=== PATIENT | female | born 1950 | race Caucasian/White ===

== ENCOUNTER 2018-05-28 17:34 | Outpatient (REF) | payer MEDICARE, MEDICAID, SELFPAY ==
[2018-05-28 18:20] LABS: HCT 41.3 % (36.0-46.0); HGB 13.5 g/dL (12.0-15.5); Mean Corp. HGB Concentration 32.7 g/dL (32.0-36.0); Mean Corpuscular Hemoglobin 29.2 pg (27.0-33.0); Mean Corpuscular Volume 89.2 fL (80-95); Mean Platelet Volume 10.6 fL (8.0-11.0); Platelet Count 265 x1000/uL (130-400); RBC 4.63 m/cumm (4.00-5.20); White Blood Cell Count 7.55 k/cumm (4.4-10.8)
[2018-05-28 18:29] LABS: Anion Gap 7.5 mmol/L (3-11); BUN 13 mg/dL (7-18); CO2 27.5 mmol/L (21.0-32.0); CREATININE 0.58 mg/dL (0.55-1.02); Calcium 8.8 mg/dL (8.5-10.1); Chloride 103 mmol/L (98-107); Glucose 114 mg/dL (70-100); Potassium 4.3 mmol/L (3.5-5.1); Sodium 138 mmol/L (136-145)
[2018-05-28 21:04] LABS: Hemoglobin A1C 6.3 % (4.5-6.2)
== END 2018-05-28 17:54 ==
LOC: NCHCN 17:34
PROVIDERS: PCP Family Medicine; Visit Provider Family Medicine
DX: G80.9 Cerebral palsy, unspecified (principal); R73.01 Impaired fasting glucose
CPT/HCPCS: 80048; 85027; 83036

== ENCOUNTER 2019-11-22 07:20 | Emergency (ER) | payer MEDICARE, MEDICAID, SELFPAY ==
[2019-11-22] VITALS (13 sets, daily range): BP systolic 97–116; BP diastolic 55–84; PULSE 79–102; TEMP 36.3–36.4; O2SAT 92–97
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
--- NOTE | 2019-11-22 08:15 | DI.CT_ITS ---
EXAM: CT THORACIC LUMBAR SPINE REC CLINICAL HISTORY: s/p fall, r/o thoracic/lumbar fractures TECHNIQUE: Axial, coronal and sagittal images were reconstructed from the chest abdomen pelvic CT. COMPARISON: LUMBAR SPINE COMPLETE from 06/28/2010 FINDINGS: There is old an old mild compression of the superior endplate of T11 which is seen on the previous l umbar spine plain films. There is no evidence of an acute fracture. A bone island is seen in the T1 0 vertebral body. Old healed left lower rib fractures are seen. There are degenerative disc changes and facet degenerative changes greater in the lower lumbar spine. No spondylolysis or spondylolisth esis is seen. There is no paraspinal hematoma. SI joints appear intact. IMPRESSION: Old mild compression fracture of the superior endplate of T11. Degenerative changes greatest in the lower lumbar spine. No acute abnormality.
--- NOTE | 2019-11-22 08:15 | DI.CT_ITS ---
EXAM: CT CHEST/ABD/PEL W CLINICAL HISTORY: s/p fall, anterior chest pain. TECHNIQUE: Imaging Protocol: Axial computed tomography images with coronal and sagittal reformatted images were created and reviewed CONTRAST MATERIAL: Intravenous: Omnipaque 350 Contrast volume:100 ml Oral contrast: No COMPARISON: None FINDINGS: CHEST: Thyroid: Normal Tracheobronchial tree: Patent where visualized. Mediastinum and Melida: No dominant adenopathy or fluid collection. Pulmonary parenchyma: No consolidation or dominant measurable mass. No emphysematous or fibrotic praful nges Pleura: No effusion or pneumothorax. Lymph nodes: Within normal limits. Aorta: Thoracic portion non-dilated. Mild calcifications Heart: Normal in size Bones: Old left lower rib fractures. No evidence of an acute sternal or rib fracture. Degenerative changes are seen in the spine. A moderate size hiatal hernia is seen. ABDOMEN: Liver: Normal density. No measurable mass. Incidental small cysts. Gallbladder and biliary tract: No radiodense calculus or dilation. Pancreas: Normal density, no abnormal calcifications or inflammatory process. Spleen: Normal. Kidneys: Normal size, contour and axis. No radiodense stones or obstructive uropathy. No masses seen. Adrenal glands: No masses seen. Aorta: Abdominal portion non-dilated. Lymph nodes: Within normal limits. PELVIS: Bladder: Symmetric distention, no gross wall thickening. Bowel: No obstruction or bowel wall thickening. Increased quantity of stool. Diverticulosis without evidence of diverticulitis. The appendix appears normal. Peritoneal cavity: No ascites, collection or mesenteric inflammatory response. Bones: Within normal limits. Reproductive organs: Within normal limits. IMPRESSION: No acute abnormality is seen in the chest abdomen or pelvis.. DATA REPOSITORY: All CT scans at this facility are submitted to the National Radiology Data Registry (NRDR) Dose Index Registry (DIR) with the [employer] ([employer]). RADIATION OPTIMIZATION: All CT scans at this facility use at least one of these dose optimization te chniques: automated exposure control; mA and/or kV adjustment per patient size (includes targeted exa ms where dose is matched to clinical indication); or iterative reconstruction.
[2019-11-22] MEDS: Normal Saline 500 ML IV (08:30)
[2019-11-22 08:43] LABS: Abs Immature Grans 0.02 k/cumm (0.0-0.09); Absolute Basophil Count 0.01 k/cumm (0.0-0.2); Absolute Eosinophil Count 0.01 k/cumm (0.0-0.7); Absolute Lymphocyte Count 0.74 k/cumm (1.2-3.4); Absolute Monocyte Count 0.91 k/cumm (0.11-0.7); Basophils % 0.1; Eosinophils % 0.1; HCT 40.8 % (36.0-46.0); HGB 13.4 g/dL (12.0-15.5); Immature Grans % 0.2 %; Lymphocytes % 5.7; Mean Corp. HGB Concentration 32.8 g/dL (32.0-36.0); Mean Corpuscular Hemoglobin 28.6 pg (27.0-33.0); Neutrophils % 86.9; Platelet Count 277 x1000/uL (130-400); RBC 4.69 m/cumm (4.00-5.20); RBC Distribution Width 14.5 % (11.7-14.6); White Blood Cell Count 13.07 k/cumm (4.4-10.8)
[2019-11-22 08:45] LABS: Absolute Neutrophil Count 11.36 k/cumm (1.2-6.7)
[2019-11-22 08:48] LABS: ALT 20 U/L (14-59); AST 25 U/L (15-37); Albumin 3.5 g/dL (3.4-5.0); Alkaline Phosphatase 73 U/L (46-116); Anion Gap 8.6 mmol/L (3-11); BUN 11 mg/dL (7-18); Bilirubin, Total 0.8 mg/dL (0.2-1.0); CO2 25.4 mmol/L (21.0-32.0); CREATININE 0.54 mg/dL (0.55-1.02); Calcium 8.9 mg/dL (8.5-10.1); Chloride 105 mmol/L (98-107); Glucose 156 mg/dL (74-106); Potassium 3.3 mmol/L (3.5-5.1); Sodium 139 mmol/L (136-145); Total Protein 7.1 g/dL (6.4-8.2)
[2019-11-22 08:49] LABS: Creatine Kinase 247 U/L (26-192)
[2019-11-22 08:51] LABS: Bilirubin Negative (Negative); Blood Negative (Negative); Clarity Sl Cloudy (Clear); Glucose Negative (Negative); Ketones 15 mg/dL (Negative); Leukocyte Esterase Small (Negative); Nitrite Negative (Negative); Urobilinogen 0.2 EU/dL (Up TO 0.2); pH 5.5 (5-8)
[2019-11-22] MEDS: Omnipaque 350 MG/ML 100 ML BTL IJ (08:58)
[2019-11-22 09:03] LABS: Bacteria Many HPF (Negative); Epithelial Cells Moderate HPF (Negative); RBC 0-2 HPF (0-2)
[2019-11-22 09:04] LABS: C & S Indicated? No/Sq. Contamination; Crystals Moderate Amorphous HPF (Negative)
[2019-11-22] MEDS: Normal Saline - Diluent 50 ML VIAL IV (09:06)
--- NOTE | 2019-11-22 09:38 | DI.CT_ITS ---
EXAM: CT HEAD CERVICAL SPINE WO CLINICAL HISTORY: s/p fall, hit head on door, no loc. TECHNIQUE: Imaging Protocol: Axial computed tomography images with coronal and sagittal reformatted images were created and reviewed COMPARISON: No exams were available for comparison FINDINGS: Head CT No intracranial hemorrhage or skull fracture is seen. There is atrophy and compensatory ventricular enlargement. White matter changes of small vessel disease present. Calvarium: Normal. Visualized Paranasal sinuses/Mastoids: Clear. The orbits are unremarkable. IMPRESSION: Atrophy. No acute abnormality. FINDINGS: Cervical Spine CT BONES: Vertebral body heights are maintained. Alignment is normal. There is no evidence of acute frac ture. SOFT TISSUES: No paraspinal hematoma. The airway appears intact. Degenerative disc changes and facet degenerative changes are seen throughout . IMPRESSION: Degenerative changes, no acute abnormality. RADIATION DOSE DELIVERED: DATA REPOSITORY: All CT scans at this facility are submitted to the National Radiology Data Registry (NRDR) Dose Index Registry (DIR) with the [employer] ([employer]). RADIATION OPTIMIZATION: All CT scans at this facility use at least one of these dose optimization te chniques: automated exposure control; mA and/or kV adjustment per patient size (includes targeted exa ms where dose is matched to clinical indication); or iterative reconstruction.
[2019-11-22] MEDS: Ketorolac 30 MG/ML VIAL IVP (09:52)
[2019-11-22] MEDS: Acetaminophen 500 MG TAB 1000 MG PO (10:02)
== END 2019-11-22 11:43 | disposition home or self-care (01) ==
PROVIDERS: Emergency Provider Physician Assistant; PCP Family Medicine
DX: S20.222A Contusion of left back wall of thorax, initial encounter (principal); S30.0XXA Contusion of lower back and pelvis, initial encounter; S09.8XXA Other specified injuries of head, initial encounter; W06.XXXA Fall from bed, initial encounter; G80.9 Cerebral palsy, unspecified
CPT/HCPCS: 74177; 80053; 82550; 93005; 96361; 96374; 99285; 70450; 71260; 72125; 81003; 81015; 85025; 93010; 99284; J1885; J3490

== ENCOUNTER 2020-01-10 15:13 | Outpatient (REF) | payer MEDICARE, MEDICAID, SELFPAY ==
[2020-01-11 17:42] LABS: COVID-19 RT-PCR Result NEGATIVE (Negative)
== END 2020-01-10 15:33 ==
LOC: NCHCN 15:13
PROVIDERS: PCP Family Medicine; Visit Provider Family Medicine
DX: J02.9 Acute pharyngitis, unspecified (principal)
CPT/HCPCS: U0003

== ENCOUNTER 2020-10-02 08:17 | Outpatient (REF) | payer MEDICARE, MEDICAID, SELFPAY ==
[2020-10-02 09:01] LABS: HCT 44.2 % (36.0-46.0); HGB 14.1 g/dL (11.2-15.7); MCH 28.1 pg (27.0-33.0); MCHC 31.9 % (32.0-36.0); MPV 10.1 fL (8.0-11.0); Platelet Count 270 10^3/uL (130-400); RBC 5.02 10^6/uL (3.93-5.22); RDW 14.2 % (11.7-14.6); RDW-SD 45.9 fL; WBC 5.74 10^3/uL (4.4-10.8)
[2020-10-02 09:08] LABS: ALT 26 U/L (14-59); AST 17 U/L (15-37); Albumin 3.8 g/dL (3.4-5.0); Alkaline Phosphatase 91 U/L (46-116); BUN 13 mg/dL (7-18); Bilirubin, Total 1.1 mg/dL (0.2-1.0); CREATININE 0.5 mg/dL (0.55-1.02); Calcium 9.4 mg/dL (8.5-10.1); Calculated LDL 162 mg/dL (<100); Chloride 102 mmol/L (98-107); Cholesterol 249 mg/dL (<200); Glucose 92 mg/dL (74-106); HDL Cholesterol 68 mg/dL (40-60); Potassium 3.9 mmol/L (3.5-5.1); Sodium 140 mmol/L (136-145); Total Protein 7.3 g/dL (6.4-8.2); Triglyceride 98 mg/dL (<150)
== END 2020-10-02 08:18 | disposition home or self-care (01) ==
LOC: LBN 08:17
PROVIDERS: PCP Family Medicine; Visit Provider Family Medicine
DX: R73.01 Impaired fasting glucose (principal); E78.5 Hyperlipidemia, unspecified; G80.9 Cerebral palsy, unspecified; R68.89 Other general symptoms and signs
CPT/HCPCS: 80053; 80061; 85027; 83036

== ENCOUNTER 2022-05-23 14:09 | Outpatient (REF) | payer MEDICARE, MEDICAID, SELFPAY ==
[2022-05-23 16:47] LABS: Hemoglobin A1C 6.1 % (<5.7)
[2022-05-24 10:52] LABS: Hepatitis C Ab w Rflx HCV PCR Negative (Negative)
== END 2022-05-23 14:10 | disposition home or self-care (01) ==
LOC: NCHCN 14:09
PROVIDERS: PCP Family Medicine; Visit Provider Family Medicine
DX: R73.03 Prediabetes (principal); Z11.59 Encounter for screening for other viral diseases
CPT/HCPCS: 86803; 83036

== ENCOUNTER → 2023-01-19 13:07 | Outpatient (BNVA) | payer MEDICARE, MEDICAID, SELFPAY | PROVIDERS: PCP Family Medicine; Referring Provider Family Medicine; Visit Provider Physical Therapy Assistant | DX: Z12.11 Encounter for screening for malignant neoplasm of colon (principal); Z86.010 Personal history of colon polyps ==

== ENCOUNTER 2023-02-03 09:13 | Day surgery (SDC) | payer MEDICARE, MEDICAID, SELFPAY ==
--- NOTE | 2023-02-02 15:57 | W.COLOREPORT ---
Date of service: 02/04/23 Time of Service: 13:00 Colonoscopy Report Date of procedure: 02/03/23 Pre-op diagnosis general: sessile serrated adenoma Surgeon: Princess Nunes Anesthesia Type: General:No Airway Complications: None Disposition: no change Prep: Miralax/Dulcolax Procedure Description: After informed consent was obtained the patient was taken to the procedure room and placed in a left decubitous position. Monitors were applied and a time out was done. The patients name, date of , procedure, allergies to medications and metal in their body was reviewed. The patient was then sedated. Once sedated and comfortable a rectal exam was done. External exam was normal. Internal exam revealed a normal sphincter tone and no palpable masses. The scope was then introduced and retrofelexed. No internal hemorrhoids were identified. The scope was then advanced to the cecum w/out difficulty. The TI and appendiceal orifice were identified. The prep was BBPS 3 in all segments for total of 9. The scope was then slowly retracted over 11 minutes back into the rectum. She has severe diverticula that do carry all the way over to the transverse colon. They are numerous [place]. There is inspissated stool. There is no signs of active bleeding or infection. She has 3 polyps that are removed 1 at 80 cm, and 2 in the rectum. The one at 80 cm is a 1 cm flat polyp. This is removed with a cold snare. All specimen is retrieved and no bleeding is noted. The 2 polyps in the rectum are removed with cold biting forcep. The scope was removed and the patient was woken up and taken back to Same day surgery in stable condition. The patient tolerated the procedure well and there were no immediate complications. Follow up: The patient should follow up in 3-5 years, path pending, unless they develop changes in bowel habits or other new gastrointestinal complaints.
--- NOTE | 2023-02-02 15:58 | PDOC.DSDIS_ITS ---
Date of service: 02/03/23 Time of Service: 13:15 Discharge Plan Disposition Patient Disposition: Home Condition: Good Discharge Details Reason For Visit: colonscopy Attending Provider: Princess Nunes Primary Care Provider: Sarah Schwab Home Meds and New Rx's Prescriptions: New Metamucil 3.4 gram/5.4 gram powder 1 tbsp PO DAILY Qty: 660 12RF Rx Instructions: mix into at least 8 oz of water or juice before administering Continued oxybutynin chloride 5 mg tablet 5 mg PO BID nystatin 100,000 unit/gram powder 1 applic topical BID PRN metronidazole [Metrogel] 1 % gel 1 applic topical DAILY (DME) Breezers Adult Brief Misc See Rx Instructions .Route Rx Instructions: As directed ibuprofen 200 mg tablet 200 mg PO Q6H PRN cholecalciferol (vitamin D3) 50 mcg (2,000 unit) capsule 50 mcg PO DAILY Discontinued bisacodyl [Dulcolax (bisacodyl)] 5 mg tablet,delayed release (DR/EC) 5 mg PO ONCE Qty: 4 0RF Rx Instructions: Take per colonoscopy instructions provided by ordering providers office polyethylene glycol 3350 17 gram/dose powder 17 g PO ONCE Qty: 238 0RF Rx Instructions: Take per colonoscopy instructions provided by ordering providers office Discharge Instructions Additional Instructions: DSU Colonoscopy Post- Op Instructions Instructions for Everyone who is given Anesthesia: For your safety, please do the following for the next twenty-four (24) hours: *Do Not operate a motor vehicle (car, truck, motorcycle, etc.) *Do Not drink alcoholic beverages or use any recreational drugs for the first 24 hours or while taking pain medications. The medications in your body may have a reaction that can be dangerous. *Do Not make any important decisions or sign any important papers. Findings: POlyps Severe diverticula--Fiber/Metamucil daily to avoid constipation. Follow up: My office will send a letter in 2 to 3 weeks time with the results of the polyps and when we want you to repeat the colonoscopy. 1. No lifting over 20 pounds or strenuous activity for the first 24 hours after your procedure. After 24 hours there are no restrictions on your activity but you may feel fatigued for a few days. 2. After you arrive home you may have a light meal and return to your normal diet as you can tolerate it without feeling sick to your stomach. 3. You may have a bloated, gaseous feeling in your belly (abdomen) after a colonoscopy. Passing gas and belching will help. Walking or lying down on your left side with your knees flexed may relieve the discomfort. Call the office at [phone] (Office) or [phone] (Hospital) right away if you notice any of the following: a.Vomiting of blood or ?coffee ground stools?. b.Rectal bleeding 1Tbsp, blood clots or continuous bleeding. c.Severe belly (abdominal) pain. d.A hard distended belly (abdomen) and an inability to pass gas. 4. Please don?t expect to have a normal BM (bowel movement) for 2-3 days after your procedure. 5. If there are questions regarding the findings of your procedure, please contact your doctor 6. If you are unable to contact your doctor with a problem, contact the hospital at [phone]. 7. Continue all your regular medications unless directed otherwise. I understand the above instructions and have no questions. Signature of Patient or Adult Escort Name of Responsible Adult Escort Signature of Nurse Date/Time Stand Alone Forms: Anesthesia Discharge Inst., Press Ganey (DSU) Activity:: see above Diet:: see above Discharge Orders Discharge Orders: Discharge Order (Routine); Ordered 02/03/23 Ordered By: Princess Nunes DS: Diagnosis Discharge Diagnosis (1) GERD (gastroesophageal reflux disease): (2) History of adenomatous polyp of colon: Asessment and Plan: The patient is seen and examined after their colonoscopy.? The patient has been able to pass gas.? They are not having abdominal pain.? They have been able to tolerate liquids and a snack.? They do not have any nausea or vomiting.? They are not having any chest pain or shortness of breath.??? They are not having any rectal bleeding. Their vital signs have been stable-see nursing notes. We discussed findings during their colonoscopy, and any biopsies that were done/polyps that were removed. The patient will be sent a letter with any biopsy results, and when to repeat the colonoscopy.-see discharge instructions. Patient was given explicit instructions to follow-up regarding colonoscopy-refer to discharge instructions.? We reviewed resumption of medications. Patient verbalized understanding and discharged in stable and satisfactory condition- See nursing notes. (3) History of cerebral palsy: (4) History of head injury: (5) Hyperlipidemia: (6) Osteopenia: (7) Prediabetes:
[2023-02-03 09:20] VITALS: BP 131/75; PULSE 76; RESP 16; TEMP 36.2; O2SAT 98
--- NOTE | 2023-02-03 10:49 | W.ANESPRE ---
General Info Date of Service Date Performed: 02/03/23 Height: 4 ft 8 in Weight: 62.5 kg Body Mass Index (BMI): 30.9 Surgical Procedure: Operation Date: 02/03/23 10:20 Proposed Procedure Side Surgeon zeke Nunes, Meds Allergies and Home Medications Allergies Allergy/AdvReac Type Severity Reaction Status Date / Time fluoxetine AdvReac Nausea Unverified 02/03/23 09:32 Home Medication Medication Instructions Recorded cholecalciferol (vitamin D3) 50 50 mcg PO DAILY 12/16/22 mcg (2,000 unit) capsule diaper,brief,adult,disposable 12/16/22 (Breezers Adult Brief) ibuprofen 200 mg tablet 200 mg PO Q6H PRN 12/16/22 metronidazole 1 % topical gel 1 applic topical DAILY 12/16/22 (Metrogel) nystatin 100,000 unit/gram topical 1 applic topical BID PRN 12/16/22 powder oxybutynin chloride 5 mg tablet 5 mg PO BID 12/16/22 Current Visit Medications: Current Medications Generic Name Dose Route Start Last Admin Trade Name Freq PRN Reason Stop Dose Admin Hyoscyamine Sulfate 0.125 mg 02/03/23 03:55 Hyoscyamine 0.125 Mg Sl/Oral/Chew SL 03/05/23 03:54 DIRECTED PRN Ringer's Solution 1,000 mls @ 80 mls/hr 02/03/23 06:00 IV 03/04/23 23:59 INFUSION [facility] IV Miscellaneous Supplies 1 each 02/03/23 06:00 Iv Access IV 03/04/23 23:59 DIRECTED [facility] Ondansetron HCl 4 mg 02/03/23 03:55 Ondansetron 4 Mg/2 Ml Vial IVP 03/05/23 03:54 Q4H PRN PRN Nausea / Vomiting Sodium Chloride 0 ml 02/03/23 06:00 Normal Saline Flush 10 Ml Syr IV 03/04/23 23:59 PRN PRN Sodium Chloride 0 ml 02/03/23 06:00 Normal Saline 10 Ml Vial IJ 03/04/23 23:59 DIRECTED PRN Sterile Water 0 ml 02/03/23 06:00 Water,Injection,Sterile 10 Ml Vial IJ 03/04/23 23:59 DIRECTED PRN [facility] Medical History Medical History Arthritis of spine Club foot GERD (gastroesophageal reflux disease) History of adenomatous polyp of colon History of cerebral palsy History of head injury (~1988) Hyperlipidemia Obesity Osteopenia Prediabetes Strabismus Urinary incontinence Vitamin A deficiency Surgical History Surgical History History of colonoscopy with polypectomy 2011 2006 Leg - childhood Tobacco Smoking/Tobacco Use Status: Former Tobacco Use Alcohol Alcohol Intake: never Substance Use Substance use type: does not use Vital Signs and Lab Results Vital Signs Most Recent Vital Signs in EMR: Most Recent Vital Signs Temp Pulse Resp BP Pulse Ox 36.2 C L 76 16 131/75 98 02/03/23 09:20 02/03/23 09:20 02/03/23 09:20 02/03/23 09:20 02/03/23 09:20 Lab Results Blood Type / Crossmatch: No Data to Display Complete Blood Count: No Data to Display Complete Metabolic Panel: No Data to Display Liver Function Panel: No Data to Display Coagulation Panel: No Data to Display Cardiac Panel: No Data to Display Arterial Blood Gas: No Data to Display Venous Blood Gas: No Data to Display Pancreas Panel: No Data to Display Thyroid Panel: No Data to Display Infectious Disease: No Data to Display Blood Cultures: No Data to Display Toxicology Panel: No Data to Display Imaging and Studies Imaging and Studies Study information below may be from another EMR and interpreted by another provider. Please see original notes in EMR for more complete details. Echocardiogram Summary: ECHOCARDIOGRAM REPORT PATIENT NAME: BRANDI MCDOWELL #: [id number] ADMITTING PROVIDER: ARON LOZOYA MD #: [id number] PRIMARY CARE PROVIDER: SARAH MANN MDDATE OF SERVICE: 11/15/13 : 1950 DATE: November 15, 2013 ____ IN PATIENT ____ OUT-PATIENT ORDERING PHYSICIAN: Sarah Mann M.D. HEIGHT: 4 FT 8 IN WEIGHT: 165 LBS BSA: 1.6 m2 STUDY INDICATIONS: Heart murmur. FINDINGS: LEFT VENTRICLE/LVEF: The left ventricle is normal size and function. The ejection fraction is 65%. RIGHT VENTRICLE: Normal size and function. AORTIC VALVE: Trileaflet opens well. No . No AR. MITRAL VALVE: Trace regurgitation. No stenosis. TRICUSPID VALVE: Trace regurgitation. RSV/PA/RIGHT ATRIAL PRESSURE: PA pressure is normal at 28. PULMONIC VALVE: Normal. ATRIA: Normal. DIASTOLIC INDICES: Normal. GREAT VESSELS: Normal. PERICARDIUM: No effusion. SUMMARY: There is normal cardiac anatomy and function. There is no significant valvular disease, ASD or VSD. No pathological source of the murmur is identified. MEASUREMENTS: LVESD 25 mm LVEDD 38 mm IVS 9 mm PW 9 mm Ascending Aorta 31 mm AO. Root 32 mm AV mm AO Velocity m/sec LA 13 cm sq. RA 9 cm sq. Right atrial pressure 10 mmHg AV-PK/M mmHg LVOT size mm LVOT gradient mmHg Deceleration time 223 msec Isovolumic relaxation time 83 msec E/A ratio IVC collapses Uncertain. Yes No Dictated by: CHIO LOZOYA MD Dictated:: [id number]<Electronically signed by CHIO LOZOYA MD> Anesthesia Assessment and Plan Anesthesia History Personal History: No History of Anesthesia Complications Family History: Family History Unknown Exercise Tolerance Exercise Tolerance: Metabolic Equivalents>4 Pertinent Negatives Pertinent Negatives: No Symptoms of GERD, No Major Cardiovascular Symptoms or Complaints and No Major Pulmonary Symptoms or Complaints Cardiac & Pulmonary Exam Cardiac Exam: Normal S1/S2 Heart Sounds Pulmonary Exam: Clear Bilateral Breath Sounds Implantable Cardiac Device Does patient have a Pacemaker or an ICD?: No Airway Exam Known Difficult Airway: No Mallampati Class: 2 Mouth Opening: Normal (> 3cm) Thyromental Distance: Greater than 3 cm Neck Range of Motion: Full ROM Neck Circumference: Normal Teeth Condition: Normal Dentition and Generalized Poor Dentition ASA Classification ASA Score: ASA 3 Emergency Case?: No NPO Status NPO Status: NPO Clears >2 hours, Solids >8 hours Anesthesia Plan Resuscitation Status: Full Code Anesthesia Technique: General Anesthesia Airway Planned: Natural Airway Monitors Used: Standard Monitors Preoperative Comments:: Patient demonstrates understanding of plan and consents to proceed. Reports signs for self and has appropriately answered all questions.
[2023-02-03] MEDS: Lactated Ringers 1,000 ML 80 ML IV (10:58)
[2023-02-03 11:27] VITALS: BMI 30.9
--- NOTE | 2023-02-03 11:40 | BOWEL_PTH ---
PATIENT: Mellisa Mejia LOC: [facility] U#:[id number] AGE/SX: 72/F ROOM: RE02/03/[address]: Princess Nunes : 1950 BED: DIS: 02/03/2023 SPEC #: [id number] RECD: 02/03/23 12:55 STATUS: MISTI RE #: [id number] BJ: 02/03/23 11:[address]: Princess Nunes DEPT: Surgical Specimen RECD BY: Claudia Capps ENTERED: 02/03/23 12:55 SP TYPE: Bowel OTHR DR: Sarah Schwab Tissues: 1 - BIOPSY BOWEL 2 - BIOPSY BOWEL Procedures: GROSS AND MICRO LEVEL 4 Comments: [id number]
[2023-02-03 11:57] VITALS: BP 100/78; PULSE 82; RESP 18; TEMP 36.4; O2SAT 97
--- NOTE | 2023-02-03 12:11 | W.ANESPOSTOP ---
Postoperative Evaluation Date, Time and Location Date Performed: 02/03/23 Time Performed: 12:11 Patient Location: Day Surgery Unit Vital Signs Most Recent Imported Vital Signs: Most Recent Vital Signs Temp Pulse Resp BP Pulse Ox 36.4 C L 82 18 100/78 97 02/03/23 11:57 02/03/23 11:57 02/03/23 11:57 02/03/23 11:57 02/03/23 11:57 Pain Score Most Recent Pain Score: Most Recent Pain Score Pain Level 0 02/03/23 11:57 Assessment Mental Status: Awake (Alert & Oriented to Patient Baseline) Airway and Respiratory Function: Patent airway with normal (patient baseline) respiratory exam Cardiovascular Function: Hemodynamically Stable Hydration Status: Adequately Hydrated Nausea & Vomiting: No Nausea or Vomiting Pain: Pt. Denies Any Pain Peripheral Nerve Block: Patient did not receive a nerve block
[2023-02-03 12:23] VITALS: BP 117/79; PULSE 81; RESP 18; TEMP 36.4; O2SAT 100
== END 2023-02-03 13:36 | disposition home or self-care (01) ==
PROVIDERS: PCP Family Medicine; Visit Provider Surgery
PROC: 0DJD8ZZ Inspection of Lower Intestinal Tract, Via Natural or Artificial Opening Endoscopic (ICD-10-PCS; CPT 45378; principal; 2023-02-03 10:15)
DX: Z12.11 Encounter for screening for malignant neoplasm of colon (principal); K62.1 Rectal polyp; K57.30 Diverticulosis of large intestine without perforation or abscess without bleeding; D12.4 Benign neoplasm of descending colon
CPT/HCPCS: 45385; 45380; 88305

== ENCOUNTER 2023-07-04 15:31 | Outpatient (REF) | payer MEDICARE, MEDICAID, SELFPAY | END 2023-07-04 15:32 | disposition home or self-care (01) | LOC: NCHCN 15:31 | PROVIDERS: PCP Family Medicine; Visit Provider Physician Assistant | DX: N39.0 Urinary tract infection, site not specified (principal) | CPT/HCPCS: 87077; 87086; 87186 ==

== ENCOUNTER 2023-07-10 23:45 | Inpatient (IN) | payer MEDICARE, MEDICAID, SELFPAY ==
[2023-07-10 23:38] VITALS: BP 99/48; PULSE 98; RESP 18; TEMP 36.4; O2SAT 98
[2023-07-10 23:40] VITALS: RESP 21; O2SAT 98
[2023-07-10 23:41] VITALS: BP 99/48; PULSE 82; PULSE 89; RESP 15; O2SAT 99
--- NOTE | 2023-07-10 23:45 | DI.CT_ITS ---
Exam(s) CT BRAIN NECK CTA EXAM: CT BRAIN NECK CTA CLINICAL HISTORY: slurred speech and AMS >24 hours. TECHNIQUE: Imaging Protocol: Axial CT angiography was performed with multi-slice acquisition and mu lti-planar and/or 3D reconstructions. CONTRAST MATERIAL: Intravenous: Omnipaque 350 contrast volume:85 mL COMPARISON: CT CT HEAD CERVICAL SPINE WO from 11/22/[address] THORACIC LUMBAR SPINE REC from 11/22/2019 FINDINGS: CT Head W/O and W: Ventricles and Extra axial spaces: Normal in size and morphology for the patient's age. Hemorrhage: None. Cerebral parenchyma: There are areas of decreased attenuation in the white matter most consistent wit h chronic microvascular ischemic disease. No acute territorial infarct is seen. Midline shift: None. Brainstem/Cerebellum: Normal. Calvarium: Normal. Visualized Paranasal sinuses/Mastoids: Clear. Soft Tissues: Unremarkable. Enhancement: Unremarkable. CTA Neck W: Common Carotid: Medial deviation of both the right and left common carotid arteries. Right: No dissection, occlusion or significant stenosis. Left: No dissection, occlusion or significant stenosis. External Carotid: Right: No occlusion or significant stenosis. Left: No occlusion or significant stenosis. Internal Carotid: Right: No dissection, occlusion or significant stenosis. Left: No dissection, occlusion or significant stenosis. Vertebral Artery: Right: No dissection, occlusion or significant stenosis. Left: No dissection, occlusion or significant stenosis. Lung Apices: Normal. Bones: Within normal limits for the patient's age. Soft Tissues: Normal. Thyroid gland: There are few thyroid nodules. The largest measures 5 mm. No follow-up is recommende d. CTA Brain W: Internal Carotid Arteries: Mild atherosclerosis. No aneurysm, occlusion or significant stenosis. Anterior Cerebral Arteries: Right: No aneurysm, occlusion or significant stenosis. Left: No aneurysm, occlusion or significant stenosis. Middle Cerebral Arteries: Right: No aneurysm, occlusion or significant stenosis. Left: No aneurysm, occlusion or significant stenosis. Posterior Cerebral Arteries: Right: No aneurysm, occlusion or significant stenosis. Left: No aneurysm, occlusion or significant stenosis. Vertebral Arteries: Right: No aneurysm, occlusion or significant stenosis. Left: No aneurysm, occlusion or significant stenosis. Basilar Artery: No aneurysm, occlusion or significant stenosis. IMPRESSION: 1. No large vessel occlusion or significant stenosis on the CT angiography of the head. 2. No acute intracranial process. 3. No occlusion or significant stenosis on the CT angiography of the neck. RADIATION DOSE DELIVERED: Total DLP DATA REPOSITORY: All CT scans at this facility are submitted to the National Radiology Data Registry (NRDR) Dose Index Registry (DIR) with the [employer] (ACR). RADIATION OPTIMIZATION: All CT scans at this facility use at least one of these dose optimization te chniques: automated exposure control; mA and/or kV adjustment per patient size (includes targeted exa ms where dose is matched to clinical indication); or iterative reconstruction.
[2023-07-10 23:50] VITALS: PULSE 86; RESP 15; O2SAT 98
[2023-07-10 23:53] VITALS: RESP 16
--- NOTE | 2023-07-10 23:56 | ED.GENADUL_ITS ---
Discharge Plan Disposition Patient Disposition: Admit to [facility] Condition: Serious Discharge Details Chief Complaint: AMS/LOC Clinical Impression: Dysarthria, Gait instability, Cerebral palsy, Facial droop Primary Care Provider: Sarah Schwab ED Provider: Stormy Bunn Home Meds and New Rx's Prescriptions: No Action oxybutynin chloride 5 mg tablet 5 mg PO BID nystatin 100,000 unit/gram powder 1 applic topical BID PRN metronidazole [Metrogel] 1 % gel 1 applic topical DAILY (DME) Breezers Adult Brief Misc See Rx Instructions .Route Rx Instructions: As directed ibuprofen 200 mg tablet 200 mg PO Q6H PRN cholecalciferol (vitamin D3) 50 mcg (2,000 unit) capsule 50 mcg PO DAILY Metamucil 3.4 gram/5.4 gram powder 1 tbsp PO DAILY Qty: 660 12RF Rx Instructions: mix into at least 8 oz of water or juice before administering Medical Decision Making 72yo F with hx of GERD, HLD, urinary incontinence, presenting via EMS. History from patient and EMS, medical history from [facility] record review. Prior ED notes here show patient with hx of cerebral palsy and uses a walker at baseline. Per EMS, patient has had slurred speech and difficulty walking starting at 5pm on 07/09/23 (>24 hours ago), normal FS BG on their arrival. Lives at home with her . Vital signs reassuring, on exam she does have a left facial droop, mild dysarthria, and weakness (weakness of unclear chronicity). Broad differential; CVA, encephalopathy, NPH. Not concerning for sepsis, meningitis, etc. Labs reviewed as below, CBC & CMP with no significant abnormalities. TSH mildly elevated, normal T4. Normal ammonia. Serum ETOH negative, UDS negative. UTI suggestive of possible infection (vs chronic colonization); will treat with ceftriaxone. Likely not enough to explain patient's current presentation though difficult to determine chronicity of her current neurologic findings (particularly facial droop). Unclear if she is back to baseline. On reassessment she ambulated with difficulty, able to ambulate with walker but unsteadily. Discussed with hospitalist; will admit for strong workup. Given aspirin and plavix load. Boarding in the ED awaiting bed availability. Imaging Data Radiologic Study: Imaging: CT Scan Radiologist's impression: IMPRESSION: 1. No acute intracranial findings on initial unenhanced CT head images. 2. Diffuse cerebral atrophy. Age-related periventricular white matter changes. 3. CTA head within normal limits. No large vessel occlusion. No aneurysm. Radiologic Study #2: Imaging: CT Scan Radiologist's impression: IMPRESSION: CTA neck within normal limits. No arterial dissection, arterial occlusion, or arterial stenosis. Lab Data Lab results reviewed: Yes I reviewed the patient's lab results. Labs: Laboratory Tests Range/Units 07/11/23 00:05 WBC (4.4-10.8) 10^3/uL 9.15 RBC (3.93-5.22) 10^6/uL 4.85 Hgb (11.2-15.7) g/dL 14.3 Hct (36.0-46.0) % 43.8 MCV (80-95) fL 90 MCH (27.0-33.0) pg 29.5 MCHC (32.0-36.0) % 32.6 RDW (11.7-14.6) % 13.6 Plt Count (130-400) 10^3/uL 307 MPV (8.0-11.0) fL 9.8 Immature Gran % 0.3 Neutrophils % 71.0 Lymphocytes % 18.1 Monocytes % 9.5 Eosinophils % 0.8 Basophils % 0.3 Nucleated RBC % (0.0-0.3) % 0.0 Absolute Neutrophils (1.2-6.7) 10^3/uL 6.49 Absolute Lymphocytes (1.2-3.4) 10^3/uL 1.66 Absolute Monocytes (0.1-0.8) 10^3/uL 0.87 H Absolute Eosinophils (0.0-0.7) 10^3/uL 0.07 Absolute Basophils (0.0-0.2) 10^3/uL 0.03 PT (9.1-11.1) sec 11.0 INR (0.9-1.1) 1.1 Sodium (136-145) mmol/L 138 Potassium (3.5-5.1) mmol/L 3.7 Chloride (98-107) mmol/L 103 Carbon Dioxide (21.0-32.0) mmol/L 26.9 Anion Gap (3-11) mmol/L 8.1 BUN (7-18) mg/dL 14 Creatinine (0.55-1.02) mg/dL 0.6 Est GFR (CKD-EPI 2020) (mL/min/1.73m2) 94.72 Glucose (74-106) mg/dL 122 H Calcium (8.5-10.1) mg/dL 9.8 Magnesium (1.8-2.4) mg/dL 2.2 Total Bilirubin (0.2-1.0) mg/dL 1.3 H AST (15-37) U/L 21 ALT (14-59) U/L 23 Alkaline Phosphatase (46-116) U/L 75 Ammonia (11-32) umol/L < 10 L Total Protein (6.4-8.2) g/dL 7.9 Albumin (3.4-5.0) g/dL 3.9 TSH (0.36-3.74) uIU/mL 4.29 H Free T4 (0.76-1.46) ng/dL 1.27 Ethyl Alcohol (<10) mg/dL < 3.0 HPI General Mode of arrival: EMS . Date/Time Provider Initiated Documentation: 07/10/23 23:54 . Limitations to Documentation: altered mental status . Information obtained by: patient, EMS and old records reviewed . HPI Narrative: 72yo F with hx of GERD, HLD, urinary incontinence, presenting via EMS. History from patient and EMS, medical history from [facility] record review. Per EMS, patient has had slurred speech and difficulty walking starting at 5pm on 07/09/23 (>24 hours ago). Patient spoke with someone on the phone (unclear who) and they told her she should come in so she called EMS. Lives at home with her . No recent falls per patient. She denies any pain or injury. Confirms history provided by EMS but unable to expand on it. She is otherwise in her usual state of health; no fevers, chills, chest pain, shortness of breath, nausea, vomiting, abdominal pain, numbness, weakness, vertigo, or other concerns. Prior ED notes here show patient with hx of cerebral palsy and uses a walker at baseline. Related Data Home Medications Medication Instructions Recorded Confirmed cholecalciferol (vitamin D3) 50 50 mcg PO DAILY 12/16/22 07/11/23 mcg (2,000 unit) capsule diaper,brief,adult,disposable 12/16/22 02/02/23 (Breezdomingo Adult Brief) ibuprofen 200 mg tablet 200 mg PO Q6H PRN 12/16/22 07/11/23 metronidazole 1 % topical gel 1 applic topical DAILY 12/16/22 07/11/23 (Metrogel) nystatin 100,000 unit/gram topical 1 applic topical BID PRN 12/16/22 07/11/23 powder oxybutynin chloride 5 mg tablet 5 mg PO BID 12/16/22 07/11/23 psyllium husk 3.4 gram/5.4 gram 1 tbsp PO DAILY #660 grams 02/03/23 07/11/23 oral powder (Metamucil) Previous Rx's Medication Instructions Recorded psyllium husk 3.4 gram/5.4 gram 1 tbsp PO DAILY #660 grams 02/03/23 oral powder (Metamucil) Allergies Allergy/AdvReac Type Severity Reaction Status Date / Time fluoxetine AdvReac Nausea Unverified 07/11/23 00:03 General Stated Complaint: AMS/LOC AMADOR: 3 Review of Systems Narrative: see HPI PFSH All Active Problems (Updated 07/11/23 @ 06:18 by Stormy Bunn MD) Facial droop (Acute) Cerebral palsy (Acute) Gait instability (Acute) Dysarthria (Acute) Discharge planning issues (Acute) DVT prophylaxis (Acute) Pyuria (Acute) TIA (transient ischemic attack) (Acute) Tubular adenoma (Acute ~01/2023) Medical History History of head injury (~1988) Vitamin A deficiency Strabismus GERD (gastroesophageal reflux disease) Hyperlipidemia Arthritis of spine Osteopenia Obesity Urinary incontinence Prediabetes Club foot History of adenomatous polyp of colon History of cerebral palsy Surgical History History of colonoscopy with polypectomy (~01/2023) 2022 2011 2006 Leg - childhood Social History Smoking/Tobacco Use Status: Former Tobacco Use Quit Date: 08/21/02 Smoking risk assessment performed?: Yes Alcohol Intake: never Substance use type: does not use Do you feel safe at home: Yes Do you feel safe in your relationship?: Yes Additional Social history: Lives with Surya in apartment on [address] in [place] Exam Narrative Exam Narrative: General: Alert, in no acute distress. Head: Atraumatic Neck: Trachea midline, Neck supple. ENT: MMM. Cardiac: RRR, no murmurs appreciated Resp: No respiratory distress. CTAB. Abd: Soft, non-distended, nontender : No suprapubic tenderness. Extremities: BLE contracted. Neuro: GCS 15. PERRL. EOMI. Normal sensation in V1, V2, and V3 segments bilaterally. Mild dysarthria. Nasolabial fold flattening on left. Normal hearing to speech. No uvular deviation. Midline tongue protrusion. Motor- 4/5 strength symmetric bilateral upper extremities. 4/5 LLE, 3/5 RLE. Sensation- Intact to light touch and symmetric multiple dermatomes including upper and lower extremities Coordination- No dysmetria on finger to nose Gait: Ambulates unsteadily with walker Course Vital Signs Vital signs: Vital Signs Temperature 36.4 C L 07/10/23 23:38 Pulse 98 H 07/10/23 23:38 Respiratory Rate 18 07/10/23 23:38 Blood Pressure 99/48 L 07/10/23 23:38 Pulse Oximetry 98 07/10/23 23:38 Temperature 36.4 C L 07/10/23 23:38 Temperature Source Temporal Artery Scan 07/10/23 23:38 Pulse 98 H 07/10/23 23:38 Respiratory Rate 18 07/10/23 23:38 Respiratory Effort Normal, Non-Labored 07/10/23 23:50 Blood Pressure 99/48 L 07/10/23 23:38 Blood Pressure Position Supine 07/10/23 23:38 Pulse Oximetry 98 07/10/23 23:38 Oxygen Delivery Method Room Air 07/10/23 23:38 Oxygen Flow Rate 0 07/10/23 23:38
[2023-07-10 23:57] VITALS: BP 130/72; PULSE 82; RESP 14; TEMP 36.1; O2SAT 99
[2023-07-11] VITALS (130 sets, daily range): BP systolic 113–152; BP diastolic 54–96; PULSE 66–122; RESP 10–44; TEMP 36.6; O2SAT 94–100
--- NOTE | 2023-07-11 | DI.US_ITS ---
APPROVED REPORT EXAM: Comprehensive 2D, Doppler, and color-flow Echocardiogram Patient Location: ER Room/Bed: 3 Sourcer: Tashia Wadsworth RDCS (AE) Indications: TIA Other Information Study Quality: Fair. Technically limited study due to body habitus, inability to position patient exa m done supine bedside ER.. Conclusion Normal left ventricular wall thickness and chamber size. Ejection fraction is 55%. No segmental wal l motion abnormality maladies are seen. There is stage I diastolic dysfunction, normal for patient a ge Normal right ventricular size and systolic function Both atria are normal in size There is no structural or hemodynamically significant valvular disease identified Wall motion Left Ventricle Technically limited parasternal imaging. The overall left ventricular systolic function appears judi l. Regional wall motion is not well visualized but grossly normal. There is no ventricular septal def ect visualized. LVEF is 55%. Right Ventricle Right ventricle is not well visualized. Right ventricular systolic function could not be assessed. Atria The left atrium size is normal. The right atrium size is normal. The interatrial septum is intact wit h no evidence for an atrial septal defect. Aortic Valve The aortic valve is normal in structure. Aortic valve is probably trileaflet. There is no aortic valv ular stenosis. No aortic regurgitation is present. Mitral Valve The mitral valve is normal in structure. No evidence of mitral valve stenosis. Trace mitral regurgita tion. Tricuspid Valve The tricuspid valve is normal in structure. There is no tricuspid valve stenosis. Trace tricuspid reg urgitation. Unable to assess PA pressure. Pulmonic Valve Pulmonic valve is not well visualized. There is no pulmonic valvular stenosis. There is no pulmonic v alvular regurgitation. Great Vessels The aortic root is normal in size. Ascending aorta is not well visualized. Aortic arch is not well vi sualized. IVC is normal in size and collapses >50% with inspiration. Pericardium Limited subcostal imaging. 2D Dimensions Ao Root d 3.00 cm F: 2.7 - 3.3 M-Mode TAPSE 3.10 cm (M/F) >1.7 Auto EF LV EDV A4C 84.7 mL LV EDV A2C 73.4 mL LV EDV BP LV ESV A4C 38.1 mL LV ESV A2C 33.4 mL LV ESV BP LVEF(%) A4C 55.0 % LVEF(%) A2C 54.4 % LVEF(%) BP LV SV A4C 46.6 ml LV SV A2C 39.9 ml LV SV BP LV CO A4C 4.1 L/min LV CO A2C 3.6 L/min LV CO BP HR A4C 87.80 BPM HR A2C 89.96 BPM LV EDV Index (BP) LA Volume LA Length A4C 4.2 cm LA Length A2C 4.4 cm LA Area A4C s 13.77 cm2 LA Area A2C s 10.15 cm2 LA Vol A4C A-L 38.22 mL LA Vol A2C A-L 19.79 mL LA Vol Biplane A-L 28.2 mL LA Vol/BSA A4C A-L LA Vol/BSA A2C A-L LA Vol/BSA BP A-L 18.5 mL/m2 LA Vol A4C MOD 35.4 mL LA Vol A2C MOD 18.5 mL LA Vol BP MOD 26.1 mL LV Diastology MV E' medial 0.097 (>0.07 m/s) MV E Vmax 0.69 (0.4-1.3 m/s) MV E/E' MED 7.05 (<14) MV A Vmax 1.15 (0.4-1.3 m/s) MV E' lateral 0.082 (>0.1 m/s) E/A Ratio 0.6 MV E/E' LAT 8.38 (<14) MV E' Average 0.090 m/s MV E/E'(average) 7.66 Aortic Valve AoV Vmax 1.68 m/s LVOT Vmax 1.39 m/s AoV Peak Grad 11.3 mmHg LVOT Peak Grad 7.7 mmHg AoV Area (Vmax) 2.64 cm2 LVOT VTI 0.256 m AoV VTI 0.283 m LVOT Mean Grad 3.9 mmHg AoV Mean Jovany. 1.08 m/s LVOT SV 82.15 mL AoV Mean Grad 5.4 mmHg LVOT Diam s 2.00 cm AoV Area (VTI) 2.90 cm2 Velocity Ratio 0.83 Mitral Valve MV DT 273 (160-240 msec) MV Vmax TIPS 1.27 m/s MV Mean Grad 3.1 (<2mmHg) MV VTI 0.252 m Pulmonary Valve PV Vmax 1.09 (0.5-1.5 m/s) RVOT Vmax 0.94 m/s PV Peak Grad 4.7 mmHg RVOT Peak Gr. 3.5 mmHg PV Mean Jovany 0.72 m/s RVOT VTI 0.171 m PV Mean Grad 2.4 mmHg RVOT Mean Gr. 2.2 mmHg Tricuspid Valve TV S' 0.19 m/s
--- NOTE | 2023-07-11 | DI.MRI_ITS ---
Exam(s) MR BRAIN WO EXAM: MR BRAIN WO CLINICAL HISTORY: TIA with dysarthria, ataxia TECHNIQUE: Multiplanar multisequence MRI of the brain was performed. COMPARISON: CT CT BRAIN NECK CTA from 07/11/2023 FINDINGS: The examination is limited due to patient motion artifact. VENTRICLES AND EXTRA AXIAL SPACES: Normal in size and morphology for the patient's age. MIDLINE SHIFT: None. CEREBRAL PARENCHYMA: No focus of restricted diffusion to suggest acute infarct. No space-occupying le tyson identified. There are areas of hyperintense signal seen in the white matter on the FLAIR and T2 weighted images most consistent with small vessel ischemic disease. HEMORRHAGE: None. BRAINSTEM/CEREBELLUM: Normal. CALVARIUM: Normal. VISUALIZED PARANASAL SINUSES/MASTOIDS:Clear. GRAND TRAVERSE OF TURNER: Normal flow void. PITUITARY GLAND: Unremarkable. OTHER FINDINGS: None. IMPRESSION: 1. The examination is limited due to patient motion artifact. 2. No evidence of an acute infarct. 3. Cerebral atrophy and small vessel ischemic disease. 4. Findings were discussed with the emergency department at 8:17 a.m. on 07/11/2023. DATA REPOSITORY:
[2023-07-11 00:19] LABS: Abs Immature Grans 0.03 10^3/uL (0.0-0.06); Absolute Basophil Count 0.03 10^3/uL (0.0-0.2); Absolute Eosinophil Count 0.07 10^3/uL (0.0-0.7); Absolute Lymphocyte Count 1.66 10^3/uL (1.2-3.4); Absolute Monocyte Count 0.87 10^3/uL (0.1-0.8); Absolute Neutrophil Count 6.49 10^3/uL (1.2-6.7); Basophils % 0.3; Eosinophils % 0.8; HCT 43.8 % (36.0-46.0); HGB 14.3 g/dL (11.2-15.7); Immature Grans % 0.3; Lymphocytes % 18.1; MCH 29.5 pg (27.0-33.0); MCHC 32.6 % (32.0-36.0); MCV 90 fL (80-95); MPV 9.8 fL (8.0-11.0); Monocytes % 9.5; Platelet Count 307 10^3/uL (130-400); RBC 4.85 10^6/uL (3.93-5.22); RDW 13.6 % (11.7-14.6); RDW-SD 45.2 fL; WBC 9.15 10^3/uL (4.4-10.8)
[2023-07-11 00:30] LABS: INR 1.1 (0.9-1.1)
[2023-07-11 00:41] LABS: ALT 23 U/L (14-59); AST 21 U/L (15-37); Albumin 3.9 g/dL (3.4-5.0); Alkaline Phosphatase 75 U/L (46-116); Anion Gap 8.1 mmol/L (3-11); BUN 14 mg/dL (7-18); Bilirubin, Total 1.3 mg/dL (0.2-1.0); CO2 26.9 mmol/L (21.0-32.0); CREATININE 0.6 mg/dL (0.55-1.02); Calcium 9.8 mg/dL (8.5-10.1); Chloride 103 mmol/L (98-107); Estimated GFR 94.72 (mL/min/1.73m2); Glucose 122 mg/dL (74-106); Magnesium 2.2 mg/dL (1.8-2.4); Potassium 3.7 mmol/L (3.5-5.1); Sodium 138 mmol/L (136-145); TSH (W/Ref FT4) 4.29 uIU/mL (0.36-3.74); Total Protein 7.9 g/dL (6.4-8.2)
[2023-07-11 00:42] LABS: ETHANOL BLOOD < 3.0 mg/dL (<10)
[2023-07-11] MEDS: Omnipaque 350 MG/ML 100 ML BTL IJ (00:42)
[2023-07-11] MEDS: Normal Saline - Diluent 50 ML VIAL IJ (00:43)
[2023-07-11] MEDS: Normal Saline Flush 10 ML SYR IVP (00:43)
[2023-07-11 00:47] LABS: Ammonia < 10 umol/L (11-32)
[2023-07-11 00:59] LABS: FREE T4 1.27 ng/dL (0.76-1.46)
--- NOTE | 2023-07-11 01:01 | DI.VRAD_ITS ---
PROCEDURE INFORMATION: Exam: CTA Head With Contrast, Arteriography Exam date and time: 07/11/2023 12:21 AM Age: 72 years old Clinical indication: Stroke-like symptoms; AMS / memory loss; Speech disturbance; Slurred speech; AMS >24 hours TECHNIQUE: Imaging protocol: Computed tomographic angiography of the head with contrast. Exam focused on the arteries. 3D rendering (Not supervised by radiologist): MIP and/or 3D reconstructed images were created by the technologist. Radiation optimization: All CT scans at this facility use at least one of these dose optimization techniques: automated exposure control; mA and/or kV adjustment per patient size (includes targeted exams where dose is matched to clinical indication); or iterative reconstruction. Contrast material: OMNIPAQUE 350; Contrast volume: 85 ml; Contrast route: INTRAVENOUS (IV); COMPARISON: CT HEAD CERVICAL SPINE WO 11/22/2019 8:54 AM FINDINGS: ANTERIOR CIRCULATION: Right internal carotid artery: Intracranial segment is patent with no significant stenosis. No aneurysm. Right middle cerebral artery: No occlusion or significant stenosis. No aneurysm. Right anterior cerebral artery: No occlusion or significant stenosis. No aneurysm. Left internal carotid artery: Intracranial segment is patent with no significant stenosis. No aneurysm. Left middle cerebral artery: No occlusion or significant stenosis. No aneurysm. Left anterior cerebral artery: No occlusion or significant stenosis. No aneurysm. POSTERIOR CIRCULATION: Right vertebral artery: No occlusion or significant stenosis. No aneurysm. Left vertebral artery: No occlusion or significant stenosis. No aneurysm. Basilar artery: No occlusion or significant stenosis. No aneurysm. Right posterior cerebral artery: No occlusion or significant stenosis. No aneurysm. Left posterior cerebral artery: No occlusion or significant stenosis. No aneurysm. Brain: Periventricular white matter areas of decreased density which are likely secondary to chronic ischemia from microvascular change. No acute intracranial hemorrhage. Diffuse cerebral atrophy. Cerebral ventricles: Ventricular prominence in this patient with diffuse cerebral atrophy. Mastoid air cells: Normally aerated mastoid air cells. Paranasal sinuses: No significant disease of the paranasal sinuses. Bones/joints: Unremarkable for patient age. Soft tissues: Unremarkable. IMPRESSION: 1. No acute intracranial findings on initial unenhanced CT head images. 2. Diffuse cerebral atrophy. Age-related periventricular white matter changes. 3. CTA head within normal limits. No large vessel occlusion. No aneurysm. PROCEDURE INFORMATION: Exam: CTA Neck With Contrast Exam date and time: 07/11/2023 12:21 AM Age: 72 years old Clinical indication: Stroke-like symptoms; AMS / memory loss; Speech disturbance; Slurred speech; AMS >24 hours TECHNIQUE: Imaging protocol: Computed tomographic angiography of the neck with contrast. Exam focused on the cervical segments of the vasculature. 3D rendering (Not supervised by radiologist): MIP and/or 3D reconstructed images were created by the technologist. Radiation optimization: All CT scans at this facility use at least one of these dose optimization techniques: automated exposure control; mA and/or kV adjustment per patient size (includes targeted exams where dose is matched to clinical indication); or iterative reconstruction. Contrast material: OMNIPAQUE 350; Contrast volume: 85 ml; Contrast route: INTRAVENOUS (IV); COMPARISON: CT HEAD CERVICAL SPINE WO 11/22/2019 8:54 AM FINDINGS: Right common carotid artery: Medial deviation. No stenosis. No dissection or occlusion. Right internal carotid artery: No stenosis of the extracranial segment. No dissection or occlusion. Right external carotid artery: No occlusion or stenosis of the origin. Left common carotid artery: Medial deviation. No stenosis. No dissection or occlusion. Left internal carotid artery: No stenosis of the extracranial segment. No dissection or occlusion. Left external carotid artery: No occlusion or stenosis of the origin. Right vertebral artery: No stenosis. No dissection or occlusion. Left vertebral artery: No stenosis. No dissection or occlusion. Thyroid: 5-6 mm thyroid nodules. No follow-up imaging is recommended. Soft tissues: No significant soft tissue swelling. Bones/joints: No acute fracture. IMPRESSION: CTA neck within normal limits. No arterial dissection, arterial occlusion, or arterial stenosis. REFERENCES: NASCET CRITERIA. The degree of stenosis in the cervical segment of the internal carotid artery is based on NASCET criteria. Normal is no stenosis. Mild is less than 50% stenosis. Moderate is 50-69% stenosis. Severe is 70% to 99% stenosis. Total occlusion is no detectable patent lumen. Dictated and Authenticated by: Eben Estrella MD. Ordering:ELLA Burrows MD
[2023-07-11 01:04] LABS: Bilirubin Negative (Negative); Blood Trace-intact (Negative); Clarity Sl Cloudy (Clear); Glucose Negative (Negative); Ketones 40 mg/dL (Negative); Leukocyte Esterase Trace (Negative); Nitrite Positive (Negative); Specific Gravity >= 1.030 (1.005-1.025); Urobilinogen 0.2 mg/dL (Up to 0.2)
[2023-07-11 01:11] LABS: Bacteria Many HPF (Negative); C & S Indicated? Yes; Crystals Negative HPF (Negative); Epithelial Cells Few HPF (Negative); Mucus Negative (Negative)
[2023-07-11 01:12] LABS: *AMPHETAMINES SCREEN URINE Negative (Negative); *BARBITURATES SCREEN URINE Negative (Negative); *BENZODIAZEPINES SCREEN URINE Negative (Negative); Cannabinoids THC Negative (Negative); Cocaine Screen,Urine Negative (Negative); METHADONE URINE SCREEN Negative (Negative); OPIATES URINE SCREEN Negative (Negative)
[2023-07-11 01:18] LABS: Tricyclic Antidepressants Negative (Negative)
--- NOTE | 2023-07-11 01:40 | HPE_ITS ---
Date of service: 07/11/23 Time of Service: 01:40 Assessment and Plan Assessment and plan (1) TIA (transient ischemic attack): Status: Acute Assessment and plan: The report of acute onset dysarthria and acute increase in ataxia are concerning for a TIA. At this point just interviewing and examining her it is difficult to tease out what is truly new and what is related to her chornic CP. However we do have an unequivocal report from those who know her well that she had an acute change. I'm not sure if she is back to her baseline at this point or not. Given her age, dysarthria, and length of symptoms, her ABCD2 score is 4 and she qualifies as a high risk TIA. Will load with ASA and clopidogrel and start high intensity statin. no significant coratid stenosis on CTA. we still need EKG, ED called to order as she is boarding down there. Get echocardiogram, quality assurance monitor body, and MRI in AM. (2) Pyuria: Status: Acute Assessment and plan: It is not clear to me she has symptoms of a UTI. She was treated with ceftriaxone x 1. No further treatment. (3) DVT prophylaxis: Status: Acute Assessment and plan: LMWH (4) Discharge planning issues: Status: Acute Assessment and plan: PT oreded to prep her for discharge safelty once her studies are done. History of Present Illness Narrative: 72 yo F with history of cerebral palsy with chronic left sided spasticity and club foot, presented to the emergency room via EMS after an acute onset slurring of her speech that started the evening prior to her presentation and lasted all day the following day, at the end of which her called EMS. Both her and EMS confirmed to the ED team that her speech as well as her ability to walk were both not at her baseline cerebral palsey. They had never seen her present like this. I was not able to personally speak to either the or EMS, but per report the EMS team knows Mrs Mejia well and told her she needed to come in. Mrs. Mejia relates her concern she may have had a stroke, but is not able to give a clear narrative of the timing of what has happened. She states she had a headache earlier today, not now. Has some right sided neck discomfort. She did not have any seizures or similar abnormal movement. She denies chest pain or LOC. Review of Systems Constitutional Constitutional: Reports as per HPI, Denies anorexia, Denies chills, Denies fever(s) and Denies weakness Eyes Eyes: Denies change in vision, Denies diplopia, Denies irritation, Denies loss of vision and Denies photophobia ENT Ears, Nose, Mouth, and Throat: Denies dysphagia, Denies dizziness, Denies nasal congestion, Denies nasal discharge and Denies sore throat Cardiovascular Cardiovascular: Denies chest pain, Denies syncope, Denies palpitations, Denies dyspnea and Denies orthopnea Respiratory Respiratory: Denies cough, Denies excessive phlegm production, Denies dyspnea and Denies wheezing Gastrointestinal Gastrointestinal: Denies abdominal pain, Denies constipation, Denies dysphagia, Denies heartburn, Denies diarrhea, Denies nausea and Denies vomiting Genitourinary Genitourinary: Denies hematuria, Denies dysuria and Reports urinary incontinence (chronic) Musculoskeletal Musculoskeletal: Reports abnormal gait Comments: some low back pain on right Integumentary/Breasts Skin/Breast: Denies rash and Denies skin ulcer Neurologic Neurologic: Reports abnormal speech, Reports abnormal gait, Denies confusion, Denies dizziness, Denies syncope, Reports localized weakness (left side, chronic), Denies loss of vision, Denies convulsions, Denies sensory deficit and Denies weakness Psychiatric Psychiatric: Denies confusion and Denies mood swings Endocrine Endocrine: Denies palpitations Hematologic/Lymphatic Hematologic/Lymphatic: Denies easy bleeding Allergic/Immunologic Allergic/Immunologic: Denies wheezing PFSH All Active Problems Discharge planning issues (Acute) DVT prophylaxis (Acute) Pyuria (Acute) TIA (transient ischemic attack) (Acute) Tubular adenoma (Acute ~01/2023) Medical History History of head injury (~1988) Vitamin A deficiency Strabismus GERD (gastroesophageal reflux disease) Hyperlipidemia Arthritis of spine Osteopenia Obesity Urinary incontinence Prediabetes Club foot History of adenomatous polyp of colon History of cerebral palsy Surgical History History of colonoscopy with polypectomy (~01/2023) 2022 2011 2006 Leg - childhood Social History Smoking/Tobacco Use Status: Former Tobacco Use Quit Date: 08/21/02 Smoking risk assessment performed?: Yes Alcohol Intake: never Substance use type: does not use Do you feel safe at home: Yes Do you feel safe in your relationship?: Yes Additional Social history: Lives with Surya [facility] Allergies and Home Medications Allergies Allergy/AdvReac Type Severity Reaction Status Date / Time fluoxetine AdvReac Nausea Unverified 07/11/23 00:03 Home Medications Medication Instructions Recorded Confirmed Type cholecalciferol (vitamin D3) 50 50 mcg PO DAILY 12/16/22 07/11/23 History mcg (2,000 unit) capsule diaper,brief,adult,disposable 12/16/22 02/02/23 History (Breezers Adult Brief) ibuprofen 200 mg tablet 200 mg PO Q6H PRN 12/16/22 07/11/23 History metronidazole 1 % topical gel 1 applic topical DAILY 12/16/22 07/11/23 History (Metrogel) nystatin 100,000 unit/gram topical 1 applic topical BID PRN 12/16/22 07/11/23 History powder oxybutynin chloride 5 mg tablet 5 mg PO BID 12/16/22 07/11/23 History psyllium husk 3.4 gram/5.4 gram 1 tbsp PO DAILY #660 grams 02/03/23 07/11/23 Rx oral powder (Metamucil) Exam Narrative Exam Narrative: GEN: Alert and oriented x 3, pleasant and cooperative, gives tangential and vague history, needs frequent redirection. No acute distress at rest. HEENT: Head atraumatic. Conjunctiva clear, no icterus. PEERL, EOMI. no rhinorrhea. MM a bit dry, OP benign. Neck is supple with no masses or lymphadenopathy, trachea midline LUNGS: CTAB with normal effort CV: RRR with no murmurs, gallops, or rubs. ABD: +BS, soft, NT/ND EXT: no cyanosis, clubbing, or edema MSK: No joint redness or swelling. left leg shorter, clubbed foot. NEURO: CN 2-12 grossly intact x left facial droop at rest. Increased tone left side vs right, though she does have strength in 4 extremities. Speech is stilted and garbled. Normal coordination. No tremor SKIN: No rashes or open wounds. PSYCH: normal mood and affect Results Imaging Imaging Studies: CTA head/neck: 1. No acute intracranial findings on initial unenhanced CT head images. 2. Diffuse cerebral atrophy. Age-related periventricular white matter changes. 3. CTA head within normal limits. No large vessel occlusion. No aneurysm. Labs 07/11/23 00:05 07/11/23 00:05 Labs: Laboratory Results - last 24 hr 07/11/23 07/11/23 00:05 00:50 WBC 9.15 RBC 4.85 Hgb 14.3 Hct 43.8 MCV 90 MCH 29.5 MCHC 32.6 RDW 13.6 Plt Count 307 MPV 9.8 Immature Gran % 0.3 Neutrophils % 71.0 Lymphocytes % 18.1 Monocytes % 9.5 Eosinophils % 0.8 Basophils % 0.3 Nucleated RBC % 0.0 Absolute Neutrophils 6.49 Absolute Lymphocytes 1.66 Absolute Monocytes 0.87 H Absolute Eosinophils 0.07 Absolute Basophils 0.03 PT 11.0 INR 1.1 Sodium 138 Potassium 3.7 Chloride 103 Carbon Dioxide 26.9 Anion Gap 8.1 BUN 14 Creatinine 0.6 Est GFR (CKD-EPI 2020) 94.72 Glucose 122 H Calcium 9.8 Magnesium 2.2 Total Bilirubin 1.3 H AST 21 ALT 23 Alkaline Phosphatase 75 Ammonia < 10 L Total Protein 7.9 Albumin 3.9 TSH 4.29 H Free T4 1.27 Urine Color Yellow Urine Clarity Sl Cloudy Urine pH 5.0 Ur Specific Tucker >= 1.030 H Urine Protein Negative Urine Ketones 40 H Urine Blood Trace-intact H Urine Nitrite Positive H Urine Bilirubin Negative Urine Urobilinogen 0.2 Ur Leukocyte Esterase Trace H Urine RBC 3-5 H Urine WBC 10-20 H Ur Epithelial Cells Few Urine Crystals Negative Urine Bacteria Many Urine Mucus Negative Ur Culture Indicated? Yes Urine Glucose Negative Urine Opiates Screen Negative Urine Methadone Screen Negative Ur Barbiturates Screen Negative Ur Tricyclics Screen Negative Ur Amphetamines Screen Negative U Benzodiazepines Scrn Negative Urine Cocaine Screen Negative Ur THC Screen Negative Ethyl Alcohol < 3.0 Last Vital Signs Temp 36.1 C L 07/10/23 23:57 Pulse 86 07/11/23 00:41 Resp 16 07/11/23 00:50 BP 128/54 L 07/11/23 00:41 Pulse Ox 100 07/11/23 00:50 Time Spent Time spent with Patient: 55-74 minutes Time was spent: preparing to see the patient(eg.review tests), obtaining and/or reviewing separately otained hiistory, ordering medications,tests, procedures, referring, communicating with other health zoo caretaker, indepentently interpreting results and counseling the patient
[2023-07-11] MEDS: Aspirin 325 MG TAB PO (01:46)
[2023-07-11] MEDS: Clopidogrel 300 MG TAB 600 MG PO (01:49)
[2023-07-11] MEDS: cefTRIAXone 1 GM/50 ML BAG IVPB (01:50)
--- NOTE | 2023-07-11 02:45 | RT.EKG_ITS ---
APPROVED REPORT Exam: Resting ECG Reason for Exam: TIA protocol Patient Location: E HR:70 bpm ECG Measurements Heart Rate 70 AXIS CO 139 P 33 QRSd 94 QRS -56 QT 418 T 55 QTc 453 Conclusion Sinus rhythm... V-rate 60- [address] segment or T wave abnormalities to suggest occlusive [place]
[2023-07-11 03:17] LABS: Source Nasal/Nares
[2023-07-11 03:49] LABS: COVID-19 PCR Negative (Negative)
[2023-07-11 06:30] LABS: Calculated LDL 147 mg/dL (<100); Cholesterol 225 mg/dL (<200); HDL Cholesterol 69 mg/dL (40-60); Triglyceride 48 mg/dL (<150)
[2023-07-11 06:42] LABS: Hemoglobin A1C 5.6 % (<5.7)
[2023-07-11] MEDS: Aspirin E.C. 81 MG TABEC PO (08:29)
[2023-07-11] MEDS: Oxybutynin 5 MG TAB PO ×2 (08:29→19:51)
[2023-07-11] MEDS: Enoxaparin 40 MG/0.4 ML SYR SC (08:29)
[2023-07-11] MEDS: Psyllium PKT 1 EACH PO (08:29)
[2023-07-11] MEDS: Cholecalciferol (Vitamin D3) 1,000 UNIT TAB 2000 UNITS PO (08:29)
--- NOTE | 2023-07-11 09:59 | PT.INNT ---
PT Notes Visit Reasons: CALEX Patient on med surg status but still down at the ED boarding. Called the ED and asked if patient was available for PT eval. Shania states that patient is at echo and will be available in an hour or so. Will check in on patient for PT eval, as ordered, later this morning.
[2023-07-11] MEDS: Cefpodoxime 200 MG TAB PO ×2 (11:20→22:30)
--- NOTE | 2023-07-11 11:33 | INITIAL_ITS ---
Date of service: 07/11/23 Time of Service: 11:33 Care Management Initial Assmt Initial Assessment REASON FOR HOSPITALIZATION:: AMS/LOC, Cerebral Palsy PREVIOUS FUNCTIONAL STATUS/SOCIAL/FAMILY SUPPORTS:: Resides with , Surya in [facility]. Requires some community based support at baseline; is attached to [facility]. CURRENT FUNCTIONAL STATUS:: Boarding in ED; awaiting PT consult to inform discharge planning considerations. ADVANCE DIRECTIVES:: None on file. Has patient been provided with info about the portal/API?: No Did the patient sign up for the portal?: No CODE STATUS:: Full Code INSURANCE COVERAGE / FINANCIAL ISSUES:: Medicare, Medicaid CURRENT HOME/COMMUNITY SERVICES/EQUIPMENT:: [facility] PRIMARY CARE PHYSICIAN:: Sarah Schwab POTENTIAL DISCHARGE NEEDS:: Follow up appointments, echocardiogram, media monitor, and MRI PATIENT/FAMILY EDUCATION NEEDS:: Review discharge instructions, discuss Ask Me Three. ANTICIPATED BARRIERS TO DISCHARGE:: None identified. TRANSPORTATION:: TBD by disposition and mobility. PLAN:: Awaiting PT consult to inform needs. CM following. PT recommends short term rehab. Furniture Crater who knows patient at baseline notes decline. Anticipate possible direct to swing bed 1; awaiting medical determination of admission needs, treatment considerations. PFSH All Active Problems (Updated 07/11/23 @ 06:18 by Stormy Bunn MD) Facial droop (Acute) Cerebral palsy (Acute) Gait instability (Acute) Dysarthria (Acute) Discharge planning issues (Acute) DVT prophylaxis (Acute) Pyuria (Acute) TIA (transient ischemic attack) (Acute) Tubular adenoma (Acute ~01/2023) Medical History History of head injury (~1988) Vitamin A deficiency Strabismus GERD (gastroesophageal reflux disease) Hyperlipidemia Arthritis of spine Osteopenia Obesity Urinary incontinence Prediabetes Club foot History of adenomatous polyp of colon History of cerebral palsy Surgical History History of colonoscopy with polypectomy (~01/2023) 2022 2011 2006 Leg - childhood Social History Smoking/Tobacco Use Status: Former Tobacco Use Quit Date: 08/21/02 Smoking risk assessment performed?: Yes Alcohol Intake: never Substance use type: does not use Do you feel safe at home: Yes Do you feel safe in your relationship?: Yes Additional Social history: Lives with Surya in apartment on [facility] [address] [facility] in [facility] [facility]
--- NOTE | 2023-07-11 11:55 | PT.INIE ---
PT Notes Visit Reasons: [facility] Physical Therapy Inpatient Initial Evaluation Date: 07/11/2023 Referring Doctor: Nicola Diaz MD PT Orders: PT CONSULT: Safety consult for D/C Precautions: Fall. Standard. Activity as tolerated. Special orthopedic shoes on when OOB. Patient Profile/Admitting Diagnosis: Mellisa is a 72-year-old female who presented to the ED with left facial droop, slurring of speech, and generalized weakness. Patient is admitted for management of TIA and pyuria. Brain MRI did not show evidence of an acute infarct nor cerebral artery atrophy. CT scan showed negative acute intracranial abnormality. PMHX: All Active Problems Discharge planning issues (Acute) DVT prophylaxis (Acute) Pyuria (Acute) TIA (transient ischemic attack) (Acute) Tubular adenoma (Acute ~01/2023) Medical History History of head injury (~1988) Vitamin A deficiency Strabismus GERD (gastroesophageal reflux disease) Hyperlipidemia Arthritis of spine Osteopenia Obesity Urinary incontinence Prediabetes Club foot History of adenomatous polyp of colon History of cerebral palsy Surgical History History of colonoscopy with polypectomy (~01/2023) 2022 2011 2006 Leg - childhood Social History/Home Situation: Lives with in a private home and 4 steps to enter with rails on both sides. 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 Equipment Owned/DME: FWW Subjective: I wanna know, my . Is he home? Very worried if her made home. Anxiety subsided when PT offered to call using the ED room phone. Initially could not recall phone number but after a while was able to verbalize number. Calmed down considerably after talking with . Objective: General Observation: Chaplain Bone was with patient when PT came in. Patient appearing anxious initially. Club foot on the L, plantarflexion contracture on the R. Mental Status: Alert and oriented as to person and place. Focus impaired, requires frequent redirection to taks and to conversation topic. Word finding difficulty, mild expressive aphasia noted. Pain: Denies pain Vital Signs: Closely monitored via tele ROM: Right Upper Extremity: Shoulder Flexion lacks the last 25% of AROM. Shoulder abduction lacks the last 25% of AROM. Elbow flexion WFL. Wrist flexion WFL. Functional opening and closing of hand WFL. Left Upper Extremity: Shoulder Flexion lacks the last 25% of AROM. Shoulder abduction lacks the last 25% of AROM. Elbow flexion WFL. Wrist flexion WFL. Functional opening and closing of hand WFL. Right Lower Extremity: Hip flexion lacks the last 25% of AROM. Hip abduction lacks the last 25% of AROM. Knee flexion 30 degrees to 80 degrees. Knee extension -30. Ankle dorsiflexion -20 degrees to neutral only. Ankle plantarflexion -20 degrees to 40 degrees. Left Lower Extremity: Hip flexion lacks the last 25% of AROM. Hip abduction lacks the last 25% of AROM. Knee flexion 30 degrees to 80 degrees. Knee extension -30. Ankle dorsiflexion to neutral only. Ankle plantarflexion WFL. STRENGTH: Right Upper Extremity: Shoulder flexors 3-/5. Shoulder abductors 3-/5. Elbow flexors 4-/5. Elbow extensors 4-/5. Emergency Department Nurse strong. Left Upper Extremity: Shoulder flexors 3-/5. Shoulder abductors 3-/5. Elbow flexors 4-/5. Elbow extensors 4-/5. Emergency Department Nurse strong. Right Lower Extremity: Hip flexors 3-/5. Hip abductors 3-/5. Knee flexors 3-/5. Knee extensors 3-/5. Ankle dorsiflexors 3-/5. Ankle plantarflexors 3-/5. Left Lower Extremity: Hip flexors 3-/5. Hip abductors 3-/5. Knee flexors 3-/5. Knee extensors 3-/5. Ankle dorsiflexors 3-/5. Ankle plantarflexors 3-/5. Bed Mobility/Transfers: Moderate to maximal cues given for movement sequence, safety, and AD management Rolling minimal assist Supine to sit moderate assist Sit to supine moderate assist Sit to stand minimal assist Stand to sit minimal assist Bed to bedside moderate assist with heavy guidance needed to move walker during turning as patient is unable to safely manage AD Bedside commode to bed moderate assist with heavy guidance needed to move walker during turning as patient is unable to safely manage AD Gait: R LE scissoring over L LE. Base of support abnormally narrow. PT needed to move walker throughout the walk as patient turns to prevent a fall. Step-to gait pattern. Balance: Static Sitting: Good Dynamic Sitting: Fair Static Standing: Fair Dynamic Standing: Poor Special Tests: Mobility Limitations Standardized Measure [facility] AM-PAC 6 clicks Basic Mobility Inpatient Short Form: Raw Score: 13 CMS Score: 65% deficit Informed Consent/Education: Patient was instructed in purpose of PT consult and plan of care. Agreeable to proceed with established PT POC to achieve personal goals. ASSESSMENT: Patient demonstrates functional mobility and cognitive decline limiting her ability to safely perform transfers and ambulation without an assistance of 1 person. Patient presents with clinical signs and symptoms consistent with current/admitting diagnoses that have resulted to mobility limitations, gait instability, generalized weakness, and overall ADL decline as demonstrated by the following impairment level findings: 1. Decreased strength to B UE/LE major muscle groups with L weaker than R 2. Impaired sitting/standing balance 3. Impaired activity tolerance 4. Limitation of joint range of motion in B UE/LE as above 5. 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 Impaired safety awareness Impairments are contributing to the following functional limitations: 1. Decline in bed mobility skills 2. Decline in transfer skills 3. Difficulty with ambulation without assistive device and physical assistance 4. Increased completion time for mobility ADL performance 5. Increased risk for falls 6. Difficulty with managing steps alone safely Patient is assessed as a 89457 moderate complexity based on the following: History: 72-year-old female with past medical history as indicated above Examination: Demonstrable impairment in strength, balance, and mobility level with underlying impairments and functional limitations as exhibited above as well as deficit score of 65% utilizing the [facility] Mobility Inpatient Short Form Presentation: Evolving Decision Makin moderate complexity Goals: Goals X1 week 1. Supine-Sit independent 2. Sit-Supine independent 3. Sit-Stand independent 4. Stand-Sit independent with FWW 5. Bed-Chair independent with FWW 6. Chair-Bed independent with FWW 7. Independent gait on level surface with use of FWW for at least 150 feet without report of pain nor dyspnea 8. Independent stair negotiation while holding onto B rails for at least 4 steps without report of pain nor dyspnea 9. Independent with home exercise program 10. Good static and dynamic standing balance/tolerance Plan of Care/Treatment Plan: 1-2x/day, 7 days/week x 1 week. Plan of care has been reviewed with the UNEMPLOYMENT CLAIMS ADJUDICATOR providing the service under Physical Therapy direction. Initiate Physical Therapy intervention for pain management as needed, strengthening, bed mobility, transfers, gait, stairs, balance training, and use of assistive device. DISCHARGE RECOMMENDATIONS: [] Home with no services [] [] Home with services [specify] [] Home with outpatient PT [] [X] SNF for continued rehabilitation. Patient will benefit from [facility] for continued skilled physical therapy services in order to progress mobility level, strength, and balance in preparation for a safe discharge to home. [] Friction Welding Machine Operator Care [] [] SNF versus LTC based on ability to participate and progress [] TREATMENT CODE/TIME: 40944 x 28 minutes beginning at 9:40 AM. Thank you for the opportunity to participate in the care of this patient. Ramila Richardson PT, DPT, CLT [facility] [place], [place]
--- NOTE | 2023-07-11 14:55 | W.SPSTE ---
Date of service: 07/11/23 Time of Service: 13:00 Subjective Referring physician: Mirian Joshi MD Primary Dx & Reason for referral: episodic dysarthria HPI & SUMMARY: Patient is a 72 y/o F with cerebral palsy with reportedly baseline L>R weakness, who presented to ED with left facial droop, slurred speech and generalized increased L>R weakness. Admitted for management of differential CVA vs encepalophathy. CT and MRI did not reveal any acute infarct, patient admitted to hospitalist service for further workup. It is unknown to providers if her current dysarthria is back to baseline. PMHX: All Active Problems Discharge planning issues (Acute) DVT prophylaxis (Acute) Pyuria (Acute) TIA (transient ischemic attack) (Acute) Tubular adenoma (Acute ~01/2023) Medical History History of head injury (~1988) Vitamin A deficiency Strabismus GERD (gastroesophageal reflux disease) Hyperlipidemia Arthritis of spine Osteopenia Obesity Urinary incontinence Prediabetes Club foot History of adenomatous polyp of colon History of cerebral palsy Surgical History History of colonoscopy with polypectomy (~01/2023) 2022 2011 2006 Leg - childhood Subjective: Patient contacted in ED while awaiting availability of bed on med/surg unit. Very pleasant and agreeable throughout. She was finishing her lunch upon clinician arrival, which she appeared to tolerate well based on brief observation. Patient appears quite labile throughout visit, very quick to laugh at many routine questions and instructions, and resulting in incontinence during session. Regarding baseline LOF, she reports some slurred speech at baseline, as well as word-finding difficulty, both of which she feels were much worse than usual. Since initial presentation to ED, she feels these symptoms have improved some, but not fully back to normal. She seems more fixated on her difficulty with word-finding and putting sentences together than her dysarthric speech. Patient appears to be familiar with the role of PROFILE MILL OPERATOR TAPE CONTROL and believes she has seen PROFILE MILL OPERATOR TAPE CONTROL before but I am unable to confirm this via medical review in [facility] or [facility]. Objective Objective Oral motor/CN exam: Notable primarily for appearance of mild L facial droop and diffuse reduced facial tone. Complicated by L leaning posture which we were unable to fully correct when in stretcher with limited supports. Speech: Intelligibility estimate: 75-85% Lingual, labial, palatal speech AMR/SMR's: Productions are of variable but overall fast rate, with variably reduced precision. Volume and pitch variations within single string of syllables. No overt or clean phoneme transpositions or off-target responses. Primarily notable for prosodic features. Automatic speech: No overt phoneme transpositions. Overall fast rate, with variably reduced precision, and inconsistent fluctuations of pitch, speed, and loudness throughout utterances. Conversational speech: No overt phoneme transpositions. Overall fast rate, with variably reduced precision, and inconsistent fluctuations of pitch, speed, and loudness throughout utterances. Frequently trailing off into less intelligible speech, unclear if this is due to word-finding difficulty, poor awareness, or otherwise. Respiratory support for speech (Max Phonation Time) is WNL for age (15+seconds). Language: --Western Aphasia Battery - Revised -- --Bedside Record Form-- Spontaneous Speech Content: +8/10 Spontaneous Speech Fluency: +6/10 Overt word-finding errors. When full sentences are made they are grammatical but patient frequently trailing off into less intelligible speech or due to word-finding errors. Also noting this task based on visual perception of Cookie Theft picture, patient appears with poor vision and states her glasses left at home. Auditory Verbal Comprehension, Y/N questions: +10/10 Sequential Commands: +8/10 (Patient makes error with less contextual/more unexpected tasks). Repetition: +7/10 Unable to repeat full sentence due to poor immediate recall. Object Naming: +10/10 Bedside Aphasia Score: 82 Assessment Patient presents with likely [id number] dysarthria most consistent with ataxic or mixed profile. Benefits from cues to speak slowly and with clear enunciation, with requests for repetition as needed. She also presents with significant word-finding difficulties and comprehension errors in conversational tasks of increased complexity, whereas confrontation naming and simple comprehension questions are accurate. She also demonstrates decreased repetition skills with longer utterances. When asked to provide a description of a pictured scene, her verbal expression is somewhat scattered, non-specific, without any narrative throughline. Her profile is most consistent with language deficits secondary to poor working memory and immediate memory, though she does at times also demonstrate phonemic paraphasias (e.g., sepser for stepladder). Suspect anxiety and fatigue may also cause secondary exacerbation. Further PROFILE MILL OPERATOR TAPE CONTROL services: PROFILE MILL OPERATOR TAPE CONTROL to follow-up with patient 1-2x weekly while inpatient. Defer to PT/OT for discharge recommendations. She will benefit from PROFILE MILL OPERATOR TAPE CONTROL services at discharge location, either SNF, , or outpatient. Prognosis: Good/fair based on baseline communication deficits 2/2 CP, age, reported improvement since onset, severity. Recommendations: -Provide instructions or information 1 step/item at a time. -State the topic of conversation prior to launching into detail. -Reduce frequency of open-ended questions (e.g., use Y/N questions) in order to facilitate clear communication with the patient. -Request slow rate and clear enunciation from patient as needed. Plan Short Term Goals: Patient will participate in repeat cognitive-communication assessment in order to inform plan of care at discharge. Time spent: 45 minutes Coding CPT Codes SPEECH SOUND LANG COMPREHEN - 61813 ([id number]) Additional Codes Date of Service (37743) Date of service: 07/11/23
--- NOTE | 2023-07-11 17:01 | PTTR_ITS ---
Date of service: 07/11/23 Time of Service: 16:08 PT Notes Visit Reasons: [facility] Inpatient Physical Therapy Treatment Note [facility] Date: 07/11/23 PRECAUTIONS: Fall, standard, activity as tolerated. ORTHOPEDIC SHOES FOR ALL OOB ACTIVITY. SUBJECTIVE: Patient in semi nix's position in ED stretcher. Very talkative. Speech slurred and content extremely difficult to follow. OBJECTIVE: Patient reclined on stretcher in ED, boarding, awaiting a room on [facility] floor. Agreeable to therapy. ? PAIN: none reported VITALS: closely monitored by nursing staff via telemetry. ? Therapeutic Activities (85958y1): Direct one-on-one instruction in dynamic activities to improve functional performance. ? BED MOBILITY/TRANSFERS? Rolling L/R: min assist of 1 with max cueing, max redirection Supine-sit x2: Min assist of 1 to act as an anchor, giving patient something to pull herself up with. Max cueing, max redirection. Patient becomes repeatedly lost in the story she is telling, which is difficult to follow. ? Sit-supine x2: Mod assist of one to raise bilateral legs onto the stretcher ? Sit-stand x3: Min assist pulling up at gait belt. Tactile cue at axilla, frequent verbal cues and redirection.? Stand-sit x3: Min assist pulling back at gait belt, tactile cue at front of shoulder, frequent verbal cues and redirection.? Provided skilled cues and instruction on performance and technique throughout. ? Therapeutic Exercises (78084b3): Direct one-on-one instruction in therapeutic exercises to develop strength, endurance, range of motion and flexibility. Ambulation ? Assistive Device: FWW? Weight bearing: full Assist: mod assist at walker to lead patient around, steering for the patient. Continuous verbal cueing and redirection as patient becomes increasingly agitated about her story. ? Distance:? 10 feet ? Deviation: extreme short step length, scissor gait, patient unable to initiate forward movement without clinician pulling walker forward. Continuous verbal cues, continuous redirection. ? Provided skilled instruction in proper exercise performance Provided skilled manual cues to facilitate proper muscle recruitment and/or form. ASSESSMENT:? Patient tolerates therapy well, is resting comfortably on stretcher at end of therapy with call guillen in easy reach, bilateral guard rails replaced. PLAN: Continue global strengthening per plan of care until patient obtains a safe discharge plan. TREATMENT CODE/TIME: 29 minutes beginning at 16:08.
--- NOTE | 2023-07-11 18:14 | NUR.NOTE ---
brother Lamberto Gomez - [phone] Nursing Note:
[2023-07-11] MEDS: Atorvastatin 40 MG TAB 80 MG PO (19:53)
[2023-07-12] MEDS: Melatonin 3 MG TAB 9 MG PO (02:16)
[2023-07-12 03:10] VITALS: BP 116/75; PULSE 68; RESP 18; TEMP 37.1; O2SAT 99
[2023-07-12 06:06] LABS: Abs Immature Grans 0.04 10^3/uL (0.0-0.06); Absolute Basophil Count 0.03 10^3/uL (0.0-0.2); Absolute Eosinophil Count 0.03 10^3/uL (0.0-0.7); Absolute Lymphocyte Count 0.93 10^3/uL (1.2-3.4); Absolute Monocyte Count 0.78 10^3/uL (0.1-0.8); Basophils % 0.3; Eosinophils % 0.3; HCT 37.9 % (36.0-46.0); HGB 12.5 g/dL (11.2-15.7); Immature Grans % 0.4; Lymphocytes % 10.4; MCH 29.1 pg (27.0-33.0); MCV 88 fL (80-95); MPV 9.3 fL (8.0-11.0); Monocytes % 8.8; Neutrophils % 79.8; Platelet Count 271 10^3/uL (130-400); RDW 13.7 % (11.7-14.6); RDW-SD 44.5 fL; WBC 8.91 10^3/uL (4.4-10.8)
[2023-07-12 06:33] LABS: Anion Gap 10.1 mmol/L (3-11); BUN 12 mg/dL (7-18); CO2 23.9 mmol/L (21.0-32.0); CREATININE 0.5 mg/dL (0.55-1.02); Chloride 105 mmol/L (98-107); Estimated GFR 98.97 (mL/min/1.73m2); Glucose 135 mg/dL (74-106); Potassium 3.2 mmol/L (3.5-5.1); Sodium 139 mmol/L (136-145)
[2023-07-12] MEDS: Potassium Chloride 20 MEQ TABCR 40 MEQ PO (08:40)
[2023-07-12] MEDS: Enoxaparin 40 MG/0.4 ML SYR SC (08:40)
[2023-07-12] MEDS: Cholecalciferol (Vitamin D3) 1,000 UNIT TAB 2000 UNITS PO (08:40)
[2023-07-12] MEDS: Aspirin E.C. 81 MG TABEC PO (08:40)
[2023-07-12] MEDS: Psyllium PKT 1 EACH PO (08:40)
[2023-07-12] MEDS: Oxybutynin 5 MG TAB PO (08:41)
[2023-07-12] MEDS: Clopidogrel 75 MG TAB PO (08:41)
[2023-07-12 08:51] VITALS: BP 149/93; PULSE 98; RESP 18; TEMP 36.7; O2SAT 94
[2023-07-12] MEDS: Cefpodoxime 200 MG TAB PO (10:05)
--- NOTE | 2023-07-12 10:19 | CMPROGNOTE_ITS ---
Date of service: 07/12/23 Time of Service: 10:19 Care Management Progress Note Progress Note Text Progress Note Text: S/O: Mellisa was lying in bed when CM met with her. She screamed out someone is going to fall, and it isn't going to be me!. CM remained in the room, providing support and de escalation, until she was calm. She was not able to participate in meaningful conversation. CM called [facility] and spoke to her EXTENSION COURSE COUNSELOR case planner, Amaya, who stated that at baseline, Mellisa is very functional and stable. She stated that she has a very remote history of inpatient pscyhiatric care, but it was many years ago, and she has not presented with psychiatric symptoms for so long that she is being considered to be removed from EXTENSION COURSE COUNSELOR. Amaya stated that her , Curtis, is less stable than Mellisa at baseline, and also receives support from [facility] EXTENSION COURSE COUNSELOR. Amaya reported that Mellisa has a psychiatric diagnosis of PTSD. Per report, she is being treated for a UTI, and her encephalopathy is likely due to infection. CM will continue to follow. A: Mellisa is a 72 year old female admitted to [facility] on 07/11/23 for TIA. P: Discharge plan unclear at this time; she may benefit from short term rehab, per PT vs home with new services. She will likely transport via private ve hicle by her spouse. She will follow up with her PCP and discharge plan of care. CM will continue to follow.
[2023-07-12] MEDS: LORazepam 2 MG/ML VIAL 0.5 MG IVP (10:22)
--- NOTE | 2023-07-12 10:44 | NUR.NOTE ---
ICU nurse called this nurse to let me know of non-sustained HR >150 that occurred 15 min prior. This nurse went to check the patient and she was resting comfortably in bed, with NAD noted.
--- NOTE | 2023-07-12 10:57 | PTTR_ITS ---
Date of service: 07/12/23 Time of Service: 09:39 PT Notes Visit Reasons: TIA (cardiology) Inpatient Physical Therapy Treatment Note [facility] Date: 07/12/23 PRECAUTIONS: Fall, standard, activity as tolerated. SPECIAL ORTHOTIC SHOES FOR ALL OOB ACTIVITY. SUBJECTIVE: Patient is extremely agitated, appears to be hallucinating, talking to / yelling at someone who is not in the room. Repeatedly accuses that person, this clinician, and several other people of trying to kill her. Intermittently demands that this clinician provides her with a weapon, a gun or a dagger, so that she can act in self defense. CM notified, CM notifies Hospitalist. OBJECTIVE: Supine in bed. Agreeable to therapy. ? PAIN: none reported. VITALS: Closely monitored by nursing staff via telemetry. ? ? BED MOBILITY/TRANSFERS? Rolling L/R: independent with bilateral side rails. Supine-sit: min assist with maximally elevated HOB.? Sit-supine: mod assist to reposition shoulders, raise feet into bed. Max verbal and tactile cues and redirection to get patient into bed. ? Sit-stand: Patient maintains that she cannot stand. Tactile cue at axilla, patient stands CGA. ? Stand-sit: CGA, max verbal cues. ? Bed-Chair: mod assist to move walker, essentially leading patient by the carmela harrington. CGA at gait belt.? Chair-bed: mod assist to move walker, essentially leading patient by the walker. CGA at gait belt.? Gait Training (62874w3): Direct one-on-one instruction and skilled instruction in: [x] employing an assistive device [] modified weight-bearing status [x] movement sequencing [x] turning and movement with proper form [x] Provided verbal cues for equipment management and technique [x] Provided instruction in gait pattern [] Patient education regarding pacing and breathing techniques to maximize activity tolerance? GAIT? Assistive Device: FWW? Weight bearing: full Assist: mod assist to move walker, CGA at gait belt. ? Distance:? 12 feet ? Deviation: reduced step length, step to gait pattern with left leg leading, intermittent scissoring gait. Patient lets go of walker x2 to gesticulate. Balance appears steady when unsupported. Patient has difficulty initiating stepping pattern without tactile cue of the walker moving. ? ASSESSMENT:? Patient's cognition / mental state may be a barrier to safe discharge. Patient requires 1 person assist for all mobility. PLAN: Continue global strengthening per plan of care. Assist care team to determine safe discharge plan. TREATMENT CODE/TIME: 22 minutes beginning at 9:39
[2023-07-12] MEDS: Potassium Chloride 20 MEQ TABCR PO (11:33)
[2023-07-12 11:53] VITALS: BP 137/79; PULSE 90; RESP 18; TEMP 36.6; O2SAT 97
[2023-07-12] MEDS: QUEtiapine 25 MG TAB PO (13:35)
--- NOTE | 2023-07-12 14:04 | W.PM.PROGNOT ---
Date of Service Date of service: 07/12/23 Time of Service: 14:04 Assessment and Plan Assessment and plan (1) Urinary tract infection: Status: Acute Assessment and plan: growing e coli, sensitivities pending and by past ua should respond to cephalosporins. received ceftriaxone and downstepped to vantin while cultures pending. Day 2/ (2) Encephalopathy due to infection: Status: Acute Assessment and plan: paranoia and confusion suspected d/t acute UTI (3) Hypokalemia: Status: Acute Assessment and plan: replete and follow. (4) TIA (transient ischemic attack): Status: Acute Assessment and plan: CVA ruled out, patient at baseline other than some paranoia and behavioral disturbances. echocardiogram Conclusion Normal left ventricular wall thickness and chamber size. Ejection fraction is 55%. No segmental wall motion abnormality maladies are seen. There is stage I diastolic dysfunction, normal for patient age Normal right ventricular size and systolic function Both atria are normal in size There is no structural or hemodynamically significant valvular disease identified MRI: IMPRESSION: 1. The examination is limited due to patient motion artifact. 2. No evidence of an acute infarct. 3. Cerebral atrophy and small vessel ischemic disease. 4. Findings were discussed with the emergency department at 8:17 a.m. on 07/11/2023. CTA head and neck: IMPRESSION: 1. No large vessel occlusion or significant stenosis on the CT angiography of the head. 2. No acute intracranial process. 3. No occlusion or significant stenosis on the CT angiography of the neck. (5) DVT prophylaxis: Status: Acute Assessment and plan: LMWH (6) Discharge planning issues: Status: Acute Assessment and plan: PT following for discharge recommendations case management following for discharge planning. is updated by phone on plan of care and patient confusion/condition. discussed seroquel and possible ray of hope referral and is agreement, discussed with DR Joshi Subjective Subjective Patient reports: tolerating liquids well, tolerating a regular diet and afebrile; denies shortness of breath Interval history since last seen: patient with increased paranoia and hallucinations. no fever, hemodynamically stable. Exam Const General: no acute distress, anxious and ill appearing chronically HENMT Head: normal to inspection Face and sinus: normal facial exam Eyes General: appearance normal, both eyes and all related structures Pupils: PERRL EOM: EOM intact bilaterally Neck Neck: normal visual inspection and No submandibular swelling Lymphatic: no lymphadenopathy noted Chest Chest: normal inspection of the chest Resp Effort & Inspection: normal respiratory effort and able to speak in complete sentences Auscultation: clear to auscultation bilaterally Cardio Rhythm: regular rhythm GI Inspection: normal to inspection Palpation: soft and nontender Auscultation: normal bowel sounds Back/Spine/Pelvis Thoracic/Lumbar Spine: thoracic and lumbar spine normal to inspection and No lumbar spinal tenderness Sacrum: no ecchymosis Skin General skin exam: no rashes or lesions noted Neuro General: patient alert and patient awake Speech: speech normal Extrem General: capillary refill normal, no calf tenderness bilaterally and no edema Psych Speech and Movement: agitated Mood: paranoid Affect: anxious affect Attitude: guarded Thought Content: delusions and hallucinations Insight: poor Judgment: poor Objective Last Vital Signs Temp 36.6 C 07/12/23 11:53 Pulse 90 07/12/23 11:53 Resp 18 07/12/23 11:53 BP 137/79 07/12/23 11:53 Pulse Ox 97 07/12/23 11:53 Laboratory Results - last 24 hr 07/12/23 05:48 WBC 8.91 RBC 4.30 Hgb 12.5 Hct 37.9 MCV 88 MCH 29.1 MCHC 33.0 RDW 13.7 Plt Count 271 MPV 9.3 Immature Gran % 0.4 Neutrophils % 79.8 Lymphocytes % 10.4 Monocytes % 8.8 Eosinophils % 0.3 Basophils % 0.3 Nucleated RBC % 0.0 Absolute Neutrophils 7.10 H Absolute Lymphocytes 0.93 L Absolute Monocytes 0.78 Absolute Eosinophils 0.03 Absolute Basophils 0.03 Sodium 139 Potassium 3.2 L Chloride 105 Carbon Dioxide 23.9 Anion Gap 10.1 BUN 12 Creatinine 0.5 L Est GFR (CKD-EPI 2020) 98.97 Glucose 135 H Calcium 9.0 Magnesium 2.0 Time Spent with Patient Time Spent with Patient: 35-49 minutes Time was spent: preparing to see the patient(eg.review tests), obtaining and/or reviewing separately otained hiistory, ordering medications,tests, procedures, indepentently interpreting results, counseling the patient and care coordination
[2023-07-12 15:48] VITALS: BP 104/70; PULSE 74; RESP 17; TEMP 35.6; O2SAT 97
--- NOTE | 2023-07-12 17:02 | CHAPLAIN ---
I visited with Mellisa three times today. By the afternoon she was more calm, but still was confused, pointing to things in the air, talking about seeing people in the room who weren't there and brining up topics like [place], and a trial that involved a shooting. Usually Mellisa speaks very slowly, but in complete and understandable sentences. She hasn't been like that at all today. Yesterday she was boarding in the ED, but she knew her phone number and wanted to make sure that her , Surya was called. Today she wasn't able to respond to basic questions about herself and was distracted by these other topics that she brought up. I will continue to visit. I know Mellisa from the community. 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
[2023-07-12] MEDS: Lactated Ringers 1,000 ML 100 ML IV (18:32)
[2023-07-12 20:12] VITALS: BP 85/51; PULSE 63; RESP 18; TEMP 35.9; O2SAT 97
[2023-07-12 23:31] VITALS: BP 104/67; PULSE 62; RESP 18; TEMP 36; O2SAT 97
[2023-07-13 03:36] VITALS: BP 104/67; PULSE 92; RESP 18; TEMP 35.5; O2SAT 98
[2023-07-13 06:58] LABS: Abs Immature Grans 0.02 10^3/uL (0.0-0.06); Absolute Basophil Count 0.03 10^3/uL (0.0-0.2); Absolute Eosinophil Count 0.15 10^3/uL (0.0-0.7); Absolute Monocyte Count 0.72 10^3/uL (0.1-0.8); Absolute Neutrophil Count 4.61 10^3/uL (1.2-6.7); Basophils % 0.4; Eosinophils % 2.1; HCT 38.7 % (36.0-46.0); HGB 12.6 g/dL (11.2-15.7); Immature Grans % 0.3; Lymphocytes % 22.4; MCH 29.2 pg (27.0-33.0); MCHC 32.6 % (32.0-36.0); MCV 90 fL (80-95); MPV 9.6 fL (8.0-11.0); Monocytes % 10.1; Neutrophils % 64.7; Platelet Count 257 10^3/uL (130-400); RBC 4.31 10^6/uL (3.93-5.22); RDW 13.7 % (11.7-14.6); RDW-SD 45.9 fL; WBC 7.13 10^3/uL (4.4-10.8)
[2023-07-13 07:14] LABS: Anion Gap 8.5 mmol/L (3-11); BUN 11 mg/dL (7-18); CO2 24.5 mmol/L (21.0-32.0); CREATININE 0.5 mg/dL (0.55-1.02); Calcium 9.2 mg/dL (8.5-10.1); Chloride 105 mmol/L (98-107); Estimated GFR 98.97 (mL/min/1.73m2); Glucose 92 mg/dL (74-106); Magnesium 2.1 mg/dL (1.8-2.4); Potassium 3.7 mmol/L (3.5-5.1); Sodium 138 mmol/L (136-145)
[2023-07-13 07:32] VITALS: BP 127/83; PULSE 59; RESP 24; TEMP 35.7; O2SAT 99
[2023-07-13] MEDS: Potassium Chloride 20 MEQ TABCR PO (09:01)
[2023-07-13] MEDS: Aspirin E.C. 81 MG TABEC PO (09:01)
[2023-07-13] MEDS: Cholecalciferol (Vitamin D3) 1,000 UNIT TAB 2000 UNITS PO (09:01)
[2023-07-13] MEDS: Clopidogrel 75 MG TAB PO (09:02)
[2023-07-13] MEDS: Oxybutynin 5 MG TAB PO ×2 (09:02→21:54)
[2023-07-13] MEDS: Enoxaparin 40 MG/0.4 ML SYR SC (09:02)
[2023-07-13] MEDS: Psyllium PKT 1 EACH PO (09:03)
--- NOTE | 2023-07-13 09:42 | W.PM.PROGNOT ---
Date of Service Date of service: 07/13/23 Time of Service: 09:43 Assessment and Plan Assessment and plan (1) Urinary tract infection: Status: Acute Assessment and plan: growing e coli, sensitivities pending and by past ua should respond to cephalosporins. Received ceftriaxone and downstepped to vantin while cultures pending. Day 3/5 Growing E coli, considering Fosfomycin if applicable (2) Encephalopathy due to infection: Status: Acute Assessment and plan: Initially paranoia and confusion suspected d/t acute UTI. No acute symptoms (3) Hypokalemia: Status: Acute Assessment and plan: replete and follow. BMP in AM (4) TIA (transient ischemic attack): Status: Acute Assessment and plan: CVA ruled out, patient at baseline other than some paranoia and behavioral disturbances. echocardiogram Conclusion Normal left ventricular wall thickness and chamber size. Ejection fraction is 55%. No segmental wall motion abnormality maladies are seen. There is stage I diastolic dysfunction, normal for patient age Normal right ventricular size and systolic function Both atria are normal in size There is no structural or hemodynamically significant valvular disease identified MRI: IMPRESSION: 1. The examination is limited due to patient motion artifact. 2. No evidence of an acute infarct. 3. Cerebral atrophy and small vessel ischemic disease. 4. Findings were discussed with the emergency department at 8:17 a.m. on 07/11/2023. CTA head and neck: IMPRESSION: 1. No large vessel occlusion or significant stenosis on the CT angiography of the head. 2. No acute intracranial process. 3. No occlusion or significant stenosis on the CT angiography of the neck. Will continue to monitor (5) DVT prophylaxis: Status: Acute Assessment and plan: Continue LMWH (6) Discharge planning issues: Status: Acute Assessment and plan: PT following for discharge recommendations case management following for discharge planning. is updated by phone on plan of care and patient confusion/condition. discussed seroquel and possible ray of hope referral and is agreement. discussed with Dr. Uribe Subjective Subjective Patient reports: no new complaints, feels better, tolerating liquids well, tolerating a regular diet, voiding w/o difficulty, flatus, bowel movement, shortness of breath and afebrile; denies still having pain, diarrhea, nausea, vomiting or fever Exam Const General: cooperative, no acute distress, not in acute distress, anxious, disheveled and frail appearing Nutritional Appearance: average body habitus Orientation: alert and awake [facility] Head: normal to inspection Face and sinus: normal facial exam Eyes General: appearance normal, both eyes and all related structures Pupils: PERRL EOM: EOM intact bilaterally Neck Neck: normal visual inspection, full ROM, no lymphadenopathy and No submandibular swelling Lymphatic: no lymphadenopathy noted Chest Chest: normal inspection of the chest Resp Effort & Inspection: normal respiratory effort and able to speak in complete sentences Auscultation: clear to auscultation bilaterally Cardio Rhythm: regular rhythm GI Inspection: normal to inspection Palpation: soft and nontender Auscultation: normal bowel sounds Back/Spine/Pelvis Back: CVA tenderness (reported previous back pain but unable to state yes or no at this time) Thoracic/Lumbar Spine: thoracic and lumbar spine normal to inspection and No lumbar spinal tenderness Sacrum: no ecchymosis Skin General skin exam: no rashes or lesions noted and other (sallow) Lesions: no lesions Neuro General: patient alert and patient awake Speech: speech normal and other (Hesitate then rumbles) Extrem General: capillary refill normal, no calf tenderness bilaterally and no edema Psych Speech and Movement: agitated Mood: paranoid Affect: anxious affect Attitude: guarded Thought Content: delusions and hallucinations Insight: poor Judgment: poor Objective Last Vital Signs Temp 35.7 C L 07/13/23 07:32 Pulse 59 L 07/13/23 07:32 Resp 24 07/13/23 07:32 BP 127/83 07/13/23 07:32 Pulse Ox 99 07/13/23 07:32 Laboratory Results - last 24 hr 07/13/23 06:05 WBC 7.13 RBC 4.31 Hgb 12.6 Hct 38.7 MCV 90 MCH 29.2 MCHC 32.6 RDW 13.7 Plt Count 257 MPV 9.6 Immature Gran % 0.3 Neutrophils % 64.7 Lymphocytes % 22.4 Monocytes % 10.1 Eosinophils % 2.1 Basophils % 0.4 Nucleated RBC % 0.0 Absolute Neutrophils 4.61 Absolute Lymphocytes 1.60 Absolute Monocytes 0.72 Absolute Eosinophils 0.15 Absolute Basophils 0.03 Sodium 138 Potassium 3.7 Chloride 105 Carbon Dioxide 24.5 Anion Gap 8.5 BUN 11 Creatinine 0.5 L Est GFR (CKD-EPI 2020) 98.97 Glucose 92 Calcium 9.2 Magnesium 2.1 Time Spent with Patient Time Spent with Patient: >50 minutes Time was spent: preparing to see the patient(eg.review tests), ordering medications,tests, procedures, referring, communicating with other health in home caregiver, indepentently interpreting results, counseling the patient and care coordination
[2023-07-13] MEDS: Cefpodoxime 200 MG TAB PO ×2 (11:17→21:54)
[2023-07-13 11:19] VITALS: BP 122/81; PULSE 104; RESP 16; TEMP 36.9; O2SAT 97
[2023-07-13 15:07] VITALS: BP 110/74; PULSE 99; RESP 18; TEMP 37.1; O2SAT 95
[2023-07-13] MEDS: QUEtiapine 25 MG TAB PO (18:44)
[2023-07-13 19:31] VITALS: BP 103/67; PULSE 105; RESP 18; TEMP 36.9; O2SAT 93
[2023-07-13] MEDS: Atorvastatin 40 MG TAB 80 MG PO (21:54)
[2023-07-13] MEDS: Melatonin 3 MG TAB 9 MG PO (21:54)
[2023-07-13 23:03] VITALS: BP 106/70; PULSE 95; RESP 16; TEMP 35.8; O2SAT 93
[2023-07-14 07:03] LABS: Abs Immature Grans 0.03 10^3/uL (0.0-0.06); Absolute Basophil Count 0.04 10^3/uL (0.0-0.2); Absolute Eosinophil Count 0.19 10^3/uL (0.0-0.7); Absolute Lymphocyte Count 1.54 10^3/uL (1.2-3.4); Absolute Monocyte Count 0.73 10^3/uL (0.1-0.8); Absolute Neutrophil Count 5.06 10^3/uL (1.2-6.7); Basophils % 0.5; Eosinophils % 2.5; HCT 39.7 % (36.0-46.0); HGB 13.3 g/dL (11.2-15.7); Immature Grans % 0.4; Lymphocytes % 20.3; MCH 29.7 pg (27.0-33.0); MCHC 33.5 % (32.0-36.0); MCV 89 fL (80-95); MPV 9.8 fL (8.0-11.0); Monocytes % 9.6; Neutrophils % 66.7; Platelet Count 272 10^3/uL (130-400); RBC 4.48 10^6/uL (3.93-5.22); RDW 13.6 % (11.7-14.6); RDW-SD 44.4 fL; WBC 7.59 10^3/uL (4.4-10.8)
[2023-07-14 07:30] LABS: Anion Gap 7.5 mmol/L (3-11); BUN 15 mg/dL (7-18); CO2 26.5 mmol/L (21.0-32.0); CREATININE 0.6 mg/dL (0.55-1.02); Calcium 9.2 mg/dL (8.5-10.1); Chloride 104 mmol/L (98-107); Estimated GFR 94.72 (mL/min/1.73m2); Glucose 103 mg/dL (74-106); Magnesium 2.1 mg/dL (1.8-2.4); Potassium 3.5 mmol/L (3.5-5.1); Sodium 138 mmol/L (136-145)
[2023-07-14 07:49] VITALS: BP 132/83; PULSE 82; RESP 18; TEMP 36.8; O2SAT 93
[2023-07-14] MEDS: Psyllium PKT 1 EACH PO (09:20)
[2023-07-14] MEDS: Cefpodoxime 200 MG TAB PO (09:20)
[2023-07-14] MEDS: Enoxaparin 40 MG/0.4 ML SYR SC (09:20)
[2023-07-14] MEDS: Cholecalciferol (Vitamin D3) 1,000 UNIT TAB 2000 UNITS PO (09:20)
[2023-07-14] MEDS: Aspirin E.C. 81 MG TABEC PO (09:20)
[2023-07-14] MEDS: Normal Saline Flush 10 ML SYR IVP (09:20)
[2023-07-14] MEDS: Clopidogrel 75 MG TAB PO (09:20)
[2023-07-14] MEDS: Oxybutynin 5 MG TAB PO ×2 (09:20→20:21)
[2023-07-14 11:58] VITALS: BP 117/77; PULSE 96; RESP 18; TEMP 36.3; O2SAT 96
--- NOTE | 2023-07-14 12:05 | PGE_ITS ---
Date of Service Date of service: 07/14/23 Time of Service: 12:05 Assessment and Plan Assessment and plan (1) Urinary tract infection: Status: Acute Assessment and plan: Growing E-coli, sensitivities pending and by past UA should respond to cephalosporins. Received ceftriaxone and downstepped to vantin while cultures pending. Day 4/5 No CVA tenderness, CT w/o renal involvement, afebrile; Fosfomycin 3 gm orall X1 today. Stopped cefpodoxime Discontinue buckner Urine culture positive for E. coli pansensitive (2) Encephalopathy due to infection: Status: Acute Assessment and plan: Initially paranoia and confusion suspected d/t acute UTI. No acute symptoms (3) Hypokalemia: Status: Acute Assessment and plan: replete and follow. potassium is normal today BMP on 07/16 (4) TIA (transient ischemic attack): Status: Acute Assessment and plan: CVA ruled out, patient at baseline other than some paranoia and behavioral disturbances. echocardiogram Conclusion Normal left ventricular wall thickness and chamber size. Ejection fraction is 55%. No segmental wall motion abnormality maladies are seen. There is stage I diastolic dysfunction, normal for patient age Normal right ventricular size and systolic function Both atria are normal in size There is no structural or hemodynamically significant valvular disease identified MRI: IMPRESSION: 1. The examination is limited due to patient motion artifact. 2. No evidence of an acute infarct. 3. Cerebral atrophy and small vessel ischemic disease. 4. Findings were discussed with the emergency department at 8:17 a.m. on 07/11/2023. CTA head and neck: IMPRESSION: 1. No large vessel occlusion or significant stenosis on the CT angiography of the head. 2. No acute intracranial process. 3. No occlusion or significant stenosis on the CT angiography of the neck. Will continue to monitor (5) DVT prophylaxis: Status: Acute Assessment and plan: Continue LMWH (6) Nausea: Status: Acute Assessment and plan: Compazine PRN, no other abdominal discomfort, no diarrhea (7) Discharge planning issues: Status: Acute Assessment and plan: PT following for discharge recommendations case management following for discharge planning. is updated by phone on plan of care and patient confusion/condition. discussed seroquel and possible ray of hope referral and is agreement. discussed with Dr. Uribe Subjective Subjective Patient reports: no new complaints, feels better, tolerating liquids well, tolerating a regular diet, voiding w/o difficulty, flatus, bowel movement, nausea, shortness of breath, afebrile and other (Patient reporting having a blood clot and this was clarified for patient as a ruled out TIA, no clots seen on testing ); denies still having pain, diarrhea, vomiting or fever Exam Const General: cooperative, no acute distress, not in acute distress, anxious, disheveled and frail appearing Nutritional Appearance: average body habitus Orientation: alert, awake, oriented to place (place for sick people), not oriented to time (off by 3 days) and other (delayed in answering ) [facility] Head: normal to inspection Face and sinus: normal facial exam Eyes General: appearance normal, both eyes and all related structures Pupils: PERRL EOM: EOM intact bilaterally Neck Neck: normal visual inspection, full ROM, no lymphadenopathy and No submandibular swelling Lymphatic: no lymphadenopathy noted Chest Chest: normal inspection of the chest Resp Effort & Inspection: normal respiratory effort and able to speak in complete sentences Auscultation: clear to auscultation bilaterally Cardio Rhythm: regular rhythm GI Inspection: normal to inspection Palpation: soft and nontender Auscultation: normal bowel sounds Back/Spine/Pelvis Back: CVA tenderness (reported previous back pain but unable to state yes or no at this time) Thoracic/Lumbar Spine: thoracic and lumbar spine normal to inspection and No lumbar spinal tenderness Sacrum: no ecchymosis Skin General skin exam: no rashes or lesions noted and other (sallow) Lesions: no lesions Neuro General: patient alert and patient awake Speech: speech normal and other (Hesitate then rumbles) Extrem General: capillary refill normal, no calf tenderness bilaterally and no edema Psych Speech and Movement: agitated Mood: paranoid Affect: anxious affect Attitude: guarded Thought Content: delusions and hallucinations Insight: poor Judgment: poor Objective Last Vital Signs Temp 36.3 C L 07/14/23 11:58 Pulse 96 H 07/14/23 11:58 Resp 18 07/14/23 11:58 BP 117/77 07/14/23 11:58 Pulse Ox 96 07/14/23 11:58 Laboratory Results - last 24 hr 07/14/23 06:00 WBC 7.59 RBC 4.48 Hgb 13.3 Hct 39.7 MCV 89 MCH 29.7 MCHC 33.5 RDW 13.6 Plt Count 272 MPV 9.8 Immature Gran % 0.4 Neutrophils % 66.7 Lymphocytes % 20.3 Monocytes % 9.6 Eosinophils % 2.5 Basophils % 0.5 Nucleated RBC % 0.0 Absolute Neutrophils 5.06 Absolute Lymphocytes 1.54 Absolute Monocytes 0.73 Absolute Eosinophils 0.19 Absolute Basophils 0.04 Sodium 138 Potassium 3.5 Chloride 104 Carbon Dioxide 26.5 Anion Gap 7.5 BUN 15 Creatinine 0.6 Est GFR (CKD-EPI 2020) 94.72 Glucose 103 Calcium 9.2 Magnesium 2.1 Time Spent with Patient Time Spent with Patient: >50 minutes Time was spent: preparing to see the patient(eg.review tests), ordering medications,tests, procedures, referring, communicating with other health complex care nurse practitioner, indepentently interpreting results, counseling the patient and care coordination
--- NOTE | 2023-07-14 12:18 | PT.INTREAT ---
Date of service: 07/14/23 Time of Service: 11:01 PT Notes Visit Reasons: TIA (cardiology) Inpatient Physical Therapy Treatment Note [facility] Date: 07/14/23 PRECAUTIONS: Fall, standard, activity as tolerated. SPECIAL ORTHOPEDIC SHOES FOR ALL STANDING. SUBJECTIVE: Patient appears much more clear, cognitively. Responds appropriately >50% of the time. No yelling. Reports that she remembers this clinician. OBJECTIVE: patient supine in bed, Hanna in place, agreeable to therapy. ? AFTERNOON: discontinued Hanna? PAIN: none reported VITALS: monitored by nursing staff. Therapeutic Activities (38367d1): Direct one-on-one instruction in dynamic activities to improve functional performance. ? BED MOBILITY/TRANSFERS? Rolling L/R: independent Supine-sit: mod assist of one to move legs over EOB, one handhold assist, one hand behind shoulders to give support and assistance.? Sit-supine: mod assist of one to swing legs up into bed, assist patient to scoot towards middle of bed. Scooting up: mod assist of one at draw sheet, patient pushes with both legs.? Sit-stand: tactile cue? Stand-sit: continuous verbal cues for safety, CGA ? Bed-Chair: min assist ? Chair-bed: min assist Provided skilled cues and instruction on performance and technique throughout. Gait Training (39061z6): Direct one-on-one instruction and skilled instruction in: [x] employing an assistive device [] modified weight-bearing status [x] movement sequencing [x] turning and movement with proper form [x] Provided verbal cues for equipment management and technique [x] Provided instruction in gait pattern [] Patient education regarding pacing and breathing techniques to maximize activity tolerance? GAIT? Assistive Device: FWW ? Weight bearing: full Assist: CGA to min assist of one to steer walker, moderate verbal cueing? Distance:? 40 feet ? Deviation: reduced jama, step to gait pattern with left leg leading, tendency to drift to the right of the walker rather than staying in the center of it, appears to lose track of her destination. ? ASSESSMENT:? Patient becomes dizzy, nauseous, anxious with ambulation. Alerted RN Bhavna who brought rey spears and said that she would notify patient's nurse Dalia. AFTERNOON: Patient tolerates therapy well, no report of nausea, no report of dizziness, no report of anxiety. Speech is noticeably less clear than it was in the morning session. PLAN: Continue global strengthening per plan of care until patient is cleared for discharge. TREATMENT CODE/TIME: 27 minutes beginning at 11:01 and 25 minutes beginning at 16:30 for a total of 52 minutes today.
[2023-07-14] MEDS: Prochlorperazine 10 MG/2 ML VIAL 5 MG IVP (12:50)
[2023-07-14] MEDS: Fosfomycin Tromethamine 3 GM PACKET PO (12:50)
--- NOTE | 2023-07-14 14:13 | CHAPLAIN ---
Mellisa appears to be more like her usual, calm self today, although she didn't recognize me at first. She is not yelling and talking about people and events out of place, as she was on 07/12. She asked about calling her , Surya, and we tried but he didn't answer the phone. The recording says that an answering system has not be put in place. Mellisa said she thinks she has gangrene. I told here I hadn't heard that, but that she might have a UTI. She said she knew that. She seemed sleepy and nodded off while we were talking. I will continue to visit.
[2023-07-14 15:28] VITALS: BP 122/78; PULSE 72; RESP 17; TEMP 36.6; O2SAT 96
[2023-07-14 19:30] VITALS: BP 119/81; PULSE 78; RESP 17; TEMP 36.1; O2SAT 95
[2023-07-14] MEDS: Atorvastatin 40 MG TAB 80 MG PO (20:20)
[2023-07-14] MEDS: QUEtiapine 25 MG TAB PO (21:23)
[2023-07-14] MEDS: Melatonin 3 MG TAB 9 MG PO (21:23)
[2023-07-15 03:27] VITALS: BP 126/82; PULSE 96; RESP 17; TEMP 36.2; O2SAT 96
[2023-07-15 08:00] VITALS: BP 122/86; PULSE 94; RESP 18; TEMP 36.7; O2SAT 93
--- NOTE | 2023-07-15 10:29 | PT.INTREAT ---
PT Notes Visit Reasons: TIA (cardiology) Inpatient Physical Therapy Treatment Note [facility] Date: 07/15/23 PRECAUTIONS:Special shoes for OOB OBJECTIVE: ? Therapeutic Activities (22759k[2]): Direct one-on-one instruction in dynamic activities to improve functional performance. ? BED MOBILITY/TRANSFERS? Sit-stand: CGAx2? Stand-sit: CGAx2 ? Provided skilled cues and instruction on performance and technique throughout. Gait Training ([id number][1]): Direct one-on-one instruction and skilled instruction in: [X] employing an assistive device [] modified weight-bearing status [X] movement sequencing [X] turning and movement with proper form [X] Provided verbal cues for equipment management and technique [X] Provided instruction in gait pattern [] Patient education regarding pacing and breathing techniques to maximize activity tolerance? GAIT? Assistive Device: FWW? Weight bearing: Full Assist: FWW ? Distance:? Approx 12ft to the door and back to the chair stopping at the commode first.? ASSESSMENT:? Pt was very confused and did require max cueing for ambulation and tasks. Pt was emotional along with the confusion. PLAN: Cont as per PT POC. TREATMENT CODE/TIME: 10-10:30 (30) TAx2
[2023-07-15] MEDS: Psyllium PKT 1 EACH PO (10:34)
[2023-07-15] MEDS: Oxybutynin 5 MG TAB PO ×2 (10:34→20:51)
[2023-07-15] MEDS: Cholecalciferol (Vitamin D3) 1,000 UNIT TAB 2000 UNITS PO (10:34)
--- NOTE | 2023-07-15 10:35 | PGE_ITS ---
Date of Service Date of service: 07/15/23 Time of Service: 10:35 Assessment and Plan Assessment and plan (1) Urinary tract infection: Status: Acute Assessment and plan: Initially treated with Ceftriaxone, then Vantin, then one 3gm dose of Fosfomycin on 07/14 as she had not sign of complicated cystitis UA ordered and pending buckner removed on 07/14 Bladder scan if unable to void with straight cath parameters (2) Encephalopathy due to infection: Status: Acute Assessment and plan: patient initially presenting with paranoia and confusion. This was associated with acute UTI findings. UTI was treated and patient remains confused at times without marked agitation today as noticed intermittently during her stay. No acute focal neuro deficits, most likely no need to repeat head CT. Not at her baseline as per verbal reports of community resources staff as per discussion with CM As discussed with spouse by prior provider:Only 2 doses of seroquel given as of 07/15 for increased agitation. Minimal dose 25 mg orally ordered HS PRN Will continue to monitor (3) Hypokalemia: Status: Acute Assessment and plan: replete and follow. potassium is normal today BMP on 07/16 (4) TIA (transient ischemic attack): Status: Acute Assessment and plan: CVA ruled out: No further focal neurological deficits. 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 Remains forgetful and searching for words intermittently but also has past TBI, and encephalopathy in her current admitting diagnosis. Will continue to minitor for focal neurological deficits; displaying some paranoia and behavioral disturbances. Echocardiogram showed an EF 55% Stage I diastolic dysfunction, normal for patient age Normal right ventricular size and systolic function No structural or hemodynamically significant valvular disease identified MRI showed: no evidence of an acute infarct. cerebral atrophy and small vessel ischemic disease. CTA head and neck showed No large vessel occlusion or significant stenosis on the CT angiography of the head. No acute intracranial process. No occlusion or significant stenosis on the CT angiography of the neck. Will continue to monitor (5) DVT prophylaxis: Status: Acute Assessment and plan: No signs of acute bleeding, no thrombocytopenia The patient will remain on lovenox Sc (6) Nausea: Status: Acute Assessment and plan: Will continue oral compazine PRN,as IV access was intentionally pulled, no other abdominal discomfort, no diarrhea (7) Discharge planning issues: Status: Acute Assessment and plan: PT following for discharge recommendations case management following for discharge planning; [facility] referral is an option. The patient was unable to answer when approached regarding disposition during her meeting with CM. Once CM left, she stated Scared w/o being able to be more descriptive. patient remains confused. is updated by phone on plan of care and patient confusion/condition. As per previous discusssion between prior provider during this stay and the patient's ; seroquel and possible [facility] referral were discussed and agreed upon discussed with Dr. Uribe Subjective Subjective Patient reports: no new complaints (evasive gaze, focussing on other points in room, reoriented multiple times during interview), feels better, tolerating liquids well, tolerating a regular diet, voiding w/o difficulty, flatus, bowel movement, shortness of breath, afebrile and other (Patient reporting feeling scared but unable to verbalized the cause); denies still having pain, diarrhea, nausea, vomiting or fever Exam Narrative Exam Narrative: Constitutional The patient is sitting in chair comfortable and cooperative during the inter view, but less able to interract, confused in time and recalls [facility] after thinking a few minutes and only november The patient is without acute distress and has average body habitus HENMT: Head is atraumatic, no lymphadenopathy. Facial structures with normal appearance Eyes: Well aligned, intact ROM Neck: Normal ROM, no meningeal signs Neuro:alert and oriented to self. No neurological focal deficit, PERRLA 3 Chest:Chest is symmetrical and normal appearance Resp: Normal respiratory pattern, speaks in full sentences, unlabored breathing, clear lung bilaterally Cardio: regular rhythm, S1, S2,capillary refill<3 sec. GI: Abdomen is not distended, soft and non tender, bowel sounds are present : Negative Costovertebral angle tenderness Back/spine/Pelvis: No back tenderness Integumentary: slight rash/flush on cheeks w/o pruritus Extremities: strength 5/5 to bilateral extremities, 3-4/5 lower ext. Psych: RASS 0, distracted, delayed in answering questions as she does not maintain eye contact, anxious affect. Objective Last Vital Signs Temp 36.7 C 07/15/23 08:00 Pulse 94 H 07/15/23 08:00 Resp 18 07/15/23 08:00 BP 122/86 07/15/23 08:00 Pulse Ox 93 07/15/23 08:00 Time Spent with Patient Time Spent with Patient: >50 minutes Time was spent: preparing to see the patient(eg.review tests), ordering medications,tests, procedures, referring, communicating with other health progressive care unit registered nurse, indepentently interpreting results, counseling the patient and care coordination
[2023-07-15 11:14] VITALS: BP 131/82; PULSE 91; RESP 17; TEMP 36.3; O2SAT 94
[2023-07-15] MEDS: Enoxaparin 40 MG/0.4 ML SYR SC (14:24)
[2023-07-15 15:38] VITALS: BP 129/85; PULSE 89; RESP 18; TEMP 36.2; O2SAT 95
[2023-07-15 19:35] VITALS: BP 126/84; PULSE 89; RESP 18; TEMP 36; O2SAT 93
[2023-07-15] MEDS: Atorvastatin 40 MG TAB 80 MG PO (20:51)
[2023-07-15] MEDS: Melatonin 3 MG TAB 9 MG PO (21:46)
[2023-07-15] MEDS: QUEtiapine 25 MG TAB PO (21:47)
[2023-07-15] MEDS: Lidocaine 2% Jelly 11 ML SYR (22:31)
[2023-07-16] MEDS: QUEtiapine 25 MG TAB PO ×2 (00:14→21:27)
[2023-07-16 03:45] VITALS: BP 110/79; PULSE 98; RESP 18; TEMP 36.4; O2SAT 94
[2023-07-16 05:31] LABS: Bilirubin Negative (Negative); Blood Negative (Negative); Clarity Clear (Clear); Glucose Negative (Negative); Ketones Negative (Negative); Leukocyte Esterase Negative (Negative); Nitrite Negative (Negative); Urobilinogen 0.2 mg/dL (Up to 0.2); pH 5.5 (5-8)
[2023-07-16 06:54] LABS: Abs Immature Grans 0.02 10^3/uL (0.0-0.06); Absolute Basophil Count 0.03 10^3/uL (0.0-0.2); Absolute Eosinophil Count 0.17 10^3/uL (0.0-0.7); Absolute Lymphocyte Count 1.38 10^3/uL (1.2-3.4); Absolute Monocyte Count 0.85 10^3/uL (0.1-0.8); Absolute Neutrophil Count 7.13 10^3/uL (1.2-6.7); Basophils % 0.3; Eosinophils % 1.8; HCT 41.7 % (36.0-46.0); HGB 14.2 g/dL (11.2-15.7); Immature Grans % 0.2; Lymphocytes % 14.4; MCH 29.8 pg (27.0-33.0); MCHC 34.1 % (32.0-36.0); MCV 88 fL (80-95); Monocytes % 8.9; Neutrophils % 74.4; Platelet Count 298 10^3/uL (130-400); RBC 4.76 10^6/uL (3.93-5.22); RDW 13.5 % (11.7-14.6); RDW-SD 43.6 fL; WBC 9.58 10^3/uL (4.4-10.8)
[2023-07-16 07:09] LABS: BUN 13 mg/dL (7-18); CREATININE 0.6 mg/dL (0.55-1.02); Calcium 9.3 mg/dL (8.5-10.1); Chloride 99 mmol/L (98-107); Estimated GFR 94.72 (mL/min/1.73m2); Glucose 114 mg/dL (74-106); Potassium 3.3 mmol/L (3.5-5.1); Sodium 130 mmol/L (136-145)
[2023-07-16 07:44] VITALS: BP 129/77; PULSE 112; RESP 18; TEMP 36.5; O2SAT 94
[2023-07-16] MEDS: Oxybutynin 5 MG TAB PO ×2 (10:06→21:27)
[2023-07-16] MEDS: QUEtiapine 25 MG TAB 12.5 MG PO ×2 (10:06→10:48)
[2023-07-16] MEDS: Psyllium PKT 1 EACH PO (10:06)
--- NOTE | 2023-07-16 11:02 | W.PM.PROGNOT ---
Date of Service Date of service: 07/16/23 Time of Service: 11:02 Assessment and Plan Assessment and plan (1) Urinary retention: Status: Acute Assessment and plan: urine negative today for UTI. no bm recorded this hospitalization, ? contributing. will initiate bowel management buckner will need to be replaced as she has been straight cath'd multiple times and is uncomfortable. (2) Constipation: Status: Acute Assessment and plan: bowel management (3) Nausea: Status: Acute Assessment and plan: Will continue oral compazine PRN,as IV access was intentionally pulled, no other abdominal discomfort, no diarrhea. bowel management (4) Encephalopathy due to infection: Status: Acute Assessment and plan: patient initially presenting with paranoia and confusion, which is now ongoing despite treating UTI. No acute focal neuro deficits, most likely no need to repeat head CT. Not at her baseline as per verbal reports of community resources staff as per discussion with CM seroquel will be scheduled bid Will continue to monitor (5) Urinary tract infection: Status: Resolved Assessment and plan: treated and repeat urine negative this am buckner removed on 07/14 but now having urinary retention so needs to be replaced. (6) Hypokalemia: Status: Acute Assessment and plan: replete and follow. potassium 3.3 today repeat BMP tomorrow mag was 2.1 will likely need daily potassium as this is recurrent (7) TIA (transient ischemic attack): Status: Acute Assessment and plan: CVA ruled out: No further focal neurological deficits. 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 Remains forgetful and searching for words intermittently but also has past TBI, and encephalopathy in her current admitting diagnosis. Will continue to minitor for focal neurological deficits; displaying some paranoia and behavioral disturbances. Echocardiogram showed an EF 55% Stage I diastolic dysfunction, normal for patient age Normal right ventricular size and systolic function No structural or hemodynamically significant valvular disease identified MRI showed: no evidence of an acute infarct. cerebral atrophy and small vessel ischemic disease. CTA head and neck showed No large vessel occlusion or significant stenosis on the CT angiography of the head. No acute intracranial process. No occlusion or significant stenosis on the CT angiography of the neck. Will continue to monitor (8) DVT prophylaxis: Status: Acute Assessment and plan: No signs of acute bleeding, no thrombocytopenia The patient will remain on lovenox Sc (9) Discharge planning issues: Status: Acute Assessment and plan: PT following for discharge recommendations case management following for discharge planning; [facility] referral is an option. The patient was unable to answer when approached regarding disposition during her meeting with CM. Once CM left, she stated Scared w/o being able to be more descriptive. patient remains confused. is updated by phone on plan of care and patient confusion/condition. As per previous discusssion between prior provider during this stay and the patient's ; seroquel and possible [facility] were discussed and agreed upon discussed with Dr. Uribe Subjective Subjective Interval history since last seen: Patient remains confused having hallucinations grabbing at things in the air continues to be paranoid. Exam Const General: no acute distress, anxious and ill appearing chronically HENMT Head: normal to inspection Face and sinus: normal facial exam Eyes General: appearance normal, both eyes and all related structures Pupils: PERRL EOM: EOM intact bilaterally Neck Neck: normal visual inspection and No submandibular swelling Lymphatic: no lymphadenopathy noted Chest Chest: normal inspection of the chest Resp Effort & Inspection: normal respiratory effort and able to speak in complete sentences Auscultation: clear to auscultation bilaterally Cardio Rhythm: regular rhythm GI Inspection: normal to inspection Palpation: soft and nontender Auscultation: normal bowel sounds Back/Spine/Pelvis Thoracic/Lumbar Spine: thoracic and lumbar spine normal to inspection and No lumbar spinal tenderness Sacrum: no ecchymosis Skin General skin exam: no rashes or lesions noted Neuro General: patient alert and patient awake Speech: speech normal Extrem General: capillary refill normal, no calf tenderness bilaterally and no edema Psych Speech and Movement: agitated Mood: paranoid Affect: anxious affect Attitude: guarded Thought Content: delusions and hallucinations Insight: poor Judgment: poor Objective Last Vital Signs Temp 36.5 C 07/16/23 07:44 Pulse 112 H 07/16/23 07:44 Resp 18 07/16/23 07:44 BP 129/77 07/16/23 07:44 Pulse Ox 94 07/16/23 07:44 Laboratory Results - last 24 hr 07/15/23 07/16/23 21:15 05:30 WBC 9.58 RBC 4.76 Hgb 14.2 Hct 41.7 MCV 88 MCH 29.8 MCHC 34.1 RDW 13.5 Plt Count 298 MPV 10.0 Immature Gran % 0.2 Neutrophils % 74.4 Lymphocytes % 14.4 Monocytes % 8.9 Eosinophils % 1.8 Basophils % 0.3 Nucleated RBC % 0.0 Absolute Neutrophils 7.13 H Absolute Lymphocytes 1.38 Absolute Monocytes 0.85 H Absolute Eosinophils 0.17 Absolute Basophils 0.03 Sodium 130 L Potassium 3.3 L Chloride 99 Carbon Dioxide 26.0 Anion Gap 5.0 BUN 13 Creatinine 0.6 Est GFR (CKD-EPI 2020) 94.72 Glucose 114 H Calcium 9.3 Urine Color Yellow Urine Clarity Clear Urine pH 5.5 Ur Specific [place] 1.020 Urine Protein Negative Urine Ketones Negative Urine Blood Negative Urine Nitrite Negative Urine Bilirubin Negative Urine Urobilinogen 0.2 Ur Leukocyte Esterase Negative Urine Glucose Negative Time Spent with Patient Time Spent with Patient: 35-49 minutes Time was spent: preparing to see the patient(eg.review tests), obtaining and/or reviewing separately otained hiistory, ordering medications,tests, procedures and indepentently interpreting results
[2023-07-16 11:10] VITALS: BP 129/82; PULSE 115; RESP 18; TEMP 36.6; O2SAT 93
--- NOTE | 2023-07-16 11:16 | PT.INTREAT ---
PT Notes Visit Reasons: TIA (cardiology) Inpatient Physical Therapy Treatment Note [facility] Date: 07/16/23 PRECAUTIONS:Special shoes to stand and walk in OBJECTIVE: ? Therapeutic Exercises (77721f[1]): Direct one-on-one instruction in therapeutic exercises to develop strength, endurance, range of motion and flexibility. ? Exercises ? Ambulation ? Assistive Device: FWW ? Weight bearing: Full Assist: CGA/Min x2 ? Stand until tired. ? Supine to sit Mod/maxx1 STS Modx2 Stand to sit CGAx2 Sit to supine Max x2 ? ASSESSMENT:? Pt's mental status was not clear today and because of that we did not attempt walking today. PLAN: Cont as per PT POC. TREATMENT CODE/TIME: TA x 2 10:15-10:38 (23)
[2023-07-16] MEDS: LORazepam 1 MG TAB PO (13:42)
[2023-07-16] MEDS: Atorvastatin 40 MG TAB 80 MG PO (21:26)
[2023-07-16] MEDS: Melatonin 3 MG TAB 9 MG PO (21:27)
[2023-07-16] MEDS: Docusate Sodium 100 MG CAP PO (21:27)
[2023-07-16 23:05] VITALS: BP 112/79; PULSE 102; RESP 18; TEMP 36; O2SAT 95
[2023-07-17 07:05] LABS: Abs Immature Grans 0.05 10^3/uL (0.0-0.06); Absolute Basophil Count 0.03 10^3/uL (0.0-0.2); Absolute Lymphocyte Count 1.65 10^3/uL (1.2-3.4); Absolute Monocyte Count 1.05 10^3/uL (0.1-0.8); Basophils % 0.3; Eosinophils % 2.8; HCT 41.5 % (36.0-46.0); HGB 13.9 g/dL (11.2-15.7); Immature Grans % 0.5; Lymphocytes % 15.2; MCH 29.4 pg (27.0-33.0); MCHC 33.5 % (32.0-36.0); MCV 88 fL (80-95); MPV 10.1 fL (8.0-11.0); Monocytes % 9.7; Neutrophils % 71.5; Platelet Count 302 10^3/uL (130-400); RBC 4.72 10^6/uL (3.93-5.22); RDW 13.4 % (11.7-14.6); RDW-SD 43.5 fL; WBC 10.83 10^3/uL (4.4-10.8)
[2023-07-17 07:10] LABS: Absolute Neutrophil Count 7.74 10^3/uL (1.2-6.7)
[2023-07-17 07:25] LABS: Anion Gap 12.8 mmol/L (3-11); BUN 15 mg/dL (7-18); CO2 25.2 mmol/L (21.0-32.0); CREATININE 0.6 mg/dL (0.55-1.02); Calcium 9.4 mg/dL (8.5-10.1); Chloride 100 mmol/L (98-107); Estimated GFR 94.72 (mL/min/1.73m2); Glucose 104 mg/dL (74-106); Potassium 3.3 mmol/L (3.5-5.1); Sodium 138 mmol/L (136-145)
[2023-07-17 07:45] VITALS: BP 106/71; PULSE 95; RESP 18; TEMP 37; O2SAT 92
[2023-07-17] MEDS: Cholecalciferol (Vitamin D3) 1,000 UNIT TAB 2000 UNITS PO (09:07)
[2023-07-17] MEDS: Docusate Sodium 100 MG CAP PO ×2 (09:07→20:19)
[2023-07-17] MEDS: Potassium Chloride 20 MEQ TABCR PO (09:07)
[2023-07-17] MEDS: Psyllium PKT 1 EACH PO (09:07)
[2023-07-17] MEDS: Oxybutynin 5 MG TAB PO ×2 (09:08→20:19)
[2023-07-17] MEDS: QUEtiapine 25 MG TAB PO ×2 (09:09→20:19)
[2023-07-17] MEDS: Potassium Chloride Liquid 20 MEQ PKT PO ×2 (11:12→17:36)
--- NOTE | 2023-07-17 12:57 | PT.INTREAT ---
Date of service: 07/17/23 Time of Service: 12:30 PT Notes Visit Reasons: TIA (cardiology) ? PT Notes Visit Reasons: TIA (cardiology) Inpatient Physical Therapy Treatment Note [facility] Date: 07/17/23 PRECAUTIONS: Fall, standard, activity as tolerated, communication barrier. SPECIAL ORTHOPEDIC SHOES FOR ALL STANDING. SUBJECTIVE: Singing Happy Birthday, appropriate responses 25% of the time. Talks about her brother Lamberto a lot, which perks her up. OBJECTIVE: Patient supine in bed, Hanna in place, agreeable to go for a walk. ? PAIN: none reported VITALS: monitored by nursing staff. Therapeutic Activities (68741k8): Direct one-on-one instruction in dynamic activities to improve functional performance. ? BED MOBILITY/TRANSFERS? Rolling L/R: independent Supine-sit: mod assist of one to move legs over EOB, one handhold assist, one hand behind shoulders to give support and assistance.? Sit at EOB unsteady, requires Mod A x 1 to maintain sitting balance, intermittently maintains own balance Sit to stand at RW Min A x 1, requires steady of RW and block at feet to avoid them sliding forward? Scooting up in chair: max assist x 2 with mia pad ? Stand-sit: continuous verbal cues for safety, CGA ? Bed-Chair: min assist x 1 for advancement of R LE and verbal cues to encourage focus of tasks?, ~ 15 ft to chair. Requires cues for proper change of direction and sitting technique? GAIT? Assistive Device: FWW ? Weight bearing: full Assist: CGA to min assist of FW walker, moderate verbal cueing, assist of R leg advancement ? Distance:? 15 feet ? Deviation: reduced jama, less independent advancement of R LE, scissoring style gait, intermittent assist for RW advancement, constant encouragement and cues ? ASSESSMENT: Mental disability limits consistency with treatment. She has in and out moments of stability and unsteadiness. She was unfamiliar to me which was likely a confusing factor for her, as she seems to be more responsive with CLINICAL APPLICATIONS MANAGER in and out she did know. PLAN: Continue with functional mobility transfers and encouragement of ambulation as tolerated. TREATMENT CODE/TIME: Beginning at 12:30 Direct treatment time 30min Total treatment time 30min Units Time 9716 Manual therapy (62646) min Therapeutic Procedures (15420) min Neurological Reeducation (04864) min Therapeutic Activity (66603) 2 30min [] [] []min [] [] []min
--- NOTE | 2023-07-17 14:07 | PDOC.CMPRO ---
Date of service: 07/17/23 Time of Service: 14:07 Care Management Progress Note Progress Note Text Progress Note Text: S/O: Mellisa continues to yell out and is not at her baseline mentation. CM spoke to her case therapist, Tamiko today, who will look for documentation regarding previous hospitalizations. CM sent a referral to [facility] today; they are considering her for admission for tomorrow, pending clinical review. CM signed an agreement for Mellisa to return to [facility] if she is not able to return home once she is stabilized. Mellisa had a visit from Tamiko, her case therapist, and Curtis, her . She recognized them, but continued to have confusion. They stated that she is not at her baseline. Curtis reported that Mellisa has an AD completed at home, and will look for it to bring in to [facility]; [facility] has requested a copy. Mellisa met with Palliative care today, who will continue to follow and support her. CM will continue to follow. A: Mellisa is a 72 year old female admitted to [facility] on 07/11/23 for TIA. P: Referral was sent to [facility] for psychiatric stabilization. If accepted, she will transport via EMS due to her acute confusion. She will follow up with her PCP and discharge plan of care. CM will continue to follow.
[2023-07-17] MEDS: Enoxaparin 40 MG/0.4 ML SYR SC (14:20)
--- NOTE | 2023-07-17 14:56 | PT.INNT ---
Date of service: 07/17/23 Time of Service: 14:57 PT Notes Visit Reasons: TIA (cardiology) Hold per PT due to behavioral change and altered mental status.
[2023-07-17 15:38] VITALS: BP 115/75; PULSE 106; RESP 17; TEMP 36.9; O2SAT 94
--- NOTE | 2023-07-17 15:39 | W.PM.PROGNOT ---
Date of Service Date of service: 07/17/23 Time of Service: 15:39 Assessment and Plan Assessment and plan (1) Urinary retention: Status: Acute Assessment and plan: urine negative today for UTI. no bm recorded this hospitalization, ? contributing. will initiate bowel management buckner will need to be replaced as she has been straight cath'd multiple times and is uncomfortable. (2) Constipation: Status: Acute Assessment and plan: bowel management (3) Nausea: Status: Acute Assessment and plan: Will continue oral compazine PRN,as IV access was intentionally pulled, no other abdominal discomfort, no diarrhea. bowel management (4) Encephalopathy due to infection: Status: Acute Assessment and plan: patient initially presenting with paranoia and confusion, which is now ongoing despite treating UTI. No acute focal neuro deficits, most likely no need to repeat head CT. Not at her baseline as per verbal reports of community resources staff as per discussion with CM seroquel will be scheduled bid Will continue to monitor (5) Urinary tract infection: Status: Resolved Assessment and plan: treated and repeat urine negative this am buckner removed on 07/14 but now having urinary retention so needs to be replaced. (6) Hypokalemia: Status: Acute Assessment and plan: replete and follow. potassium 3.3 today repeat BMP tomorrow mag was 2.1 will likely need daily potassium as this is recurrent (7) TIA (transient ischemic attack): Status: Acute Assessment and plan: CVA ruled out: No further focal neurological deficits. 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 Remains forgetful and searching for words intermittently but also has past TBI, and encephalopathy in her current admitting diagnosis. Will continue to minitor for focal neurological deficits; displaying some paranoia and behavioral disturbances. Echocardiogram showed an EF 55% Stage I diastolic dysfunction, normal for patient age Normal right ventricular size and systolic function No structural or hemodynamically significant valvular disease identified MRI showed: no evidence of an acute infarct. cerebral atrophy and small vessel ischemic disease. CTA head and neck showed No large vessel occlusion or significant stenosis on the CT angiography of the head. No acute intracranial process. No occlusion or significant stenosis on the CT angiography of the neck. Will continue to monitor (8) DVT prophylaxis: Status: Acute Assessment and plan: No signs of acute bleeding, no thrombocytopenia The patient will remain on lovenox Sc (9) Discharge planning issues: Status: Acute Assessment and plan: PT following for discharge recommendations case management following for discharge planning; [facility] referral is an option. discussed with Dr. Uribe Subjective Subjective Interval history since last seen: patient remains confused. calling out, hallucinating, paranoid Exam Const General: no acute distress, anxious and ill appearing chronically [facility] Head: normal to inspection Face and sinus: normal facial exam Eyes General: appearance normal, both eyes and all related structures Pupils: PERRL EOM: EOM intact bilaterally Neck Neck: normal visual inspection and No submandibular swelling Lymphatic: no lymphadenopathy noted Chest Chest: normal inspection of the chest Resp Effort & Inspection: normal respiratory effort and able to speak in complete sentences Auscultation: clear to auscultation bilaterally Cardio Rhythm: regular rhythm GI Inspection: normal to inspection Palpation: soft and nontender Auscultation: normal bowel sounds Back/Spine/Pelvis Thoracic/Lumbar Spine: thoracic and lumbar spine normal to inspection and No lumbar spinal tenderness Sacrum: no ecchymosis Skin General skin exam: no rashes or lesions noted Neuro General: patient alert and patient awake Speech: speech normal Extrem General: capillary refill normal, no calf tenderness bilaterally and no edema Psych Speech and Movement: agitated Mood: paranoid Affect: anxious affect Attitude: guarded Thought Content: delusions and hallucinations Insight: poor Judgment: poor Objective Last Vital Signs Temp 36.9 C 07/17/23 15:38 Pulse 106 H 07/17/23 15:38 Resp 17 07/17/23 15:38 BP 115/75 07/17/23 15:38 Pulse Ox 94 07/17/23 15:38 Laboratory Results - last 24 hr 07/17/23 06:00 WBC 10.83 H RBC 4.72 Hgb 13.9 Hct 41.5 MCV 88 MCH 29.4 MCHC 33.5 RDW 13.4 Plt Count 302 MPV 10.1 Immature Gran % 0.5 Neutrophils % 71.5 Lymphocytes % 15.2 Monocytes % 9.7 Eosinophils % 2.8 Basophils % 0.3 Nucleated RBC % 0.0 Absolute Neutrophils 7.74 H Absolute Lymphocytes 1.65 Absolute Monocytes 1.05 H Absolute Eosinophils 0.30 Absolute Basophils 0.03 Sodium 138 Potassium 3.3 L Chloride 100 Carbon Dioxide 25.2 Anion Gap 12.8 H BUN 15 Creatinine 0.6 Est GFR (CKD-EPI 2020) 94.72 Glucose 104 Calcium 9.4 Time Spent with Patient Time Spent with Patient: 25-34 minutes Time was spent: preparing to see the patient(eg.review tests), ordering medications,tests, procedures and indepentently interpreting results
--- NOTE | 2023-07-17 17:04 | PCNE_ITS ---
Date of service: 07/17/23 Time of Service: 12:30 History of Present Illness Narrative: Ms. 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 Hospital course: presented to [facility] ED on 07/11 w/acute AMS, suspected TIA (CVA r/o'd), potential UTI tx w/ceftriaxone; over the first 24hs she has increased paranoia/hallucinations; this is persisted throughout her hospitalizations w/increased yelling out, confusion, hallucinating; no BM since admitted, BM regimen started today; her urinary retention is being managed via buckner; Nausea sxs difficult to control d/t losing IV access and reporting per staff: she has been up walking daily, w/cueing on direction; not consistently engaging, yelling a lot; she thinks today is her birthday; tolerating PO meds, eating some; increased coughing per report today w/c/o nausea. per GAMEPLAY PROGRAMMER: she is not at her baseline; 2 days before her admission her niece , which they feel could be triggering to current AMS; 3 wks ago she was at her normal. Curtis visits today w/GAMEPLAY PROGRAMMER worker; they report they think Mellisa has completed a living will at home, they do not know if it is in their chart or where it is at home; they will look Mellisa denies pain, nausea or difficulty breathing; she states she is in [facility], it is almost winter, her birthday is [birth year] She tells Curtis I love you referral to [facility] placed Assessment and Plan Assessment and plan (1) Delirium: Status: Acute Assessment and plan: [facility] referral placed today ongoing infective source r/o (2) Constipation: Status: Acute Assessment and plan: bowel regimen started today (3) Urinary retention: Status: Acute Assessment and plan: buckner in place (4) Nausea: Status: Acute Assessment and plan: continue PRN meds - oral compazine at this time d/t no IV access (5) Encephalopathy due to infection: Status: Acute Assessment and plan: patient initially presenting with paranoia and confusion, which is now ongoing despite treating UTI. No acute focal neuro deficits, most likely no need to repeat head CT. Not at her baseline as per verbal reports of community resources staff as per discussion with DANTE wolf will be scheduled bid [facility] referral placed (6) Cerebral palsy: Status: Acute (7) Gait instability: Status: Acute Assessment and plan: continue PT (8) TIA (transient ischemic attack): Status: Acute Assessment and plan: not at baseline CVA ruled out (9) ACP (advance care planning): Status: Acute Assessment and plan: per Curtis/GAMEPLAY PROGRAMMER living will previously completed, unsure of [facility] Curtis/GAMEPLAY PROGRAMMER will look at home and call CM LLUVIA if find paperwork Mellisa lacks capacity to engage in ACP today (10) Palliative care encounter: Status: Acute Assessment and plan: Agree to transfer to [facility] to continue to follow at [facility] pending transfer and outpatient PRN Review of Systems Narrative: as per HPI PFSH All Active Problems (Updated 07/17/23 @ 17:32 by Mayelin Ordoñez NP) Palliative care encounter (Acute) ACP (advance care planning) (Acute) Constipation (Acute) Urinary retention (Acute) Nausea (Acute) Hypokalemia (Acute) Encephalopathy due to infection (Acute) Delirium (Acute) Facial droop (Acute) Cerebral palsy (Acute) Gait instability (Acute) Dysarthria (Acute) Discharge planning issues (Acute) DVT prophylaxis (Acute) Pyuria (Acute) TIA (transient ischemic attack) (Acute) Tubular adenoma (Acute ~01/2023) Medical History History of head injury (~1988) Vitamin A deficiency Strabismus GERD (gastroesophageal reflux disease) Hyperlipidemia Arthritis of spine Osteopenia Obesity Urinary incontinence Prediabetes Club foot History of adenomatous polyp of colon History of cerebral palsy Surgical History History of colonoscopy with polypectomy (~01/2023) 2022 2011 2006 Leg - childhood Social History Smoking/Tobacco Use Status: Former Tobacco Use Quit Date: 08/21/02 Smoking risk assessment performed?: Yes Alcohol Intake: never Substance use type: does not use Do you feel safe at home: Yes Do you feel safe in your relationship?: Yes Additional Social history: Lives with Surya in apartment on [address] in [facility] Exam Narrative Exam Narrative: General: siting slouched down in recliner, ill appearing; yelling out when alone in visit, resolved w/visit; calm during visit HEENT: hearing WNL; atraumatic/normocephalic, MMM Neck: supple, no JVD, no visible masses Resp: even and unlabored; speaks full sentences w/no SOB; dry intermittent cough Skin: no rashes or lesions noted, did not conduct full skin exam Psych: agitated, confused, comforted w/physical touch, states its my birthday x3, and states birthday [birth year]; thought process illogical, speech delayed; insight/judgment poor Results Last Vital Signs Temp 98.4 F 07/17/23 15:38 Pulse 106 H 07/17/23 15:38 Resp 17 07/17/23 15:38 BP 115/75 07/17/23 15:38 Pulse Ox 94 07/17/23 15:38 Labs 07/17/23 06:00 07/17/23 06:00 Labs: Laboratory Results - last 24 hr 07/17/23 06:00 WBC 10.83 H RBC 4.72 Hgb 13.9 Hct 41.5 MCV 88 MCH 29.4 MCHC 33.5 RDW 13.4 Plt Count 302 MPV 10.1 Immature Gran % 0.5 Neutrophils % 71.5 Lymphocytes % 15.2 Monocytes % 9.7 Eosinophils % 2.8 Basophils % 0.3 Nucleated RBC % 0.0 Absolute Neutrophils 7.74 H Absolute Lymphocytes 1.65 Absolute Monocytes 1.05 H Absolute Eosinophils 0.30 Absolute Basophils 0.03 Sodium 138 Potassium 3.3 L Chloride 100 Carbon Dioxide 25.2 Anion Gap 12.8 H BUN 15 Creatinine 0.6 Est GFR (CKD-EPI 2020) 94.72 Glucose 104 Calcium 9.4
[2023-07-17] MEDS: Melatonin 3 MG TAB 9 MG PO (20:19)
[2023-07-17] MEDS: Atorvastatin 40 MG TAB 80 MG PO (20:19)
[2023-07-17] MEDS: LORazepam 1 MG TAB PO (20:19)
[2023-07-18 00:59] VITALS: BP 120/86; PULSE 91; RESP 18; TEMP 35.6; O2SAT 93
[2023-07-18 08:14] VITALS: BP 104/63; PULSE 90; RESP 19; TEMP 35.9; O2SAT 100
[2023-07-18] MEDS: Psyllium PKT 1 EACH PO (09:12)
[2023-07-18] MEDS: Cholecalciferol (Vitamin D3) 1,000 UNIT TAB 2000 UNITS PO (09:12)
[2023-07-18] MEDS: Potassium Chloride Liquid 20 MEQ PKT PO ×3 (09:13→17:36)
[2023-07-18] MEDS: Oxybutynin 5 MG TAB PO ×2 (09:25→21:24)
[2023-07-18] MEDS: Docusate Sodium 100 MG CAP PO ×2 (09:25→21:24)
[2023-07-18] MEDS: QUEtiapine 25 MG TAB PO ×3 (09:26→21:24)
[2023-07-18 10:13] LABS: Source Nasopharynx
--- NOTE | 2023-07-18 10:30 | INPN_ITS ---
PT Notes Visit Reasons: TIA (cardiology) Physical Therapy Inpatient Progress Note Date: 07/18/2023 Dates of Service: 07/11/2023 through 07/18/2023 Referring Doctor: Nicola Diaz MD PT Orders: PT CONSULT: Safety consult for D/C Precautions: Fall. Standard. Activity as tolerated. Special orthopedic shoes on when OOB. Patient Profile/Admitting Diagnosis: Mellisa is a 72-year-old female who presented to the ED with left facial droop, slurring of speech, and generalized weakness. Patient is admitted for management of TIA and pyuria. Brain MRI did not show evidence of an acute infarct nor cerebral artery atrophy. CT scan showed negative acute intracranial abnormality. PMHX: All Active Problems Discharge planning issues (Acute) DVT prophylaxis (Acute) Pyuria (Acute) TIA (transient ischemic attack) (Acute) Tubular adenoma (Acute ~01/2023) Medical History History of head injury (~1988) Vitamin A deficiency Strabismus GERD (gastroesophageal reflux disease) Hyperlipidemia Arthritis of spine Osteopenia Obesity Urinary incontinence Prediabetes Club foot History of adenomatous polyp of colon History of cerebral palsy Surgical History History of colonoscopy with polypectomy (~01/2023) 2022 2011 2006 Leg - childhood Social History/Home Situation: Lives with in a private home and 4 steps to enter with rails on both sides. 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 Equipment Owned/DME: [employer] Subjective: Patient seen at edge of bed and mumbling something to herself, did not want to look at PT initially but responded better when PT took both of patient's hands. Was too fatigued after walking to the elevator. Objective: General Observation: Club foot on the L, plantarflexion contracture on the R. Nurse Irina gave patient Ativan before start of walk. Mental Status: Alert and oriented as to person and place. Focus impaired, requires frequent redirection to taks and to conversation topic. Word finding difficulty, mild expressive aphasia noted. Pain: Denies pain Vital Signs: BP 104/63 mmHg, HR 92 bpm, Oz sat 100% ROM: Right Upper Extremity: Shoulder Flexion lacks the last 25% of AROM. Shoulder abduction lacks the last 25% of AROM. Elbow flexion WFL. Wrist flexion WFL. Functional opening and closing of hand WFL. Left Upper Extremity: Shoulder Flexion lacks the last 25% of AROM. Shoulder abduction lacks the last 25% of AROM. Elbow flexion WFL. Wrist flexion WFL. Functional opening and closing of hand WFL. Right Lower Extremity: Hip flexion lacks the last 25% of AROM. Hip abduction lacks the last 25% of AROM. Knee flexion 30 degrees to 80 degrees. Knee extension -30. Ankle dorsiflexion -20 degrees to neutral only. Ankle plantarflexion -20 degrees to 40 degrees. Left Lower Extremity: Hip flexion lacks the last 25% of AROM. Hip abduction lacks the last 25% of AROM. Knee flexion 30 degrees to 80 degrees. Knee exte nsion -30. Ankle dorsiflexion to neutral only. Ankle plantarflexion WFL. STRENGTH: Right Upper Extremity: Shoulder flexors 3-/5. Shoulder abductors 3-/5. Elbow flexors 4-/5. Elbow extensors 4-/5. Set Up Operator strong. Left Upper Extremity: Shoulder flexors 3-/5. Shoulder abductors 3-/5. Elbow flexors 4-/5. Elbow extensors 4-/5. Set Up Operator strong. Right Lower Extremity: Hip flexors 3-/5. Hip abductors 3-/5. Knee flexors 3-/5. Knee extensors 3-/5. Ankle dorsiflexors 3-/5. Ankle plantarflexors 3-/5. Left Lower Extremity: Hip flexors 3-/5. Hip abductors 3-/5. Knee flexors 3-/5. Knee extensors 3-/5. Ankle dorsiflexors 3-/5. Ankle plantarflexors 3-/5. Bed Mobility/Transfers: Moderate to maximal cues given for movement sequence, safety, and AD management Rolling minimal assist Supine to sit moderate assist Sit to supine moderate assist of 2 Sit to stand minimal assist Stand to sit minimal assist Bed to bedside moderate assist with heavy guidance needed to move walker during turning as patient is unable to safely manage AD Bedside commode to bed moderate assist with heavy guidance needed to move walker during turning as patient is unable to safely manage AD Gait: Scissoring in B LE increased. Base of support abnormally narrow. PT needed to move walker throughout the walk as patient turns to prevent a fall. Step-to gait pattern. Patient lags behind walker. Maximal cueing to improve posture, increase CATY, and AD management provided to reduce fall risk. LNAs Dinora and assisting for safety. Balance: Static Sitting: Good Dynamic Sitting: Fair Static Standing: Fair Dynamic Standing: Poor Special Tests: Mobility Limitations Standardized Measure [facility] AM-PAC 6 clicks Basic Mobility Inpatient Short Form: Raw Score: 13 CMS Score: 65% deficit Informed Consent/Education: Patient was instructed in purpose of PT consult and plan of care. Agreeable to proceed with established PT POC to achieve personal goals. ASSESSMENT: After the walk, patient was positioned back in bed and appeared like seeing things as she was waving her hand up in the air and talking non-sensical things while and friend Kavitha watch her. Patient appeared to have recognized her but could not say his name. Walking pattern has become more risky, distarctability and focus has decreased compared to day of evaluation. Patient will need SNF placement for continued rehab as will not be able to manage alone at home. Patient presents with clinical signs and symptoms consistent with current/admitting diagnoses that have resulted to mobility limitations, gait instability, generalized weakness, and overall ADL decline as demonstrated by the following impairment level findings: 1. Decreased strength to B UE/LE major muscle groups with L weaker than R 2. Impaired sitting/standing balance 3. Impaired activity tolerance 4. Limitation of joint range of motion in B UE/LE as above 5. 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 Impaired safety awareness Impairments are contributing to the following functional limitations: 1. Decline in bed mobility skills 2. Decline in transfer skills 3. Difficulty with ambulation without assistive device and physical assistance 4. Increased completion time for mobility ADL performance 5. Increased risk for falls 6. Difficulty with managing steps alone safely Patient is assessed as a 65212 moderate complexity based on the following: History: 72-year-old female with past medical history as indicated above Examination: Demonstrable impairment in strength, balance, and mobility level with underlying impairments and functional limitations as exhibited above as well as deficit score of 65% utilizing the [facility] Mobility Inpatient Short Form Presentation: Evolving Decision Makin moderate complexity Goals: Goals X1 week 1. Supine-Sit independent NOT MET, CONTINUE 2. Sit-Supine independent NOT MET, CONTINUE 3. Sit-Stand independent NOT MET, CONTINUE 4. Stand-Sit independent with FWW NOT MET, CONTINUE 5. Bed-Chair independent with FWW NOT MET, CONTINUE 6. Chair-Bed independent with FWW NOT MET, CONTINUE 7. Independent gait on level surface with use of FWW for at least 150 feet without report of pain nor dyspnea NOT MET, CONTINUE 8. Independent stair negotiation while holding onto B rails for at least 4 steps without report of pain nor dyspnea NOT MET, CONTINUE 9. Independent with home exercise program NOT MET, CONTINUE 10. Good static and dynamic standing balance/tolerance NOT MET, CONTINUE Plan of Care/Treatment Plan: 1-2x/day, 7 days/week x 1 week. Plan of care has been reviewed with the FINANCIAL REPORTING SPECIALIST providing the service under Physical Therapy direction. Initiate Physical Therapy intervention for pain management as needed, strengthening, bed mobility, transfers, gait, stairs, balance training, and use of assistive device. DISCHARGE RECOMMENDATIONS: [] Home with no services [] [] Home with services [specify] [] Home with outpatient PT [] [X] SNF for continued rehabilitation. Patient will benefit from longterm facility placement for continued skilled physical therapy services in order to progress mobility level, strength, and balance in preparation for a safe discharge to home. [] Name Plate Stamping Machine Operator Care [] [] SNF versus LTC based on ability to participate and progress [] TREATMENT CODE/TIME: 45556 x 30 minutes beginning at 10:30 AM. Thank you for the opportunity to participate in the care of this patient. Ramila Richardson PT, DPT, CLT [facility] [place], [place]
[2023-07-18] MEDS: LORazepam 1 MG TAB PO (10:35)
[2023-07-18 10:47] LABS: COVID-19 PCR Negative (Negative)
--- NOTE | 2023-07-18 12:41 | CMPROGNOTE_ITS ---
Date of service: 07/18/23 Time of Service: 12:41 Care Management Progress Note Progress Note Text Progress Note Text: S/O: CM reviewed discharge plan with Mellisa's brother, Lamberto who shared gratitude for Mellisa's care and planning. [facility] have accepted Mellisa for tomorrow. They require PCR Covid test, COLST form, and asked for Mellisa to arrive by 1000, 07/19/23. Discharge summary to be faxed when ready. CM continues to follow. A: Mellisa is a 72 year old female admitted to [facility] on 07/11/23 for TIA. P: Mellisa will discharge to [facility] for psychiatric stabilization. She will transport via [facility] due to her acute confusion.
[2023-07-18] MEDS: Enoxaparin 40 MG/0.4 ML SYR SC (14:16)
--- NOTE | 2023-07-18 15:05 | W.PM.PROGNOT ---
Date of Service Date of service: 07/18/23 Time of Service: 15:06 Assessment and Plan Assessment and plan (1) Urinary retention: Status: Acute Assessment and plan: urine negative for UTI. no bm recorded this hospitalization, ? contributing. will initiate bowel management buckner will need to be replaced as she has been straight cath'd multiple times and is uncomfortable. (2) Constipation: Status: Acute Assessment and plan: bowel management (3) Nausea: Status: Resolved Assessment and plan: Will continue oral compazine PRN,as IV access was intentionally pulled, no other abdominal discomfort, no diarrhea. bowel management (4) Encephalopathy due to infection: Status: Ruled-out Assessment and plan: patient initially presenting with paranoia and confusion, which is now ongoing despite treating UTI. No acute focal neuro deficits, most likely no need to repeat head CT. Not at her baseline as per verbal reports of community resources staff as per discussion with CM seroquel will be scheduled bid Will continue to monitor (5) Urinary tract infection: Status: Resolved Assessment and plan: treated and repeat urine negative this am buckner removed on 07/14 but now having urinary retention so needs to be replaced. (6) Hypokalemia: Status: Acute Assessment and plan: replete and follow. potassium 3.3 today repeat BMP tomorrow mag was 2.1 will likely need daily potassium as this is recurrent (7) TIA (transient ischemic attack): Status: Ruled-out Assessment and plan: CVA ruled out: No further focal neurological deficits. 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 Remains forgetful and searching for words intermittently but also has past TBI, and encephalopathy in her current admitting diagnosis. Will continue to minitor for focal neurological deficits; displaying some paranoia and behavioral disturbances. Echocardiogram showed an EF 55% Stage I diastolic dysfunction, normal for patient age Normal right ventricular size and systolic function No structural or hemodynamically significant valvular disease identified MRI showed: no evidence of an acute infarct. cerebral atrophy and small vessel ischemic disease. CTA head and neck showed No large vessel occlusion or significant stenosis on the CT angiography of the head. No acute intracranial process. No occlusion or significant stenosis on the CT angiography of the neck. Will continue to monitor (8) DVT prophylaxis: Status: Acute Assessment and plan: No signs of acute bleeding, no thrombocytopenia The patient will remain on lovenox Sc (9) Discharge planning issues: Status: Acute Assessment and plan: PT following for discharge recommendations case management following for discharge planning; [facility] [place] admission tomorrow morning. discussed with Dr. Luis Subjective Subjective Patient reports: no new complaints Exam Const General: no acute distress, anxious and ill appearing chronically HENMT Head: normal to inspection Face and sinus: normal facial exam Eyes General: appearance normal, both eyes and all related structures Pupils: PERRL EOM: EOM intact bilaterally Neck Neck: normal visual inspection and No submandibular swelling Lymphatic: no lymphadenopathy noted Chest Chest: normal inspection of the chest Resp Effort & Inspection: normal respiratory effort and able to speak in complete sentences Auscultation: clear to auscultation bilaterally Cardio Rhythm: regular rhythm GI Inspection: normal to inspection Palpation: soft and nontender Auscultation: normal bowel sounds Back/Spine/Pelvis Thoracic/Lumbar Spine: thoracic and lumbar spine normal to inspection and No lumbar spinal tenderness Sacrum: no ecchymosis Skin General skin exam: no rashes or lesions noted Neuro General: patient alert and patient awake Speech: speech normal Extrem General: capillary refill normal, no calf tenderness bilaterally and no edema Psych Speech and Movement: agitated Mood: paranoid Affect: anxious affect Attitude: guarded Thought Content: delusions and hallucinations Insight: poor Judgment: poor Objective Last Vital Signs Temp 35.9 C L 07/18/23 08:14 Pulse 90 07/18/23 08:14 Resp 19 07/18/23 08:14 BP 104/63 07/18/23 08:14 Pulse Ox 100 07/18/23 08:14 Laboratory Results - last 24 hr 07/18/23 10:10 COVID-19 Source Nasopharynx SARS-CoV-2 (PCR) Negative Time Spent with Patient Time Spent with Patient: 35-49 minutes Time was spent: preparing to see the patient(eg.review tests), obtaining and/or reviewing separately otained hiistory, ordering medications,tests, procedures, indepentently interpreting results and counseling the patient
[2023-07-18 15:37] VITALS: BP 100/62; PULSE 93; RESP 18; TEMP 35.2; O2SAT 94
--- NOTE | 2023-07-18 16:19 | PT.INNT ---
Date of service: 07/18/23 Time of Service: 16:10 PT Notes Visit Reasons: TIA (cardiology) patient unable to follow commands, speech is unintelligible with the exception of one name, Wiliam. She appears to be talking to someone who is not in the room. Unable to participate in therapy at this time.
--- NOTE | 2023-07-18 16:32 | CHAPLAIN ---
Mellisa was singing [employer] song loudly today when I visited, and seeming to see people and talk to people who weren't in the room and random topics, some and some calling out names of people. 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 Her , Surya, and his manager case from [facility] visit yesterday and she had a palliative care consult. Surya believes Mellisa has a AD at home and he said he would look for it. Mellisa may be transferred to [facility] tomorrow. I will continue to visit.
--- NOTE | 2023-07-18 16:55 | W.PM.DS.N ---
Date of service: 07/18/23 Time of Service: 16:55 DS: Diagnosis Discharge Diagnosis (1) Urinary retention: Status: Acute (2) Constipation: Status: Acute (3) Nausea: Status: Acute (4) Encephalopathy due to infection: Status: Acute (5) Urinary tract infection: Status: Resolved (6) Hypokalemia: Status: Acute (7) TIA (transient ischemic attack): Status: Acute Discharge Plan Disposition Patient Disposition: Senior Living Facility(SNF) Condition: Stable Discharge Details Reason For Visit: TIA Admit Date/Time: 07/13/23 01:25 Admit Provider: Nicola Diaz Attending Provider: Nicola Diaz Primary Care Provider: Sarah Schwab [place] [facility] Course Hospital Course: The 72 year old female with history of cerebral palsy with chronic left sided spasticity and club foot, presented to the emergency room via EMS after an acute onset slurring of her speech that started the evening prior to her presentation and lasted all day the following day, at the end of which her called EMS. Both her and EMS confirmed to the ED team that her speech as well as her ability to walk were both not at her baseline cerebral palsy. They had never seen her present like this. Her workup in the emergency department was concerning for a possible CVA so she was given aspirin clopidogrel and high-dose statin. She was admitted to the hospitalist services for further stroke workup. MRI the next day showed no acute CVA. Echocardiogram completed, please see report. Initially urine suspicious for UTI and she was started on ceftriaxone. Her urine did grow pansensitive E. coli she was treated and repeat urine was negative. Despite her completion of antibiotics and treatment for urinary tract infection she continued to experience hallucinations paranoia and ongoing psychiatric illness not baseline. She was started on Seroquel which was increased to 25 mg twice daily with no significant effect. She also received lorazepam for increased anxiety from her paranoia this also to with little effect. She was intermittently refusing to work with physical therapy but she was reambulated in her room and up to the chair also refused medications at times and food. Case management was placing referrals and referral placed at [facility] where she was accepted. COVID PCR obtained per their admission protocol which was negative. She is being transported to [facility] for inpatient psychiatric management by ground EMS. Medically she has remained stable. discharge discussed with DR Luis Home Meds and New Rx's Prescriptions: New quetiapine 25 mg Tablet 25 mg PO BID Qty: 0 0RF potassium chloride 20 mEq Packet 20 meq PO QMEALS Qty: 0 0RF lorazepam 1 mg Tablet 1 mg PO QID PRN PRNQty: 0 0RF Continued oxybutynin chloride 5 mg tablet 5 mg PO BID nystatin 100,000 unit/gram powder 1 applic topical BID PRN metronidazole [Metrogel] 1 % gel 1 applic topical DAILY (DME) Breezers Adult Brief Misc See Rx Instructions .Route Rx Instructions: As directed ibuprofen 200 mg tablet 200 mg PO Q6H PRN cholecalciferol (vitamin D3) 50 mcg (2,000 unit) capsule 50 mcg PO DAILY Metamucil 3.4 gram/5.4 gram powder 1 tbsp PO DAILY Qty: 660 12RF Rx Instructions: mix into at least 8 oz of water or juice before administering Discharge Instructions Instructions: Psychotic Disorder (DC) Referrals: Sarah Schwab MD [Primary Care Provider] - Activity:: Activity as Tolerated Equipment/Supplies:: No Equipment Needed Diet:: As Tolerated DS: Summary Time Spent with Patient providing and/or coordinating discharge services: Greater than 30 minutes Status at Discharge Functional status at discharge: independent ambulation Overall status at discharge: patient is not back to baseline Mental Status: other Speech and Movement: agitated Mood: paranoid and other Affect: anxious affect Exam Const General: no acute distress, anxious and ill appearing chronically HENMT Head: normal to inspection Face and sinus: normal facial exam Eyes General: appearance normal, both eyes and all related structures Pupils: PERRL EOM: EOM intact bilaterally Neck Neck: normal visual inspection and No submandibular swelling Lymphatic: no lymphadenopathy noted Chest Chest: normal inspection of the chest Resp Effort & Inspection: normal respiratory effort and able to speak in complete sentences Auscultation: clear to auscultation bilaterally Cardio Rhythm: regular rhythm GI Inspection: normal to inspection Palpation: soft and nontender Auscultation: normal bowel sounds Back/Spine/Pelvis Thoracic/Lumbar Spine: thoracic and lumbar spine normal to inspection and No lumbar spinal tenderness Sacrum: no ecchymosis Skin General skin exam: no rashes or lesions noted Neuro General: patient alert and patient awake Speech: speech normal Extrem General: capillary refill normal, no calf tenderness bilaterally and no edema Psych Mental Status: other Speech and Movement: agitated Mood: paranoid and other Affect: anxious affect Attitude: guarded Thought Content: delusions and hallucinations Insight: poor Judgment: poor DS: Data Vitals/I&O Vitals and I&O: Vital Signs Temperature 35.2 C L 07/18/23 15:37 Temperature Source Tympanic 07/18/23 15:37 Pulse 93 H 07/18/23 15:37 Pulse Rhythm Regular 07/18/23 09:15 Pulse 105 H 07/11/23 18:10 Respiratory Rate 18 07/18/23 15:37 Respiratory Effort Normal 07/18/23 09:15 Respiratory Depth Normal 07/18/23 09:15 Respiratory Pattern Normal 07/18/23 09:15 Blood Pressure 100/62 07/18/23 15:37 Blood Pressure Mean 78 07/11/23 07:01 Blood Pressure Position Supine 07/10/23 23:57 Pulse Oximetry 94 07/18/23 15:37 Oxygen Delivery Method Room Air 07/18/23 15:37 Oxygen Flow Rate 0 07/18/23 15:37 Pain Level 0 07/18/23 11:16 Comment pT refused vs at this time 07/16/23 15:00 Intake & Output 07/17/23 07/18/23 07/18/23 23:59 11:59 23:59 Intake Total 200 / 200 Output Total 550 / 850 150 / 300 150 / 300 Balance -550 / -850 -150 / -100 50 / -100 Intake: Oral 200 / 200 Output: Urine 550 / 850 150 / 300 150 / 300 Other: Urine Color Dark Sofi Yellow Yellow Urine Appearance Clear Clear Clear Stool Size Moderate Small Stool Characteristics Formed Liquid Brown Brown Data Completed and Pending Labs on day of discharge: Labs from last 24 hours 07/18/23 10:10 COVID-19 Source Nasopharynx SARS-CoV-2 (PCR) Negative PFSH All Active Problems (Updated 07/17/23 @ 17:32 by Mayelin Ordoñez NP) Palliative care encounter (Acute) ACP (advance care planning) (Acute) Constipation (Acute) Urinary retention (Acute) Nausea (Acute) Hypokalemia (Acute) Encephalopathy due to infection (Acute) Delirium (Acute) Facial droop (Acute) Cerebral palsy (Acute) Gait instability (Acute) Dysarthria (Acute) Discharge planning issues (Acute) DVT prophylaxis (Acute) Pyuria (Acute) TIA (transient ischemic attack) (Acute) Tubular adenoma (Acute ~01/2023) Medical History History of head injury (~1988) Vitamin A deficiency Strabismus GERD (gastroesophageal reflux disease) Hyperlipidemia Arthritis of spine Osteopenia Obesity Urinary incontinence Prediabetes Club foot History of adenomatous polyp of colon History of cerebral palsy Surgical History History of colonoscopy with polypectomy (~01/2023) 2022 2011 2006 Leg - childhood Social History Smoking/Tobacco Use Status: Former Tobacco Use Quit Date: 08/21/02 Smoking risk assessment performed?: Yes Alcohol Intake: never Substance use type: does not use Do you feel safe at home: Yes Do you feel safe in your relationship?: Yes Additional Social history: Lives with Surya in apartment on [address] [place] Time Spent with Patient Time Spent with Patient: 45-69 minutes Time was spent: preparing to see the patient(eg.review tests), obtaining and/or reviewing separately otained hiistory, ordering medications,tests, procedures, referring, communicating with other health home health caregiver, indepentently interpreting results and care coordination
[2023-07-18] MEDS: Melatonin 3 MG TAB 9 MG PO (21:24)
[2023-07-18] MEDS: Atorvastatin 40 MG TAB 80 MG PO (21:26)
[2023-07-19 00:10] VITALS: BP 95/60; PULSE 102; RESP 18; TEMP 35.7; O2SAT 96
[2023-07-19] MEDS: LORazepam 1 MG TAB PO (04:42)
[2023-07-19 07:06] VITALS: BP 122/85; PULSE 100; RESP 18; TEMP 37.1; O2SAT 98
[2023-07-19] MEDS: Oxybutynin 5 MG TAB PO (08:29)
[2023-07-19] MEDS: Psyllium PKT 1 EACH PO (08:29)
[2023-07-19] MEDS: Potassium Chloride Liquid 20 MEQ PKT PO (08:29)
[2023-07-19] MEDS: Docusate Sodium 100 MG CAP PO (08:29)
[2023-07-19] MEDS: Cholecalciferol (Vitamin D3) 1,000 UNIT TAB 2000 UNITS PO (08:29)
[2023-07-19] MEDS: QUEtiapine 25 MG TAB PO (08:29)
--- NOTE | 2023-07-19 10:05 | CMDISCH_ITS ---
Date of service: 07/19/23 Time of Service: 10:05 LACE Index Scoring Tool Questions: Length of Stay (in days): 4 - 6 Was the patient admitted via the E.D.?: Yes Comorbidities: Cerebrovascular Disease E.D. Visits: 6 Answers: Total Score: 12 Risk of Readmission: High Risk Care Management Discharge Plan Reason for Hospitalization: AMS/LOC, Cerebral Palsy Discharge Plan: Mellisa was transferred to [facility] in [place] today for inpatient geriatric psychiatric stabilization. CM attempted to call her , with no answer. CM called and left a message with her [employer] piano case maker, Tamiko, to inform her of Mellisa's discharge plan. Mellisa was transported via EMS, coordinated by CM. She will follow up with her community supports, her PCP and her discharge plan of care. Patient/Family Education Needs: Review discharge instructions and limitations, discussion of self care needs including ask me three. Services Needed at Discharge: Psychiatric Facility ([facility]) and Transportation (EMS) MH Services (Omit if N/A) Current MH Services: [employer] Disposition Disposition: Other ([facility]) Transport via of: EMS
== END 2023-07-19 10:59 | disposition skilled nursing facility (03) | DRG 690 ==
LOC: ER 07-11 09:13 → MS 07-12 07:28
PROVIDERS: Internal Medicine; Nurse Practitioner Acute Care; Admitting Provider Family Medicine; Emergency Provider Student in an Organized Health Care Education/Training Program; PCP Family Medicine; Visit Provider Family Medicine
DX: N39.0 Urinary tract infection, site not specified (principal); G93.49 Other encephalopathy; G45.9 Transient cerebral ischemic attack, unspecified; R27.0 Ataxia, unspecified; E86.0 Dehydration; F22 Delusional disorders; R11.0 Nausea; R33.9 Retention of urine, unspecified; K59.00 Constipation, unspecified; G80.9 Cerebral palsy, unspecified; Z51.5 Encounter for palliative care; R47.1 Dysarthria and anarthria; Q66.89 Other specified congenital deformities of feet; R25.2 Cramp and spasm; E50.9 Vitamin A deficiency, unspecified; H50.9 Unspecified strabismus; K21.9 Gastro-esophageal reflux disease without esophagitis; E78.5 Hyperlipidemia, unspecified; M85.80 Other specified disorders of bone density and structure, unspecified site; M47.9 Spondylosis, unspecified; E66.9 Obesity, unspecified; R32 Unspecified urinary incontinence; R73.03 Prediabetes; Z87.891 Personal history of nicotine dependence; B96.20 Unspecified Escherichia coli [E. coli] as the cause of diseases classified elsewhere; Z87.820 Personal history of traumatic brain injury; Z86.010 Personal history of colon polyps
CPT/HCPCS: 00123; 36415; 51701; 70496; 70498; 80048; 80053; 80061; 80307; 87077; 87635; 93005; 93306; 96365; 96372; 97110; 97116; 97162; 97530; 99285; J1650; 70551; 80320; 81003; 81015; 82140; 83036; 83735; 84439; 84443; 85025; 85610; 87086; 87186; 92523; 93010; 99233; 99239; G0378; J0696; J0780; J2060; J3490

== ENCOUNTER 2023-08-02 12:15 | Inpatient (IN) | payer MEDICARE, MEDICAID, SELFPAY ==
[2023-08-02 11:05] VITALS: BP 91/61; PULSE 97; RESP 16; TEMP 36.4; O2SAT 96
[2023-08-02 12:51] VITALS: BP 91/61; PULSE 97; RESP 16; TEMP 36.4; O2SAT 96
--- NOTE | 2023-08-02 13:05 | HPE_ITS ---
Date of service: 08/02/23 Time of Service: 13:05 Assessment and Plan Assessment and plan (1) Urinary retention: Status: Acute Assessment and plan: Patient has a buckner, will plan to discontinue and start vesicare if needed /urology consult if needed (2) Failure to thrive in adult: Status: Acute Assessment and plan: Patient is not able to drink from straw when examined. As per report she is a total care and feed. Will order occupational consult for further determination (3) On deep vein thrombosis (DVT) prophylaxis: Status: Acute Assessment and plan: Initiating LMWH SC (4) Risk for falls: Status: Acute Assessment and plan: Will initiate PT (5) Discharge planning issues: Status: Resolved Assessment and plan: CM to f/u as patient will need at least the services she had when she was initially admitted Discussed with Dr. Uribe History of Present Illness History of Present Illness Chief Complaint: Failure to thrive, inability to ambulate Narrative: This 72 year old female with history of cerebral palsy with chronic left sided spasticity and club foot, was returned from [facility] today after a short stay for adjustment of her psychiatric medication. The patient initially presented to the emergency room at [facility] on 07/11/2023 via EMS after an acute onset slurring of her speech that started the evening prior to her presentation and lasted all day the following day, at the end of which her called EMS. Both her and EMS confirmed to the ED team that her speech as well as her ability to walk were both not at her baseline cerebral palsy. The patient was treated aspirin clopidogrel and high-dose statin due to concerns for a possible CVA. During her stay, MRI showed no acute CVA. Echocardiogram completed and showed EF of 55% and no structural or hemodynamically significant valvular disease. Initially urine suspicious for UTI and she was started on ceftriaxone. Her urine did grow ashley-sensitive E. coli, and she was treated and repeat urine was negative. Despite her completion of antibiotics and treatment for urinary tract infection she continued to experience hallucinations paranoia and ongoing psychiatric illness not baseline. She was started on Seroquel which was increased to 25 mg twice daily with no significant effect. She also received lorazepam for increased anxiety from her paranoia this also to with little effect. She was intermittently refusing to work with physical therapy but she was ambulated in her room and up to the chair also refused medications at times and food. Case management placed a referral at [facility] where she was accepted. She was transported to [facility] for inpatient psychiatric management to adjust her medicine and returned today as an observation patient on medical surgical unit. Review of Systems Constitutional Constitutional: Reports as per HPI, Denies body ache(s), Denies chills, Denies headache(s) and Denies malaise Eyes Eyes: Denies change in vision, Denies loss of vision and Denies eye pain ENT Ears, Nose, Mouth, and Throat: Denies headache(s) and Denies hearing loss Cardiovascular Cardiovascular: Denies chest pain, Denies chest pain at rest and Denies dyspnea Respiratory Respiratory: Denies cough, Denies pain on inspiration, Denies pain with cough and Denies dyspnea Gastrointestinal Gastrointestinal: Denies abdominal pain Genitourinary Genitourinary: Denies difficulty voiding (buckner in place) Musculoskeletal Musculoskeletal: Denies back pain and Denies myalgias Neurologic Neurologic: Denies headache(s) and Denies loss of vision Hematologic/Lymphatic Hematologic/Lymphatic: Reports system reviewed and no additional complaints, except as documented PFSH All Active Problems (Updated 08/02/23 @ 13:17 by Kae Rosales APRN) Risk for falls (Acute) On deep vein thrombosis (DVT) prophylaxis (Acute) Failure to thrive in adult (Acute) Palliative care encounter (Acute) ACP (advance care planning) (Acute) Constipation (Acute) Urinary retention (Acute) Hypokalemia (Acute) Delirium (Acute) Facial droop (Acute) Cerebral palsy (Acute) Gait instability (Acute) Dysarthria (Acute) Pyuria (Acute) Tubular adenoma (Acute ~01/2023) Medical History History of head injury (~1988) Vitamin A deficiency Strabismus GERD (gastroesophageal reflux disease) Hyperlipidemia Arthritis of spine Osteopenia Obesity Urinary incontinence Prediabetes Club foot History of adenomatous polyp of colon History of cerebral palsy Surgical History History of colonoscopy with polypectomy (~01/2023) 2022 2011 2006 Leg - childhood Social History Smoking/Tobacco Use Status: Former Tobacco Use Quit Date: 08/21/02 Smoking risk assessment performed?: Yes Alcohol Intake: never Substance use type: does not use Housing: other Do you feel safe at home: Yes Do you feel safe in your relationship?: Yes Additional Social history: Lives with Surya [address] [place] Allergies and Home Medications Allergies Allergy/AdvReac Type Severity Reaction Status Date / Time fluoxetine AdvReac Nausea Unverified 07/11/23 00:03 Home Medications Medication Instructions Recorded Confirmed Type cholecalciferol (vitamin D3) 50 50 mcg PO DAILY 12/16/22 07/11/23 History mcg (2,000 unit) capsule diaper,brief,adult,disposable 12/16/22 07/11/23 History (Breezers Adult Brief) ibuprofen 200 mg tablet 200 mg PO Q6H PRN 12/16/22 07/11/23 History metronidazole 1 % topical gel 1 applic topical DAILY 12/16/22 07/11/23 History (Metrogel) nystatin 100,000 unit/gram topical 1 applic topical BID PRN 12/16/22 07/11/23 History powder oxybutynin chloride 5 mg tablet 5 mg PO BID 12/16/22 07/11/23 History psyllium husk 3.4 gram/5.4 gram 1 tbsp PO DAILY #660 grams 02/03/23 07/11/23 Rx oral powder (Metamucil) lorazepam 1 mg tablet 1 mg PO QID PRN PRN #0 tabs 07/18/23 Rx potassium chloride 20 mEq oral 20 meq PO QMEALS #0 ea 07/18/23 Rx packet olanzapine 5 mg disintegrating 7.5 mg PO BID PRN 08/02/23 08/02/23 History tablet risperidone 0.25 mg tablet 0.25 mg PO BID 08/02/23 08/02/23 History Exam Narrative Exam Narrative: Constitutional The patient is sitting in bed comfortable and cooperative, distracted during the interview but easily reoriented The patient is well groomed without acute distress and has obese body habitus HENMT: Head is atraumatic, normocephalic, no lymphadenopathy. Facial structures with normal appearance Eyes: Well aligned, eye movements seem intact but patient moves her head as she is testing Neck: Normal ROM, no meningeal signs Neuro:alert and oriented to self and place, she knows she has a at home. No neurological focal deficit, follows directions Chest:Chest is symmetrical and normal appearance Resp: Normal respiratory pattern, unlabored breathing, clear lung bilaterally Cardio: regular rhythm, S1, S2, no murmur, capillary refill<3 sec., bilateral radial and dorsalis pedis pulses are positive, palpable GI: Abdomen is not distended, soft and non tender, bowel sounds are present : Negative Costovertebral angle tenderness, no bladder distension Back/spine/Pelvis: No back tenderness, normal alignment Integumentary: No skin lesions or rash, except for bruise to left lower abdomen Extremities: strength 5/5 to bilateral lower and upper extremities Psych: RASS 0, elated affect. Results Labs 08/02/23 13:03 08/02/23 18:45 Last Vital Signs Temp 36.4 C L 08/02/23 12:51 Pulse 97 H 08/02/23 12:51 Resp 16 08/02/23 12:51 BP 91/61 L 08/02/23 12:51 Pulse Ox 96 08/02/23 12:51 Time Spent Time spent with Patient: >75 minutes Time was spent: preparing to see the patient(eg.review tests), obtaining and/or reviewing separately otained hiistory, ordering medications,tests, procedures, referring, communicating with other health child care giver, indepentently interpreting results, counseling the patient and care coordination
[2023-08-02 13:16] LABS: Abs Immature Grans 0.04 10^3/uL (0.0-0.06); Absolute Basophil Count 0.04 10^3/uL (0.0-0.2); Absolute Eosinophil Count 0.18 10^3/uL (0.0-0.7); Absolute Monocyte Count 0.77 10^3/uL (0.1-0.8); Basophils % 0.4; Eosinophils % 1.8; HCT 35.4 % (36.0-46.0); HGB 11.8 g/dL (11.2-15.7); Immature Grans % 0.4; MCH 30.1 pg (27.0-33.0); MCHC 33.3 % (32.0-36.0); MCV 90 fL (80-95); MPV 8.9 fL (8.0-11.0); Monocytes % 7.7; Neutrophils % 79.7; Platelet Count 302 10^3/uL (130-400); RBC 3.92 10^6/uL (3.93-5.22); RDW 13.9 % (11.7-14.6); RDW-SD 46.4 fL; WBC 10.03 10^3/uL (4.4-10.8)
--- NOTE | 2023-08-02 13:28 | PT.INIE ---
PT Notes Visit Reasons: Failure to Thrive Physical Therapy Inpatient Initial Evaluation Date: 08/02/2023 Referring Doctor: Kae Rosales APRN PT Orders: PT CONSULT: Eval/Treat Precautions: Fall. Standard. Activity as tolerated. Orthopedic shoes on when OOB. Patient Profile/Admitting Diagnosis: Mellisa is a 72-year-old female returning to [facility] from [facility] for continued rehabilitation. She presented to the ED on 07/10/2023 with left facial droop, slurring of speech, and generalized weakness and admitted for management of TIA and pyuria. Brain MRI did not show evidence of an acute infarct nor cerebral artery atrophy. CT scan showed negative acute intracranial abnormality. She was sent to [facility] on 07/19/2023 for inpatient geriatric psychiatric stabilization and is readmitted to mitigate mobility impairments in anticipation of return to home when safe. PMHX: All Active Problems (Updated 08/02/23 @ 13:17 by Kae Rosales APRN) Risk for falls (Acute) On deep vein thrombosis (DVT) prophylaxis (Acute) Failure to thrive in adult (Acute) Palliative care encounter (Acute) ACP (advance care planning) (Acute) Constipation (Acute) Urinary retention (Acute) Hypokalemia (Acute) Delirium (Acute) Facial droop (Acute) Cerebral palsy (Acute) Gait instability (Acute) Dysarthria (Acute) Pyuria (Acute) Tubular adenoma (Acute ~01/2023) Medical History History of head injury (~1988) Vitamin A deficiency Strabismus GERD (gastroesophageal reflux disease) Hyperlipidemia Arthritis of spine Osteopenia Obesity Urinary incontinence Prediabetes Club foot History of adenomatous polyp of colon History of cerebral palsy Surgical History History of colonoscopy with polypectomy (~01/2023) 2022 2011 2006 Leg - childhood Social History/Home Situation: Lives with in a private home and 4 steps to enter with rails on both sides. Has community supports in place. Equipment Owned/DME: FWW Subjective: Singing [employer] when PT arrived. Objective: General Observation: Resting in bed. Drooling. Mental Status: Alert and oriented as to person and place. Focus impaired, requires frequent redirection to tasks and to conversation topic. Word finding difficulty, mild expressive aphasia noted. Pain: Denies pain Vital Signs: Closely monitored via tele ROM: Right Upper Extremity: Shoulder Flexion lacks the last 25% of AROM. Shoulder abduction lacks the last 25% of AROM. Elbow flexion WFL. Wrist flexion WFL. Functional opening and closing of hand WFL. Left Upper Extremity: Shoulder Flexion lacks the last 25% of AROM. Shoulder abduction lacks the last 25% of AROM. Elbow flexion WFL. Wrist flexion WFL. Functional opening and closing of hand WFL. Right Lower Extremity: Hip flexion lacks the last 25% of AROM. Hip abduction lacks the last 25% of AROM. Knee flexion 30 degrees to 80 degrees. Knee extension -30. Ankle dorsiflexion -20 degrees to neutral only. Ankle plantarflexion -20 degrees to 40 degrees. Left Lower Extremity: Hip flexion lacks the last 25% of AROM. Hip abduction lacks the last 25% of AROM. Knee flexion 30 degrees to 80 degrees. Knee extension -30. Ankle dorsiflexion to neutral only. Ankle plantarflexion WFL. STRENGTH: Right Upper Extremity: Shoulder flexors 3-/5. Shoulder abductors 3-/5. Elbow flexors 4-/5. Elbow extensors 4-/5. Drafter Castings strong. Left Upper Extremity: Shoulder flexors 3-/5. Shoulder abductors 3-/5. Elbow flexors 4-/5. Elbow extensors 4-/5. Drafter Castings strong. Right Lower Extremity: Hip flexors 3-/5. Hip abductors 3-/5. Knee flexors 3-/5. Knee extensors 3-/5. Ankle dorsiflexors 3-/5. Ankle plantarflexors 3-/5. Left Lower Extremity: Hip flexors 3-/5. Hip abductors 3-/5. Knee flexors 3-/5. Knee extensors 3-/5. Ankle dorsiflexors 3-/5. Ankle plantarflexors 3-/5. Bed Mobility/Transfers: Moderate to maximal cues given for movement sequence, safety, and AD management Rolling minimal assist Supine to sit moderate assist Sit to supine moderate assist Sit to stand moderate assist Stand to sit maximal assist, needed DEPUTY OF COUNTER INTELLIGENCE Jayne's help to prevent patient from sliding off edge of bed Bed to bedside deferred Bedside commode to bed deferred Gait: Deferred, unsafe at this time Balance: Static Sitting: Good Dynamic Sitting: Fair Static Standing: Fair Dynamic Standing: Poor Special Tests: Mobility Limitations Standardized Measure [facility] AM-PAC 6 clicks Basic Mobility Inpatient Short Form: Raw Score: 9 CMS Score: 81% deficit Informed Consent/Education: Patient was instructed in purpose of PT consult and plan of care. Agreeable to proceed with established PT POC to achieve personal goals. ASSESSMENT: Patient demonstrates functional mobility and cognitive decline requiring assistance of 2 for all transfers. Ambulation training with therapy only. Noticeably calmer this time but comparatively weaker compared to hospital days preceding transfer to [facility]. Could not maintain static standing safely, flopped onto bed with PT and ndearly slid off edge during attempt at initiating mobility assessment. Needed moderate to maximal assistance sitting up in bed. New onset drooling noted. Patient presents with clinical signs and symptoms consistent with current/admitting diagnoses that have resulted to mobility limitations, gait instability, generalized weakness, and overall ADL decline as demonstrated by the following impairment level findings: 1. Decreased strength to B UE/LE major muscle groups with L weaker than R 2. Impaired sitting/standing balance 3. Impaired activity tolerance 4. Limitation of joint range of motion in B UE/LE as above 5. 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 Impaired safety awareness Impairments are contributing to the following functional limitations: 1. Decline in bed mobility skills 2. Decline in transfer skills 3. Difficulty with ambulation without assistive device and physical assistance 4. Increased completion time for mobility ADL performance 5. Increased risk for falls 6. Difficulty with managing steps alone safely Patient is assessed as a 44604 moderate complexity based on the following: History: 72-year-old female with past medical history as indicated above Examination: Demonstrable impairment in strength, balance, and mobility level with underlying impairments and functional limitations as exhibited above as well as deficit score of 65% utilizing the [facility] Mobility Inpatient Short Form Presentation: Evolving Decision Makin moderate complexity Goals: Goals X1 week 1. Supine-Sit independent 2. Sit-Supine independent 3. Sit-Stand independent 4. Stand-Sit independent with FWW 5. Bed-Chair independent with FWW 6. Chair-Bed independent with FWW 7. Independent gait on level surface with use of FWW for at least 150 feet without report of pain nor dyspnea 8. Independent stair negotiation while holding onto B rails for at least 4 steps without report of pain nor dyspnea 9. Independent with home exercise program 10. Good static and dynamic standing balance/tolerance Plan of Care/Treatment Plan: 1-2x/day, 7 days/week x 1 week. Plan of care has been reviewed with the SWITCH INSPECTOR providing the service under Physical Therapy direction. Initiate Physical Therapy intervention for pain management as needed, strengthening, bed mobility, transfers, gait, stairs, balance training, and use of assistive device. DISCHARGE RECOMMENDATIONS: [] Home with no services [] [] Home with services [specify] [] Home with outpatient PT [] [X] SNF for continued rehabilitation. Patient will benefit from care home facility placement for continued skilled physical therapy services in order to progress mobility level, strength, and balance in preparation for a safe discharge to home. [] Construction Safety Manager Care [] [] SNF versus LTC based on ability to participate and progress [] TREATMENT CODE/TIME: 66302 x 20 minutes for 1 unit, 76641 x 12 minutes beginning at 13:28 PM. Thank you for the opportunity to participate in the care of this patient. Ramila Richardson PT, DPT, CLT [facility] [place], [place]
[2023-08-02] MEDS: Enoxaparin 40 MG/0.4 ML SYR SC (13:58)
[2023-08-02 15:13] VITALS: BP 128/86; PULSE 98; RESP 17; TEMP 36.9; O2SAT 94
[2023-08-02 17:30] LABS: Source Nasal/Nares
[2023-08-02 18:09] LABS: COVID-19 PCR Negative (Negative)
[2023-08-02 19:10] LABS: ALT 27 U/L (14-59); AST 15 U/L (15-37); Albumin 2.6 g/dL (3.4-5.0); Alkaline Phosphatase 68 U/L (46-116); Anion Gap 8.2 mmol/L (3-11); BUN 16 mg/dL (7-18); Bilirubin, Total 0.5 mg/dL (0.2-1.0); CO2 26.8 mmol/L (21.0-32.0); CREATININE 0.8 mg/dL (0.55-1.02); Calcium 8.6 mg/dL (8.5-10.1); Chloride 102 mmol/L (98-107); Estimated GFR 77.75 (mL/min/1.73m2); Glucose 192 mg/dL (74-106); Magnesium 2.1 mg/dL (1.8-2.4); Sodium 137 mmol/L (136-145); Total Protein 5.9 g/dL (6.4-8.2)
[2023-08-02 19:29] VITALS: BP 105/67; PULSE 99; RESP 18; TEMP 36.9; O2SAT 94
[2023-08-02] MEDS: risperiDONE 0.25 MG TAB PO (20:15)
[2023-08-02] MEDS: Gabapentin 100 MG CAP PO (20:15)
[2023-08-02] MEDS: Ondansetron O.D.T. 4 MG TABEF PO (20:15)
[2023-08-02] MEDS: Melatonin 3 MG TAB PO (21:24)
[2023-08-02 23:52] VITALS: BP 109/65; PULSE 90; RESP 16; TEMP 36.9; O2SAT 94
[2023-08-03 01:41] LABS: Bilirubin Negative (Negative); Blood Small (Negative); Clarity Cloudy (Clear); Glucose Negative (Negative); Ketones Negative (Negative); Leukocyte Esterase Small (Negative); Nitrite Positive (Negative); Specific Gravity >= 1.030 (1.005-1.025); Urobilinogen 0.2 mg/dL (Up to 0.2); pH 5.5 (5-8)
[2023-08-03 01:48] LABS: C & S Indicated? Yes; WBC >50 HPF (0-5)
[2023-08-03 03:30] VITALS: BP 111/69; PULSE 96; RESP 18; TEMP 37.1; O2SAT 91
[2023-08-03] MEDS: Acetaminophen 325 MG TAB 650 MG PO (04:37)
[2023-08-03 07:40] VITALS: BP 118/58; PULSE 88; RESP 18; TEMP 36.5; O2SAT 92
[2023-08-03] MEDS: Polyethylene Glycol 3350 17 GM PACKET PO (08:18)
[2023-08-03] MEDS: Gabapentin 100 MG CAP PO ×2 (08:18→21:27)
[2023-08-03] MEDS: risperiDONE 0.25 MG TAB PO ×2 (08:18→21:28)
--- NOTE | 2023-08-03 09:30 | OT.INIE ---
Occupational Therapy Notes Inpatient Occupational Therapy Evaluation Date: 08/03/23 Referring Doctor: Ashley Rosales OT Orders: Urgent Precautions: Fall, Standard, Full PATIENT PROFILE/ADMITTING DIAGNOSIS: Pt is a 72 year old female who was admitted to [facility] with a dx of risk for falls, failure to thrive for adults, constipation, urinary retention, nausea, hypokalemia, encephalopathy due to infection, delirium, UTI, cerebral palsy, facial droop, pyuria, TIA. Past Medical History: All Active Problems (Updated 08/02/23 @ 13:17 by Ashley Rosales, TRACK LAYING EQUIPMENT OPERATOR) Risk for falls (Acute) On deep vein thrombosis (DVT) prophylaxis (Acute) Failure to thrive in adult (Acute) Palliative care encounter (Acute) ACP (advance care planning) (Acute) Constipation (Acute) Urinary retention (Acute) Hypokalemia (Acute) Delirium (Acute) Facial droop (Acute) Cerebral palsy (Acute) Gait instability (Acute) Dysarthria (Acute) Pyuria (Acute) Tubular adenoma (Acute ~01/2023) Medical History History of head injury (~1988) Vitamin A deficiency Strabismus GERD (gastroesophageal reflux disease) Hyperlipidemia Arthritis of spine Osteopenia Obesity Urinary incontinence Prediabetes Club foot History of adenomatous polyp of colon History of cerebral palsy Surgical History History of colonoscopy with polypectomy (~01/2023) 2022 2011 2006 Leg - childhood Social History/Home Situation: Pt states that she lives with her mom and dad in [facility]. She states that she is (I) with her ADLs. Per pts EMR, Resides with , Surya in [facility]. Requires some community based support at baseline; is attached to [facility] Equipment owned/DME: Unable to assess SUBJECTIVE: Pt was sitting in bed when OT arrived. She is cognitively confused and notes that she lives with her parents. She does state that she has five children. OBJECTIVE: General Observation: Pleasant, confused cognitively but able to communicate verbally Mental Status: Alert to name and place Pain: No c/o pain ROM: RUE WFL L UE WFL STRENGTH: RUE weak with minimal vp site strength LUE weak with minimal vp site strength FUNCTIONAL MOBILITY/ADLS: BATHING max (A) Set up and mod vc Bathing UE Able to wash face Bathing LE Max (A) DRESSING Unable to perform, required max (A) GROOMING Able to brush her hair (I) with mod vc and visual cues TOILETING NT EATING sitting in bed, OT asked pt if she would like a drink. She was able to grasp handled cup and bring to her mouth with appropriate use of straw. BALANCE: Static sitting Good Dynamic Sitting Good INFORMED CONSENT/EDUCATION: Pt instructed in purpose of OT Consult and plan of care. ASSESSMENT: Patient is a 72-year-old female referred to occupational therapy services with diagnosis of risk for falls, failure to thrive for adults, constipation, urinary retention, nausea, hypokalemia, encephalopathy due to infection, delirium, UTI, cerebral palsy, facial droop, pyuria, TIA. Patient presents with clinical signs and symptoms consistent with dx, as demonstrated by the following impairment level findings/functional limitations: Impairments in ADL/IADL and leisure activities, decresed functional activity tolerance, decreased gross and fine motor control, impairments in (B) hand use, requires mod vc and visual cues for task initiation and executive planning. Patient is assessed as a Moderate 19948 complexity based on the following: History: see above Examination: see functional limitations as noted above Presentation: evolving Decision Making: Moderate complexity GOALS Goals x1 week 1. Oral Hygiene Min (A) 2. Dressing min (A) [facility] gown 3. Bathing (I) face, mod (A) UE 4. Toileting mod (A) 5. Eating with vc (I) with fluids with handled cup and straw PLAN OF CARE/TREATMENT PLAN: 1x/day, 5 days/ week x 1week Initiate Occupational Therapy Services for bathing, dressing, grooming, toileting, eating, transfer training. DISCHARGE RECOMMENDATIONS OT recommends that pt go to SNF when medically cleared per MD. TREATMENT TIME/MINUTES/CODES 72892, 53893, 32 minutes [facility] [place], [place]
--- NOTE | 2023-08-03 09:53 | PDOC.CMIN ---
Date of service: 08/03/23 Time of Service: 09:53 Care Management Initial Assmt Initial Assessment REASON FOR HOSPITALIZATION:: Failure to Thrive PREVIOUS FUNCTIONAL STATUS/SOCIAL/FAMILY SUPPORTS:: Mellisa lives in [facility] with her , Curtis. Both Mellisa and Curtis has support from [facility], as they are both part of the [employer] program. Per Amaya, her [employer] case making machine operator, Mellisa is independent with ADL's at baseline. CURRENT FUNCTIONAL STATUS:: Mellisa was lying in bed when CM met with her. She was singing [place]ar[employer] gutierrez with staff; one staff member was feeding her and one was preparing to start an IV on her. CM held her hand and sang with her until the IV was placed, which went well. Mellisa was able to identify Curtis as her , and her brother (Lamberto), as both being supportive, although much of the conversation was non-sensical. CM attempted to call Curtis with no answer. She was seen by Palliative care today, who will continue to follow. PT continues to work with her for strengthening. There is a neurology consult placed. CM will continue to follow. ADVANCE DIRECTIVES:: Not on file; CM requested Palliative care to discuss goals of care. Has patient been provided with info about the portal/API?: Yes Did the patient sign up for the portal?: No CODE STATUS:: Full Code INSURANCE COVERAGE / FINANCIAL ISSUES:: [facility]. NIRAJ. CURRENT HOME/COMMUNITY SERVICES/EQUIPMENT:: [facility] STEE[employer] PRIMARY CARE PHYSICIAN:: Sarah Schwab POTENTIAL DISCHARGE NEEDS:: Evaluations for further needs, follow up appointments. PATIENT/FAMILY EDUCATION NEEDS:: Review discharge instructions and limitations, discussion of self care needs including ask me three. ANTICIPATED BARRIERS TO DISCHARGE:: Mellisa has displayed a functional decline; unclear if she will be safe at home. TRANSPORTATION:: Transport dependent on disposition. PLAN:: Anticipate Mellisa will return home with HH services vs SNF for continued rehab. PT is recommending SNF at this time. Her transport will likely be [facility] w/c van. She will follow up with her PCP and discharge plan of care. CM will continue to follow. PFSH All Active Problems (Updated 08/03/23 @ 16:43 by Senait Gonzalez MD) Altered mental status (Acute) Ataxia (Acute) UTI (urinary tract infection) (Acute) Risk for falls (Acute) On deep vein thrombosis (DVT) prophylaxis (Acute) Failure to thrive in adult (Acute) Palliative care encounter (Acute) ACP (advance care planning) (Acute) Constipation (Acute) Urinary retention (Acute) Hypokalemia (Acute) Delirium (Acute) Facial droop (Acute) Cerebral palsy (Acute) Gait instability (Acute) Dysarthria (Acute) Pyuria (Acute) Tubular adenoma (Acute ~01/2023) Medical History History of head injury (~1988) Vitamin A deficiency Strabismus GERD (gastroesophageal reflux disease) Hyperlipidemia Arthritis of spine Osteopenia Obesity Urinary incontinence Prediabetes Club foot History of adenomatous polyp of colon History of cerebral palsy Surgical History History of colonoscopy with polypectomy (~01/2023) 2022 2011 2006 Leg - childhood Social History Smoking/Tobacco Use Status: Former Tobacco Use Quit Date: 08/21/02 Smoking risk assessment performed?: Yes Alcohol Intake: never Substance use type: does not use Housing: other Do you feel safe at home: Yes Do you feel safe in your relationship?: Yes Additional Social history: Lives with Surya in apartment on [facility] in [facility]
--- NOTE | 2023-08-03 09:57 | PTTR_ITS ---
Date of service: 08/03/23 Time of Service: 09:39 PT Notes Visit Reasons: Failure to Thrive Inpatient Physical Therapy Treatment Note [facility] Date: 08/03/23 PRECAUTIONS: Fall, standard, activity as tolerated. ORTHOPEDIC SHOES FOR ALL OOB ACTIVITIES. SUBJECTIVE: Patient appears awake, eyes are open but unfocused, she appears to be talking to someone standing on the window side of the bed but patient and this clinician are the only people in the room. Occasionally gestures vaguely with left hand. Occasionally focuses on this clinician, but quickly loses focus again. OBJECTIVE: Supine in bed. Agreeable to therapy, although having great difficulty maintaining focus. ? PAIN: none reported, no signs of pain. VITALS: monitored by nursing staff Therapeutic Activities ([id number]): Direct one-on-one instruction in dynamic activities to improve functional performance. ? BED MOBILITY/TRANSFERS? Rolling L/R: min to mod assist depending on patient's intrinsic motivation Supine-sit: max assist with max cueing and max redirection. Patient verbalizes consent and acknowledges this therapist, however the moves she makes independently are minimal and even with significant assistance and cueing she is minimally engaged.? Sit-supine: min assist. Patient is motivated to return to supine from sitting. ? Sit-stand: deferred ? Stand-sit: deferred ? Bed-Chair: deferred ? Chair-bed: deferred Provided skilled cues and instruction on performance and technique juana barriga. ASSESSMENT:? Patient will benefit from being more alert for therapy. Would have physically been able to do more if she could maintain cognitive engagement. PLAN: Continue global stregnthening per plan of care until patient is medically cleared for discharge. TREATMENT CODE/TIME: 15 minutes beginning at 9:39
--- NOTE | 2023-08-03 10:45 | W.PM.PROGNOT ---
Date of Service Date of service: 08/03/23 Time of Service: 10:45 Assessment and Plan Assessment and plan (1) UTI (urinary tract infection): Status: Acute Assessment and plan: UA positive from buckner collection, no dysuria, no increase in WBC, afebrile starting ceftriaxone Will do a new urine culture (2) Urinary retention: Status: Acute Assessment and plan: Buckner was ongoing from 07/11/23 admission, went to [facility] and came back with the buckner Planning for voiding trial today: Discontinue buckner Bladder scan post-void and PRN If unsuccessful, will reinsert Buckner and start Vesicare if needed /urology consult if needed; was on Oxybutin but discontinued. (3) Altered mental status: Status: Acute Assessment and plan: Neurology consult: AMS, delirium from unknowns etiology mentioned Recommendations to complete an MRI w/wo, Vitamin B1-B12 levels, syphilis serologic testing, EEG. If test result are negative consider LP as per Dr. Mathew's notes. (4) Ataxia: Status: Acute Assessment and plan: Present on initial admission on 07/11, MRI and CT negative for CVA then, the patient has with history of cerebral palsy and past TBI and during her 2 weeks stay at [facility], dementia was added to her Dxs Hesitant with movements when garbbing hands Neuro consult initiated (5) Failure to thrive in adult: Status: Acute Assessment and plan: Patient remains unable to feed herself, total or partial dependency in the completion of multiple ADL's Occupational consultation recommendation: SNF when medically cleared (6) On deep vein thrombosis (DVT) prophylaxis: Status: Acute Assessment and plan: Continue LMWH SC monitor platelets and Hgb (7) Risk for falls: Status: Acute Assessment and plan: Continue PT; placement to SNF recommended when medically cleared (8) Discharge planning issues: Status: Resolved Assessment and plan: CM to f/u as patient will need at least the services she had when she was initially admitted PT and OT recommendation for SNF, discussion with patient and POA ; referrals to be sent Palliative care consult initiated. Discussed with Dr. Uribe Subjective Subjective Patient reports: no new complaints, tolerating liquids well, tolerating a regular diet, voiding w/o difficulty, flatus and bowel movement; denies still having pain, diarrhea, blood in stool, vomiting, shortness of breath or fever Exam Narrative Exam Narrative: Constitutional The patient is sitting in chair and cooperative but needs reorientation The patient is without acute distress HENMT: Head is atraumatic, and facial structures with normal appearance, but new drooling today. Eyes: Well aligned Neck: Normal ROM Neuro:alert but unable to state place and name today, but could read her name. No focal neuro deficit,less able to follows directions today Chest:Chest is symmetrical and normal appearance Resp: Normal respiratory pattern, unlabored breathing, clear lung bilaterally Cardio:, S1, S2, regular , no murmur, bilateral radial and dorsalis pedis pulses are positive, palpable GI: Abdomen is not distended, soft and non tender, bowel sounds are present : Negative Costovertebral angle tenderness Back/spine/Pelvis: No back tenderness, normal alignment Integumentary: No skin lesions or rash, except for bruise to left lower abdomen Psych: RASS 0, elated affect, increased agitation, singing [place] songs during exam. Objective Last Vital Signs Temp 36.5 C 08/03/23 07:40 Pulse 88 08/03/23 07:40 Resp 18 08/03/23 07:40 BP 118/58 L 08/03/23 07:40 Pulse Ox 92 08/03/23 07:40 Laboratory Results - last 24 hr 08/02/23 08/02/23 08/02/23 13:03 17:25 18:45 WBC 10.03 RBC 3.92 L Hgb 11.8 Hct 35.4 L MCV 90 MCH 30.1 MCHC 33.3 RDW 13.9 Plt Count 302 MPV 8.9 Immature Gran % 0.4 Neutrophils % 79.7 Lymphocytes % 10.0 Monocytes % 7.7 Eosinophils % 1.8 Basophils % 0.4 Nucleated RBC % 0.0 Absolute Neutrophils 8.00 H Absolute Lymphocytes 1.00 L Absolute Monocytes 0.77 Absolute Eosinophils 0.18 Absolute Basophils 0.04 Sodium 137 Potassium 4.0 Chloride 102 Carbon Dioxide 26.8 Anion Gap 8.2 BUN 16 Creatinine 0.8 Est GFR (CKD-EPI 2020) 77.75 Glucose 192 H Calcium 8.6 Magnesium 2.1 Total Bilirubin 0.5 AST 15 ALT 27 Alkaline Phosphatase 68 Total Protein 5.9 L Albumin 2.6 L Urine Color Urine Clarity Urine pH Ur Specific Jefferson Urine Protein Urine Ketones Urine Blood Urine Nitrite Urine Bilirubin Urine Urobilinogen Ur Leukocyte Esterase Urine RBC Urine WBC Ur Epithelial Cells Urine Crystals Urine Bacteria Urine Mucus Ur Culture Indicated? Urine Glucose COVID-19 Source Nasal/Nares SARS-CoV-2 (PCR) Negative 08/03/23 01:15 WBC RBC Hgb Hct MCV MCH MCHC RDW Plt Count MPV Immature Gran % Neutrophils % Lymphocytes % Monocytes % Eosinophils % Basophils % Nucleated RBC % Absolute Neutrophils Absolute Lymphocytes Absolute Monocytes Absolute Eosinophils Absolute Basophils Sodium Potassium Chloride Carbon Dioxide Anion Gap BUN Creatinine Est GFR (CKD-EPI 2020) Glucose Calcium Magnesium Total Bilirubin AST ALT Alkaline Phosphatase Total Protein Albumin Urine Color Yellow Urine Clarity Cloudy Urine pH 5.5 Ur Specific Jefferson >= 1.030 H Urine Protein 100 H Urine Ketones Negative Urine Blood Small H Urine Nitrite Positive H Urine Bilirubin Negative Urine Urobilinogen 0.2 Ur Leukocyte Esterase Small H Urine RBC Not Applicable Urine WBC >50 H Ur Epithelial Cells Not Applicable Urine Crystals Not Applicable Urine Bacteria Not Applicable Urine Mucus Not Applicable Ur Culture Indicated? Yes Urine Glucose Negative COVID-19 Source SARS-CoV-2 (PCR) Time Spent with Patient Time Spent with Patient: >50 minutes Time was spent: preparing to see the patient(eg.review tests), ordering medications,tests, procedures, referring, communicating with other health care professional, indepentently interpreting results, counseling the patient and care coordination
[2023-08-03 11:37] VITALS: BP 107/49; PULSE 109; RESP 18; TEMP 36.6; O2SAT 95
[2023-08-03] MEDS: cefTRIAXone 1 GM/50 ML BAG IVPB (12:45)
[2023-08-03 13:00] LABS: Abs Immature Grans 0.02 10^3/uL (0.0-0.06); Absolute Basophil Count 0.02 10^3/uL (0.0-0.2); Absolute Eosinophil Count 0.25 10^3/uL (0.0-0.7); Absolute Lymphocyte Count 1.33 10^3/uL (1.2-3.4); Absolute Monocyte Count 0.46 10^3/uL (0.1-0.8); Absolute Neutrophil Count 5.01 10^3/uL (1.2-6.7); Basophils % 0.3; Eosinophils % 3.5; HCT 34.6 % (36.0-46.0); HGB 11.4 g/dL (11.2-15.7); Immature Grans % 0.3; Lymphocytes % 18.8; MCH 29.5 pg (27.0-33.0); MCHC 32.9 % (32.0-36.0); MCV 90 fL (80-95); MPV 8.7 fL (8.0-11.0); Monocytes % 6.5; Neutrophils % 70.6; Platelet Count 301 10^3/uL (130-400); RBC 3.86 10^6/uL (3.93-5.22); RDW-SD 45.6 fL; WBC 7.09 10^3/uL (4.4-10.8)
[2023-08-03 13:13] LABS: Anion Gap 4.6 mmol/L (3-11); BUN 12 mg/dL (7-18); CO2 28.4 mmol/L (21.0-32.0); CREATININE 0.8 mg/dL (0.55-1.02); Calcium 8.5 mg/dL (8.5-10.1); Chloride 105 mmol/L (98-107); Estimated GFR 77.75 (mL/min/1.73m2); Glucose 139 mg/dL (74-106); Potassium 3.8 mmol/L (3.5-5.1); Sodium 138 mmol/L (136-145)
--- NOTE | 2023-08-03 13:27 | PHACLINREV_ITS ---
Pharmacy Admission Review Admission Clinical Review Admission Pharmacy Review: (Updated 08/03/23 @ 11:55 by Kae Rosales APRN) UTI (urinary tract infection) (Acute) Risk for falls (Acute) On deep vein thrombosis (DVT) prophylaxis (Acute) Failure to thrive in adult (Acute) Urinary retention (Acute) fluoxetine Adverse Reaction (Unverified 07/11/23 00:03) Nausea Resuscitation Status Full Code Height 4 ft 8 in Weight 54.4 kg Pharmacy Admission Review Renal Dosing Renal Dosing: BUN 12 mg/dL (7-18) 08/03/23 12:50 Creatinine 0.8 mg/dL (0.55-1.02) 08/03/23 12:50 Medications needing adjustments: Reviewed (CrCl 43.01 mL/min) Anticoagulation Anticoagulation: Hgb 11.4 g/dL (11.2-15.7) 08/03/23 12:50 Hct 34.6 % (36.0-46.0) L 08/03/23 12:50 Plt Count 301 10^3/uL (130-400) 08/03/23 12:50 Creatinine 0.8 mg/dL (0.55-1.02) 08/03/23 12:50 DVT Prophylaxis: Reviewed Medications: Enoxaparin (40mg q24h) Relevant Labs Relevant Labs: Sodium 138 mmol/L (136-145) 08/03/23 12:50 Potassium 3.8 mmol/L (3.5-5.1) 08/03/23 12:50 Chloride 105 mmol/L (98-107) 08/03/23 12:50 Magnesium 2.1 mg/dL (1.8-2.4) 08/02/23 18:45 Electrolytes, C-Reactive P, ESR: Reviewed Cardiac Review BP, HR, EF%: Reviewed (BP 107/49, HR 109) QTc Review QTc: Reviewed (453 07/11/23, most recent EKG) IV to PO Switch IV Medications: Reviewed Home Meds Home Med List reviewed: Reviewed Relevent Home Meds Not ordered & why?: Reviewed discharge paperwork from [facility] and confirmed that they initiated patient on risperidone 0.25mg BID and olanzapine 7.5mg BID PRN. Fixed orders to match this and updated patients home med list. Current Meds Current Medication Order Review: Reviewed Pharmacy Antibiotic Review Pharmacy Antibiotic Activity: Reviewed, no change Comments: Ceftriaxone initiated today after UA came back positive. Urine culture pending.
--- NOTE | 2023-08-03 13:30 | PT.INTREAT ---
PT Notes Visit Reasons: Failure to Thrive Physical Therapy Treatment Note Date: 08/03/2023 Precautions: Fall. Standard. Activity as tolerated. Orthopedic shoes on when OOB. Subjective: Singing and conducting [employer] and [facility] [place] interchangeably throughout session. Attempted pulling IV site once during session. DAWIT Rogers aware. Objective: General Observation: Resting in bed. Drooling. Mental Status: Alert and oriented as to person and place. Focus impaired, requires frequent redirection to tasks and to conversation topic. Word finding difficulty, mild to moderate expressive aphasia noted. Pain: Denies pain Vital Signs: Closely monitored via tele BED MOBILITY/TRANSFERS: Moderate verbal, visual, and tactile cueing provided for use of B hands as needed for support, movement sequence, AD management, and and posture to reduce fall risk and minimize pain report. DAWIT rogers provided asssitance for safety. Rolling minimal assist Supine to sit moderate assist Sit to supine moderate assist Sit to stand moderate assist Stand to sit maximal assist Bed to bedside recliner minimal assist of 2 with manual assistnce provided to move FWW Bedside commode to bed minimal assist of 2 with manual assistnce provided to move FWW GAIT: Facilitated safe and correct performance of level surface ambulation covering a distance of 40-45 feet using FWW with moderate assist of PT and stand by assist of DAWIT Rogers for wheelchair follow and IV pole management. PT needed to maneuver walker for patient more than 75% of the time to ensure safety as patient tend to lag too far behind from device. Balance: Static Sitting: Good Dynamic Sitting: Fair Static Standing: Fair Dynamic Standing: Poor ASSESSMENT: Provided a lower and narrower chair for patient, set up the chair and put chair alarm on for safety. Also assisted with perineal care after a small bowel movement with help of DAWIT Rogers. Much more alert and cooperative today. Able to tolerate standing and walking significantly better compared to yesterday. Unable to mange and propel FWW at this time. Patient continues to demonstrate functional mobility and cognitive decline requiring assistance of 2 for all transfers. Ambulation training with therapy only. Noticeably calmer this time but comparatively weaker compared to hospital days preceding transfer to [facility]. Could not maintain static standing safely, flopped onto bed with PT and ndearly slid off edge during attempt at initiating mobility assessment. Needed moderate to maximal assistance sitting up in bed. New onset drooling noted. DISCHARGE RECOMMENDATIONS: [] Home with no services [] [] Home with services [specify] [] Home with outpatient PT [] [X] SNF for continued rehabilitation. Patient will benefit from detention facility placement for continued skilled physical therapy services in order to progress mobility level, strength, and balance in preparation for a safe discharge to home. [] Audio Visual Production Specialist Care [] [] SNF versus LTC based on ability to participate and progress [] TREATMENT CODE/TIME: 23198 x 46 minutes for 3 units beginning at 13:30 PM.
[2023-08-03] MEDS: Enoxaparin 40 MG/0.4 ML SYR SC (14:51)
[2023-08-03 15:32] VITALS: BP 108/63; PULSE 66; RESP 18; TEMP 36.9; O2SAT 93
--- NOTE | 2023-08-03 15:33 | W.PALLCONSUL ---
Date of service: 08/03/23 Time of Service: 14:35 History of Present Illness Narrative: Mellisa Mejia is a 72-year-old woman who lives in [facility] who was transferred back from [facility] yesterday. 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 She was initially admitted to [facility] from July 13 through with what was initially felt to be a TIA (symptoms were acute worsening of ataxia and development of dysarthria). After admission, She rapidly developed symptoms of acute encephalopathy with delirium like symptoms, her mental status Deviating from her previously reported baseline (as per VI manager of case). She also developed urinary retention and Hanna was placed (still in place). Workup including metabolic workup and MRI without contrast was only revealing for UTI, for which she was treated. However she continued to exhibit yelling out, paranoia and hallucinations. On July 18 she was transferred to [facility] facility. She was transferred back today with only minor adjustments to her medications (quetiapine was stopped). [facility] staff report to me today that actually her function has decreased since she was discharged to [facility]: They report today that she is unable to feed herself or even drink reliably from a cup, she is unable to stand up and ambulate, she is unable to attend to conversations, and unable to follow directions. Initial evaluation by hospitalist today reveals significant pyuria and patient has been started on treatment for presumed UTI with IV antibiotics. Palliative care team previously consulted prior to transfer to [facility]. We are asked to consult today regarding help with discharge planning, particularly goals of care as well as advance care planning. Patient was unable to give me any history today. Notes from [facility] were reviewed. Curtis unavailable and not responding to phone calls today and unable to schedule family meeting. Nursing staff reports that patient seems comfortable but quite confused, unable to feed herself or drink out of a cup. Dr. Schwab and VI manager of case Amaya Jenkins unavailable today to offer addl history or context. Care Team: Primary Care physician:Dr. Zaheer LEBRON Agricultural Equipment Sales Manager Amaya Jenkins Social HX: Lives in [facility] apartment with Curtis. As per , has hx of disabling mental illness, and in the past she had been the one to care for him. Neither one of them drive. Additional Supports: Case management from [facility] [employer] Team RCT for transportation. Some sort of Home health services from [facility] as per [facility] Cher Newell (she has not addl info): may get Impression of currents health status:Unable to answer What bothers you the most:Unable to answer What worries you the most:Unable to answer Goals:Unable to answer Current information preferences:Unable to answer Function:See today's PT note: needs help with rolling over in bed, no attempt made to transfer and stand patient. Additional hx to be obtained. Ambulation: ADLs: iADLs: Hearing: Vision: Palliative Performance Scale % Ambulation Activity and Evidence of Disease Self Care Intake Level of Consciousness 100 Full Normal activity, no evidence of disease Full Normal Full 90 Full Normal activity, some evidence of disease Full Normal Full 80 Full Normal activity with effort, some evidence of disease Full Normal or reduced Full 70 Reduced Unable to do normal work, some evidence of disease Full Normal or reduced Full 60 Reduced Unable to do hobby or some housework, significant disease Occasional assist necessary Normal or reduced Full or confusion 50 Mainly sit/lie Unable to do any work, extensive disease Considerable assistance required Normal or reduced Full or confusion 40 Mainly in bed Unable to do any work, extensive disease Mainly assistance Normal or reduced Full, drowsy, or confusion 30 Totally bed bound Unable to do any work, extensive disease Total care Reduced Full, drowsy, or confusion 20 Totally bed bound Unable to do any work, extensive disease Total care Minimal sips Full, drowsy, or confusion 10 Totally bed bound Unable to do any work, extensive disease Total care Mouth care only Drowsy or coma 0 - - - - Patient Score: 40 Spiritual history:Unable to answer Palliative review of systems: Unable to answer. Pain: Dyspnea: GI symptoms: Appetite: Depression: Anxiety: None Emotional Distress: Spiritual/Existential Distress: Labs: Cr: Liver panel: Albumin: CBC: Advanced Care Planning: Advanced Directive:Previous Palliative Note says that she has an advanced directive, [facility] reports they have no Advanced care documents on file. Health Care Agent: Curtis is reportedly surrogate COLST: Pt is full code. Limitations: Assessment and Plan Assessment and plan (1) ACP (advance care planning): Status: Acute Assessment and plan: Advance care planning/goals of care/discharge planning: Challenging situation with Patient who is unable to participate indecision making and /designated surrogate with questionable capacity himself. has informed case management that he is planning to take patient home (versus transfer to [facility] ). However patient cannoteven feed herself, transfer or toilet. Member of Palliative Care Team will try to be present at family meeting once set up with . Recommend having brother attend via phone and encouraging patient's RCT manager of case to show Gregory to attend in person or by phone. Please call palliative care office to advise of time and place of meeting. Persistent change in mental status: Seems most consistent with an encephalopathy. By history patient had acute change and cause has not been identified. (NPH? Inectious? Post-infectious? Autoimmune?). -Hospitalist is consulting neurology for evaluation. -Consider completing dementia type workup with B12, folate, syphilis testing. (2) Palliative care encounter: Status: Acute (3) Urinary tract infection: Status: Resolved PFSH All Active Problems (Updated 08/03/23 @ 14:10 by Kae Rosales APRN) Ataxia (Acute) UTI (urinary tract infection) (Acute) Risk for falls (Acute) On deep vein thrombosis (DVT) prophylaxis (Acute) Failure to thrive in adult (Acute) Palliative care encounter (Acute) ACP (advance care planning) (Acute) Constipation (Acute) Urinary retention (Acute) Hypokalemia (Acute) Delirium (Acute) Facial droop (Acute) Cerebral palsy (Acute) Gait instability (Acute) Dysarthria (Acute) Pyuria (Acute) Tubular adenoma (Acute ~01/2023) Medical History History of head injury (~1988) Vitamin A deficiency Strabismus GERD (gastroesophageal reflux disease) Hyperlipidemia Arthritis of spine Osteopenia Obesity Urinary incontinence Prediabetes Club foot History of adenomatous polyp of colon History of cerebral palsy Surgical History History of colonoscopy with polypectomy (~01/2023) 2022 2011 2006 Leg - childhood Social History Smoking/Tobacco Use Status: Former Tobacco Use Quit Date: 08/21/02 Smoking risk assessment performed?: Yes Alcohol Intake: never Substance use type: does not use Housing: other Do you feel safe at home: Yes Do you feel safe in your relationship?: Yes Additional Social history: Lives with Surya in apartment [facility] in [facility] Exam Narrative Exam Narrative: Small elderly woman sitting in recliner chair, playing with activity blanket. Echolalic type speech; repetitive, repeats single word or 3 word phrase that questioner says without answering question. Twirling her hands in the air. Difficulty controlling her hands, has some spasm to her fingers, somewhat which may be baseline from her CP. Cannot tell me her name, cannot tell me where she is. Cannot tell me her 's name or who she lives with. No respiratory distress. Results Last Vital Signs Temp 36.9 C 08/03/23 15:32 Pulse 66 08/03/23 15:32 Resp 18 08/03/23 15:32 BP 108/63 08/03/23 15:32 Pulse Ox 93 08/03/23 15:32 Labs 08/03/23 12:50 08/03/23 12:50 Labs: Laboratory Results - last 24 hr 08/02/23 08/02/23 08/03/23 17:25 18:45 01:15 WBC RBC Hgb Hct MCV MCH MCHC RDW Plt Count MPV Immature Gran % Neutrophils % Lymphocytes % Monocytes % Eosinophils % Basophils % Nucleated RBC % Absolute Neutrophils Absolute Lymphocytes Absolute Monocytes Absolute Eosinophils Absolute Basophils Sodium 137 Potassium 4.0 Chloride 102 Carbon Dioxide 26.8 Anion Gap 8.2 BUN 16 Creatinine 0.8 Est GFR (CKD-EPI 2020) 77.75 Glucose 192 H Calcium 8.6 Magnesium 2.1 Total Bilirubin 0.5 AST 15 ALT 27 Alkaline Phosphatase 68 Total Protein 5.9 L Albumin 2.6 L Urine Color Yellow Urine Clarity Cloudy Urine pH 5.5 Ur Specific [place] >= 1.030 H Urine Protein 100 H Urine Ketones Negative Urine Blood Small H Urine Nitrite Positive H Urine Bilirubin Negative Urine Urobilinogen 0.2 Ur Leukocyte Esterase Small H Urine RBC Not Applicable Urine WBC >50 H Ur Epithelial Cells Not Applicable Urine Crystals Not Applicable Urine Bacteria Not Applicable Urine Mucus Not Applicable Ur Culture Indicated? Yes Urine Glucose Negative COVID-19 Source Nasal/Nares SARS-CoV-2 (PCR) Negative 08/03/23 12:50 WBC 7.09 RBC 3.86 L Hgb 11.4 Hct 34.6 L MCV 90 MCH 29.5 MCHC 32.9 RDW 14.0 Plt Count 301 MPV 8.7 Immature Gran % 0.3 Neutrophils % 70.6 Lymphocytes % 18.8 Monocytes % 6.5 Eosinophils % 3.5 Basophils % 0.3 Nucleated RBC % 0.0 Absolute Neutrophils 5.01 Absolute Lymphocytes 1.33 Absolute Monocytes 0.46 Absolute Eosinophils 0.25 Absolute Basophils 0.02 Sodium 138 Potassium 3.8 Chloride 105 Carbon Dioxide 28.4 Anion Gap 4.6 BUN 12 Creatinine 0.8 Est GFR (CKD-EPI 2020) 77.75 Glucose 139 H Calcium 8.5 Magnesium Total Bilirubin AST ALT Alkaline Phosphatase Total Protein Albumin Urine Color Urine Clarity Urine pH Ur Specific [place] Urine Protein Urine Ketones Urine Blood Urine Nitrite Urine Bilirubin Urine Urobilinogen Ur Leukocyte Esterase Urine RBC Urine WBC Ur Epithelial Cells Urine Crystals Urine Bacteria Urine Mucus Ur Culture Indicated? Urine Glucose COVID-19 Source SARS-CoV-2 (PCR)
--- NOTE | 2023-08-03 16:21 | W.NEUROCONSU ---
Date of service: 08/03/23 Time of Service: 16:21 Assessment and Plan Assessment and plan (1) UTI (urinary tract infection): Status: Acute (2) Delirium: Status: Acute (3) Altered mental status: Status: Acute Assessment and plan: Ms. Mejia appears to have a delirium. But etiology is unclear. She may have recurrent UTI and has been started on antibiotics along with Buckner cessation and voiding trial. Would consider stopping oxybuytnin in case it is contributing to AMS/delirium as well as urinary retention if that was why the buckner was placed in the first place. Unclear why she is getting gabapentin, but please address the need for this as it too can contribute to AMS/delirium even at low dose. As further work-up, I recommend: -MRI brain w/wo -EEG -Labs: B1, B12, RPR -If above are unrevealing, would consider LP with cell count, glucose, protein, gram stain/cx, OCBs, IGG index/synthesis, VDRL, encephalitis panel, HSV 1/2 I will not be available until 08/07/23 and will return at that time if Ms. Mejia is still inpatient. History of Present Illness History of Present Illness Chief Complaint: AMS Narrative: Handedness: unknown. Ms. Mejia is a 72 year-old with cerebral palsy and baseline mild developmental delay and L hemispasticity per notes along with L club foot. She has hyperlipidemia and GERD. There is report of history of TBI but I do not have details on that. I was not able to speak with her today, but was able to speak with her PCP. PCP sees her every 2-3 years and last about 6months ago at which time she was at baseline. No history of psychiatric disorder but is embedded with [facility]. Does not like seeing doctors or taking medications. She presented to the [facility] ER on 07/10/23 for 24+hours of slurred speech and gait imbalance. She was diagnosed with a UTI (E.coli) and admitted for stroke work-up/started on DAPT. Work-up as below was negative for stroke. The next day she was noted to have some paranoia and confusion. It seems during her stay she had a buckner catheter placed, unclear why; and was also noted to have significant constipation. For her paranoia she was started on seroquel 25mg BID with no improvement. She was transferred to [facility] on 07/18/23 and returned here on 08/02/23 with buckner catheter still in place. It appears the only medication change was cessation of seroquel and in it's place risperidone 0.25mg BID (note I could not find the medical records from her stay at [facility]). Ms. Mejia upon returning is apparently worse functionally per nursing than she was prior to going to [facility]. She needs assistance for eating and I was told this am she was non-ambulatory, though it appears she was able to walk with PT this afternoon. UA performed this am and awaiting culture. She is on antibiotics for suspected recurrent. Buckner removed today for voiding trial. Primary team notes that she is no longer on oxybutynin, but she appears to still be getting it - and has been on this chronically??? She also is getting gabapentin 100mg BID, but I don't know when or why this was started. Work-up: -MRI brain w/o (07/11/23): No acute findings. Atrophy and white matter changes. I reviewed these images personally and this is my personal interpretation. -CTA head/neck (07/10/23): unremarkable. I reviewed these images personally and this is my personal interpretation. -Labs (06/2023): W 9.15, Hgb 14.3, Na 138, K 3.7, Cl 103, Cr 0.6, glucose 122, Ca 9.8, Mag 2.2, Tbili 1.3, ammonia <10, TSH 4.29, FT4 1.27, UDS neg, ETOH neg -Labs (08/02/23): W 10.03, Hgb 11.8, Na 137, K 4.0, Cl 102, BUN 16, Cr 0.8, glucose 192, Ca 8.6, Mag 2.1, Tbili 0.5 -UA (08/03/23): >50 WBCs with trace lk esterase with culture pending. Review of Systems All systems reviewed & are unremarkable except as noted in HPI and below PFSH All Active Problems (Updated 08/03/23 @ 16:43 by Senait Gonzalez MD) Altered mental status (Acute) Ataxia (Acute) UTI (urinary tract infection) (Acute) Risk for falls (Acute) On deep vein thrombosis (DVT) prophylaxis (Acute) Failure to thrive in adult (Acute) Palliative care encounter (Acute) ACP (advance care planning) (Acute) Constipation (Acute) Urinary retention (Acute) Hypokalemia (Acute) Delirium (Acute) Facial droop (Acute) Cerebral palsy (Acute) Gait instability (Acute) Dysarthria (Acute) Pyuria (Acute) Tubular adenoma (Acute ~01/2023) Medical History History of head injury (~1988) Vitamin A deficiency Strabismus GERD (gastroesophageal reflux disease) Hyperlipidemia Arthritis of spine Osteopenia Obesity Urinary incontinence Prediabetes Club foot History of adenomatous polyp of colon History of cerebral palsy Surgical History History of colonoscopy with polypectomy (~01/2023) 2022 2011 2006 Leg - childhood Social History Smoking/Tobacco Use Status: Former Tobacco Use Quit Date: 08/21/02 Smoking risk assessment performed?: Yes Alcohol Intake: never Substance use type: does not use Housing: other Do you feel safe at home: Yes Do you feel safe in your relationship?: Yes Additional Social history: Lives with Surya in apartment on [address] in [place] [facility] Visit Medication and Allergies Active Medications Generic Name Dose Route Start Last Admin Trade Name Freq PRN Reason Stop Dose Admin Acetaminophen 650 mg 08/02/23 12:50 08/03/23 04:37 Acetaminophen 325 Mg Tab PO 650 mg Q6H PRN PRN Administration Al Hydrox/Mg Hydrox/Simethicone 30 ml 08/02/23 12:40 Mylanta Suspension 30 Ml Cup PO Q2H PRN PRN Albuterol Sulfate 2.5 mg 08/02/23 12:40 Albuterol 2.5 Mg/3 Ml Inh Soln Vial UPD Q2H PRN PRN Docusate Sodium 100 mg 08/02/23 12:40 Docusate Sodium 100 Mg Cap PO TID PRN PRN Enoxaparin Sodium 40 mg 08/02/23 14:00 08/03/23 14:51 Enoxaparin 40 Mg/0.4 Ml Syr SC 40 mg Q24H BARRY Administration Gabapentin 100 mg 08/02/23 20:00 08/03/23 08:18 Gabapentin 100 Mg Cap PO 100 mg BID BARRY Administration Ceftriaxone Sodium/Dextrose 1 gm in 50 mls @ 100 mls/hr 08/04/23 10:00 Rocephin IVPB Q24H BARRY IV Miscellaneous Supplies 1 each 08/03/23 12:00 Iv Access IV DIRECTED BARRY Melatonin 3 mg 08/02/23 22:00 08/02/23 21:24 Melatonin 3 Mg Tab PO 3 mg HS BARRY Administration Olanzapine 7.5 mg 08/02/23 17:24 Olanzapine 5 Mg Tab PO BID PRN PRN Ondansetron HCl 4 mg 08/02/23 12:50 08/02/23 20:15 Ondansetron O.D.T. 4 Mg Tabef PO 4 mg Q6H PRN PRN Administration Polyethylene Glycol 17 gm 08/03/23 08:30 08/03/23 08:18 Polyethylene Glycol 3350 17 Gm Packet PO 17 gm DAILY BARRY Administration Risperidone 0.25 mg 08/02/23 20:00 08/03/23 08:18 Risperidone 0.25 Mg Tab PO 0.25 mg BID BARRY Administration Sodium Chloride 0 ml 08/03/23 11:48 Normal Saline Flush 10 Ml Syr IVP PRN PRN Sodium Chloride 0 ml 08/03/23 20:00 Normal Saline Flush 10 Ml Syr IVP BID BARRY Sodium Chloride 0 ml 08/03/23 11:48 Normal Saline 10 Ml Vial IJ DIRECTED PRN Allergies fluoxetine Adverse Reaction (Unverified 07/11/23 00:03) Nausea Exam Narrative Exam Narrative: Physical Exam: Constitutional: Patient of apparent stated age, well nourished, well developed, no acute distress Neck: Supple, no meningismus CV: RRR, S1, S2 Resp: CTAB Abd: Soft, nontender, nondistended Extrem: no edema Neuro: MS/Language/Speech: mild dysarthria, unfocused, not able to follow commands consistently; actively hallucinating??? couldn't tell me her name (Jacinto Coronado and then when I said her name was Mellisa and asked what her last name was = Purell I asked her her husbands name and she said Purell as well so there is some perseveration CN: PERRL, EOM appear intact by observation, visual salvador appear full by threat, trigeminal sensation intact, ?L nasolabial fold flattening, hearing intact, would not comply with further testing Motor: Normal bulk and tone. Moves her left leg less than other extremities- it appears a little more hypotonic as well. Could not participate in formal strength testing. Sensation: Intact to PP throughout Reflexes: 2+ DTRs, downgoing toes Coordination: no ataxia Gait: not performed Results Last Vital Signs Temp 98.4 F 08/03/23 15:32 Pulse 66 08/03/23 15:32 Resp 18 08/03/23 15:32 BP 108/63 08/03/23 15:32 Pulse Ox 93 08/03/23 15:32 Labs 08/03/23 12:50 08/03/23 12:50 Labs: Laboratory Results - last 24 hr 08/02/23 08/02/23 08/03/23 17:25 18:45 01:15 WBC RBC Hgb Hct MCV MCH MCHC RDW Plt Count MPV Immature Gran % Neutrophils % Lymphocytes % Monocytes % Eosinophils % Basophils % Nucleated RBC % Absolute Neutrophils Absolute Lymphocytes Absolute Monocytes Absolute Eosinophils Absolute Basophils Sodium 137 Potassium 4.0 Chloride 102 Carbon Dioxide 26.8 Anion Gap 8.2 BUN 16 Creatinine 0.8 Est GFR (CKD-EPI 2020) 77.75 Glucose 192 H Calcium 8.6 Magnesium 2.1 Total Bilirubin 0.5 AST 15 ALT 27 Alkaline Phosphatase 68 Total Protein 5.9 L Albumin 2.6 L Urine Color Yellow Urine Clarity Cloudy Urine pH 5.5 Ur Specific [place] >= 1.030 H Urine Protein 100 H Urine Ketones Negative Urine Blood Small H Urine Nitrite Positive H Urine Bilirubin Negative Urine Urobilinogen 0.2 Ur Leukocyte Esterase Small H Urine RBC Not Applicable Urine WBC >50 H Ur Epithelial Cells Not Applicable Urine Crystals Not Applicable Urine Bacteria Not Applicable Urine Mucus Not Applicable Ur Culture Indicated? Yes Urine Glucose Negative COVID-19 Source Nasal/Nares SARS-CoV-2 (PCR) Negative 08/03/23 12:50 WBC 7.09 RBC 3.86 L Hgb 11.4 Hct 34.6 L MCV 90 MCH 29.5 MCHC 32.9 RDW 14.0 Plt Count 301 MPV 8.7 Immature Gran % 0.3 Neutrophils % 70.6 Lymphocytes % 18.8 Monocytes % 6.5 Eosinophils % 3.5 Basophils % 0.3 Nucleated RBC % 0.0 Absolute Neutrophils 5.01 Absolute Lymphocytes 1.33 Absolute Monocytes 0.46 Absolute Eosinophils 0.25 Absolute Basophils 0.02 Sodium 138 Potassium 3.8 Chloride 105 Carbon Dioxide 28.4 Anion Gap 4.6 BUN 12 Creatinine 0.8 Est GFR (CKD-EPI 2020) 77.75 Glucose 139 H Calcium 8.5 Magnesium Total Bilirubin AST ALT Alkaline Phosphatase Total Protein Albumin Urine Color Urine Clarity Urine pH Ur Specific [place] Urine Protein Urine Ketones Urine Blood Urine Nitrite Urine Bilirubin Urine Urobilinogen Ur Leukocyte Esterase Urine RBC Urine WBC Ur Epithelial Cells Urine Crystals Urine Bacteria Urine Mucus Ur Culture Indicated? Urine Glucose COVID-19 Source SARS-CoV-2 (PCR)
--- NOTE | 2023-08-03 17:09 | CHAPLAIN ---
I visited with Mellisa twice today. She was pleasant, often singing or repeating words. This morning, Mellisa was in bed and had spilled applesauce into blanket and sheet I called for an CONSUMER LOAN MANAGER who helped Mellisa get cleaned up. Mellisa appeared to know, at least she repeated by name. She also repeated her own. She seems to recognize Curtis's (her ) name, but wasn't able to answer if she talked to him today. Mellisa is very different from how I know her to be in the community where she carries on a conversation in detail and helps take care of Curtis. I will continue to visit.
[2023-08-03 19:55] VITALS: BP 95/60; PULSE 83; RESP 19; TEMP 37; O2SAT 95
[2023-08-03] MEDS: Melatonin 3 MG TAB PO (21:27)
[2023-08-03] MEDS: Normal Saline Flush 10 ML SYR IVP (21:29)
[2023-08-03 23:29] VITALS: BP 100/70; PULSE 72; RESP 18; TEMP 36.6; O2SAT 90
--- NOTE | 2023-08-04 | DI.MRI_ITS ---
Exam(s) MR BRAIN WO/W EXAM: MR BRAIN WO/W CLINICAL HISTORY: AMS, delirium. TECHNIQUE: Multiplanar multisequence MRI of the brain was performed. CONTRAST MATERIAL: IV Contrast: 11 ML of Dotarem contrast administered. COMPARISON: MR MR BRAIN WO from 07/11/[address] BRAIN NECK CTA from 07/11/2023 FINDINGS: Exam limited due to patient motion. VENTRICLES AND EXTRA AXIAL SPACES: Dilated, particularly frontal horns, unchanged. HEMORRHAGE: None. CEREBRAL PARENCHYMA: No focus of restricted diffusion to suggest acute infarct. No space-occupying le tyson identified. Severe atrophy. White matter high signal consistent with microvascular disease. MIDLINE SHIFT: None. BRAINSTEM/CEREBELLUM: Normal. CALVARIUM: Normal. ENHANCEMENT: No suspicious enhancement identified. VISUALIZED PARANASAL SINUSES/MASTOIDS: Clear. Orbits: Unremarkable. Pituitary: Normal. Vasculature: Normal flow voids. IMPRESSION: Limited exam due to motion. No acute findings. DATA REPOSITORY:
[2023-08-04 03:37] VITALS: BP 103/66; PULSE 87; RESP 18; TEMP 36.6; O2SAT 93
[2023-08-04 07:13] LABS: Abs Immature Grans 0.05 10^3/uL (0.0-0.06); Absolute Basophil Count 0.03 10^3/uL (0.0-0.2); Absolute Eosinophil Count 0.27 10^3/uL (0.0-0.7); Absolute Monocyte Count 0.75 10^3/uL (0.1-0.8); Absolute Neutrophil Count 7.21 10^3/uL (1.2-6.7); Basophils % 0.3; Eosinophils % 2.8; HCT 35.4 % (36.0-46.0); HGB 11.7 g/dL (11.2-15.7); Immature Grans % 0.5; Lymphocytes % 15.3; MCH 29.7 pg (27.0-33.0); MCHC 33.1 % (32.0-36.0); MCV 90 fL (80-95); MPV 8.9 fL (8.0-11.0); Monocytes % 7.6; Neutrophils % 73.5; Platelet Count 327 10^3/uL (130-400); RBC 3.94 10^6/uL (3.93-5.22); RDW 13.9 % (11.7-14.6); RDW-SD 45.4 fL; WBC 9.81 10^3/uL (4.4-10.8)
[2023-08-04 07:24] LABS: Anion Gap 7.3 mmol/L (3-11); BUN 12 mg/dL (7-18); CO2 29.7 mmol/L (21.0-32.0); CREATININE 0.6 mg/dL (0.55-1.02); Calcium 9.2 mg/dL (8.5-10.1); Chloride 102 mmol/L (98-107); Estimated GFR 94.72 (mL/min/1.73m2); Glucose 96 mg/dL (74-106); Potassium 3.6 mmol/L (3.5-5.1); Sodium 139 mmol/L (136-145)
[2023-08-04 07:52] LABS: Vitamin B12 268 pg/mL (193-986)
[2023-08-04 07:59] VITALS: BP 104/64; PULSE 92; RESP 16; TEMP 36.9; O2SAT 95
[2023-08-04] MEDS: Polyethylene Glycol 3350 17 GM PACKET PO (09:21)
[2023-08-04] MEDS: Gabapentin 100 MG CAP PO ×2 (09:21→19:46)
[2023-08-04] MEDS: risperiDONE 0.25 MG TAB PO ×2 (09:21→19:46)
[2023-08-04] MEDS: cefTRIAXone 1 GM/50 ML BAG IVPB (10:34)
--- NOTE | 2023-08-04 10:50 | PGE_ITS ---
Date of Service Date of service: 08/04/23 Time of Service: 10:50 Assessment and Plan Assessment and plan (1) UTI (urinary tract infection): Status: Acute Assessment and plan: UA positive from buckner collection, no dysuria, no increase in WBC, afebrile Repeated urine culture after change Will do a new urine culture, growing GNR, will continue ceftriaxone until further results (2) Delirium: Status: Acute Assessment and plan: Treating UTI MRI completed, sedation with 1mg of lorazepam was necessary: negative for acute process EEG completed, reading pending Awaiting lab results for syphilis serology, and thiamin level Vitamin B12 oral supplementation initiated as it is low normal and patient could benefit of higher level of this acute phase reactant Will proceed with LP as per neurology recommendations if test results are negative BID PRN olanzapine might need to be given more often, only received a few doses (3) Altered mental status: Status: Acute Assessment and plan: As above Neurology consultation completed:See recommendations as per notes Possible inpatient f/u on the 08/07, if still admitted (4) Urinary retention: Status: Acute Assessment and plan: Buckner was ongoing from 07/11/23 admission, went to [facility] and came back with the buckner Voiding trial : PVR 192 ml which correlates with uncompleted bladder emptying today, will consult urology and straight cath every 8 hours Continue bladder scan post-void and PRN Consideration given to anticholinergics but patient is confused and has an AMS, and history of constipation (5) Ataxia: Status: Acute Assessment and plan: Present on initial admission on 07/11, MRI and CT negative for CVA then, the patient has with history of cerebral palsy and past TBI and during her 2 weeks stay at [facility], dementia was added to her Dxs. Not observed today as patient was to somnolent complete active part of physical exam. As per neuro consult exam; no ataxia (6) Failure to thrive in adult: Status: Acute Assessment and plan: Patient remains unable to feed herself, total or partial dependency in the completion of multiple ADL's Occupational consultation recommendation: SNF when medically cleared (7) On deep vein thrombosis (DVT) prophylaxis: Status: Acute Assessment and plan: Continue LMWH SC monitor platelets and Hgb (8) Risk for falls: Status: Acute Assessment and plan: Continue PT; placement to SNF recommended when medically cleared (9) Discharge planning issues: Status: Resolved Assessment and plan: CM to f/u as patient will need at least the services she had when she was initially admitted PT and OT recommendation for SNF, discussion with patient and POA ; referrals to be sent Palliative care consult initiated. Discussed with Dr. Uribe Subjective Subjective Interval history since last seen: Patient seen after MRI and was still sedated but arousable to deep tactile stimuli. As per nursing report she was a total feed this morning, had voided with postvoid residual less than 200 mL. There was no complaint of pain, shortness of breath, nausea, vomiting or diarrhea; also reported that the patient had a bowel movement. No reports of fever, chills, diaphoresis. Exam Narrative Exam Narrative: Patient is in bed after MRI, arousable to deep tactile stimuli, PERRLA on ambient light No focal deficit noticed, no spasticity Head is atraumatic Lungs are clear, shallow regular breathing, bilateral chest expansion S1-S2 heard, no cardiac murmur, cap refill less than 3 seconds, pulses positive to all 4 extremities. Abdomen is soft, nontender, nondistended bowel sounds are present. No bladder distention, no pelvic discomfort on palpation. Patient is able to move all 4 extremities but remains weak Objective Last Vital Signs Temp 36.9 C 08/04/23 07:59 Pulse 92 H 08/04/23 07:59 Resp 16 08/04/23 07:59 BP 104/64 08/04/23 07:59 Pulse Ox 95 08/04/23 07:59 Laboratory Results - last 24 hr 08/03/23 08/04/23 12:50 06:40 WBC 7.09 9.81 RBC 3.86 L 3.94 Hgb 11.4 11.7 Hct 34.6 L 35.4 L MCV 90 90 MCH 29.5 29.7 MCHC 32.9 33.1 RDW 14.0 13.9 Plt Count 301 327 MPV 8.7 8.9 Immature Gran % 0.3 0.5 Neutrophils % 70.6 73.5 Lymphocytes % 18.8 15.3 Monocytes % 6.5 7.6 Eosinophils % 3.5 2.8 Basophils % 0.3 0.3 Nucleated RBC % 0.0 0.0 Absolute Neutrophils 5.01 7.21 H Absolute Lymphocytes 1.33 1.50 Absolute Monocytes 0.46 0.75 Absolute Eosinophils 0.25 0.27 Absolute Basophils 0.02 0.03 Sodium 138 139 Potassium 3.8 3.6 Chloride 105 102 Carbon Dioxide 28.4 29.7 Anion Gap 4.6 7.3 BUN 12 12 Creatinine 0.8 0.6 Est GFR (CKD-EPI 2020) 77.75 94.72 Glucose 139 H 96 Calcium 8.5 9.2 Vitamin B12 268 Time Spent with Patient Time Spent with Patient: >50 minutes Time was spent: preparing to see the patient(eg.review tests), ordering medications,tests, procedures, referring, communicating with other health resident care manager rn, indepentently interpreting results, counseling the patient and care coordination
--- NOTE | 2023-08-04 11:03 | PDOC.CMPRO ---
Date of service: 08/04/23 Time of Service: 11:03 Care Management Progress Note Progress Note Text Progress Note Text: S/O: Mellisa was having testing done when CM attempted to visit her today. Per report, she continues to require 2 person assistance for transfers, and is a total feed. CM called Amaya, her case repairer, and discussed having a family meeting early next week to discuss discharge planning considerations. Mellisa is not able to consent to admission to a SNF, which is recommended by PT. 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 CM cannot reach Curtis on the phone, there have been multiple attempts. Palliative also plans to meet with Mellisa, but may wait until Curtis is present- in person or over the phone. She is having an MRI, EEG, and a Neuro consult today; HYDROLOGIC MODELER is considering an LP as well. CM will continue to follow. A: Mellisa is a 72 year old female admitted to [facility] on 08/02/23 for failure to thrive. P: Anticipate Mellisa will return home with services vs SNF for continued rehab. PT is recommending SNF at this time. Her transport will likely be RCT w/c van. She will follow up with her PCP and discharge plan of care. CM will continue to follow.
[2023-08-04] MEDS: OLANZapine 5 MG TAB 7.5 MG PO (11:11)
[2023-08-04] MEDS: LORazepam 2 MG/ML VIAL 1 MG IVP (12:09)
[2023-08-04] MEDS: Gadoterate meglumine 20 ML VIAL 11 ML IVP (12:11)
[2023-08-04 12:35] VITALS: BP 91/59; PULSE 77; RESP 18; TEMP 37.2; O2SAT 94
[2023-08-04] MEDS: Lactated Ringers 1,000 ML 80 ML IV (12:35)
[2023-08-04 12:40] VITALS: O2SAT 87
[2023-08-04] MEDS: Enoxaparin 40 MG/0.4 ML SYR SC (14:53)
--- NOTE | 2023-08-04 16:24 | PT.INNT ---
PT Notes Visit Reasons: Failure to Thrive Came back from MRI testing sedated. Hold off on PT as of today. Resume PT services tomorrow.
[2023-08-04 17:49] VITALS: O2SAT 92
[2023-08-04] MEDS: Cyanocobalamin 100 MCG TABLET PO (18:40)
--- NOTE | 2023-08-04 18:44 | NUR.NOTE ---
Nursing Note: Pt got back from MRI with a BP of 91/52, AGILE SCRUM COACH wanted fluids, she asked for 80mL/hr of LR for 1000mL. They were hung at 1235. There is still no order in the mar to document the fluids. AGILE SCRUM COACH is aware but there is still no order in place that is able to be documented on.
[2023-08-04] MEDS: Docusate Sodium 100 MG CAP PO (19:46)
[2023-08-04] MEDS: Normal Saline Flush 10 ML SYR IVP (19:47)
--- NOTE | 2023-08-04 20:35 | PDOC.EEG ---
Neurology EEG EEG: Department of Neurology INPATIENT EEG REPORT Date of Recordin08/04/23 Interpreting Physician: Dr. Senait Gonzalez Reason for study: Mellisa is a 72 year-old with altered mental status. Current Medications: Current Medications Acetaminophen (Acetaminophen 325 Mg Tab) 650 mg PO Q6H PRN PRN Last Admin: 08/03/23 04:37 Dose: 650 mg Al Hydrox/Mg Hydrox/Simethicone (Mylanta Suspension 30 Ml Cup) 30 ml PO Q2H PRN PRN Albuterol Sulfate (Albuterol 2.5 Mg/3 Ml Inh Soln Vial) 2.5 mg UPD Q2H PRN PRN Cyanocobalamin (Cyanocobalamin 100 Mcg Tablet) 100 mcg PO DAILY [facility] Last Admin: 08/04/23 18:40 Dose: 100 mcg Docusate Sodium (Docusate Sodium 100 Mg Cap) 100 mg PO BID [facility] Last Admin: 08/04/23 19:46 Dose: 100 mg Enoxaparin Sodium (Enoxaparin 40 Mg/0.4 Ml Syr) 40 mg SC Q24H [facility] Last Admin: 08/04/23 14:53 Dose: 40 mg Gabapentin (Gabapentin 100 Mg Cap) 100 mg PO BID [facility] Last Admin: 08/04/23 19:46 Dose: 100 mg Ceftriaxone Sodium/Dextrose (Rocephin) 1 gm in 50 mls @ 100 mls/hr IVPB Q24H [facility] Last Infusion: 08/04/23 11:36 Dose: Infused Ringer's Solution () 1,000 mls @ 80 mls/hr IV INFUSION [facility] IV Miscellaneous Supplies (Iv Access) 1 each IV DIRECTED [facility] Melatonin (Melatonin 3 Mg Tab) 3 mg PO HS [facility] Last Admin: 08/03/23 21:27 Dose: 3 mg Olanzapine (Olanzapine 5 Mg Tab) 7.5 mg PO BID PRN PRN Last Admin: 08/04/23 11:11 Dose: 7.5 mg Ondansetron HCl (Ondansetron O.D.T. 4 Mg Tabef) 4 mg PO Q6H PRN PRN Last Admin: 08/02/23 20:15 Dose: 4 mg Polyethylene Glycol (Polyethylene Glycol 3350 17 Gm Packet) 17 gm PO DAILY [facility] Last Admin: 08/04/23 09:21 Dose: 17 gm Risperidone (Risperidone 0.25 Mg Tab) 0.25 mg PO BID [facility] Last Admin: 08/04/23 19:46 Dose: 0.25 mg Sodium Chloride (Normal Saline Flush 10 Ml Syr) 0 ml IVP PRN PRN Sodium Chloride (Normal Saline Flush 10 Ml Syr) 0 ml IVP BID [facility] Last Admin: 08/04/23 19:47 Dose: 10 ml Sodium Chloride (Normal Saline 10 Ml Vial) 0 ml IJ DIRECTED PRN METHODS: A 21 channel digitized electroencephalogram was performed in the Med/Surg Floor or ICU. The 10/20 international system of electrode placement was used and bipolar and referential electrode montages were recorded. In addition to EEG the patient was monitored for EKG and lateral/vertical eye movements. Activation procedures of photic stimulation and hyperventilation were performed if applicable. Video was used during activation procedures and during events where applicable. The duration of the recording was 30 minutes. DESCRIPTION OF EEG: The patient was noted to be awake, drowsy, and asleep during the recording. During maximal wakefulness a 10-Hz posterior background rhythm was present which was poorly-modulated, symmetrical, reactive to eye opening, and of moderate voltage. With eye opening the background activity changed to a low voltage mixture of alpha, beta, and occasional theta range frequencies. Faster frequencies were present in the bilateral anterior head regions. There was a normal anterior-posterior voltage gradient. During drowsiness, there was attenuation of the posterior dominant background rhythm and vertex waves. Stage II sleep was present with symmetrical sleep spindles, K-complexes, and vertex waves. During wakefulness, there was moderate-amplitude, generalized, polymorphic delta and theta slowing. Activating Procedures: Photic stimulation was performed which produced a symmetrical posterior driving response at various flash frequencies. Hyperventilation was not performed. EKG: EKG revealed normal sinus rhythm. INTERPRETATION: This EEG is abnormal due to generalized non-rhythmic delta and theta slowing. PRIOR EEG: none CLINICAL CORRELATION: The background slowing is suggestive of a mild-moderate diffuse cerebral encephalopathy of broad differential including toxic-metabolic etiology. No focal regions of cerebral dysfunction or epileptiform activity was present. Clinical correlation is advised. Senait Gonzalez MD Date of service: 08/04/23 Coding CPT Codes EEG AWAKE AND ASLEEP - [id number])
[2023-08-04 21:06] VITALS: BP 93/57; PULSE 70; RESP 17; TEMP 37; O2SAT 94
[2023-08-05] MEDS: Lactated Ringers 1,000 ML 80 ML IV ×2 (01:06→15:54)
[2023-08-05 04:34] VITALS: BP 101/60; PULSE 89; RESP 17; TEMP 37.1; O2SAT 94
[2023-08-05 07:23] VITALS: BP 95/59; PULSE 71; RESP 17; TEMP 36; O2SAT 96
[2023-08-05 08:15] LABS: Abs Immature Grans 0.03 10^3/uL (0.0-0.06); Absolute Basophil Count 0.02 10^3/uL (0.0-0.2); Absolute Eosinophil Count 0.28 10^3/uL (0.0-0.7); Absolute Lymphocyte Count 1.13 10^3/uL (1.2-3.4); Absolute Monocyte Count 0.59 10^3/uL (0.1-0.8); Absolute Neutrophil Count 5.14 10^3/uL (1.2-6.7); Basophils % 0.3; Eosinophils % 3.9; HCT 35.5 % (36.0-46.0); HGB 11.6 g/dL (11.2-15.7); Immature Grans % 0.4; Lymphocytes % 15.7; MCH 29.9 pg (27.0-33.0); MCHC 32.7 % (32.0-36.0); MCV 92 fL (80-95); MPV 8.6 fL (8.0-11.0); Monocytes % 8.2; Neutrophils % 71.5; Platelet Count 289 10^3/uL (130-400); RBC 3.88 10^6/uL (3.93-5.22); RDW 13.7 % (11.7-14.6); RDW-SD 46.5 fL; WBC 7.19 10^3/uL (4.4-10.8)
[2023-08-05 08:30] LABS: Anion Gap 5.6 mmol/L (3-11); BUN 8 mg/dL (7-18); CO2 29.4 mmol/L (21.0-32.0); CREATININE 0.6 mg/dL (0.55-1.02); Calcium 9.1 mg/dL (8.5-10.1); Chloride 104 mmol/L (98-107); Estimated GFR 94.72 (mL/min/1.73m2); Glucose 91 mg/dL (74-106); Sodium 139 mmol/L (136-145)
[2023-08-05] MEDS: Polyethylene Glycol 3350 17 GM PACKET PO (08:48)
[2023-08-05] MEDS: Cyanocobalamin 100 MCG TABLET PO (08:49)
[2023-08-05] MEDS: risperiDONE 0.25 MG TAB PO ×2 (08:49→19:42)
[2023-08-05] MEDS: Gabapentin 100 MG CAP PO ×2 (08:50→19:42)
[2023-08-05] MEDS: Docusate Sodium 100 MG CAP PO ×2 (08:53→19:42)
[2023-08-05] MEDS: Normal Saline Flush 10 ML SYR IVP (08:55)
[2023-08-05] MEDS: cefTRIAXone 1 GM/50 ML BAG IVPB (11:28)
--- NOTE | 2023-08-05 12:15 | PGE_ITS ---
Date of Service Date of service: 08/05/23 Time of Service: 12:15 Assessment and Plan Assessment and plan (1) Complicated UTI (urinary tract infection): Status: Acute Assessment and plan: present on admission, in setting of prolonged hospitalization with ongoing altered mental status and hypotension. appropriate for acute hospitalization will need to broaden antibiotic coverage while awaiting sensitivities. urine growing pseudomonas and proteus. zosyn day 1/ and fluid bolus and close hemodynamic monitoring. 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 for inpatient psychiatric management and medication adjustment. She was started on Zyprexa her mirtazapine and trazodone were discontinued and risperidone continued. Additionally it appears she was started on gabapentin. A neurology consult was obtained on this admission with the following recommendations: consider stopping oxybuytnin in case it is contributing to AMS/delirium (discontinued now) Unclear why she is getting gabapentin, but please address the need for this as it too can contribute to AMS/delirium even at low dose. As further work-up, I recommend: -MRI brain (Limited exam due to motion. No acute findings.) -EEG (This EEG is abnormal due to generalized non-rhythmic delta and theta slowing. The background slowing is suggestive of a mild-moderate diffuse cerebral encephalopathy of broad differential including toxic-metabolic etiology. No focal regions of cerebral dysfunction or epileptiform activity was present.) -Labs: B1 (pending), B12 (268), RPR (pending) -If above are unrevealing, would consider LP with cell count, glucose, protein, gram stain/cx, OCBs, IGG index/synthesis, VDRL, encephalitis panel, HSV 1/2 -- will consult anesthesia for LP when labs reported. (4) On deep vein thrombosis (DVT) prophylaxis: Status: Acute Assessment and plan: enoxaparin daily Subjective Subjective Interval history since last seen: unable to obtain d/t mental status/confusion. no reports of vomiting, respiratory distress or behavioral disturbances by nursing Exam Narrative Exam Narrative: Older appearing than stated age chronically ill-appearing in no acute distress on the bed. Head is atraumatic oral mucosa slightly dry Neck is supple with no JVD full range of motion noted Respirations are even and unlabored Cardiovascular regular rate and rhythm pink warm dry well-perfused no peripheral edema Abdomen is soft no guarding nontender Moves all her extremities Neurologic she is awake alert confused no behavioral disturbances Objective Last Vital Signs Temp 36.0 C L 08/05/23 07:23 Pulse 71 08/05/23 07:23 Resp 17 08/05/23 07:23 BP 95/59 L 08/05/23 07:23 Pulse Ox 96 08/05/23 07:23 Laboratory Results - last 24 hr 08/05/23 08:06 WBC 7.19 RBC 3.88 L Hgb 11.6 Hct 35.5 L MCV 92 MCH 29.9 MCHC 32.7 RDW 13.7 Plt Count 289 MPV 8.6 Immature Gran % 0.4 Neutrophils % 71.5 Lymphocytes % 15.7 Monocytes % 8.2 Eosinophils % 3.9 Basophils % 0.3 Nucleated RBC % 0.0 Absolute Neutrophils 5.14 Absolute Lymphocytes 1.13 L Absolute Monocytes 0.59 Absolute Eosinophils 0.28 Absolute Basophils 0.02 Sodium 139 Potassium 4.0 Chloride 104 Carbon Dioxide 29.4 Anion Gap 5.6 BUN 8 Creatinine 0.6 Est GFR (CKD-EPI 2020) 94.72 Glucose 91 Calcium 9.1 Time Spent with Patient Time Spent with Patient: 35-49 minutes Time was spent: preparing to see the patient(eg.review tests), obtaining and/or reviewing separately otained hiistory, ordering medications,tests, procedures and indepentently interpreting results
--- NOTE | 2023-08-05 13:02 | PT.INTREAT ---
Date of service: 08/05/23 Time of Service: 10:50 PT Notes Visit Reasons: Failure to Thrive Inpatient Physical Therapy Treatment Note [facility] Date: 08/05/2023 PRECAUTIONS: Fall. Standard. Activity as tolerated. Orthopedic shoes on when OOB. SUBJECTIVE: When asked if she likes to sing she indicated she does. Stated her favorite [place] song was Gerardo Berrios. Indicated she is a big [employer] fan. When I asked her to sing me Gerardo Berrios she did not sing, but moved her arms. Attempted pulling IV site occasionally. OBJECTIVE: ? PAIN: No reports of pain offered. Therapeutic Activities (81607k1): ?Direct one on one instruction in bed mobility and ambulation. BED MOBILITY/TRANSFERS? Rolling L/R: Mod assist of 2 Supine-sit: Mod assist of 2? Sit-stand: Mod assist of 2? Stand-sit: Mod assist of 2? Provided skilled cues and instruction on performance and technique throughout. GAIT? Assistive Device: FWW? Weight bearing: Full with Orthopedic shoes on Assist: CGA of 2 and mod assist with controlling walker direction, also had nurse Karen pushing w/c behind us. ? Distance:? 15ft to door and 5ft w/c to recliner? Deviation: Forward flexed at hips, tends to push walker way out in front of her not staying within walker?making ambulation unsafe. ? ASSESSMENT:? Difficulty with ambulation due to patient not able to control walker direction or staying within walker frame. PLAN: Continue to work on improved bed mobility and ambulation control. TREATMENT CODE/TIME: [id number], 10:50 to 11:15 (25')
[2023-08-05] MEDS: PIPERACILLIN/TAZO 3.375 GM in Normal Saline 50 ML IVPB ×3 (13:20→23:59)
[2023-08-05] MEDS: Enoxaparin 40 MG/0.4 ML SYR SC (14:50)
[2023-08-05 15:12] VITALS: BP 107/72; PULSE 81; RESP 17; TEMP 36.7; O2SAT 98
[2023-08-05 19:40] VITALS: BP 107/66; PULSE 83; RESP 18; TEMP 37.2; O2SAT 96
[2023-08-05] MEDS: Melatonin 3 MG TAB PO (22:09)
[2023-08-05 23:47] VITALS: BP 110/69; PULSE 89; RESP 18; TEMP 36.9; O2SAT 96
[2023-08-06 03:23] VITALS: BP 110/61; PULSE 76; RESP 18; TEMP 36.7; O2SAT 98
[2023-08-06] MEDS: PIPERACILLIN/TAZO 3.375 GM in Normal Saline 50 ML IVPB ×3 (05:56→17:50)
[2023-08-06] MEDS: Lactated Ringers 1,000 ML 80 ML IV (07:45)
[2023-08-06 08:17] VITALS: BP 143/70; PULSE 77; RESP 18; TEMP 36.1; O2SAT 96
--- NOTE | 2023-08-06 10:06 | PGE_ITS ---
Date of Service Date of service: 08/06/23 Time of Service: 10:06 Assessment and Plan Assessment and plan (1) Complicated UTI (urinary tract infection): Status: Acute Assessment and plan: present on admission, i urine growing pseudomonas and proteus. zosyn day 2/ blood pressure normalized after IV fluid bolus yesterday. 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 She was started on Zyprexa her mirtazapine and trazodone were discontinued and risperidone continued. Additionally it appears she was started on gabapentin. A neurology consult was obtained on this admission with the following recommendations: consider stopping oxybuytnin in case it is contributing to AMS/delirium (discontinued now) Unclear why she is getting gabapentin, but please address the need for this as it too can contribute to AMS/delirium even at low dose. As further work-up, I recommend: -MRI brain (Limited exam due to motion. No acute findings.) -EEG (This EEG is abnormal due to generalized non-rhythmic delta and theta slowing. The background slowing is suggestive of a mild-moderate diffuse cerebral encephalopathy of broad differential including toxic-metabolic etiology. No focal regions of cerebral dysfunction or epileptiform activity was present.) -Labs: B1 (pending), B12 (268), RPR (pending) -If above are unrevealing, would consider LP with cell count, glucose, protein, gram stain/cx, OCBs, IGG index/synthesis, VDRL, encephalitis panel, HSV 1/2 -- will consult anesthesia for LP when labs reported if appropriate. (5) On deep vein thrombosis (DVT) prophylaxis: Status: Acute Assessment and plan: enoxaparin daily (6) Discharge planning issues: Status: Acute Assessment and plan: case management following for discharge planning palliative care consult placed. discussed with Dr Luis. Objective Last Vital Signs Temp 36.1 C L 08/06/23 08:17 Pulse 77 08/06/23 08:17 Resp 18 08/06/23 08:17 BP 143/70 H 08/06/23 08:17 Pulse Ox 96 08/06/23 08:17 Time Spent with Patient Time Spent with Patient: 25-34 minutes Time was spent: preparing to see the patient(eg.review tests), ordering medications,tests, procedures and indepentently interpreting results
[2023-08-06] MEDS: Cyanocobalamin 100 MCG TABLET PO (10:16)
[2023-08-06] MEDS: risperiDONE 0.25 MG TAB PO ×2 (10:16→21:55)
[2023-08-06] MEDS: Gabapentin 100 MG CAP PO ×2 (10:17→21:55)
[2023-08-06] MEDS: Normal Saline Flush 10 ML SYR IVP ×2 (10:18→20:45)
[2023-08-06 11:29] VITALS: BP 132/82; PULSE 78; RESP 18; TEMP 36.3; O2SAT 95
--- NOTE | 2023-08-06 13:26 | PT.INTREAT ---
Date of service: 08/06/23 Time of Service: 01:13 PT Notes Visit Reasons: Failure to Thrive Inpatient Physical Therapy Treatment [facility] Date: 08/06/2023 PRECAUTIONS: Fall. Standard. Activity as tolerated. Orthopedic shoes on when OOB. SUBJECTIVE: Agreeable to sitting up for lunch. OBJECTIVE: ? PAIN: No reports of pain offered. Therapeutic Activities ([id number]): ?Direct one on one instruction in bed mobility and ambulation. BED MOBILITY/TRANSFERS? Rolling L/R: Mod assist of 2 Supine-sit: Mod assist of 2? Sit to supine: Max assist of 2 ? Sit-stand: Mod assist of 2? Stand-sit: Mod assist of 2? Did require max assist of 2 with being pulled up in bed once completing sit to supine. ? Provided skilled cues and instruction on performance and technique throughout. GAIT? Assistive Device: FWW? Weight bearing: Full, with Orthopedic shoes on Assist: CGA of 2 and mod verbal and tactile assist with controlling walker direction ? Distance:? 8ft bed to chair before lunch and 8ft ?chair to bed after lunch ? Deviation: Forward flexed at hips, tends to push walker way out in front of her not staying within walker?making ambulation unsafe. ? ASSESSMENT:? Did a little better with staying within walker today, but still requiring mod assist with transfers due to unpredictability. PLAN: Continue to work on improved bed mobility and ambulation control. TREATMENT CODE/TIME: [id number] in pm and [id number] in pm, 11:30 to 11:45 (15') and 1:15 to 1:30 (15') ? ASSESSMENT:? [] PLAN: [] TREATMENT CODE/TIME: []
[2023-08-06] MEDS: Enoxaparin 40 MG/0.4 ML SYR SC (14:20)
[2023-08-06 14:56] VITALS: BP 111/73; PULSE 93; RESP 18; TEMP 37; O2SAT 94
[2023-08-06 19:15] VITALS: BP 105/70; PULSE 81; RESP 18; TEMP 36.4; O2SAT 94
[2023-08-06] MEDS: Melatonin 3 MG TAB PO (21:55)
[2023-08-06] MEDS: Docusate Sodium 100 MG CAP PO (21:55)
[2023-08-06 23:20] VITALS: BP 110/75; PULSE 83; RESP 18; TEMP 36.9; O2SAT 97
[2023-08-07] MEDS: PIPERACILLIN/TAZO 3.375 GM in Normal Saline 50 ML IVPB ×4 (00:14→18:00)
[2023-08-07] MEDS: Lactated Ringers 1,000 ML 80 ML IV (02:13)
[2023-08-07 03:20] VITALS: BP 107/71; PULSE 77; RESP 18; TEMP 36.6; O2SAT 96
[2023-08-07 07:08] LABS: HCT 35.9 % (36.0-46.0); HGB 11.7 g/dL (11.2-15.7); MCH 30.2 pg (27.0-33.0); MCHC 32.6 % (32.0-36.0); MCV 93 fL (80-95); Platelet Count 280 10^3/uL (130-400); RBC 3.88 10^6/uL (3.93-5.22); RDW 13.7 % (11.7-14.6); RDW-SD 46.9 fL; WBC 6.84 10^3/uL (4.4-10.8)
[2023-08-07 07:25] VITALS: BP 112/66; PULSE 69; RESP 18; TEMP 36.3; O2SAT 96
[2023-08-07 07:26] LABS: ALT 26 U/L (14-59); AST 23 U/L (15-37); Albumin 2.7 g/dL (3.4-5.0); Alkaline Phosphatase 59 U/L (46-116); Anion Gap 10.3 mmol/L (3-11); BUN 6 mg/dL (7-18); Bilirubin, Total 0.8 mg/dL (0.2-1.0); CO2 27.7 mmol/L (21.0-32.0); CREATININE 0.7 mg/dL (0.55-1.02); Calcium 8.9 mg/dL (8.5-10.1); Chloride 107 mmol/L (98-107); Estimated GFR 91.26 (mL/min/1.73m2); Glucose 96 mg/dL (74-106); Potassium 3.3 mmol/L (3.5-5.1); Sodium 145 mmol/L (136-145); Total Protein 6.1 g/dL (6.4-8.2)
--- NOTE | 2023-08-07 09:52 | PDOC.CMPRO ---
Date of service: 08/07/23 Time of Service: 09:52 Care Management Progress Note Progress Note Text Progress Note Text: S/O: Mellisa was lying in bed when CM met with he; she was about to work with PT. CM asked her if she was going to walk and she stated yes. She was able to walk this morning but has been requiring the assist of 2 people, sometimes moderate assist, sometimes maximum. Mellisa remains confused and has difficulty articulating and communicating her needs. Mellisa's discharge plan is still unclear. It is hoped that a family meeting can be scheduled early this week with CM, her and director community center to further explore options. A: Mellisa is a 72 year old female admitted to [facility] on 08/02/23 for failure to thrive. P: Anticipate Mellisa will return home with services vs SNF for continued rehab. PT is recommending SNF at this time. Her transport will likely be [facility] w/c van. She will follow up with her PCP and discharge plan of care. CM will continue to follow.
[2023-08-07] MEDS: Gabapentin 100 MG CAP PO ×2 (10:14→19:31)
[2023-08-07] MEDS: risperiDONE 0.25 MG TAB PO (10:14)
[2023-08-07] MEDS: Polyethylene Glycol 3350 17 GM PACKET PO (10:14)
[2023-08-07] MEDS: Cyanocobalamin 100 MCG TABLET PO (10:14)
[2023-08-07] MEDS: Docusate Sodium 100 MG CAP PO ×2 (10:14→19:32)
[2023-08-07] MEDS: Normal Saline Flush 10 ML SYR IVP ×2 (10:15→20:02)
--- NOTE | 2023-08-07 10:48 | W.PM.PROGNOT ---
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 She was started on Zyprexa her mirtazapine and trazodone were discontinued and risperidone continued. Additionally it appears she was started on gabapentin. A neurology consult was obtained on this admission with the following recommendations: consider stopping oxybuytnin in case it is contributing to AMS/delirium (discontinued now) Unclear why she is getting gabapentin, but please address the need for this as it too can contribute to AMS/delirium even at low dose. As further work-up, I recommend: -MRI brain (Limited exam due to motion. No acute findings.) -EEG (This EEG is abnormal due to generalized non-rhythmic delta and theta slowing. The background slowing is suggestive of a mild-moderate diffuse cerebral encephalopathy of broad differential including toxic-metabolic etiology. No focal regions of cerebral dysfunction or epileptiform activity was present.) -Labs: B1 (pending), B12 (268), RPR (pending) -If above are unrevealing, would consider LP with cell count, glucose, protein, gram stain/cx, OCBs, IGG index/synthesis, VDRL, encephalitis panel, HSV 1/2 -- will consult anesthesia for LP when labs reported if appropriate. (5) On deep vein thrombosis (DVT) prophylaxis: Status: Acute Assessment and plan: enoxaparin daily (6) Discharge planning issues: Status: Acute Assessment and plan: case management following for discharge planning palliative care consult placed. discussed with Dr Luis. Subjective Subjective Interval history since last seen: Unable to provide review of systems due to mental status. Staff report no active issues. Requires feeding. No vomiting fever rashes or lesions noted. No signs of respiratory distress Exam Narrative Exam Narrative: Older appearing than stated age chronically ill-appearing in no acute distress on the bed. Head is atraumatic oral mucosa slightly dry Neck with no JVD full range of motion noted, no meningeal signs Respirations are even and unlabored Cardiovascular regular rate and rhythm pink warm dry well-perfused no peripheral edema Abdomen is soft Moves all her extremities Neurologic she is awake alert confused, does not follow commands Objective Last Vital Signs Temp 36.3 C L 08/07/23 07:25 Pulse 69 08/07/23 07:25 Resp 18 08/07/23 07:25 BP 112/66 08/07/23 07:25 Pulse Ox 96 08/07/23 07:25 Laboratory Results - last 24 hr 08/07/23 06:20 WBC 6.84 RBC 3.88 L Hgb 11.7 Hct 35.9 L MCV 93 MCH 30.2 MCHC 32.6 RDW 13.7 Plt Count 280 MPV 9.0 Sodium 145 Potassium 3.3 L Chloride 107 Carbon Dioxide 27.7 Anion Gap 10.3 BUN 6 L Creatinine 0.7 Est GFR (CKD-EPI 2020) 91.26 Glucose 96 Calcium 8.9 Total Bilirubin 0.8 AST 23 ALT 26 Alkaline Phosphatase 59 Total Protein 6.1 L Albumin 2.7 L Time Spent with Patient Time Spent with Patient: 25-34 minutes Time was spent: preparing to see the patient(eg.review tests), ordering medications,tests, procedures, referring, communicating with other health day care home provider, indepentently interpreting results and care coordination
--- NOTE | 2023-08-07 10:49 | UCONE_ITS ---
Date of service: 08/07/23 Time of Service: 11:19 Assessment and Plan Assessment and plan (1) Urinary retention: Status: Acute Assessment and plan: Unfortunately, we have no medical or surgical treatment for urinary retention in women. We generally recommend minimizing medications that can cause urinary retention. These medications include several of the psychiatric medications that the patient is on. I will leave it to her other providers to make adjustments if necessary. When she was admitted, she was on anticholinergics so I suspect she has had urinary incontinence. I am not sure if she may have had overflow incontinence all along.. I would not suggest restarting the anticholinergics given her mental status issues, her urinary issues and her constipation. We generally do not recommend a chronic indwelling catheter in patients with retention/incomplete bladder emptying. An indwelling catheter has a much higher risk of UTI and urosepsis compared to intermittent catheterization. In fact, I would not be surprised if her current positive urine culture is related to her recent indwelling catheters. The recommended management is clean intermittent catheterization. Usually recommend starting with a regimen of catheterizing 3 or 4 times a day. We can then adjust the frequency of catheterizations in order to keep the catheterized volumes less than 500 cc. If a female patient does require a long-term catheter, we recommend a suprapubic tube. An SP tube does not have a lower risk of urosepsis or UTI compared to a urethral catheter, but does have a lower risk of urethral erosion. Other measures that may help the patient empty her bladder more efficiently would include optimizing her mobility and optimizing her bowel function-both of which are already being dealt with. If her situation changes and she is able to begin emptying her bladder more efficiently but has persistent incontinence, we could always try a beta 3 agonist for any residual incontinence. The beta 3 agonist is much less likely to cause mental status changes or bowel dysfunction compared to anticholinergics. Just like the anticholinergics, beta 3 agonist can lead to worsening urinary retention Finally, it is not recommended to treat asymptomatic bacteriuria in postmenopausal women. Overtreatment leads to the development of antibiotic resistance. With the patient's mental status changes however, it is often difficult to determine whether patient is truly symptomatic or not. History of Present Illness History of Present Illness Chief Complaint: Urinary retention Narrative: This is a 72-year-old woman who has a history of cerebral palsy. She has mental status changes and is not able to provide a significant medical history for me. I do not find any old urologic records, so my history is mainly obtained from her 2 most recent hospitalizations at [facility]. She was admitted to the hospital last month with ataxia and mental status changes. She was evaluated for a possible stroke. She did have a positive urine culture on admission and she received antibiotics, but her mental status did not improve. During that hospitalization, clean intermittent catheterization was performed. The patient had episodes of incontinence between [facility]. Ultimately a catheter was placed. The patient was transferred for adjustment of her psychiatric medications. Since coming back to our facility, she has still required intermittent catheterization and currently has an indwelling catheter. With the most recent catheter insertion, she had a positive urine culture with multiple organisms. In reviewing her admitting records, she was on oxybutynin and had protective undergarments on her medicine list. I assume that she had urinary incontinence, but I am not sure if the the type of incontinence was ever described. Review of Systems Unobtainable due to mental status [facility] All Active Problems (Updated 08/06/23 @ 12:50 by Ludy Rodgers NP) Discharge planning issues (Acute) Complicated UTI (urinary tract infection) (Acute) Altered mental status (Acute) Ataxia (Acute) UTI (urinary tract infection) (Acute) Risk for falls (Acute) On deep vein thrombosis (DVT) prophylaxis (Acute) Failure to thrive in adult (Acute) Palliative care encounter (Acute) ACP (advance care planning) (Acute) Constipation (Acute) Urinary retention (Acute) Hypokalemia (Acute) Delirium (Acute) Facial droop (Acute) Cerebral palsy (Acute) Gait instability (Acute) Dysarthria (Acute) Pyuria (Acute) Tubular adenoma (Acute ~01/2023) Medical History History of head injury (~1988) Vitamin A deficiency Strabismus GERD (gastroesophageal reflux disease) Hyperlipidemia Arthritis of spine Osteopenia Obesity Urinary incontinence Prediabetes Club foot History of adenomatous polyp of colon History of cerebral palsy Surgical History History of colonoscopy with polypectomy (~01/2023) 2022 2011 2006 Leg - childhood Social History Smoking/Tobacco Use Status: Former Tobacco Use Quit Date: 08/21/02 Smoking risk assessment performed?: Yes Alcohol Intake: never Substance use type: does not use Housing: other Do you feel safe at home: Yes Do you feel safe in your relationship?: Yes Additional Social history: Lives with Surya in apartment [address] in [place] Exam Narrative Exam Narrative: She is sitting up in a recliner. She appears chronically ill but not acutely ill Vital signs are documented elsewhere Her abdomen is soft with no peritoneal signs There is a Hanna catheter in place draining clear urine She is awake and alert but certainly not oriented. Results Last Vital Signs Temp 36.3 C L 08/07/23 07:25 Pulse 69 08/07/23 07:25 Resp 18 08/07/23 07:25 BP 112/66 08/07/23 07:25 Pulse Ox 96 08/07/23 07:25 Labs 08/07/23 06:20 08/07/23 06:20 Labs: Laboratory Results - last 24 hr 08/07/23 06:20 WBC 6.84 RBC 3.88 L Hgb 11.7 Hct 35.9 L MCV 93 MCH 30.2 MCHC 32.6 RDW 13.7 Plt Count 280 MPV 9.0 Sodium 145 Potassium 3.3 L Chloride 107 Carbon Dioxide 27.7 Anion Gap 10.3 BUN 6 L Creatinine 0.7 Est GFR (CKD-EPI 2020) 91.26 Glucose 96 Calcium 8.9 Total Bilirubin 0.8 AST 23 ALT 26 Alkaline Phosphatase 59 Total Protein 6.1 L Albumin 2.7 L
--- NOTE | 2023-08-07 11:57 | PT.INTREAT ---
Date of service: 08/07/23 Time of Service: 11:16 PT Notes Visit Reasons: Failure to Thrive Inpatient Physical Therapy Treatment Note [facility] Date: 08/07/23 PRECAUTIONS: Fall, standard, activity as tolerated. ORTHOPEDIC SHOES FOR ALL OOB MOBILITY. SUBJECTIVE: Patient presents with expressive aphagia, but is pleasant in demeanor today when this clinician arrives. AFTERNOON: speech even more incoherent, patient more distractable, however patient is easily redirected with tactile > verbal cueing. OBJECTIVE: Patient sitting up in recliner, agreeable to therapy. AFTERNOON: Patient supine in bed, more confused than this am, still agreeable to therapy. ? PAIN: none reported VITALS: monitored by nursing staff Therapeutic Activities (13130y2): Direct one-on-one instruction in dynamic activities to improve functional performance. ? BED MOBILITY/TRANSFERS? Rolling L/R (afternoon): setup and max verbal / tactile cues Supine-sit (afternoon): mod assist and max verbal / tactile cues? Sit-supine (morning): min assist and min verbal / tactile cues to square hips & shoulders in bed, dependent to boost up toward head of bed. ?Sit-stand: min assist of 1 with gait belt AFTERNOON: mod assist?of 1 with gait belt ? Stand-sit: mod verbal and tactile cues, min assist of 2 to ensure safe positioning AFTERNOON: max verbal and tactile cues, mod assist x2 to ensure safe positioning ?Bed-Chair (afternoon): mod assist of two to steer walker, ensure safe and correct limb placement ? Chair-bed (morning): min assist of 1 at gait belt, mod assist of 1 to steer walker. Provided skilled cues and instruction on performance and technique throughout. Gait Training (10153c2): Direct one-on-one instruction and skilled instruction in: [x] employing an assistive device [] modified weight-bearing status [x] movement sequencing [x] turning and movement with proper form [x] Provided verbal cues for equipment management and technique [x] Provided instruction in gait pattern [] Patient education regarding pacing and breathing techniques to maximize activity tolerance? GAIT? Assistive Device: FWW? Weight bearing: full Assist: min to mod assist of 2 ? Distance:? 18 feet AFTERNOON: 6 feet ? Deviation: slow jama, reduced step length, reduced step height, scissoring pattern, unable to advance right foot due to crowding by left foot combined with shaped of left foot / shoe. ? ASSESSMENT:? Patient continues to be more confused than her baseline is reported to be, has difficulty managing her assistive device. PLAN: Continue global strengthening, gait training, activity tolerance training per plan of care until patient is medically cleared for discharge and obtains safe discharge plan. TREATMENT CODE/TIME: 32 minutes beginning at 11:16 and 27 minutes beginning at 15:45 for a total of 59 minutes today.
[2023-08-07 12:01] VITALS: BP 100/70; PULSE 98; RESP 18; TEMP 36.9; O2SAT 98
[2023-08-07 12:16] LABS: Syphilis Serology (RPR) Negative (Negative)
[2023-08-07] MEDS: Normal Saline 10 ML VIAL IJ (14:02)
[2023-08-07] MEDS: Enoxaparin 40 MG/0.4 ML SYR SC (14:02)
[2023-08-07] MEDS: Haloperidol 5 MG/ML VIAL 4 MG IM/IV (14:02)
[2023-08-07 16:11] VITALS: BP 110/73; PULSE 99; RESP 18; TEMP 36.2; O2SAT 96
--- NOTE | 2023-08-07 16:33 | W.PM.PROGNOT ---
Date of Service Date of service: 08/07/23 Time of Service: 16:33 Assessment and Plan Assessment and plan (1) UTI (urinary tract infection): Status: Acute (2) Delirium: Status: Acute (3) Altered mental status: Status: Acute Assessment and plan: Ms. Mejia continues to have a delirium, complicated by recurrent UTI, baseline cognitive impairment, low vitamin B12 level. She was particularly agitated this afternoon, receiving 4mg IM Haldol. She seems to be better now. -consider increasing risperidone given breakthrough psychosis today -increase B12 supplement to 1000mcg daily -continue to explore more history from of prior psychosis or history of cognitive decline in months preceding hospitalization -continue to avoid anticholinergics -continue to give her time to recover -continue supportive environment - curtains open in day, lights on in day, etc. -LP seems less helpful at this time given ongoing UTI and no si/sx of meningitis/encephalitis Subjective Subjective Interval history since last seen: Clarification from initial [facility] admission is that she was in fact with psychosis, agitation that was not well controlled. So in that aspect she was improved upon returning back to [facility] from [facility]. Last weeks urine sample was Positive for UTI. Hanna was removed but back in place due to ongoing urinary retention. Urology consulted today. Behavior had been fairly stable until this afternoon in which she was given 4mg IM Haldol. She remains non-oriented however this afternoon she was able to tell me her name (could not the first time I met her). She said she was 40 and her birthday was [birth year]. She couldn't tell me her 's name and began perseverating at that point. Work-up: -MRI brain w/wo (08/04/23): Limited by motion artifact. No acute findings. I reviewed these images personally and this is my personal interpretation. -EEG (08/04/23): consistent with a toxic-metabolic encephalopathy. -B12 (08/04/23): 268 -RPR (08/04/23): neg -B1 (08/04/23): pending Exam Narrative Exam Narrative: Physical Exam: Constitutional: Patient of apparent stated age, well nourished, well developed, no acute distress Neuro: MS/Language/Speech: Alert, oriented to self only, mild dysarthria; able to follow simple commands only Motor: Normal bulk and tone. FMM reduced bilaterally. Difficult to do formal strength testing. Left leg shorter with club foot. Objective Last Vital Signs Temp 97.2 F L 08/07/23 16:11 Pulse 99 H 08/07/23 16:11 Resp 18 08/07/23 16:11 BP 110/73 08/07/23 16:11 Pulse Ox 96 08/07/23 16:11 Laboratory Results - last 24 hr 08/04/23 08/07/23 06:40 06:20 WBC 6.84 RBC 3.88 L Hgb 11.7 Hct 35.9 L MCV 93 MCH 30.2 MCHC 32.6 RDW 13.7 Plt Count 280 MPV 9.0 Sodium 145 Potassium 3.3 L Chloride 107 Carbon Dioxide 27.7 Anion Gap 10.3 BUN 6 L Creatinine 0.7 Est GFR (CKD-EPI 2020) 91.26 Glucose 96 Calcium 8.9 Total Bilirubin 0.8 AST 23 ALT 26 Alkaline Phosphatase 59 Total Protein 6.1 L Albumin 2.7 L Syphilis Serology Negative Time Spent with Patient Time Spent with Patient: 35-49 minutes Time was spent: preparing to see the patient(eg.review tests), referring, communicating with other health care aid, indepentently interpreting results, counseling the patient and care coordination
[2023-08-07] MEDS: risperiDONE 0.5 MG TAB PO (19:33)
[2023-08-07 19:49] VITALS: BP 111/76; PULSE 89; RESP 19; TEMP 37.3; O2SAT 95
[2023-08-07] MEDS: Melatonin 3 MG TAB PO (21:41)
[2023-08-07 23:31] VITALS: BP 124/73; PULSE 94; RESP 19; TEMP 36.8; O2SAT 99
[2023-08-08] MEDS: PIPERACILLIN/TAZO 3.375 GM in Normal Saline 50 ML IVPB ×3 (00:13→12:07)
[2023-08-08 03:12] VITALS: BP 105/60; PULSE 94; RESP 20; TEMP 36.9; O2SAT 97
[2023-08-08 07:35] VITALS: BP 108/64; PULSE 67; RESP 20; TEMP 37; O2SAT 96
[2023-08-08] MEDS: risperiDONE 0.5 MG TAB PO ×2 (07:48→20:03)
[2023-08-08] MEDS: Polyethylene Glycol 3350 17 GM PACKET PO (07:48)
[2023-08-08] MEDS: Cyanocobalamin 500 MCG TAB 1000 MCG PO (07:49)
[2023-08-08] MEDS: Gabapentin 100 MG CAP PO ×2 (07:49→20:03)
[2023-08-08] MEDS: Docusate Sodium 100 MG CAP PO ×2 (07:50→20:04)
[2023-08-08] MEDS: Lactated Ringers 1,000 ML 80 ML IV ×2 (10:05→23:16)
--- NOTE | 2023-08-08 10:09 | CMPROGNOTE_ITS ---
Date of service: 08/08/23 Time of Service: 10:09 Care Management Progress Note Progress Note Text Progress Note Text: S/O: Mellisa was lying in bed when CM met with her. CM coordinated a family meeting today with Mellisa, her , Curtis, their immigration case manager from [facility]; Amaya and Aisha, and Hung, Mellisa's brother. Kavitha, an [facility] family readiness support assistant was also present. CM discussed Mellisa's discharge needs, as she continues to require PT and OT for strengthening and independence. Curtis and Hung both agreed that Mellisa will benefit from short term rehab, although Curtis expressed some concerns about her not being home with him. CM explained that Mellisa is not able to ambulate well on her own at this time, and continues to require assistance with eating. Curtis reported that Mellisa used to make his meals, which has been hard for him without her there. [facility] is working on increasing support for Curtis while he is alone at home. CM talked to Hung about him obtaining guardianship over Mellisa, as she will need someone to sign for her; he agreed to this, and Amaya, [facility], will support him with this in the community. CM will send referrals to SNF for Mellisa to determine where a bed is available for her to have rehab. CM will continue to follow. A: Mellisa is a 72 year old female admitted to [facility] on 08/02/23 for failure to thrive. P: Anticipate Mellisa will return home with services vs SNF for continued rehab. PT is recommending SNF at this time. Her transport will likely be [facility] w/c van. She will follow up with her PCP and discharge plan of care. CM will continue to follow.
--- NOTE | 2023-08-08 11:51 | W.PM.PROGNOT ---
Date of Service Date of service: 08/08/23 Time of Service: 11:51 Assessment and Plan Assessment and plan (1) Complicated UTI (urinary tract infection): Status: Acute Assessment and plan: present on admission urine growing pseudomonas and proteus both sensitive to zosyn zosyn day 11/25 (2) Urinary retention: Status: Acute Assessment and plan: in setting of acute UTI and oxybutin discontinued for delirium, buckner to be discontinued, see urology consultation In brief avoid anticholinergic Genex avoid chronic indwelling Buckner catheter recommend regimen of catheterizing 3-4 times daily adjust to keep frequency with catheterized volumes less than 500 cc. Suprapubic catheter would be recommended for long-term catheter. could try a beta 3 agonist for any residual incontinence. The beta 3 agonist is much less likely to cause mental status changes or bowel dysfunction compared to anticholinergics. 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 She was started on Zyprexa her mirtazapine and trazodone were discontinued and risperidone continued. Additionally it appears she was started on gabapentin. A neurology consult was obtained on this admission with the following recommendations: consider stopping oxybuytnin in case it is contributing to AMS/delirium (discontinued now) Unclear why she is getting gabapentin, but please address the need for this as it too can contribute to AMS/delirium even at low dose. work up: -MRI brain (Limited exam due to motion. No acute findings.) -EEG (This EEG is abnormal due to generalized non-rhythmic delta and theta slowing. The background slowing is suggestive of a mild-moderate diffuse cerebral encephalopathy of broad differential including toxic-metabolic etiology. No focal regions of cerebral dysfunction or epileptiform activity was present.) -Labs: B1 (pending), B12 (268), RPR (pending) No signs of meningitis at this time. LP not indicated at this time (5) On deep vein thrombosis (DVT) prophylaxis: Status: Acute Assessment and plan: enoxaparin daily (6) Discharge planning issues: Status: Acute Assessment and plan: case management following for discharge planning palliative care consult placed. discussed with Dr Luis. Subjective Subjective Interval history since last seen: moist cough, Exam Narrative Exam Narrative: Older appearing than stated age chronically ill-appearing in no acute distress on the bed. Head is atraumatic oral mucosa slightly dry Neck with no JVD full range of motion noted, no meningeal signs Respirations are even and unlabored Cardiovascular regular rate and rhythm pink warm dry well-perfused no peripheral edema Abdomen is soft Moves all her extremities Neurologic she is awake alert confused, does not follow commands Objective Last Vital Signs Temp 37 C 08/08/23 07:35 Pulse 67 08/08/23 07:35 Resp 20 08/08/23 07:35 BP 108/64 08/08/23 07:35 Pulse Ox 96 08/08/23 07:35 Laboratory Results - last 24 hr 08/04/23 06:40 Syphilis Serology Negative Time Spent with Patient Time Spent with Patient: 35-49 minutes Time was spent: preparing to see the patient(eg.review tests), obtaining and/or reviewing separately otained hiistory, ordering medications,tests, procedures, referring, communicating with other health farm or ranch animal caretaker and indepentently interpreting results
[2023-08-08] MEDS: Normal Saline Flush 10 ML SYR IVP ×2 (12:06→20:03)
--- NOTE | 2023-08-08 12:14 | PCPN_ITS ---
Date of service: 08/08/23 Time of Service: 12:14 Assessment and Plan Assessment and plan (1) Palliative care patient: Status: Acute Assessment and plan: 72-year-old woman reportedly history of cerebral palsy and mild developmental delay (patient also mentions spina bifida today) with acute onset of delirium/encephalopathy of unclear etiology approximately 3 weeks ago. Along with this she has become debilitated, just starting to take a few steps with assistance, unable to feed herself, communication difficulties as well. Intriguing new history from brother that she needed to be hospitalized more than 30 years ago with similar episode. Ended up in a psychiatric hospital, but totally recovered back to baseline. No interim history of delirium, hallucinations, at all. Also additional history that this episode started 2 days after her brother incorrectly told her that brother's daughter (patient's niece) was dying. (Patient's niece was in the hospital with DKA intensive care unit but has now been discharged and is doing fine). Dr. Gonzalez of neurology is Advising continued neurological evaluation. Given history of similar episodes 30 or more years ago, unlikely to have such a large gap in between psychotic episodes due to bipolar disorder. Neurology may recommend LP to look at inflammatory and infectious etiologies. Encephalopathy: Recommend that case management arrange that brother or niece call and speak to Mellisa by phone or via video chat to explain that niece is now fine and no longer ill. Advance care planning: Case management has been talking with brothjose Persaud who lives in [place] (he was here in person 2 weeks ago). In the past he has said that he is willing to be guardian and/or surrogate. Brother Hung has said that he thinks it is best for Mellisa to go to subacute rehab for continued strengthening and hopefully to get strong enough to return home. Note that Curtis was brought to [facility] facility to sign Mellisa's admission papers and consent 2 and half weeks ago when she was admitted there. By default, this made him her surrogate. There is no known advanced directive or healthcare agent form. Given my discussion and the following paragraph, I do not believe that Curtis has capacity to make decisions for Mellisa. I attended family meeting today with Curtis, immigration case manager and support workers. His major concern was that Mellisa come home as soon as possible so she could cook food for him. We explained to him that she could not walk, was unable to feed herself, and certainly could not at this time cook food for him. He seems to be unable to understand this and still wanted her to come home to cook for him. Based on this, it does not appear that Curtis had has capacity to understand Mellisa's current medical situation and therefore unable to make medical decisions for her or placement decisions for her. Patient unable to participate in making healthcare or disposition decisions as well. She is unable to even answer the most simple questions at this time. At this time, patient remains a full code. Code status was not addressed at this meeting, as no surrogate or guardian present. This is something that should be addressed at a future meeting. If patient's brother Lamberto agrees to become surrogate (and/or emergency guardian and is appointed as such), I or another member of Palliative Care Team would like to meet with him to have further advance care planning discussion to include Goals of Care, and subsequent to that discuss CODE STATUS and any other limitations of care that he think patient would want. Recommend: 1. Based on [place] law, brother Hung qualifies to serve as her healthcare surrogate,As he appears to have a close relationship with the patient and his acted in the past to demonstrate his care and consideration of the patient (visited from [place], etc.). [employer] Agent Team Member Apryl Germain will contact brothjose Persaud to see if he is wiling to act in this capacity 2. Of course, we are all hoping that Mellisa's encephalopathy clears and she is able to regain ability to make her own medical and disposition decisions. -However, it would seem prudent for [facility] and [facility] family service caseworker begin process to petition the court to appoint an emergency guardian. -It was Suggested that we ask Hung (brother) if he is wiling to do this, even though he does not live in state. Either [facility] or [facility] immigration case manager will discuss with him. -[facility] State Farm Agent Team Member Shasha Jenkins will contact [place] Office of Public Guardian to begin process. (2) ACP (advance care planning): Status: Acute (3) Encephalopathy acute: Status: Acute (4) Cerebral palsy: Status: Acute (5) Failure to thrive in adult: Status: Acute (6) Discharge planning issues: Status: Acute Assessment and plan: 16 to 30 minutes spent today on Advance Care Planning. Patient and family participated voluntarily. Advance care planning may include (not limited to) explanation and discussion of advance directives, choosing and appointing healthcare agents, alternatives to various ACP tools, discussion of (and if indicated, completion of) COLST form, discussion of patient's values and overall goals for treatment, palliative and disease directive care options, ways to avoid hospital readmission including hospice discussions, care preferences should the patient's several other adverse health events.See today's palliative care note for additional information. In addition to family meeting today, I met separately with [facility] immigration case manager, [facility] immigration case manager, additional discussion with patient's nursing staff to get better insight into current functional status. Subjective Subjective Interval history since last seen: Mellisa Mejia is a 72-year-old woman who lives in [facility] who has a history of cerebral palsy (chronic left sided spasticity and club foot) and Unknown mental health issue ([facility] PATIENT RELATIONS DIRECTOR team case management). She is initially admitted to the [facility] July 13 which was felt to be a TIA. She had acute development of dysarthria and worsening of ataxia. She then also developed acute encephalopathy with delirium?like symptoms. Discussion with her PCP, she did seem to have some increasing memory and cognitive issues over the preceding several months that Dr. Wright noted during office visits. Initial [facility] workup revealed no clear-cut cause. She went to [facility] for 2 weeks with, if anything, worsening of her mental status and progressive weakness to being unable to walk or feed herself. She returned to [facility] last week. She is now undergoing additional neurological evaluation and has been seen by urology for advice on her Relatively new urinary retention (Hanna in place since initial admission). Palliative Care Team has been helping with advance care planning, discerning whether patient has any capacity to help with even simple medical decisions, working with family (family meeting pending). I talked with the patient briefly in the room with nurses present. I then attended family meeting at the bedside with Curtis, and 3 corrections sergeant and support workers from [facility]. Patient appears to have some very slight improvement since I last saw her 5 days ago. She is following people with her eyes. Occasionally follows simple directions. Still not able to feed herself. She was able to walk 8 feet with assist and cueing using her walker. Interesting today she talks about spina bifida . Her immigration case manager also mentions spina bifida, but then realizes she is not sure where she got this information from. (This might have some effect on consideration as to her bladder dysfunction). Care Team: Primary Care physician:Dr. Zaheer LEBRON State [employer] Agent Team Member Amaya Jenkins Social HX: Lives in [facility] apartment with Curtis. As per CM, has hx of disabling mental illness, and in the past she had been the one to care for him. Neither one of them drive. Additional Supports: Case management from [facility] PATIENT RELATIONS DIRECTOR Team [facility] for transportation. Some sort of Home health services from [facility] as per [facility] Cher Simeonney (she has not addl info): may get Impression of currents health status:Unable to answer What bothers you the most:Unable to answer What worries you the most:Unable to answer Goals:Unable to answer Current information preferences:Unable to answer Function:See today's PT note: needs help with rolling over in bed, no attempt made to transfer and stand patient. Additional hx to be obtained. Ambulation: See HPI above ADLs: Totally dependent iADLs: Totally dependent Hearing: Appears functional Vision: Unknown Cognition: PCP describes her baseline as simple . 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 Palliative Performance Scale % Ambulation Activity and Evidence of Disease Self Care Intake Level of Consciousness 100 Full Normal activity, no evidence of disease Full Normal Full 90 Full Normal activity, some evidence of disease Full Normal Full 80 Full Normal activity with effort, some evidence of disease Full Normal or reduced Full 70 Reduced Unable to do normal work, some evidence of disease Full Normal or reduced Full 60 Reduced Unable to do hobby or some housework, significant disease Occasional assist necessary Normal or reduced Full or confusion 50 Mainly sit/lie Unable to do any work, extensive disease Considerable assistance required Normal or reduced Full or confusion 40 Mainly in bed Unable to do any work, extensive disease Mainly assistance Normal or reduced Full, drowsy, or confusion 30 Totally bed bound Unable to do any work, extensive disease Total care Reduced Full, drowsy, or confusion 20 Totally bed bound Unable to do any work, extensive disease Total care Minimal sips Full, drowsy, or confusion 10 Totally bed bound Unable to do any work, extensive disease Total care Mouth care only Drowsy or coma 0 - - - - Patient Score: 30?40 Spiritual history:Unable to answer Palliative review of systems: Unable to answer. Pain: Dyspnea: GI symptoms: Appetite: Depression: Anxiety: Emotional Distress: Spiritual/Existential Distress: Advanced Care Planning: Advanced Directive:Previous Palliative Note says that she has an advanced directive, [facility] reports they have no Advanced care documents on file. Health Care Agent: See assessment/plan COLST: Pt is full code. Limitations: Exam Narrative Exam Narrative: Small elderly woman lying in bed. Occasional vocalization. Following people in the room. Occasionally speaks in short sentences. She is not grasping in the air at this time. No echolalic speech is noted. When she is surrounded by 3 nursing staff and asked to give me a hug , during a transfer, she smiles and gives the nurse a big hug, thus aiding in transfer. When her is in the room later, she enjoys holding his hand, but does not reach out for it. She gazes at him for most of the time. She murmurs to him but difficult to tell what he she is saying. Objective Last Vital Signs Temp 37 C 08/08/23 07:35 Pulse 67 08/08/23 07:35 Resp 20 08/08/23 07:35 BP 108/64 08/08/23 07:35 Pulse Ox 96 08/08/23 07:35 Laboratory Results - last 24 hr 08/04/23 06:40 Syphilis Serology Negative
[2023-08-08] MEDS: Enoxaparin 40 MG/0.4 ML SYR SC (13:16)
[2023-08-08 14:30] LABS: Thiamine (Vitamin B1), WB 109 nmol/L (70-180)
--- NOTE | 2023-08-08 15:09 | PT.INTREAT ---
PT Notes Visit Reasons: Failure to Thrive Date: 08/08/2023 PRECAUTIONS: Fall. Standard. Activity as tolerated. Orthopedic shoes on when OOB. SUBJECTIVE: Pt in bed reaching for imaginary objects, covering her face with blanket reports that the window is very bright, pleasantly confused. OBJECTIVE: ? PAIN: No reports of pain offered. Therapeutic Activities [id number]: ?Direct one on one instruction in bed mobility and ambulation. BED MOBILITY/TRANSFERS? Rolling L/R: Mod assist of 2 Supine-sit: Mod assist of 2? Sit to supine: Max assist of 2 ? Sit-stand: Mod assist of 2? Stand-sit: Mod assist of 2? Did require max assist of 2 with being pulled up in bed once completing sit to supine. ? Provided skilled cues and instruction on performance and technique throughout. GAIT? Assistive Device: FWW? Weight bearing: Full, with Orthopedic shoes on Assist: max A of 2 and mod verbal and tactile assist with controlling walker direction ? Distance:? 8ft bed to chair before lunch and 8ft ?chair to bed after lunch ? Deviation: Forward flexed at hips, max tactile and verbal cue for staying close to FWW for safety. ? ASSESSMENT:? pt very confused, reaching for imaginary objects, not able to follow instructions, pt stayed in bed post session PLAN: Continue to work on improved bed mobility and ambulation control. TREATMENT CODE/TIME: [id number] 20mins (11:45-12:05am), [id number] 10mins(3:30-3:40pm)
[2023-08-08 15:11] VITALS: BP 116/75; PULSE 97; RESP 17; TEMP 37.1; O2SAT 97
--- NOTE | 2023-08-08 16:39 | CHAPLAIN ---
One of the MEDIA RELATIONS COORDINATOR's was feeding Mellisa when I visited. Mellisa was singing a bit, an old him, and talked some but it was difficult to get what she is saying. Her singing is very clear. I don't think she recognized who I was, although she has known me for several years. According to Care Management notes, there was a family meeting today and Mellisa's and her brother agreed Mellisa will need some rehab for PT. Her Curtis is worried about continuing to be home alone as Mellisa used to prepare their meals. [facility] will try to increase its services to Curtis. Mellisa's brother agreed to apply for guardianship for Mellisa which was recommended by Care Management.
[2023-08-08 19:57] LABS: COVID-19 PCR Negative (Negative); Influenza A PCR Negative (Negative); Influenza B PCR Negative (Negative); RSV PCR Negative (Negative)
[2023-08-08 19:58] LABS: Source Nasopharynx
[2023-08-08] MEDS: Melatonin 3 MG TAB PO (20:03)
[2023-08-08] MEDS: Ciprofloxacin 500 MG TAB PO (20:03)
--- NOTE | 2023-08-08 20:05 | DI.RAD_ITS ---
Exam(s) XR PORTABLE CHEST AP EXAM: XR PORTABLE CHEST AP CLINICAL HISTORY: cough. TECHNIQUE: 2D digital imaging was performed. COMPARISON: No exams were available for comparison FINDINGS: Single AP portable view. Heart size is upper normal. The upper mediastinum is not widened. However, there is a retrocardiac density which is probably a hiatal hernia. There are no confluent infiltrates nor pleural effusions. No pulmonary edema. Two small nodular den sities are noted in the mid right lung field. IMPRESSION: There are 2 small nodular densities in the mid right lung field. The larger of these measures 5 mm. Comparison to prior chest radiographs would be helpful. There are none in our PACS. Retrocardiac d ensity is probably a hiatal hernia. DATA REPOSITORY: RADIATION DOSE DELIVERED:
--- NOTE | 2023-08-08 20:32 | DI.VRAD_ITS ---
PROCEDURE INFORMATION: Exam: XR Chest Exam date and time: 08/08/2023 7:57 PM Age: 72 years old Clinical indication: Other: Cough TECHNIQUE: Imaging protocol: Radiologic exam of the chest. Views: 1 view. COMPARISON: CT CHEST/ABD/PEL W 11/22/2019 9:02 AM FINDINGS: Limitations: Patient rotation of thick the fact the evaluation. Lungs: There is a nonspecific retrocardiac opacity. Pleural spaces: No pleural effusion or pneumothorax. Heart/Mediastinum: The heart and mediastinum are normal in size. Bones/joints: Unremarkable. IMPRESSION: Retrocardiac opacity that may be secondary to atelectasis or in the appropriate clinical setting, pneumonia. Dictated and Authenticated by: Vidal Wolfe MD. Ordering:IMTIAZ Boston MD
[2023-08-08 22:40] VITALS: BP 103/65; PULSE 79; RESP 18; TEMP 36.4; O2SAT 96
[2023-08-09] MEDS: Cyanocobalamin 500 MCG TAB 1000 MCG PO (07:40)
[2023-08-09] MEDS: Polyethylene Glycol 3350 17 GM PACKET PO (07:40)
[2023-08-09] MEDS: Ciprofloxacin 500 MG TAB PO ×2 (07:41→20:51)
[2023-08-09] MEDS: risperiDONE 0.5 MG TAB PO ×2 (07:41→20:51)
[2023-08-09] MEDS: Normal Saline Flush 10 ML SYR IVP (07:41)
[2023-08-09] MEDS: Docusate Sodium 100 MG CAP PO (07:41)
[2023-08-09] MEDS: Gabapentin 100 MG CAP PO ×2 (07:41→20:51)
[2023-08-09 08:05] VITALS: BP 96/64; PULSE 77; RESP 18; TEMP 36.4; O2SAT 95
--- NOTE | 2023-08-09 10:50 | PT.INPN ---
PT Notes Visit Reasons: Failure to Thrive Physical Therapy Inpatient Progress Note Date: 08/09/2023 Dates of Service: 08/02/2023 through 08/09/2023 PRECAUTIONS: Fall. Standard. Activity as tolerated. Orthopedic shoes on when OOB. SUBJECTIVE: Calmer and quieter compared the last time this PT saw patient. Able to follow instructions a lot better. No verbal nor bodily expression of pain. Perked up when PT initiated singing [employer]. Objective: General Observation: Cecily Caal and Kristen amos gmorningcare for patient when PT came in. Mental Status: Able to follow single step commands. Alert but needed redirection and frequent cueing throughout session. Focus impaired, requires frequent redirection to tasks and to conversation topic. Word finding difficulty, mild expressive aphasia noted. Pain: No verbal and non-verbal expression of pain received/observed.? Vital Signs: Closely monitored by nursing staff ROM: Right Upper Extremity: Shoulder Flexion lacks the last 25% of AROM. Shoulder abduction lacks the last 25% of AROM. Elbow flexion WFL. Wrist flexion WFL. Functional opening and closing of hand WFL. Left Upper Extremity: Shoulder Flexion lacks the last 25% of AROM. Shoulder abduction lacks the last 25% of AROM. Elbow flexion WFL. Wrist flexion WFL. Functional opening and closing of hand WFL. Right Lower Extremity: Hip flexion lacks the last 25% of AROM. Hip abduction lacks the last 25% of AROM. Knee flexion 30 degrees to 80 degrees. Knee extension -30. Ankle dorsiflexion -20 degrees to neutral only. Ankle plantarflexion -20 degrees to 40 degrees. Left Lower Extremity: Hip flexion lacks the last 25% of AROM. Hip abduction lacks the last 25% of AROM. Knee flexion 30 degrees to 80 degrees. Knee extension -30. Ankle dorsiflexion to neutral only. Ankle plantarflexion WFL. STRENGTH: Right Upper Extremity: Shoulder flexors 3-/5. Shoulder abductors 3-/5. Elbow flexors 4-/5. Elbow extensors 4-/5. [employer] Executive strong. Left Upper Extremity: Shoulder flexors 3-/5. Shoulder abductors 3-/5. Elbow flexors 4-/5. Elbow extensors 4-/5. [employer] Executive strong. Right Lower Extremity: Hip flexors 3-/5. Hip abductors 3-/5. Knee flexors 3-/5. Knee extensors 3-/5. Ankle dorsiflexors 3-/5. Ankle plantarflexors 3-/5. Left Lower Extremity: Hip flexors 3-/5. Hip abductors 3-/5. Knee flexors 3-/5. Knee extensors 3-/5. Ankle dorsiflexors 3-/5. Ankle plantarflexors 3-/5. Bed Mobility/Transfers: Moderate to maximal cues given for movement sequence, safety, and AD management Rolling minimal assist Supine to sit moderate assist Sit to supine moderate assist Sit to stand moderate assist Stand to sit moderate assist Wheelchair to bedside chair moderate assist Gait: 10 feet + 15 feet using FWW with PT maneuvering walker for patient for safety. DAWIT Peterson helped with wheelchair follow and DAWIT Caal with IV pole management. Patient with poor ability to manage AD at this time. Scissored with increased fatigue. Balance: Static Sitting: Good Dynamic Sitting: Fair Static Standing: Fair Dynamic Standing: Poor Special Tests: Mobility Limitations Standardized Measure [facility] AM-PAC 6 clicks Basic Mobility Inpatient Short Form: Raw Score: 9 CMS Score: 81% deficit Informed Consent/Education: Patient was instructed in purpose of PT consult and plan of care. Agreeable to proceed with established PT POC to achieve personal goals. ASSESSMENT: Today more able to follow instructions and more engagable/redirectible. B legs tends to scissor more with fatgue. Needs moderate to maximal verbal cueing for movement sequence (initiation, completion and cessation). Spasticity seemed to have increased in B LE with R LE more affected than the L. Patient demonstrates functional mobility and cognitive decline requiring assistance of 2 for all transfers. Ambulation training with therapy only. Needed moderate to maximal assistance sitting up in bed. Continued drooling noted. Patient continues to require Patient continues to present with clinical signs and symptoms consistent with current/admitting diagnoses that have resulted to mobility limitations, gait instability, generalized weakness, and overall ADL decline as demonstrated by the following impairment level findings: 1. Decreased strength to B UE/LE major muscle groups with L weaker than R 2. Impaired sitting/standing balance 3. Impaired activity tolerance 4. Limitation of joint range of motion in B UE/LE as above 5. 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 Impaired safety awareness Impairments are contributing to the following functional limitations: 1. Decline in bed mobility skills 2. Decline in transfer skills 3. Difficulty with ambulation without assistive device and physical assistance 4. Increased completion time for mobility ADL performance 5. Increased risk for falls 6. Difficulty with managing steps alone safely Patient is assessed as a 38568 moderate complexity based on the following: History: 72-year-old female with past medical history as indicated above Examination: Demonstrable impairment in strength, balance, and mobility level with underlying impairments and functional limitations as exhibited above as well as deficit score of 65% utilizing the [facility] Mobility Inpatient Short Form Presentation: Evolving Decision Makin moderate complexity Goals: Goals X1 week 1. Supine-Sit independent NOT MET, CONTINUE 2. Sit-Supine independent NOT MET, CONTINUE 3. Sit-Stand independent NOT MET, CONTINUE 4. Stand-Sit independent with FWW NOT MET, CONTINUE 5. Bed-Chair independent with FWW NOT MET, CONTINUE 6. Chair-Bed independent with FWW NOT MET, CONTINUE 7. Independent gait on level surface with use of FWW for at least 150 feet without report of pain nor dyspnea NOT MET, CONTINUE 8. Independent stair negotiation while holding onto B rails for at least 4 steps without report of pain nor dyspnea NOT MET, CONTINUE 9. Independent with home exercise program NOT MET, CONTINUE 10. Good static and dynamic standing balance/tolerance NOT MET, CONTINUE Plan of Care/Treatment Plan: 1-2x/day, 7 days/week x 1 week. Plan of care has been reviewed with the EMPLOYMENT COACH providing the service under Physical Therapy direction. Initiate Physical Therapy intervention for pain management as needed, strengthening, bed mobility, transfers, gait, stairs, balance training, and use of assistive device. DISCHARGE RECOMMENDATIONS: [] Home with no services [] [] Home with services [specify] [] Home with outpatient PT [] [X] SNF for continued rehabilitation. Patient will benefit from fdc facility placement for continued skilled physical therapy services in order to progress mobility level, strength, and balance in preparation for a safe discharge to home. [] [facility]n Load[facility] [] [] SNF versus LTC based on ability to participate and progress [] TREATMENT CODE/TIME: 60172 x 38 minutes for 3 units beginning at 10:50 AM. Thank you for the opportunity to participate in the care of this patient. Ramila Richardson PT, DPT, CLT [facility] [place], [place]
--- NOTE | 2023-08-09 10:53 | CMPROGNOTE_ITS ---
Date of service: 08/09/23 Time of Service: 10:53 Care Management Progress Note Progress Note Text Progress Note Text: S/O: Mellisa was lying in bed when CM met with her. She stated that she is doing ok today, and that she worked with PT. CM sent referrals for short term rehab to [facility] (as well as [facility] facilities), the [facility], [facility], and [facility]. Per provider, once a bed is secured for rehab, Mellisa will be transitioned to oral antibiotics to complete her course. CM will continue to follow. A: Mellisa is a 72 year old female admitted to [facility] on 08/02/23 for failure to thrive. P: Anticipate Mellisa will return home with services vs SNF for continued rehab. PT is recommending SNF at this time. Her transport will likely be [facility] w/c van. She will follow up with her PCP and discharge plan of care. CM will co ntinue to follow.
--- NOTE | 2023-08-09 11:38 | PT.INTREAT ---
PT Notes Visit Reasons: Failure to Thrive Physical Therapy Inpatient Progress Note Date: 08/09/2023 Dates of Service: 08/02/2023 through 08/09/2023 PRECAUTIONS: Fall. Standard. Activity as tolerated. Orthopedic shoes on when OOB. SUBJECTIVE: Calmer and quieter compared the last time this PT saw patient. Able to follow instructions a lot better. No verbal nor bodily expression of pain. Perked up when PT initiated singing [employer]. Objective: General Observation: Cecily Caal and Kristen amos gmorningcare for patient when PT came in. Mental Status: Able to follow single step commands. Alert but needed redirection and frequent cueing throughout session. Focus impaired, requires frequent redirection to tasks and to conversation topic. Word finding difficulty, mild expressive aphasia noted. Pain: No verbal and non-verbal expression of pain received/observed.? Vital Signs: Closely monitored by nursing staff ROM: Right Upper Extremity: Shoulder Flexion lacks the last 25% of AROM. Shoulder abduction lacks the last 25% of AROM. Elbow flexion WFL. Wrist flexion WFL. Functional opening and closing of hand WFL. Left Upper Extremity: Shoulder Flexion lacks the last 25% of AROM. Shoulder abduction lacks the last 25% of AROM. Elbow flexion WFL. Wrist flexion WFL. Functional opening and closing of hand WFL. Right Lower Extremity: Hip flexion lacks the last 25% of AROM. Hip abduction lacks the last 25% of AROM. Knee flexion 30 degrees to 80 degrees. Knee extension -30. Ankle dorsiflexion -20 degrees to neutral only. Ankle plantarflexion -20 degrees to 40 degrees. Left Lower Extremity: Hip flexion lacks the last 25% of AROM. Hip abduction lacks the last 25% of AROM. Knee flexion 30 degrees to 80 degrees. Knee extension -30. Ankle dorsiflexion to neutral only. Ankle plantarflexion WFL. STRENGTH: Right Upper Extremity: Shoulder flexors 3-/5. Shoulder abductors 3-/5. Elbow flexors 4-/5. Elbow extensors 4-/5. [employer] Operator strong. Left Upper Extremity: Shoulder flexors 3-/5. Shoulder abductors 3-/5. Elbow flexors 4-/5. Elbow extensors 4-/5. [employer] Operator strong. Right Lower Extremity: Hip flexors 3-/5. Hip abductors 3-/5. Knee flexors 3-/5. Knee extensors 3-/5. Ankle dorsiflexors 3-/5. Ankle plantarflexors 3-/5. Left Lower Extremity: Hip flexors 3-/5. Hip abductors 3-/5. Knee flexors 3-/5. Knee extensors 3-/5. Ankle dorsiflexors 3-/5. Ankle plantarflexors 3-/5. Bed Mobility/Transfers: Moderate to maximal cues given for movement sequence, safety, and AD management Rolling minimal assist Supine to sit moderate assist Sit to supine moderate assist Sit to stand moderate assist Stand to sit moderate assist Wheelchair to bedside chair moderate assist Gait: 10 feet + 15 feet using FWW with PT maneuvering walker for patient for safety. DAWIT Peterson helped with wheelchair follow and DAWIT Caal with IV pole management. Patient with poor ability to manage AD at this time. Scissored with increased fatigue. Balance: Static Sitting: Good Dynamic Sitting: Fair Static Standing: Fair Dynamic Standing: Poor Special Tests: Mobility Limitations Standardized Measure [facility] AM-PAC 6 clicks Basic Mobility Inpatient Short Form: Raw Score: 9 CMS Score: 81% deficit Informed Consent/Education: Patient was instructed in purpose of PT consult and plan of care. Agreeable to proceed with established PT POC to achieve personal goals. ASSESSMENT: Today more able to follow instructions and more engagable/redirectible. B legs tends to scissor more with fatgue. Needs moderate to maximal verbal cueing for movement sequence (initiation, completion and cessation). Spasticity seemed to have increased in B LE with R LE more affected than the L. Patient demonstrates functional mobility and cognitive decline requiring assistance of 2 for all transfers. Ambulation training with therapy only. Needed moderate to maximal assistance sitting up in bed. Continued drooling noted. Patient continues to require Patient continues to present with clinical signs and symptoms consistent with current/admitting diagnoses that have resulted to mobility limitations, gait instability, generalized weakness, and overall ADL decline as demonstrated by the following impairment level findings: 1. Decreased strength to B UE/LE major muscle groups with L weaker than R 2. Impaired sitting/standing balance 3. Impaired activity tolerance 4. Limitation of joint range of motion in B UE/LE as above 5. 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 Impaired safety awareness Impairments are contributing to the following functional limitations: 1. Decline in bed mobility skills 2. Decline in transfer skills 3. Difficulty with ambulation without assistive device and physical assistance 4. Increased completion time for mobility ADL performance 5. Increased risk for falls 6. Difficulty with managing steps alone safely Patient is assessed as a [id number] moderate complexity based on the following: History: 72-year-old female with past medical history as indicated above Examination: Demonstrable impairment in strength, balance, and mobility level with underlying impairments and functional limitations as exhibited above as well as deficit score of 65% utilizing the [facility] Mobility Inpatient Short Form Presentation: Evolving Decision Makin moderate complexity Goals: Goals X1 week 1. Supine-Sit independent NOT MET, CONTINUE 2. Sit-Supine independent NOT MET, CONTINUE 3. Sit-Stand independent NOT MET, CONTINUE 4. Stand-Sit independent with FWW NOT MET, CONTINUE 5. Bed-Chair independent with FWW NOT MET, CONTINUE 6. Chair-Bed independent with FWW NOT MET, CONTINUE 7. Independent gait on level surface with use of FWW for at least 150 feet without report of pain nor dyspnea NOT MET, CONTINUE 8. Independent stair negotiation while holding onto B rails for at least 4 steps without report of pain nor dyspnea NOT MET, CONTINUE 9. Independent with home exercise program NOT MET, CONTINUE 10. Good static and dynamic standing balance/tolerance NOT MET, CONTINUE Plan of Care/Treatment Plan: 1-2x/day, 7 days/week x 1 week. Plan of care has been reviewed with the CORRECTIONAL OFFICER CHIEF providing the service under Physical Therapy direction. Initiate Physical Therapy intervention for pain management as needed, strengthening, bed mobility, transfers, gait, stairs, balance training, and use of assistive device. DISCHARGE RECOMMENDATIONS: [] Home with no services [] [] Home with services [specify] [] Home with outpatient PT [] [X] SNF for continued rehabilitation. Patient will benefit from correction facility placement for continued skilled physical therapy services in order to progress mobility level, strength, and balance in preparation for a safe discharge to home. [] Tank Operator Care [] [] SNF versus LTC based on ability to participate and progress [] TREATMENT CODE/TIME: 23732 x 38 minutes for 3 units beginning at 10:50 AM. Thank you for the opportunity to participate in the care of this patient. Ramila Richardson PT, DPT, CLT [facility] [place], [place]
[2023-08-09 12:26] VITALS: BP 100/80
[2023-08-09 16:01] VITALS: BP 104/68; PULSE 84; RESP 18; TEMP 37; O2SAT 97
[2023-08-09] MEDS: Enoxaparin 40 MG/0.4 ML SYR SC (16:16)
--- NOTE | 2023-08-09 17:38 | PGE_ITS ---
Date of Service Date of service: 08/09/23 Time of Service: 17:38 Assessment and Plan Assessment and plan (1) Complicated UTI (urinary tract infection): Status: Acute Assessment and plan: present on admission urine growing pseudomonas and proteus both sensitive to zosyn zosyn day 5/ (2) Urinary retention: Status: Acute Assessment and plan: in setting of acute UTI and oxybutin discontinued for delirium, buckner to be discontinued, see urology consultation In brief avoid anticholinergic Genex avoid chronic indwelling Buckner catheter recommend regimen of catheterizing 3-4 times daily adjust to keep frequency with catheterized volumes less than 500 cc. Suprapubic catheter would be recommended for long-term catheter. could try a beta 3 agonist for any residual incontinence. The beta 3 agonist is much less likely to cause mental status changes or bowel dysfunction compared to anticholinergics. 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 She was started on Zyprexa her mirtazapine and trazodone were discontinued and risperidone continued. Additionally it appears she was started on gabapentin. A neurology consult was obtained on this admission with the following recommendations: consider stopping oxybuytnin in case it is contributing to AMS/delirium (discontinued now) Unclear why she is getting gabapentin, but please address the need for this as it too can contribute to AMS/delirium even at low dose. work up: -MRI brain (Limited exam due to motion. No acute findings.) -EEG (This EEG is abnormal due to generalized non-rhythmic delta and theta slowing. The background slowing is suggestive of a mild-moderate diffuse cerebral encephalopathy of broad differential including toxic-metabolic etiology. No focal regions of cerebral dysfunction or epileptiform activity was present.) -Labs: B1 (pending), B12 (268), RPR (pending) No signs of meningitis at this time. LP not indicated at this time (5) On deep vein thrombosis (DVT) prophylaxis: Status: Acute Assessment and plan: enoxaparin daily (6) Discharge planning issues: Status: Acute Assessment and plan: case management following for discharge planning palliative care consult placed. discussed with Dr Luis. Subjective Subjective Patient reports: afebrile Interval history since last seen: having loose stools Exam Narrative Exam Narrative: Older appearing than stated age chronically ill-appearing in no acute distress on the bed. Head is atraumatic oral mucosa slightly dry Neck with no JVD full range of motion noted, no meningeal signs Respirations are even and unlabored Cardiovascular regular rate and rhythm pink warm dry well-perfused no peripheral edema Abdomen is soft Moves all her extremities Neurologic she is awake alert confused, does not follow commands Objective Last Vital Signs Temp 37.0 C 08/09/23 16:01 Pulse 84 08/09/23 16:01 Resp 18 08/09/23 16:01 BP 104/68 08/09/23 16:01 Pulse Ox 97 08/09/23 16:01 Laboratory Results - last 24 hr 08/08/23 19:14 COVID-19 Source Nasopharynx SARS-CoV-2 (PCR) Negative Influenza Type A (PCR) Negative Influenza Type B (PCR) Negative RSV (PCR) Negative Time Spent with Patient Time Spent with Patient: 35-49 minutes Time was spent: preparing to see the patient(eg.review tests), obtaining and/or reviewing separately otained hiistory, ordering medications,tests, procedures, indepentently interpreting results and counseling the patient
[2023-08-09 19:09] LABS: C Diff PCR Negative (Negative)
[2023-08-09 20:40] VITALS: BP 102/67; PULSE 109; RESP 18; TEMP 36.3; O2SAT 97
[2023-08-09] MEDS: Melatonin 3 MG TAB PO (20:51)
[2023-08-10 07:01] VITALS: BP 119/77; PULSE 84; RESP 15; TEMP 35.3; O2SAT 95
[2023-08-10] MEDS: Cyanocobalamin 500 MCG TAB 1000 MCG PO (07:34)
[2023-08-10] MEDS: risperiDONE 0.5 MG TAB PO ×2 (07:35→20:27)
[2023-08-10] MEDS: Gabapentin 100 MG CAP PO ×2 (07:35→20:27)
[2023-08-10] MEDS: Ciprofloxacin 500 MG TAB PO ×2 (07:35→20:27)
[2023-08-10] MEDS: Polyethylene Glycol 3350 17 GM PACKET PO (07:35)
--- NOTE | 2023-08-10 09:30 | PDOC.CMPRO ---
Date of service: 08/10/23 Time of Service: 09:30 Care Management Progress Note Progress Note Text Progress Note Text: S/O: Mellisa was lying in bed resting when CM met with her. Earlier, she was working with PT and sat in her chair for a while. Per PT, she is making slow progress, and engages well with services. CM communicated with admissions at [facility], who expressed some interest in Mellisa's referral for [facility] in [place], [place]. CM called and discussed this with her brother, Lamberto, who is in agreement with her going to [facility]. CM discussed obtaining guardianship with Hung, who is in agreement; Amaya from [facility] is supporting him with this. CM called Amaya [facility], to engage her support with Curtis about Mellisa going to [facility], and left a message. CM will continue to follow. A: Mellisa is a 72 year old female admitted to [facility] on 08/02/23 for failure to thrive. P: Anticipate Mellisa will return home with HH services vs SNF for continued rehab. PT is recommending SNF at this time. Her transport will likely be [facility] w/c van. She will follow up with her PCP and discharge plan of care. CM will continue to follow.
[2023-08-10 09:33] LABS: Abs Immature Grans 0.04 10^3/uL (0.0-0.06); Absolute Basophil Count 0.02 10^3/uL (0.0-0.2); Absolute Lymphocyte Count 1.26 10^3/uL (1.2-3.4); Absolute Monocyte Count 0.35 10^3/uL (0.1-0.8); Absolute Neutrophil Count 4.66 10^3/uL (1.2-6.7); Basophils % 0.3; Eosinophils % 4.5; HCT 37.8 % (36.0-46.0); HGB 12.2 g/dL (11.2-15.7); Immature Grans % 0.6; MCH 29.4 pg (27.0-33.0); MCHC 32.3 % (32.0-36.0); MCV 91 fL (80-95); MPV 9.3 fL (8.0-11.0); Monocytes % 5.3; Neutrophils % 70.3; Platelet Count 281 10^3/uL (130-400); RBC 4.15 10^6/uL (3.93-5.22); RDW 13.8 % (11.7-14.6); WBC 6.63 10^3/uL (4.4-10.8)
[2023-08-10 09:48] LABS: Anion Gap 12.2 mmol/L (3-11); BUN 11 mg/dL (7-18); CO2 24.8 mmol/L (21.0-32.0); CREATININE 0.7 mg/dL (0.55-1.02); Calcium 8.9 mg/dL (8.5-10.1); Chloride 104 mmol/L (98-107); Estimated GFR 91.26 (mL/min/1.73m2); Glucose 166 mg/dL (74-106); Magnesium 1.8 mg/dL (1.8-2.4); Potassium 3.5 mmol/L (3.5-5.1); Sodium 141 mmol/L (136-145)
--- NOTE | 2023-08-10 10:07 | PTTR_ITS ---
Date of service: 08/10/23 Time of Service: 09:28 PT Notes Visit Reasons: Failure to Thrive Inpatient Physical Therapy Treatment Note [facility] Date: 08/10/23 PRECAUTIONS: Fall, standard, activity as tolerated. SUBJECTIVE: Patient appears relaxed, awake. Takes several seconds to register this clinician is speaking. Appears to zone in and out. Drooling. Making vague gestures. Intermittently appropriate. AFTERNOON: Patient still zoning in and out. Initially found with fidget mat on her head, grasping vaguely at the air with one hand while the other secures the mat in place. OBJECTIVE: Supine in bed, asks for glass of milk. Agreeable to get up to chair to drink it. AFTERNOON: DPT Ramila Richardson encourages patient to go for a walk. ? PAIN: None reported. VITALS: monitored by nursing staff? Therapeutic Activities (85070q6): Direct one-on-one instruction in dynamic activities to improve functional performance. ? BED MOBILITY/TRANSFERS? Rolling L/R: max verbal and tactile cueing. Supine-sit: Mod assist of one via handhold and behind shoulder assist. ? Sit-supine: not assessed ? Sit-stand: verbal cues to push up from bed, minimal assist of one via gait belt. ? Stand-sit: Verbal and tactile cues at back of leg, back of hip to encourage patient to line up correctly with sitting surface. Patient demonstrates a well- controlled descent. ? Bed-Chair: CGA with verbal cues for first 80% of transfer. Verbal, tactile cues and mod assist at gait belt and lower right leg for last 20%. AFTERNOON: bed to commode, commode to chair, min to mod assist of 2 via gait belt with max verbal and tactile cueing. Dependent for caleb care hygiene with assistance from LAUREN Guy and DAWIT Finn.? Chair-bed: not assessed Provided skilled cues and instruction on performance and technique throughout. Gait Training ([id number]): Direct one-on-one instruction and skilled instruction in: [] employing an assistive device [] modified weight-bearing status [x] movement sequencing [x] turning and movement with proper form [x] Provided verbal cues for equipment management and technique [x] Provided instruction in gait pattern [] Patient education regarding pacing and breathing techniques to maximize activity tolerance? GAIT? Assistive Device: FWW? Weight bearing: full Assist: mod assist with verbal and tactile cues. ? Distance:? 6 feet from bed to bedside chair. ? Deviation: Patient starts out the best that this clinician has observed this admission - CGA, using walker appropriately and without assistance for 4 feet. Stride still short, scissoring still present. Patient steps on right shoe with left shoe x2, is able to independently reposition feet without cueing. After 4 feet, patient seems to lose track of what she is doing - begins turning her hips 90 degrees away from walker. Scissoring worsens, patient loses ability to independently advance right foot. Becomes mod assist at gait belt and lower right leg to continue ambulation, with max verbal and tactile cueing for gait sequence. Continues to be appropriate with walker and does not require assistance with walker. ? Therapeutic Exercises (77702p5): Direct one-on-one instruction in therapeutic exercises to develop strength, endurance, range of motion and flexibility. ? Exercises: * Marching x5 * SLR x5 * shoulder flexion 2x5 * sit to stand x3 Provided skilled instruction in proper exercise performance Provided skilled manual cues to facilitate proper muscle recruitment and/or form. ASSESSMENT:? End of treatment patient is sitting up in bedside chair. Drinks 4 oz of thickened milk, requests another glass. Drinks approx. 1/3 of second glass, then appears to become confused. Tries to put glass bottom first into emesis bag. When redirected, tries to pour milk onto call guillen. This clinician removes and disposes of the rest of the milk. Sets patient up with call guillen, fidget blanket. PLAN: Continue global strengthening per plan of care until patient is medically cleared for discharge, obtains safe discharge plan. TREATMENT CODE/TIME: 35 minutes beginning at 9:28 and 34 minutes beginning at 15:57 for a total of 69 minutes today.
[2023-08-10 15:24] VITALS: BP 93/59; PULSE 111; RESP 17; TEMP 36.5; O2SAT 93
[2023-08-10 15:34] VITALS: BP 110/78
[2023-08-10] MEDS: Enoxaparin 40 MG/0.4 ML SYR SC (15:36)
--- NOTE | 2023-08-10 15:58 | PGE_ITS ---
Date of Service Date of service: 08/10/23 Time of Service: 15:58 Assessment and Plan Assessment and plan (1) UTI (urinary tract infection): Status: Acute (2) Delirium: Status: Acute (3) Altered mental status: Status: Acute Assessment and plan: Ms. Mejia continues to have a delirium, complicated by recurrent UTI, baseline cognitive impairment, low vitamin B12 level. It's possible ciprofloxavin could be contributing to ongoing AMS. Consider alternate therapy if possible. Today, she is noted to have some Parkinsonian features as well as waxy catatonic features. PT has noted increased spasticity. Are these findings new/worse and thus related to risperidone?? Certainly possible, however, I don't think we can lower the dose of risperidone at this time and she is not a candidate for a muscle relaxer for the spasticity (baclofen) given ongoing AMS. Agree with tele-psychiatry consult for further evaluation. Continue vitamin B12 supplement 1000mcg daily. If psychiatry does not feel this is psychiatric and if mental status does not improve with above, consider LP as further work-up to make sure we are not missing an atypical process. Neurology is going off service. She should f/up in neurology as an outpatient following d/c. Subjective Subjective Interval history since last seen: Ms. Mejia has not really had any major clinic improvements in her cognition s sheridan last seen, with at times seeming better and other times, worse. She has not had any further episodes of agitation requiring prn medication since I last saw her on 08/07/23 per primary team. She remains on ciprofloxacin for her UTI. Hanna was d/c and she is getting prn CIC. She has had diarrhea since yesterday. PT has noticed increased scissoring with ambulation. -B1 (08/04/23): 109 Exam Narrative Exam Narrative: Physical Exam: Constitutional: Patient of apparent stated age, well nourished, well developed, no acute distress, moderate hypomimia Neuro: MS/Language/Speech: Alert, oriented to self only - could tell me her name; said she was 15 yo, mild dysarthria; able to follow simple commands only Motor: When I walked into the room, she had her R arm up above her head frozen. Even when she turned to me and we started talking she left the arm raised in the air until I gently lowered her arm for her. Normal bulk. She appears to have bilateral cogwheel rigidity - complicated by grasp reflex R>L. FMM reduced bilaterally. Difficult to do formal strength testing. Left leg shorter with club foot. She appears to have bradykinesia. Objective Last Vital Signs Temp 97.7 F 08/10/23 15:24 Pulse 111 H 08/10/23 15:24 Resp 17 08/10/23 15:24 BP 110/78 08/10/23 15:34 Pulse Ox 93 08/10/23 15:24 Laboratory Results - last 24 hr 08/09/23 08/10/23 14:42 08:55 WBC 6.63 RBC 4.15 Hgb 12.2 Hct 37.8 MCV 91 MCH 29.4 MCHC 32.3 RDW 13.8 Plt Count 281 MPV 9.3 Immature Gran % 0.6 Neutrophils % 70.3 Lymphocytes % 19.0 Monocytes % 5.3 Eosinophils % 4.5 Basophils % 0.3 Nucleated RBC % 0.0 Absolute Neutrophils 4.66 Absolute Lymphocytes 1.26 Absolute Monocytes 0.35 Absolute Eosinophils 0.30 Absolute Basophils 0.02 Sodium 141 Potassium 3.5 Chloride 104 Carbon Dioxide 24.8 Anion Gap 12.2 H BUN 11 Creatinine 0.7 Est GFR (CKD-EPI 2020) 91.26 Glucose 166 H Calcium 8.9 Magnesium 1.8 Stl C.difficile Tox PCR Negative Time Spent with Patient Time Spent with Patient: 25-34 minutes Time was spent: preparing to see the patient(eg.review tests), referring, communicating with other health adult live in caregiver and counseling the patient
--- NOTE | 2023-08-10 16:14 | W.PM.PROGNOT ---
Date of Service Date of service: 08/10/23 Time of Service: 09:30 Assessment and Plan Assessment and plan (1) Complicated UTI (urinary tract infection): Status: Acute Assessment and plan: urine growing pseudomonas and proteus from DIRECTOR OF CREATIVE SERVICES UTI; was on ceftriaxone, zosyn, now on oral cipro UA to be repeated, if positive d/t AMS, cefepime to be considered (2) Urinary retention: Status: Acute Assessment and plan: Continue bladder scan Q8 hours, and catheterization PRN As per urology notes, might need a suprapubic cath (3) History of cerebral palsy: Assessment and plan: F/u by FABRIC LAY OUT WORKER opt (4) Delirium: Status: Acute Assessment and plan: Might have been d/t UTI, but worsening after treatment of the infection From retruning from [facility]: zyprexa, risperidone ordered during med adjustment at [facility], they had stopped the oxybutin, came back with a buckner and a 2nd UTI w ongoing treatment to this date Neurology consult completed. See notes Evaluating the need for gabapentin if she was not receiving it DIRECTOR OF CREATIVE SERVICES; 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 -Negative MRI brain -No epileptiform activity or focal regions of crebral dysfunction fro EEG but abnormal due to generalized non-rhythmic delta and theta slowing. The background slowing is suggestive of a mild-moderate diffuse cerebral encephalopathy of broad differential including toxic-metabolic etiology -Labs: B1 109, B12 268 and supplement ordered, RPR negative No signs of meningitis at this time. LP not indicated at this but post psych consult ordered today, the option may need to be revisited (5) On deep vein thrombosis (DVT) prophylaxis: Status: Acute Assessment and plan: Continue enoxaparin SC daily (6) Discharge planning issues: Status: Acute Assessment and plan: case management following for discharge planning, referral pending to [facility] palliative care consult placed. discussed with Dr Joshi. Subjective Subjective Patient reports: no new complaints, tolerating liquids well, tolerating a regular diet, flatus, bowel movement and diarrhea; denies blood in stool, nausea, vomiting, shortness of breath or fever Exam Narrative Exam Narrative: Sitting in bedrecliner, comfortable No neurological focal deficit noticed Head is atraumatic Lungs are clear, regular breathing, bilateral chest expansion S1-S2 regular, no cardiac murmur, cap refill less than 3 seconds, pulses positive to all 4 extremities. Abdomen is soft, nontender, nondistended bowel sounds are present. No bladder distention, no pelvic discomfort on palpation. Patient is able to move all 4 extremities but remains weak Objective Last Vital Signs Temp 36.5 C 08/10/23 15:24 Pulse 111 H 08/10/23 15:24 Resp 17 08/10/23 15:24 BP 110/78 08/10/23 15:34 Pulse Ox 93 08/10/23 15:24 Laboratory Results - last 24 hr 08/09/23 08/10/23 14:42 08:55 WBC 6.63 RBC 4.15 Hgb 12.2 Hct 37.8 MCV 91 MCH 29.4 MCHC 32.3 RDW 13.8 Plt Count 281 MPV 9.3 Immature Gran % 0.6 Neutrophils % 70.3 Lymphocytes % 19.0 Monocytes % 5.3 Eosinophils % 4.5 Basophils % 0.3 Nucleated RBC % 0.0 Absolute Neutrophils 4.66 Absolute Lymphocytes 1.26 Absolute Monocytes 0.35 Absolute Eosinophils 0.30 Absolute Basophils 0.02 Sodium 141 Potassium 3.5 Chloride 104 Carbon Dioxide 24.8 Anion Gap 12.2 H BUN 11 Creatinine 0.7 Est GFR (CKD-EPI 2020) 91.26 Glucose 166 H Calcium 8.9 Magnesium 1.8 Stl C.difficile Tox PCR Negative Time Spent with Patient Time Spent with Patient: >50 minutes Time was spent: preparing to see the patient(eg.review tests), ordering medications,tests, procedures, referring, communicating with other health career transition specialist, indepentently interpreting results, counseling the patient and care coordination
[2023-08-10] MEDS: Melatonin 3 MG TAB PO (20:27)
[2023-08-10 22:49] VITALS: BP 111/73; PULSE 85; RESP 17; TEMP 36.3; O2SAT 93
[2023-08-11 00:12] LABS: Bilirubin Negative (Negative); Blood Negative (Negative); Clarity Clear (Clear); Glucose Negative (Negative); Ketones Negative (Negative); Leukocyte Esterase Negative (Negative); Nitrite Negative (Negative); Urobilinogen 0.2 mg/dL (Up to 0.2)
[2023-08-11 07:11] VITALS: BP 106/66; PULSE 89; RESP 16; TEMP 35.8; O2SAT 98
[2023-08-11] MEDS: Cyanocobalamin 500 MCG TAB 1000 MCG PO (08:57)
[2023-08-11] MEDS: risperiDONE 0.5 MG TAB PO ×2 (08:57→20:05)
[2023-08-11] MEDS: Gabapentin 100 MG CAP PO ×2 (08:57→20:06)
--- NOTE | 2023-08-11 10:31 | W.PM.PROGNOT ---
Date of Service Date of service: 08/11/23 Time of Service: 10:34 Assessment and Plan Assessment and plan (1) Complicated UTI (urinary tract infection): Status: Acute Assessment and plan: urine growing pseudomonas and proteus from TELEPHONE SOLICITOR UTI. treatment completed; UA was negative on 08/10, patient received ceftriaxone, zosyn, on oral cipro (2) Urinary retention: Status: Acute Assessment and plan: Urology consult completed: see notes Spoke to Dr. Torre this AM and recommendations to straight cath BID as the patient has not been in pressure related [place]. consideration to exclude buckner or suprapubic at this time include risk for catheter associated infection and urethral erosion. Still reiterated that anticholinergics and beta 3 agonist are not an option d/t AMS and potentisl to worsen urinary retention Will order scheduled straight cath Q12 urology also recommended scheduling voiding, scheduled voiding trials ordered (3) History of cerebral palsy: Assessment and plan: F/u by ARMORED MACHINE OPERATOR opt (4) Delirium: Status: Acute Assessment and plan: Might have been d/t UTI, but worsening after treatment of the infection From retruning from [facility]: zyprexa, risperidone ordered during med adjustment at [facility], they had stopped the oxybutin Back from [facility] with a buckner and a 2nd UTI; treatment completed as UA came back clear Neurology consult completed. See notes LP tap option to be revisited with family/POA if psychiatric consult is inconclusive Previous results: -Negative MRI brain -No epileptiform activity or focal regions of crebral dysfunction fro EEG but abnormal due to generalized non-rhythmic delta and theta slowing. The background slowing is suggestive of a mild-moderate diffuse cerebral encephalopathy of broad differential including toxic-metabolic etiology -Labs: B1 109, B12 268 and supplement ordered, RPR negative Will continue B12 supplementation No signs of meningitis at this time. LP not indicated at this but post psych consult ordered today, the option may need to be revisited Evaluating the need for gabapentin: most likely started at [facility], not in her prior records if she was not receiving it TELEPHONE SOLICITOR; 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 Considering discussion with psychiatry consultation: Consultation pending (5) On deep vein thrombosis (DVT) prophylaxis: Status: Acute Assessment and plan: Will continue lovenox SC daily (6) Diarrhea: Status: Acute Assessment and plan: Incontinent of stool and diarrhea reported; C-Diff negative, other testing for stool pathogens pending, no report of diarrhea today (7) Discharge planning issues: Status: Acute Assessment and plan: Case management is following for discharge planning Referral still pending to [facility] Palliative care consult: See note from 08/08; is the surrogate ass he signed papers at [facility], but brother seeking guardianship discussed with Dr Joshi. Subjective Subjective Patient reports: no new complaints, tolerating liquids well, tolerating a regular diet, voiding w/o difficulty (Straight cath for > 600cc this AM), flatus, no bowel movement and diarrhea (diarrhea previously); denies blood in stool, nausea, vomiting, shortness of breath or fever Exam Narrative Exam Narrative: The patient is lying in bed, alert, unable to state her name but recognizes her 's name. Knows she is in the hospital unable to state specific town/state The patient is in no acute distress, distracted and difficult to reorient. No acute focal neurodeficit but not consistently following commands. Lungs are clear bilaterally, symmetrical chest movement. S1-S2 regular no cardiac murmur heard, positive pulses to all 4 extremities. Abdomen is soft nontender, nondistended, bowel sounds are present. Urinary retention: Patient is getting straight cath Moves all 4 extremities. Objective Last Vital Signs Temp 35.8 C L 08/11/23 07:11 Pulse 89 08/11/23 07:11 Resp 16 08/11/23 07:11 BP 106/66 08/11/23 07:11 Pulse Ox 98 08/11/23 07:11 Laboratory Results - last 24 hr 08/10/23 08/10/23 21:12 23:59 Urine Color Yellow Urine Clarity Clear Urine pH 7.0 Ur Specific [place] 1.020 Urine Protein Negative Urine Ketones Negative Urine Blood Negative Urine Nitrite Negative Urine Bilirubin Negative Urine Urobilinogen 0.2 Ur Leukocyte Esterase Negative Urine Glucose Negative Stool Campylobacter PCR Cancelled Stool Salmonella PCR Cancelled Stool Shigella PCR Cancelled Shiga Toxin (PCR) Cancelled Time Spent with Patient Time Spent with Patient: >50 minutes Time was spent: preparing to see the patient(eg.review tests), ordering medications,tests, procedures, referring, communicating with other health child daycare worker, indepentently interpreting results, counseling the patient and care coordination
--- NOTE | 2023-08-11 10:42 | CMPROGNOTE_ITS ---
Date of service: 08/11/23 Time of Service: 10:42 Care Management Progress Note Progress Note Text Progress Note Text: S/O: Mellisa was sitting up in her chair when CM met with her. She was listening to [place] music, and responded minimally to CM, smiling when asked about the music. CM spoke to Amaya [facility] field nurse case manager today, who stated that she has called the office of public guardianship to help support Mellisa's brother, Hung, with obtaining guardianship. Per provider, a psych consult was placed to help with medication management. Referrals are pending for SNF placement, for short term rehab. Mellisa's plan remains for her to return home with her after rehab, once she is at her functional baseline. CM will continue to follow. A: Mellisa is a 72 year old female admitted to [facility] on 08/02/23 for failure to thrive. P: Anticipate Mellisa will return home with services vs SNF for continued rehab. PT is recommending SNF at this time. Her transport will likely be [facility] w/c van. She will follow up with her PCP and discharge plan of care. CM will con tinue to follow.
--- NOTE | 2023-08-11 11:40 | PTTR_ITS ---
Date of service: 08/11/23 Time of Service: 10:24 PT Notes Visit Reasons: Failure to Thrive Inpatient Physical Therapy Treatment [facility] Date: 08/11/23 PRECAUTIONS: Fall, standard, activity as tolerated. ORTHOPEDIC SHOES FOR ALL OOB ACTIVITY. SUBJECTIVE: Patient appears cheerful, engages more easily today and remains engaged longer between zoning out. AFTERNOON: Patient less engaged, very motivated to get into bed. OBJECTIVE: Sitting up in chair, call guillen in easy reach clipped to pillowcase and ZARI alarm in place. Patient drooling continuously. ? PAIN: none reported, no visual signs of pain. VITALS: monitored by nursing staff. Therapeutic Activities (37107i4): Direct one-on-one instruction in dynamic activities to improve functional performance. ? BED MOBILITY/TRANSFERS? Rolling L/R: not assessed. Supine-sit: not assessed. RN Keegan reports patient transfers more easily today. ? Sit-supine: not assessed. RN Keegan reports patient transfers more easily today. AFTERNOON: min assist of 2 or mod assist of 1. Patient unable to scoot left or right in the bed, even with verbal and tactile cues.? Sit-stand: min assist of 2 with gait belt and max verbal cues? AFTERNOON: Min assist of 1 with min verbal cues. Increased intrinsic motivation. ?Stand-sit: min assist of 2 with gait belt and max verbal cues? Bed-Chair: not assessed. RN Keegan reports patient transfers more easily today. ? Chair-bed: not assessed. MITRA Allison reports patient transfers more easily today. AFTERNOON: Mod assist of 2, max assist for appropriate FWW use. Patient very determined to push FWW as far away from herself as she possibly can. Provided skilled cues and instruction on performance and technique throughout. Gait Training ([id number]): Direct one-on-one instruction and skilled instruction in: [x] employing an assistive device [] modified weight-bearing status [x] movement sequencing [x] turning and movement with proper form [x] Provided verbal cues for equipment management and technique [x] Provided instruction in gait pattern [] Patient education regarding pacing and breathing techniques to maximize activity tolerance? GAIT? Assistive Device: FWW ? Weight bearing: full Assist: CGA initially with DAWIT Godoy providing a wheelchair follow, increasing assistance needed gradually as patient fatigues up to mod x2 with gait belt and assist to steer walker. ? Distance:? 40 feet ? Deviation: Patient begins walk with reasonably good posture, FWW used appropriately and kept within a safe distance to her body. Left foot is clubbed, slight scissoring causes left shoe to land in front of right shoe, contributing to a step-to gait pattern. As patient fatigues, scissoring worsens, posture becomes increasingly kyphotic, and patient resumes her tendency to advance walker significantly too far ahead of her body, requiring mod assist of two or max assist of one to correct. ? ? ASSESSMENT:? Patient tolerates therapy well, no c/o pain, no dyspnea. Returns to her chair at end of treatment session, call guillen in easy reach, ZARI alarm re- activated. PLAN: Continue global strengthening per plan of care until patient is medically cleared for discharge. TREATMENT CODE/TIME: 30 minutes beginning at 10:41 and 8 minutes at 14:35 for a total of 38 minutes today.
--- NOTE | 2023-08-11 13:35 | CHAPLAIN ---
Mellisa was up in the chair when I visited this afternoon. She seemed more alert than she has been in the past couple of days. She is more calm and doesn't seem distracted. She asked if I had any beads. 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 She wanted to hold my hand for a while. She seemed to appreciate the rosary beads and began wrapping them around her wrists lightly. According to Care Management notes, [facility] staff is supporting Mellisa's brother, Lamberto, in getting guardianship of Mellisa. Care Management is also working on getting Mellisa admitted to a SNF, [facility] in [place], [place]. [facility] will continue to support Mellisa's , Surya, at home. Mellisa did a lot of the cooking and caring for their apartment and for Surya. I will continue to visit.
[2023-08-11] MEDS: Enoxaparin 40 MG/0.4 ML SYR SC (13:53)
[2023-08-11 15:10] VITALS: BP 100/65; PULSE 92; RESP 14; TEMP 36.6; O2SAT 100
[2023-08-11 19:34] VITALS: BP 108/71; PULSE 102; RESP 16; TEMP 36.5; O2SAT 96
[2023-08-11] MEDS: Melatonin 3 MG TAB PO (21:04)
[2023-08-11 23:29] LABS: Campylobacter PCR Negative (Negative); Salmonella PCR Negative (Negative); Shiga Toxin PCR Negative (Negative); Shigella/Enteroinvasive Ecoli Negative (Negative)
[2023-08-12] VITALS: PULSE 94; O2SAT 95
[2023-08-12 06:57] LABS: Anion Gap 9.8 mmol/L (3-11); BUN 11 mg/dL (7-18); CO2 26.2 mmol/L (21.0-32.0); CREATININE 0.5 mg/dL (0.55-1.02); Calcium 8.9 mg/dL (8.5-10.1); Chloride 104 mmol/L (98-107); Estimated GFR 98.97 (mL/min/1.73m2); Glucose 106 mg/dL (74-106); Potassium 3.7 mmol/L (3.5-5.1); Sodium 140 mmol/L (136-145)
[2023-08-12 07:07] VITALS: BP 98/63; PULSE 80; RESP 16; TEMP 35.1; O2SAT 95
[2023-08-12 07:23] VITALS: BP 98/68
[2023-08-12] MEDS: Cyanocobalamin 500 MCG TAB 1000 MCG PO (08:40)
[2023-08-12] MEDS: Docusate Sodium 100 MG CAP PO (08:40)
[2023-08-12] MEDS: Gabapentin 100 MG CAP PO ×2 (08:40→20:08)
[2023-08-12] MEDS: Polyethylene Glycol 3350 17 GM PACKET PO (08:40)
[2023-08-12] MEDS: risperiDONE 0.5 MG TAB PO ×2 (08:40→20:07)
--- NOTE | 2023-08-12 09:53 | PT.INTREAT ---
PT Notes Visit Reasons: Failure to Thrive Date: 08/12/2023 PRECAUTIONS: Fall. Standard. Activity as tolerated. Orthopedic shoes on when OOB. SUBJECTIVE: Pt initially expressed she feels very sad, was able to redirect pt and eventually agreed to transferring from bed to room recliner. OBJECTIVE: supine in bed, agreed to participating with therapy ? PAIN: No reports of pain offered. Therapeutic Activities 28012 x2:?Direct one on one instruction in bed mobility and ambulation. BED MOBILITY/TRANSFERS? Rolling L/R: Min A Supine-sit: Min A? Sit to supine: Max A ? Sit-stand: Min A? Stand-sit: Min A? ?Repositioning in recliner moving up max A ? Provided skilled cues and instruction on performance and technique throughout. GAIT? Assistive Device: FWW? Weight bearing: Full, with Orthopedic shoes on Assist: mod A and mod verbal and tactile assist with controlling walker direction ? Distance:? 8ft bed to chair ? Deviation: Forward flexed at hips, max tactile and verbal cue for staying close to FWW for safety. ? ASSESSMENT:? pt continues to be pleasantly confused, very limited ability to follow commands, pt repositioned in recliner for proper alignment, comfort safety, alarm setup and bedside call guillen within pt reach. pt expressed she wants to eat after getting settled down in recliner, MIS SPECIALIST taking care of pt informed about pt request and updated with pt change in placement. MIS SPECIALIST reports pt already ate but would provide her with a snack as soon as able. PLAN: Continue to work on improved bed mobility and ambulation control. TREATMENT CODE/TIME: [id number] 25mins (9:30-9:55am)
[2023-08-12] MEDS: Enoxaparin 40 MG/0.4 ML SYR SC (14:03)
[2023-08-12 15:17] VITALS: BP 103/70; PULSE 90; RESP 16; TEMP 35.7; O2SAT 99
--- NOTE | 2023-08-12 15:21 | PGE_ITS ---
Date of Service Date of service: 08/12/23 Time of Service: : Assessment and Plan Assessment and plan (1) Complicated UTI (urinary tract infection): Status: Acute Assessment and plan: Resolved with antibiotics UA was negative on 08/10, montoring for symptoms (2) Urinary retention: Status: Acute Assessment and plan: As mentioned on 08/11 :Urology consult completed: see notes As per recommendations from discussion on 08/11 Scheduled voiding trials: Able to void spontaneously today with minimal PVR Straight cath in and out Q12 Avoid indwelling catheters Not a candidate for anticholinergicas or beta 3 agonist (3) History of cerebral palsy: Assessment and plan: F/u by RADIOGRAPHER opt (4) Delirium: Status: Acute Assessment and plan: Continue : zyprexa, risperidone ordered as per g med adjustment at [facility] Psych consult pending Neurology consult completed. See notes LP tap option to be revisited with family/POA if psychiatric consult is inconclusive Previous results: -Negative MRI brain -No epileptiform activity or focal regions of crebral dysfunction fro EEG Background slowing is suggestive of a mild-moderate diffuse cerebral encephalopathy of broad differential including toxic-metabolic etiology -RPR negative Will continue B12 supplementation LP not indicated at this but post psych consult ordered today, the option may need to be revisited with family/HCP Evaluating the need for gabapentin: most likely started at [facility], not in her prior records, 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 Awaiting psychiatry consultation to discuss this. Consultations still pending (5) On deep vein thrombosis (DVT) prophylaxis: Status: Acute Assessment and plan: Will continue lovenox SC daily (6) Diarrhea: Status: Acute Assessment and plan: No diarrhea reported; C-Diff negative, other testing for stool pathogens pending (7) Discharge planning issues: Status: Acute Assessment and plan: Case management is following for discharge planning Referral still pending to [facility] Palliative care consult: See note from 08/08; is the surrogate ass he signed papers at [facility], but brother seeking guardianship discussed with Dr Joshi. Subjective Subjective Interval history since last seen: Patient reports sleeping well, denies eating but ate 100% of her meal as per nursing, reports thirst. The patient denies fever, chills, vomiting, but reports generalized aches Exam Narrative Exam Narrative: Sitting in the recliner when seen, appears comfortable and distracted, easy to reorient. Inconsistently follows commands. No focal neurodeficit noted, but still drooling. Mellisa could hold her cup and drink from a straw today, with minimal clues. Chest is symmetrical, bilateral lung expansion, clear upper lung salvador, diminished bilateral breath sounds. S1-S2 heard, no murmur, heart is regular, pulses are positive to all 4 extremities. Abdomen is round, soft, nontender, nondistended, hyperactive bowel sounds heard. Bladder scan>500cc, timed scheduled voiding plan in progress, + urge to void on palpation moves all 4 extremities Objective Last Vital Signs Temp 35.7 C L 08/12/23 15:17 Pulse 90 08/12/23 15:17 Resp 16 08/12/23 15:17 BP 103/70 08/12/23 15:17 Pulse Ox 99 08/12/23 15:17 Laboratory Results - last 24 hr 08/12/23 06:15 Sodium 140 Potassium 3.7 Chloride 104 Carbon Dioxide 26.2 Anion Gap 9.8 BUN 11 Creatinine 0.5 L Est GFR (CKD-EPI 2020) 98.97 Glucose 106 Calcium 8.9 Time Spent with Patient Time Spent with Patient: >50 minutes Time was spent: preparing to see the patient(eg.review tests), ordering medications,tests, procedures, referring, communicating with other health critical care nurse specialist, indepentently interpreting results, counseling the patient and care coordination
[2023-08-12] MEDS: Melatonin 3 MG TAB PO (20:08)
[2023-08-12 23:33] VITALS: BP 107/72; PULSE 89; RESP 18; TEMP 36.3; O2SAT 95
--- NOTE | 2023-08-12 23:38 | W.TELEPSYCH ---
Date of service: 08/12/23 Time of Service: 13:00 Summary Note Name: Mellisa Mejia?: 1950 Date?and?Time: 08/12/2023 8:52:00 PM Location of the patient: [facility] IP?Location of the doctor: [facility] Length of consult: 60 min This evaluation was conducted via video telepsychiatry with the assistance of onsite staff Reason for consult: crisis Requested by: Hospitalist History of Present Illness: 72 yo female with a history of cerebral palsy - chronic left side spasticity and club foot. BIB EMS acute onset of slurred speech x 16 hours - called EMS. Her speech and ability to walk are not at baseline. Patient reported she may have had a stroke to inpatient MD. Reported a headaches, and some left side neck discomfort. Did not reports a seizures. Current DVT prophylaxis (Acute) Pyuria (Acute) TIA (transient ischemic attack) (Acute) Tubular adenoma (Acute ~01/2023) Medical History History of head injury (~1988) Vitamin A deficiency Strabismus GERD (gastroesophageal reflux disease) Hyperlipidemia Arthritis of spine Osteopenia Obesity Urinary incontinence Prediabetes Club foot History of adenomatous polyp of colon History of cerebral palsy Labs: elevated TSH, Pyuria, Drug screen negative Vitals: Temp 36.1 C L 07/10/23 23:57 Pulse 86 07/11/23 00:41 Resp 16 07/11/23 00:50 BP 128/54 L 07/11/23 00:41 Pulse Ox 100 07/11/23 00:50 CT head - negative; diffuse cerebral atrophy Resolved UTI per notes with antibiotics. EEF no epileptiform activity Being given B12, MRI negative, slowing on EEG - diffuse encephalopathy. RPR negative. ? need for LP. Meds: Olanzapine 7.5 mg PO BID PRN, risperidone 0.5 mg PO BID; gabapentin 100 BID, melatonin 3mg. Spoke with Dwayne San RN - he says she got transferred to a different location [facility] - inpatient geriatric psych unit. Currently she came in with a UTI and currently she is diagnosed with dementia. She was started on gabapentin at [facility]. No Zyprexa since the . She talks to people who aren't there, occasionally talks about suicide. Well behaved, doesn't even know where she is. Pt told me that she has been trying to have a child, talking about past stressful events, couldn't name the 12th month of the year, able to tell me the year is 2022 but thought the day is Monday and couldn't tell me the day in the month. She was not able to name the place where she is. Pt was not able to provide me with reliable clinical information about what is wrong and what Tx she has been getting other than saying UTI. Her current dose of Risperidone is 0.25 mg BID in addition to PRN Olanzapine. Her Mr. Surya Mejia [phone] answered the phone and then told me that I should be calling the hospital to speak to Mellisa and then hung-up. I spoke to her brother Mr. Lamberto Worley in [place] [phone] who keeps in touch with his sister on the phone. he reported no psychological issues with Pt until last month and was told that she had urine infection causing the confusion. He did not noticed any forgetfulness prior. He added that Mellisa had little psychological issues when she was a young girl but all resolved and has been doing fine up until last month. Collateral Contacted: Yes?Collateral name:?Collateral phone number:?Collateral relationship to the patient: Sleep issues?: Yes?Sleep Quantity:?unknown?Sleep Quality:?poor Psychiatric History/Treatment History:? Past diagnoses: delirium Hospitalizations: Yes?Description:?just recently; this month at the geriatric psych unit at [facility], treated for change in mental status; paranoia and hallucination with risperidone and gabapentin. Current Treatment:Yes?Medication management:?Yes?Medications:?Risperidone 0.25 mg BID; Gabapentin 100 mg BID; Mirtazapine 15 mg at HS; PRN Olanzapine 7.5 mg BID and Ativan 1 mg QID?Therapy:?No Suicide Assessment: PSS-3: 1) Over the past 2 weeks have you felt down, depressed or hopeless??No? 2) Over the past 2 weeks have you had thoughts of killing yourself??No 3) Have you ever in your life attempted to kill yourself??No Within the past 6 months??? [facility] Safety Assessment: Risk Factors Stressors: health issues Attempts/Self-injury: No Impulsivity:No Drug/Alcohol History:No Trauma History:Yes?Description:?childhood, Access to firearms:No HI/Violence/Property destruction:No Legal: No Family Psych History:Unknown-NA ? Family History of suicide:No Protective Factors:? Can handle stress well??No ? Mosque??Unknown-NA ? External: ? Social supports/ Therapeutic relationships: No ? Relationship history: unknown ? Living situation: with her , no children ? Employment: No ? Education: Unknown ? Responsibility to family/children/work: Yes?Description: ? Future orientation:Yes?Description: Health History: ? Medical History: CP; Spasticity; UTI ? Medications & Freq: Vit d3 ? Allergies: Fluoxetine Mental Status Exam: Appearance and Attire:?Good eye contact, confused and disoriented. Psychomotor agitation:?No abnormality Attitude and behavior:?Cooperative Speech:?Soft Mood:?Euthymic Affect:?Constricted Thought process:?Coherent, Confabulation Thought content:?No suicidal ideation, No homicidal ideation, No paranoia, No delusions, No obsessions, No post traumatic stress disorder symptoms Perception:?Possible auditory and or visual hallucination as Pt would turn her head and talk to self as if talking to someone else during my conversation with her. Intel:?Average Abstract:?[place] Language:?No abnormality Orientation:?Oriented to person, Partially to place and date. Sense:?Distractible Knowledge:?Mild impairment Memory:?Impaired to Immediate recall Insight:?Lack of awareness of problems Judgement:?Moderate impairment Gait:?Unsteady Impression/Risk Assessment: Current Suicide Risk Elevated??No ? Current Violence Risk Elevated??No ? Issues with ability to care for self??Yes ? Summary: An elderly female with no psych hx and no hx of substance use sent back to Medicine from the psych unit at [facility] for UTI and increased confusion. Pt remains disoriented and responding to A/V hallucination. Followed by Neuro consult. based on Hx obtained from her brother, Pt's cognitive deficits are acute with no hx of forgetfulness up until last month. 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 General: 1) Continue to treat delirium underlying causes like UTI 2) Symptomatic Tx with antipsychotic until the delirium resolved by using Olanzapine 2.5 mg PO in AM and 5 mg PO at HS. monitor for QTc prolongation to prevent Torsade. 3) D/C Risperidone 0.25 mg PO BID (Can cause more parkinsonian side effect compare to Olanzapine. 4) Continue Gabapentin 100 mg PO BID for anxiety 5) Continue Mirtazapine 15 mg PO at bedtime 6) Trazadone 75 mg PO at HS PRN for severe insomnia. ? Level of Care: Medical ? Psychiatric Clearance: No? Observation level ? 1:1 needed?: No ? Pharmacological: see above ? Patient psychotic?No ? Therapy: yes ? Follow up needed while in the hospital?: Yes?Follow up Frequency:?24hr ? Discussed plan with onsite body team member: Yes Who RN Mr. Dwayne San ? Other: ? Mauri Adams MD
--- NOTE | 2023-08-12 23:53 | PSYCO_ITS ---
Date of service: 08/12/23 Time of Service: 20:52 Summary Note Name: Mellisa Mejia?: 1950 Date?and?Time: 08/12/2023 8:52:00 PM Location of the patient: [facility] IP?Location of the doctor: [facility] Length of consult: 60 min This evaluation was conducted via video telepsychiatry with the assistance of onsite staff Reason for consult: crisis Requested by: Hospitalist History of Present Illness: 72 yo female with a history of cerebral palsy - chronic left side spasticity and club foot. BIB EMS acute onset of slurred speech x 16 hours - called EMS. Her speech and ability to walk are not at baseline. Patient reported she may have had a stroke to inpatient MD. Reported a headaches, and some left side neck discomfort. Did not reports a seizures. Current DVT prophylaxis (Acute) Pyuria (Acute) TIA (transient ischemic attack) (Acute) Tubular adenoma (Acute ~01/2023) Medical History History of head injury (~1988) Vitamin A deficiency Strabismus GERD (gastroesophageal reflux disease) Hyperlipidemia Arthritis of spine Osteopenia Obesity Urinary incontinence Prediabetes Club foot History of adenomatous polyp of colon History of cerebral palsy Labs: elevated TSH, Pyuria, Drug screen negative Vitals: Temp 36.1 C L 07/10/23 23:57 Pulse 86 07/11/23 00:41 Resp 16 07/11/23 00:50 BP 128/54 L 07/11/23 00:41 Pulse Ox 100 07/11/23 00:50 CT head - negative; diffuse cerebral atrophy Resolved UTI per notes with antibiotics. EEF no epileptiform activity Being given B12, MRI negative, slowing on EEG - diffuse encephalopathy. RPR negative. ? need for LP. Meds: Olanzapine 7.5 mg PO BID PRN, risperidone 0.5 mg PO BID; gabapentin 100 BID, melatonin 3mg. Spoke with Dwayne San RN - he says she got transferred to a different location [facility] - inpatient geriatric psych unit. Currently she came in with a UTI and currently she is diagnosed with dementia. She was started on gabapentin at [facility]. No Zyprexa since the . She talks to people who aren't there, occasionally talks about suicide. Well behaved, doesn't even know where she is. Pt told me that she has been trying to have a child, talking about past stressful events, couldn't name the 12th month of the year, able to tell me the year is 2022 but thought the day is Monday and couldn't tell me the day in the month. She was not able to name the place where she is. Pt was not able to provide me with reliable clinical information about what is wrong and what Tx she has been getting other than saying UTI. Her current dose of Risperidone is 0.25 mg BID in addition to PRN Olanzapine. Her Mr. Surya Mejia [phone] answered the phone and then told me that I should be calling the hospital to speak to Mellisa and then hung-up. I spoke to her brother Mr. Lamberto Worley in [place] [phone] who keeps in touch with his sister on the phone. he reported no psychological issues with Pt until last month and was told that she had urine infection causing the confusion. He did not noticed any forgetfulness prior. He added that Mellisa had l ittle psychological issues when she was a young girl but all resolved and has been doing fine up until last month. Collateral Contacted: Yes?Collateral name:?Collateral phone number:?Collateral relationship to the patient: Sleep issues?: Yes?Sleep Quantity:?unknown?Sleep Quality:?poor Psychiatric History/Treatment History:? Past diagnoses: delirium Hospitalizations: Yes?Description:?just recently; this month at the geriatric psych unit at [facility], treated for change in mental status; paranoia and hallucination with risperidone and gabapentin. Current Treatment:Yes?Medication management:?Yes?Medications:?Risperidone 0.25 mg BID; Gabapentin 100 mg BID; Mirtazapine 15 mg at HS; PRN Olanzapine 7.5 mg BID and Ativan 1 mg QID?Therapy:?No Suicide Assessment: PSS-3: 1) Over the past 2 weeks have you felt down, depressed or hopeless??No? 2) Over the past 2 weeks have you had thoughts of killing yourself??No 3) Have you ever in your life attempted to kill yourself??No Within the past 6 months??? [facility]-based Safety Assessment: Risk Factors Stressors: health issues Attempts/Self-injury: No Impulsivity:No Drug/Alcohol History:No Trauma History:Yes?Description:?childhood, Access to firearms:No HI/Violence/Property destruction:No Legal: No Family Psych History:Unknown-NA ? Family History of suicide:No Protective Factors:? Can handle stress well??No ? Caodaism??Unknown-NA ? External: ? Social supports/ Therapeutic relationships: No ? Relationship history: unknown ? Living situation: with her , no children ? Employment: No ? Education: Unknown ? Responsibility to family/children/work: Yes?Description: ? Future orientation:Yes?Description: Health History: ? Medical History: CP; Spasticity; UTI ? Medications & Freq: Vit d3 ? Allergies: Fluoxetine Mental Status Exam: Appearance and Attire:?Good eye contact, confused and disoriented. Psychomotor agitation:?No abnormality Attitude and behavior:?Cooperative Speech:?Soft Mood:?Euthymic Affect:?Constricted Thought process:?Coherent, Confabulation Thought content:?No suicidal ideation, No homicidal ideation, No paranoia, No delusions, No obsessions, No post traumatic stress disorder symptoms Perception:?Possible auditory and or visual hallucination as Pt would turn her head and talk to self as if talking to someone else during my conversation with her. Intel:?Average Abstract:?[place] Language:?No abnormality Orientation:?Oriented to person, Partially to place and date. Sense:?Distractible Knowledge:?Mild impairment Memory:?Impaired to Immediate recall Insight:?Lack of awareness of problems Judgement:?Moderate impairment Gait:?Unsteady Impression/Risk Assessment: Current Suicide Risk Elevated??No ? Current Violence Risk Elevated??No ? Issues with ability to care for self??Yes ? Summary: An elderly female with no psych hx and no hx of substance use sent back to Medicine from the psych unit at [facility] for UTI and increased confusion. Pt remains disoriented and responding to A/V hallucination. Followed by Neuro consult. based on Hx obtained from her brother, Pt's cognitive deficits are acute with no hx of forgetfulness up until last month. 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 General: 1) Continue to treat delirium underlying causes like UTI 2) Symptomatic Tx with antipsychotic until the delirium resolved by using Olanzapine 2.5 mg PO in AM and 5 mg PO at HS. monitor for QTc prolongation to prevent Torsade. 3) D/C Risperidone 0.25 mg PO BID (Can cause more parkinsonian side effect compare to Olanzapine. 4) Continue Gabapentin 100 mg PO BID for anxiety 5) Continue Mirtazapine 15 mg PO at bedtime 6) Trazadone 75 mg PO at HS PRN for severe insomnia. ? Level of Care: Medical ? Psychiatric Clearance: No? Observation level ? 1:1 needed?: No ? Pharmacological: see above ? Patient psychotic?No ? Therapy: yes ? Follow up needed while in the hospital?: Yes?Follow up Frequency:? 24hr ? Discussed plan with onsite marketing team lead: Yes Who RN Mr. Dwayne San ? Other: Mauri Adams MD
[2023-08-13 06:50] LABS: Abs Immature Grans 0.02 10^3/uL (0.0-0.06); Absolute Basophil Count 0.02 10^3/uL (0.0-0.2); Absolute Eosinophil Count 0.09 10^3/uL (0.0-0.7); Absolute Lymphocyte Count 1.11 10^3/uL (1.2-3.4); Absolute Neutrophil Count 5.24 10^3/uL (1.2-6.7); Basophils % 0.3; Eosinophils % 1.3; HCT 37.1 % (36.0-46.0); HGB 12.2 g/dL (11.2-15.7); Immature Grans % 0.3; Lymphocytes % 15.9; MCH 29.5 pg (27.0-33.0); MCHC 32.9 % (32.0-36.0); MCV 90 fL (80-95); MPV 9.4 fL (8.0-11.0); Monocytes % 7.2; Platelet Count 292 10^3/uL (130-400); RBC 4.14 10^6/uL (3.93-5.22); RDW 13.9 % (11.7-14.6); RDW-SD 45.7 fL; WBC 6.98 10^3/uL (4.4-10.8)
[2023-08-13] MEDS: Acetaminophen 325 MG TAB 650 MG PO (06:54)
[2023-08-13 07:09] LABS: ALT 51 U/L (14-59); AST 31 U/L (15-37); Albumin 2.8 g/dL (3.4-5.0); Alkaline Phosphatase 64 U/L (46-116); Bilirubin, Direct 0.1 mg/dL (0.0-0.2); Bilirubin, Total 0.7 mg/dL (0.2-1.0); Total Protein 6.3 g/dL (6.4-8.2)
[2023-08-13 07:13] VITALS: BP 102/59; PULSE 101; RESP 22; TEMP 36.1; O2SAT 93
[2023-08-13] MEDS: risperiDONE 0.5 MG TAB PO ×2 (07:22→21:47)
[2023-08-13] MEDS: Cyanocobalamin 500 MCG TAB 1000 MCG PO (07:22)
[2023-08-13] MEDS: Gabapentin 100 MG CAP PO ×2 (07:22→21:47)
[2023-08-13] MEDS: Docusate Sodium 100 MG CAP PO ×2 (07:22→21:47)
[2023-08-13] MEDS: Polyethylene Glycol 3350 17 GM PACKET PO (07:22)
--- NOTE | 2023-08-13 08:55 | W.PM.PROGNOT ---
Date of Service Date of service: 08/13/23 Time of Service: 09:55 Assessment and Plan Assessment and plan (1) Complicated UTI (urinary tract infection): Status: Acute Assessment and plan: Resolved, montoring for symptoms indicating new UTI (2) Urinary retention: Status: Acute Assessment and plan: As mentioned on 08/12 :Urology consult completed: see notes Discussion with Dr. Torre on 08/11 following urology consult earlier in the stay with recommendations for; Scheduled voiding trials: Able to void spontaneously yesterday with minimal PVR. 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 when seen, eye contact was fleeting c/t 08/12 Continue : zyprexa, risperidone ordered as per med adjustment at [facility] Psych consult completed; Report pending Neurology consult completed. See notes Again LP tap option to be revisited with family/POA if psychiatric consult is inconclusive Previous results as per neuro consultation/recommendations: -Negative MRI brain -No epileptiform activity or focal regions of crebral dysfunction fro EEG Mild-moderate diffuse cerebral encephalopathy is among the broad differential suggested by the background of generalized non-rhythmic delta and theta slowing, this could also include toxic-metabolic etiology -RPR negative Will continue B12 supplementation LP not indicated at this time but post psych consult ordered and completed on 08/12, awaiting report/ notes Possibility to revisit the LP tap option with family/HCP once Psych consult opinion in obtained Evaluating the need for gabapentin: most likely started at [facility], not in her prior records, LFT's completed and reviewed, oral protein supplementation started. if she was not receiving it [employer]; 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 Awaiting psychiatry consultation report to discuss this. Consultation completed 08/12, report pending at this time (5) On deep vein thrombosis (DVT) prophylaxis: Status: Acute Assessment and plan: On lovenox SC daily (6) Diarrhea: Status: Acute Assessment and plan: Reduced diarrhea, C-Diff negative, other testing for stool pathogens pending (7) Discharge planning issues: Status: Acute Assessment and plan: Case management is following for discharge planning Referral still pending to [facility] Palliative care consult: See note from 08/08; is the surrogate ass he signed papers at [facility], but brother seeking guardianship discussed with Dr Joshi. Subjective Subjective Patient reports: still having pain (reports generalized ache & back, no abdominal, CVA pain, or chest pain), tolerating liquids well, tolerating a regular diet, flatus, bowel movement and diarrhea; denies voiding w/o difficulty (Hx of urinary retention,scheduled voiding trials, I&O cath ), blood in stool, nausea, vomiting, shortness of breath or fever Exam Narrative Exam Narrative: Patient appears sad, less interaction noticed, improved alertness and orientation in self, space, and time. Mellisa knows she is in the hospital, in July, and it is almost [place]. Mellisa appears to be more focused on task today but remains delayed in following commands. No focal neurodeficit noted. Mellisa could hold her cup and drink from a straw again today with less cueing. Chest is symmetrical, bilateral lung expansion, clear lung salvador. S1-S2 heard, no murmur, heart is regular Abdomen is soft, nontender, nondistended, bowel sounds heard. timed scheduled voiding plan in progress, - urge to void on palpation moves all 4 extremities Objective Last Vital Signs Temp 36.1 C L 08/13/23 07:13 Pulse 101 H 08/13/23 07:13 Resp 22 08/13/23 07:13 BP 102/59 L 08/13/23 07:13 Pulse Ox 93 08/13/23 07:13 Laboratory Results - last 24 hr 08/13/23 06:34 WBC 6.98 RBC 4.14 Hgb 12.2 Hct 37.1 MCV 90 MCH 29.5 MCHC 32.9 RDW 13.9 Plt Count 292 MPV 9.4 Immature Gran % 0.3 Neutrophils % 75.0 Lymphocytes % 15.9 Monocytes % 7.2 Eosinophils % 1.3 Basophils % 0.3 Nucleated RBC % 0.0 Absolute Neutrophils 5.24 Absolute Lymphocytes 1.11 L Absolute Monocytes 0.50 Absolute Eosinophils 0.09 Absolute Basophils 0.02 Total Bilirubin 0.7 Conjugated Bilirubin 0.1 AST 31 ALT 51 Alkaline Phosphatase 64 Total Protein 6.3 L Albumin 2.8 L Time Spent with Patient Time Spent with Patient: >50 minutes Time was spent: preparing to see the patient(eg.review tests), ordering medications,tests, procedures, referring, communicating with other health child day care center worker, indepentently interpreting results, counseling the patient and care coordination
--- NOTE | 2023-08-13 10:29 | PT.INTREAT ---
PT Notes Visit Reasons: Failure to Thrive Date: 08/13/2023 PRECAUTIONS: Fall. Standard. Activity as tolerated. Orthopedic shoes on when OOB. SUBJECTIVE: Pt hallucinating seeing pt on the floor, expressed I need to call 911 to help his imaginary friend, pt able to calm down after a few mins of consoling. OBJECTIVE: supine in bed, agreed to participating with therapy ? PAIN: No reports of pain offered. Therapeutic Activities 85576 x2:?Direct one on one instruction in bed mobility and ambulation. BED MOBILITY/TRANSFERS? Rolling L/R: Min A Supine-sit: Min A? Sit to supine: Max A ? Sit-stand: Min A? Stand-sit: Min A? ?Repositioning in recliner moving up max A ? Provided skilled cues and instruction on performance and technique throughout. GAIT? Assistive Device: FWW? Weight bearing: Full, with Orthopedic shoes on Assist: mod A and mod verbal and tactile assist with controlling walker direction ? Distance:? 8ft bed to chair ? Deviation: Forward flexed at hips, max tactile and verbal cue for staying close to FWW for safety. ? ASSESSMENT:? Nurse Morales informed that pt is in recliner, they plan to keep pt in recliner for lunch as well as set bed up prior to getting pt back in bed. PLAN: Continue to work on improved bed mobility and ambulation control. TREATMENT CODE/TIME: 12447q8 25mins (9:00-9:25am)
[2023-08-13 15:47] VITALS: BP 100/65; PULSE 79; RESP 18; TEMP 36.6; O2SAT 95
[2023-08-13] MEDS: Protein Nutritional Supplement 16 GM 1 OUNCE PACKET PO (21:47)
[2023-08-13] MEDS: Melatonin 3 MG TAB PO (21:47)
[2023-08-13 22:41] VITALS: BP 122/76; PULSE 97; RESP 18; TEMP 36.5; O2SAT 92
[2023-08-14 06:57] LABS: Anion Gap 9.2 mmol/L (3-11); BUN 11 mg/dL (7-18); CO2 26.8 mmol/L (21.0-32.0); CREATININE 0.4 mg/dL (0.55-1.02); Calcium 9.2 mg/dL (8.5-10.1); Chloride 104 mmol/L (98-107); Estimated GFR 104.44 (mL/min/1.73m2); Glucose 107 mg/dL (74-106); Potassium 3.7 mmol/L (3.5-5.1); Sodium 140 mmol/L (136-145)
[2023-08-14 07:18] VITALS: BP 104/65; PULSE 79; RESP 16; TEMP 36.6; O2SAT 94
[2023-08-14] MEDS: Protein Nutritional Supplement 16 GM 1 OUNCE PACKET PO ×2 (09:40→13:08)
[2023-08-14] MEDS: Cyanocobalamin 500 MCG TAB 1000 MCG PO (09:40)
[2023-08-14] MEDS: Docusate Sodium 100 MG CAP PO ×2 (09:40→21:02)
[2023-08-14] MEDS: Gabapentin 100 MG CAP PO ×2 (09:40→21:02)
[2023-08-14] MEDS: Polyethylene Glycol 3350 17 GM PACKET PO (09:40)
[2023-08-14] MEDS: Enoxaparin 40 MG/0.4 ML SYR SC (13:07)
[2023-08-14 15:13] VITALS: BP 123/72; PULSE 90; RESP 17; TEMP 36.8; O2SAT 92
--- NOTE | 2023-08-14 17:08 | PGE_ITS ---
Date of Service Date of service: 08/14/23 Time of Service: 17:08 Assessment and Plan Assessment and plan (1) Delirium: Status: Acute Assessment and plan: Evaluated by psychiatry: recommended discontinuation of risperidone, scheduling of zyprexa 2.5 mg q am and 5 mg q hs, as well as addition of trazodone to mirtazapine. Continue gabapentin 100 mg PO BID for anxiety. Appreciate neurology consult as well. (2) Complicated UTI (urinary tract infection): Status: Resolved Assessment and plan: Finished therapy. (3) Urinary retention: Status: Acute Assessment and plan: Appreciate urology consult. Not a good candidate for medical therapy. Continue to encourage the patient to void independently. PVRs not documented in the last 24 hrs (where I can find it). Continue intermittent catheterization Q12 hrs. (4) History of cerebral palsy: Assessment and plan: Followed by ELECTRIC MOTOR REBUILDER. Continue PT/OT. (5) Diarrhea: Status: Acute Assessment and plan: write for prn loperamide. Continue probiotics. (6) On deep vein thrombosis (DVT) prophylaxis: Status: Acute Assessment and plan: Continue lovenox (7) Discharge planning issues: Status: Acute Assessment and plan: Full code Palliative care consulted. Anticipate SNF placement. Subjective Subjective Interval history since last seen: When I came to see the patient, she was laying in bed with her arms elevated. When I asked her to put them down, she would not. I have to... i have to.. but she would not complete her sentence. I helped her put her arms down. They were not rigid. She said it felt better with them laying down. She stated she was hungry. Denied dizziness, CP, SOB, n/v. She knew she was in [facility], but could not tell me she was in the hospital. She knew it was [facility]. Exam Narrative Exam Narrative: General: Elderly female who is distracted, not finishing sentences, A&Ox2.5 HEENT: Disconjugate gaze, MMM Heart: RRR, no m/r/g Lungs: CTAB Abdomen: soft, nontender, nondistended Extremities: no edema BLEs, not rigid Objective Last Vital Signs Temp 36.8 C 08/14/23 15:13 Pulse 90 08/14/23 15:13 Resp 17 08/14/23 15:13 BP 123/72 08/14/23 15:13 Pulse Ox 92 08/14/23 15:13 Laboratory Results - last 24 hr 08/14/23 06:15 Sodium 140 Potassium 3.7 Chloride 104 Carbon Dioxide 26.8 Anion Gap 9.2 BUN 11 Creatinine 0.4 L Est GFR (CKD-EPI 2020) 104.44 Glucose 107 H Calcium 9.2 Time Spent with Patient Time Spent with Patient: 25-34 minutes Time was spent: preparing to see the patient(eg.review tests), obtaining and/or reviewing separately otained hiistory, ordering medications,tests, procedures, referring, communicating with other health managed care director, indepentently interpreting results, counseling the patient and care coordination
[2023-08-14] MEDS: Melatonin 3 MG TAB PO (21:02)
[2023-08-14] MEDS: OLANZapine 5 MG TAB PO (21:02)
[2023-08-14] MEDS: Mirtazapine 15 MG TAB PO (21:02)
[2023-08-15 00:10] VITALS: BP 102/67; PULSE 83; RESP 16; TEMP 36; O2SAT 97
[2023-08-15 07:15] VITALS: BP 101/70; PULSE 85; RESP 17; TEMP 36.5; O2SAT 92
[2023-08-15] MEDS: Cyanocobalamin 500 MCG TAB 1000 MCG PO (08:16)
[2023-08-15] MEDS: Protein Nutritional Supplement 16 GM 1 OUNCE PACKET PO ×2 (08:17→14:05)
[2023-08-15] MEDS: OLANZapine 2.5 MG TAB PO (08:17)
[2023-08-15] MEDS: Docusate Sodium 100 MG CAP PO ×2 (08:17→19:33)
[2023-08-15] MEDS: Gabapentin 100 MG CAP PO ×2 (08:17→19:33)
[2023-08-15] MEDS: Polyethylene Glycol 3350 17 GM PACKET PO (08:17)
--- NOTE | 2023-08-15 09:22 | PGE_ITS ---
Date of Service Date of service: 08/15/23 Time of Service: 09:22 Assessment and Plan Assessment and plan (1) Delirium: Status: Acute Assessment and plan: Evaluated by psychiatry: Continue oral zyprexa 2.5 mg q am and 5 mg q hs Continue mirtazapine. Continue PRN trazodone for insomnia Continue gabapentin 100 mg PO BID for anxiety. EKG ordered for QT prolongation from schedule Olanzapine; negative for QT prolongation montioring CBC Appreciate neurology consult as well. If no improvement , LP tap option will be revisited with and brother (2) Complicated UTI (urinary tract infection): Status: Resolved Assessment and plan: Completed antibiotic therapy, negative UA, montior for symptoms (3) Urinary retention: Status: Acute Assessment and plan: Appreciate urology consult. Not a good candidate for medical therapy. Continue to encourage the patient to void independently. Continue intermittent catheterization Q12 hrs, as patient is most likely not having high urinary pressures Continue scheduled voiding trials PVR documentation post void/ bladder scan Q12 PRN BMP ordered for 08/17 (4) History of cerebral palsy: Assessment and plan: Followed by DIRECTORY ASSISTANCE OPERATOR. Continue PT/OT. (5) Diarrhea: Status: Acute Assessment and plan: Continue PRN loperamide. Continue probiotics. (6) On deep vein thrombosis (DVT) prophylaxis: Status: Acute Assessment and plan: Continue lovenox (7) Discharge planning issues: Status: Acute Assessment and plan: Full code Palliative care consulted. Anticipate SNF placement. Subjective Subjective Interval history since last seen: The patient is in the recliner, and sister in law at bedside. States her 's name when asked. When asked about second visitor, the patient states My family from [place]. Unable to sate the name of or relation to her family in [place] state; she has a brother there. Denies pain, nausea, vomiting. No report of fever, nightsweats. Exam Narrative Exam Narrative: Patient alert and orientation to self, knows she is in the hospital; distracted and difficult to reorient to task. Does not consistently follow commands. No focal neurodeficit noted. Chest is symmetrical, bilateral lung expansion, clear lung salvador. S1-S2 heard, no murmur, heart is regular Abdomen is soft, nontender, nondistended, bowel soundsare present Timed scheduled voiding plan in progress, - urge to void on palpation moves all 4 extremities Objective Last Vital Signs Temp 36.5 C 08/15/23 07:15 Pulse 85 08/15/23 07:15 Resp 17 08/15/23 07:15 BP 101/70 08/15/23 07:15 Pulse Ox 92 08/15/23 07:15 Time Spent with Patient Time Spent with Patient: >50 minutes Time was spent: preparing to see the patient(eg.review tests), ordering medications,tests, procedures, referring, communicating with other health school childcare attendant, indepentently interpreting results, counseling the patient and care coordination
--- NOTE | 2023-08-15 10:00 | RT.EKG_ITS ---
APPROVED REPORT Exam: Resting ECG Reason for Exam: QT prolongation d/t new Rx regimen Patient Location: I HR:95 bpm ECG Measurements Heart Rate 95 AXIS AZ 137 P 16 QRSd 96 QRS -53 QT 349 T 80 QTc 439 Conclusion Sinus rhythm...normal P axis, V-rate 50- 99 Probable left atrial enlargement...P >50mS, <-0.10mV V1 Left anterior fascicular block...axis(240,-40), init forces inf LVH with secondary repolarization abnormality...multi-LVH criteria, abnrm ST-T Anterior infarct, old...Q >40mS, abnormal ST-T, V2-V5 I have reviewed and interpreted ECG and agree with software generated interpretation.
--- NOTE | 2023-08-15 10:35 | PDOC.CMPRO ---
Date of service: 08/15/23 Time of Service: 10:35 Care Management Progress Note Progress Note Text Progress Note Text: S/O: Mellisa was sitting up in her chair when CM met with her. Her brother, Hung, and his , Vielka, were visiting. The provider would like to order an LP, but this cannot be done without consent, as it is not emergent. Mellisa is not able to provide consent at this time, per provider. I discussed guardianship with Hung, which he is agreeable to obtaining, as he wants what is best for Mellisa, and he recognizes that she is not at her baseline level of functioning. Guardianship will also be needed to provide consent for Mellisa to transition to a SNF vs SWB at [facility]. It will also be necessary for Hung to support Mellisa in obtaining [facility], to help pay for her care, if she continues to need support after her short term rehab stay. Mellisa was declined by [facility] today; CM reached out to admissions for [facility] facilities throughout [place], asking for admission at any available facilities; awaiting response. Mellisa may need to transition to SWB at [facility], if no bed is secured at a SNF. CM will continue to follow. A: Mellisa is a 72 year old female admitted to [facility] on 08/02/23 for failure to thrive. P: Anticipate Mellisa will return home with services vs SNF for continued rehab. PT is recommending SNF at this time. Her transport will likely be [facility] w/c van. She will follow up with her PCP and discharge plan of care. CM will continue to follow.
--- NOTE | 2023-08-15 13:14 | W.NUTRFU ---
Date of service: 08/15/23 Time of Service: 12:45 Nutrition Note NOTE: PT is 72yo woman admitted with AMS and UTI with history of cerebral palsey with ataxia, FTT adult. total protein and albumin low on 08/13. ordered for regular diet with puree consistencies of solids and mild thick liquids. fair-good po intake and weight is up 2kg over the last 6 months. She has an order for liquid protein concentrate TID which supplies 45g protein total. Will add boost nutrition/protein supplement at breakfast and dinner trays and follow up to check toleration and intake of these. Time Spent in Nutritional Counseling and Treatment: 15 minutes
[2023-08-15] MEDS: Enoxaparin 40 MG/0.4 ML SYR SC (14:05)
[2023-08-15 15:00] VITALS: BP 106/76; PULSE 93; RESP 17; TEMP 36.1; O2SAT 95
--- NOTE | 2023-08-15 16:26 | PT.INTREAT ---
Date of service: 08/15/23 Time of Service: 15:24 PT Notes Visit Reasons: Failure to Thrive Inpatient Physical Therapy Treatment Note [facility] Date: 08/15/23 PRECAUTIONS: Fall, standard, activity as tolerated. ORTHOPEDIC SHOES FOR ALL OOB ACTIVITY. SUBJECTIVE: Patient initially seems much clearer today, responding appropriately to questions and even asking if we could go walk in the ryan. Immediately upon trying to stand, however, patient became confused again and was very difficult to redirect. OBJECTIVE: Supine in bed, agreeable to therapy. ? PAIN: none observed or reported. VITALS: monitored by nursing staff. ? Therapeutic Activities ([id number]): Direct one-on-one instruction in dynamic activities to improve functional performance. ? BED MOBILITY/TRANSFERS? Rolling L/R: setup assist with max verbal and tactile cues Supine-sit: mod assist of one, with max verbal and tactile cues? Sit-supine: not assessed? Sit-stand: mod assist of one at gait belt? Stand-sit: mod assist of 2 at gait belt and blocking feet from sliding out, max verbal and tactile cues for safe landing, dependent to scoot back in chair. ? Bed-Chair: mod to max assist of 2 ? Chair-bed: not assessed. Patient began ambulation with several steady steps, keeping walker close. after ~8 feet, patient began to push walker too far ahead, becoming agitated when this clinician attempted to restrict how far forward she could push the walker. Feet/legs/hips were twisting further and further around away from walker to right side, and patient kept trying to place both hands on one hand industrial relations commissioner on the walker (both hands to right side of walker). Patient demonstrated unsafe behavior and lack of awareness throughout transfer from bed to chair. Provided skilled cues and instruction on performance and technique throughout. ASSESSMENT:? Patient seemed clearer today, cognitively, during first part of treatment session. Patient is gaining strength. No c/o pain nor dyspnea during today's treatment session. PLAN: Continue global strengthening per plan of care until patient is medically cleared for discharge and obtains a safe discharge plan. TREATMENT CODE/TIME: 19 minutes beginning at 15:24
--- NOTE | 2023-08-15 16:31 | CHAPLAIN ---
Mellisa had visitors, her Surya and his sister, when I stopped in this morning. I'll try to visit again later. Mellisa was up in the chair but seemed unhappy about something.
[2023-08-15] MEDS: Nystatin 500000 UNITS/5 ML SUSP 5ML CUP PO (19:33)
[2023-08-15] MEDS: OLANZapine 5 MG TAB PO (20:24)
[2023-08-15] MEDS: Melatonin 3 MG TAB PO (20:24)
[2023-08-15] MEDS: Mirtazapine 15 MG TAB PO (20:24)
[2023-08-15 22:59] VITALS: BP 110/75; PULSE 94; RESP 18; TEMP 36.7; O2SAT 97
[2023-08-16 07:22] VITALS: BP 100/58; PULSE 78; RESP 18; TEMP 36; O2SAT 94
[2023-08-16] MEDS: OLANZapine 2.5 MG TAB PO (08:04)
[2023-08-16] MEDS: Polyethylene Glycol 3350 17 GM PACKET PO (08:04)
[2023-08-16] MEDS: Gabapentin 100 MG CAP PO ×2 (08:04→19:59)
[2023-08-16] MEDS: Nystatin 500000 UNITS/5 ML SUSP 5ML CUP PO ×3 (08:04→19:59)
[2023-08-16] MEDS: Docusate Sodium 100 MG CAP PO ×2 (08:04→19:59)
[2023-08-16] MEDS: Cyanocobalamin 500 MCG TAB 1000 MCG PO (08:04)
[2023-08-16] MEDS: Protein Nutritional Supplement 16 GM 1 OUNCE PACKET PO ×3 (08:04→19:59)
--- NOTE | 2023-08-16 12:53 | PT.INPN ---
PT Notes Visit Reasons: Failure to Thrive Physical Therapy Inpatient Progress Note Date: 08/16/2023 Dates of Service: 08/10/2023 through 08/17/2023 PRECAUTIONS: Fall. Standard. Activity as tolerated. Orthopedic shoes on when OOB. SUBJECTIVE: Agreeable to working with PT. Delighted that her brother Hung visited her. Wanted to show to her brother Hung and to Vielka how she does. Unaware of her drooling. Needed help with drinking coffee from DAWIT Gong as Naun did not want her spilling and burning herself. Happy that she got her hair braided today. Objective: General Observation: Brother Hung and Vielka present throughout session. PRODUCTION QUALITY MANAGER naun helping patient finish her coffee. Patient seated on bedside chair. Mental Status: Better ble to follow single step commands. Able to make longer sentences in reply to questions. Better able to maintain conversation overall. Pain: No verbal and non-verbal expression of pain received/observed.? Vital Signs: Closely monitored by nursing staff ROM: Right Upper Extremity: Shoulder Flexion lacks the last 25% of AROM. Shoulder abduction lacks the last 25% of AROM. Elbow flexion WFL. Wrist flexion WFL. Functional opening and closing of hand WFL. Left Upper Extremity: Shoulder Flexion lacks the last 25% of AROM. Shoulder abduction lacks the last 25% of AROM. Elbow flexion WFL. Wrist flexion WFL. Functional opening and closing of hand WFL. Right Lower Extremity: Hip flexion lacks the last 25% of AROM. Hip abduction lacks the last 25% of AROM. Knee flexion 30 degrees to 80 degrees. Knee extension -30. Ankle dorsiflexion -20 degrees to neutral only. Ankle plantarflexion -20 degrees to 40 degrees. Left Lower Extremity: Hip flexion lacks the last 25% of AROM. Hip abduction lacks the last 25% of AROM. Knee flexion 30 degrees to 80 degrees. Knee extension -30. Ankle dorsiflexion to neutral only. Ankle plantarflexion WFL. STRENGTH: Right Upper Extremity: Shoulder flexors 3-/5. Shoulder abductors 3-/5. Elbow flexors 4-/5. Elbow extensors 4-/5. Sheeter Waxer Operator strong. Left Upper Extremity: Shoulder flexors 3-/5. Shoulder abductors 3-/5. Elbow flexors 4-/5. Elbow extensors 4-/5. Sheeter Waxer Operator strong. Right Lower Extremity: Hip flexors 3-/5. Hip abductors 3-/5. Knee flexors 3-/5. Knee extensors 3-/5. Ankle dorsiflexors 3-/5. Ankle plantarflexors 3-/5. Left Lower Extremity: Hip flexors 3-/5. Hip abductors 3-/5. Knee flexors 3-/5. Knee extensors 3-/5. Ankle dorsiflexors 3-/5. Ankle plantarflexors 3-/5. Bed Mobility/Transfers: Moderate to maximal cues given for movement sequence, safety, and AD management Rolling minimal assist Sit to stand contact guard assist of 2 coming from bedside chair Stand to sit contact guard assist of 2 coming from bedside chair Wheelchair to bedside chair minimal assist of 2 Gait: 40 feet using FWW with PT maneuvering walker for patient for safety. DAWIT AllenNaun provided conatct guard to minima assit for safety. Brother Hung providing wheelchair follow. Needed maximal verbal cueing and minimal tactile cueing to abduct at the L hip and to have the L foot step out and forward with each step to minimize it from scissorring over the R foot. With cueing, patient is able to improve gait quality and increase gait speed minimally. Trunk is more upright too. Instrcuted to rest befor she gets tired. Assisted back from wheelchair to bedside chair at end of walk. Balance: Static Sitting: Good Dynamic Sitting: Fair Static Standing: Fair Dynamic Standing: Poor Special Tests: Mobility Limitations Standardized Measure [facility] AM-PAC 6 clicks Basic Mobility Inpatient Short Form: Raw Score: 12 CMS Score: 24% deficit Informed Consent/Education: Patient was instructed in purpose of PT consult and plan of care. Agreeable to proceed with established PT POC to achieve personal goals. ASSESSMENT: As of today, functional mobility deficit scored decreased from 81% down to 69% from 08/09/2023 signifying slowly progressing functional performance. Able to maintain longer sentences compared to whn she got readmitted. Was recalling how her brother and her did in the past showing some improvement with long-term memory skills. Patient will continue to require PT services to gradually improve mobility level using the most supportive assistive device. Patient continues to present with clinical signs and symptoms consistent with current/admitting diagnoses that have resulted to mobility limitations, gait instability, generalized weakness, and overall ADL decline as demonstrated by the following impairment level findings: 1. Decreased strength to B UE/LE major muscle groups with L weaker than R 2. Impaired sitting/standing balance 3. Impaired activity tolerance 4. Limitation of joint range of motion in B UE/LE as above 5. 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 Impaired safety awareness Impairments are contributing to the following functional limitations: 1. Decline in bed mobility skills 2. Decline in transfer skills 3. Difficulty with ambulation without assistive device and physical assistance 4. Increased completion time for mobility ADL performance 5. Increased risk for falls 6. Difficulty with managing steps alone safely Patient is assessed as a 68027 moderate complexity based on the following: History: 72-year-old female with past medical history as indicated above Examination: Demonstrable impairment in strength, balance, and mobility level with underlying impairments and functional limitations as exhibited above as well as deficit score of 65% utilizing the [facility] Mobility Inpatient Short Form Presentation: Evolving Decision Makin moderate complexity Goals: Goals X1 week 1. Supine-Sit independent NOT MET, CONTINUE 2. Sit-Supine independent NOT MET, CONTINUE 3. Sit-Stand independent NOT MET, CONTINUE 4. Stand-Sit independent with FWW NOT MET, CONTINUE 5. Bed-Chair independent with FWW NOT MET, CONTINUE 6. Chair-Bed independent with FWW NOT MET, CONTINUE 7. Independent gait on level surface with use of FWW for at least 150 feet without report of pain nor dyspnea NOT MET, CONTINUE 8. Independent stair negotiation while holding onto B rails for at least 4 steps without report of pain nor dyspnea NOT MET, CONTINUE 9. Independent with home exercise program NOT MET, CONTINUE 10. Good static and dynamic standing balance/tolerance NOT MET, CONTINUE Plan of Care/Treatment Plan: 1-2x/day, 7 days/week x 1 week. Plan of care has been reviewed with the RURAL ROUTE MAIL CARRIER providing the service under Physical Therapy direction. Initiate Physical Therapy intervention for pain management as needed, strengthening, bed mobility, transfers, gait, stairs, balance training, and use of assistive device. DISCHARGE RECOMMENDATIONS: [] Home with no services [] [] Home with services [specify] [] Home with outpatient PT [] [X] SNF for continued rehabilitation. Patient will benefit from correction facility placement for continued skilled physical therapy services in order to progress mobility level, strength, and balance in preparation for a safe discharge to home. [] [facility] [] [] SNF versus LTC based on ability to participate and progress [] TREATMENT CODE/TIME: 26832 x 23 minutes for 2 units beginning at 11:32 AM. Thank you for the opportunity to participate in the care of this patient. Ramila Richardson PT, DPT, CLT [facility] [place], [place]
--- NOTE | 2023-08-16 13:47 | CMPROGNOTE_ITS ---
Date of service: 08/16/23 Time of Service: 13:47 Care Management Progress Note Progress Note Text Progress Note Text: S/O: Mellisa was sitting up in her chair, visiting with her brother and his . Lamberto, her brother commented on how much better and clearer Mellisa appeared; sharing that he feels it is just taking a long time for the meds to wear off, and Mellisa to get closer to baseline. He explained that he intends on only filing for guardianship to support Mellisa in getting to where she needs to be, and is hopeful she will be able to get fully back to her baseline. Mellisa stated she is glad to be at the hospital, and to have her brother's help, she verbalized agreeing to stay at [facility] until she is better. CM reviewed court paperwork that Lamberto had gathered from the local district courthouse. CM continues to follow. A: 72 year old female admitted to [facility] 08/02/23 for Failure to Thrive P: Anticipate Mellisa will enter SWB at [facility] for LTM, disposition support and guardianship. CM continues to follow.
--- NOTE | 2023-08-16 13:52 | PTTR_ITS ---
PT Notes Visit Reasons: Failure to Thrive Physical Therapy Inpatient Treatment Note Date: 08/16/2023 PRECAUTIONS: Fall. Standard. Activity as tolerated. Orthopedic shoes on when OOB. SUBJECTIVE: Patient seen starting to slide out of reclining chair nancy PT passed by patient room after working with another patient. PT came in and pressed patient's call button for help. Patient verbalized that she asked for somebody's help to get into commode so she could have a bowel movement but according to patient, nobody came. Objective: General Observation: Patient attempting to get up from reclining chair but ended up partially sliding off of chair when PT saw her. Mental Status: Better able to follow single step commands. Able to make longer sentences in reply to questions. Better able to maintain conversation overall. Pain: No verbal and non-verbal expression of pain received/observed.? Vital Signs: Closely monitored by nursing staff Bed Mobility/Transfers: Moderate verbal and tatile cues given for movement sequence, safety, and AD management Rolling minimal assist Sit to stand contact guard assist of 2 coming from bedside chair Stand to sit contact guard assist of 2 onto bedside commode Bedside commode to edge of bed contact guard assist of 2 onto bedside commode Scoot up in bed moderate assist of 2 (APICULTURE TEACHER Huma assisted) Gait: 5 small steps from bedside recliner to bedside commode. 8 steps from bedside commode to edge of bed. Used FWW. Needed tactile cueing and verbal to B legs for movement sequence and to minimize adductor spasticity. THERA EX: Moderate verbal cueing done for movement accuracy, improved focus, and safety throughout with the following exercises: -B shoulder flexion and extension x 10 -Rest 1-2 minutes -B shoulder hor abduction/adduction x 10 -Rest 1-2 minutes -SLR to from 30-45 degrees x 10 -Rest 1-2 minutes -Knee to chest correction through x 5 -Rest 1-2 minutes -Hip abduction x 10 Balance: Static Sitting: Good Dynamic Sitting: Fair Static Standing: Fair Dynamic Standing: Poor ASSESSMENT: Emotional lability increased in the afternoon requiring increased verbal cues to stay focused. Able to do more when told that brother Hung would like her to get stronger so she needed to do the exercises. Did not need more assistance with transfers with verbal and tactile cueing given to safely advance/move each LE each time. Plan of Care/Treatment Plan: 1-2x/day, 7 days/week x 1 week. Plan of care has been reviewed with the ANIMAL RESEARCHER providing the service under Physical Therapy direction. Continue Physical Therapy intervention for pain management as needed, strengthening, bed mobility, transfers, gait, stairs, balance training, and use of assistive device. -Alternate walking and seated/supine exercises in the morning and afternoon. Provide adequate rest in between each activity. Provide needed tactile/visual/ and verbal cueing for safe limb advancement/movement sequence during mobility ADL performance. DISCHARGE RECOMMENDATIONS: [] Home with no services [] [] Home with services [specify] [] Home with outpatient PT [] [X] SNF for continued rehabilitation. Patient will benefit [facility] for continued skilled physical therapy services in order to progress mobility level, strength, and balance in preparation for a safe discharge to home. [] Business Planning Analyst Care [] [] SNF versus LTC based on ability to participate and progress [] TREATMENT CODE/TIME: 88246 x 20 minutes for 1 unit, 15533 x 13 minutes for 1 units beginning at 13:52 PM.
[2023-08-16] MEDS: Enoxaparin 40 MG/0.4 ML SYR SC (14:55)
[2023-08-16 14:59] VITALS: BP 107/72; PULSE 101; RESP 16; TEMP 36.9; O2SAT 94
--- NOTE | 2023-08-16 15:10 | PGE_ITS ---
Date of Service Date of service: 08/16/23 Time of Service: 15:10 Assessment and Plan Assessment and plan (1) Delirium: Status: Acute Assessment and plan: Was evaluated by psychiatry with following recommendations Continue oral zyprexa 2.5 mg q am and 5 mg q hs Continue mirtazapine. Continue PRN trazodone for insomnia Continue gabapentin 100 mg PO BID for anxiety. EKG ordered for QT prolongation from schedule Olanzapine; negative for QT prolongation montioring CBC Was seen by neurology, If no improvement , LP tap option but as she appears improved will hold off for now. (2) Urinary retention: Status: Acute Assessment and plan: See urology consult. Continue to encourage the patient to void independently. Continue intermittent catheterization Q12 hrs, as patient is most likely not having high urinary pressures Continue scheduled voiding trials PVR documentation post void/ bladder scan Q12 PRN (3) History of cerebral palsy: Assessment and plan: Followed by LOADER MAGAZINE GRINDER. Continue PT/OT. (4) Diarrhea: Status: Acute Assessment and plan: Continue PRN loperamide. Continue probiotics. (5) On deep vein thrombosis (DVT) prophylaxis: Status: Acute Assessment and plan: Continue lovenox (6) Discharge planning issues: Status: Acute Assessment and plan: Full code Palliative care consulted. Anticipate SNF placement. discussed with Dr Capone Subjective Subjective Patient reports: no new complaints, feels better, tolerating liquids well and tolerating a regular diet Interval history since last seen: Patient appears to what might be her baseline. She is voicing no complaints and is appropriate with no behavioral disturbances Exam Narrative Exam Narrative: Older appearing than stated age chronically ill-appearing in no acute distress on the bed. Head is atraumatic oral mucosa slightly dry Neck with no JVD full range of motion noted, no meningeal signs Respirations are even and unlabored Cardiovascular regular rate and rhythm pink warm dry well-perfused no peripheral edema Abdomen is soft Moves all her extremities Neurologic she is awake alert oriented to person and place she is following commands and appropriate Objective Last Vital Signs Temp 36.9 C 08/16/23 14:59 Pulse 101 H 08/16/23 14:59 Resp 16 08/16/23 14:59 BP 107/72 08/16/23 14:59 Pulse Ox 94 08/16/23 14:59 Time Spent with Patient Time Spent with Patient: 25-34 minutes Time was spent: preparing to see the patient(eg.review tests), obtaining and/or reviewing separately otained hiistory, ordering medications,tests, procedures, indepentently interpreting results and counseling the patient
--- NOTE | 2023-08-16 16:19 | CHAPLAIN ---
Mellisa's brother Lamberto, and his Vielka, arrived yesterday from [place]. Lamberto is working on applying for emergency guardianship of Mellisa and Care Management is helping him with the paperwork. Last night, Mellisa knew who Lamberto and Vielka were, but was not able to respond to all of Lamberto's questions. She has been requiring assistance with feeding. Mellisa's , Surya and his sister, visited yesterday. Surya is assigned a DRUM STOCK CLERK worker who has been supporting him since Mellisa was hospitalized as Mellisa was doing the cooking and other chores at home. They live in an apartment on [address]. Mellisa remain pleasant, and has not been singing random songs as she was doing a week or so ago. She remembers who I am, or reads my name tag.
[2023-08-16] MEDS: Melatonin 3 MG TAB PO (22:02)
[2023-08-16] MEDS: OLANZapine 5 MG TAB PO (22:02)
[2023-08-16] MEDS: Mirtazapine 15 MG TAB PO (22:02)
--- NOTE | 2023-08-16 22:41 | NUR.NOTE ---
pt refusd tele replacement at this time. Nursing Note:
[2023-08-16 23:40] VITALS: BP 100/65; PULSE 85; RESP 20; TEMP 36.6; O2SAT 95
[2023-08-17 06:16] LABS: Abs Immature Grans 0.04 10^3/uL (0.0-0.06); Absolute Basophil Count 0.04 10^3/uL (0.0-0.2); Absolute Eosinophil Count 0.35 10^3/uL (0.0-0.7); Absolute Lymphocyte Count 1.87 10^3/uL (1.2-3.4); Absolute Monocyte Count 0.98 10^3/uL (0.1-0.8); Absolute Neutrophil Count 5.16 10^3/uL (1.2-6.7); Basophils % 0.5; Eosinophils % 4.1; HCT 37.4 % (36.0-46.0); HGB 12.4 g/dL (11.2-15.7); Immature Grans % 0.5; Lymphocytes % 22.2; MCHC 33.2 % (32.0-36.0); MCV 91 fL (80-95); MPV 9.3 fL (8.0-11.0); Monocytes % 11.6; Neutrophils % 61.1; Platelet Count 317 10^3/uL (130-400); RBC 4.13 10^6/uL (3.93-5.22); RDW 13.6 % (11.7-14.6); RDW-SD 45.1 fL; WBC 8.44 10^3/uL (4.4-10.8)
[2023-08-17 06:31] LABS: Anion Gap 7.1 mmol/L (3-11); BUN 18 mg/dL (7-18); CO2 27.9 mmol/L (21.0-32.0); CREATININE 0.6 mg/dL (0.55-1.02); Calcium 8.8 mg/dL (8.5-10.1); Chloride 105 mmol/L (98-107); Estimated GFR 94.72 (mL/min/1.73m2); Glucose 117 mg/dL (74-106); Potassium 3.8 mmol/L (3.5-5.1); Sodium 140 mmol/L (136-145)
[2023-08-17 07:28] VITALS: BP 112/68; PULSE 89; RESP 16; TEMP 36; O2SAT 95
[2023-08-17] MEDS: Nystatin 500000 UNITS/5 ML SUSP 5ML CUP PO ×3 (08:22→21:23)
[2023-08-17] MEDS: Protein Nutritional Supplement 16 GM 1 OUNCE PACKET PO ×3 (08:22→21:23)
[2023-08-17] MEDS: Gabapentin 100 MG CAP PO ×2 (08:23→21:23)
[2023-08-17] MEDS: Cyanocobalamin 500 MCG TAB 1000 MCG PO (08:23)
[2023-08-17] MEDS: Polyethylene Glycol 3350 17 GM PACKET PO (08:23)
[2023-08-17] MEDS: OLANZapine 2.5 MG TAB PO (08:23)
[2023-08-17] MEDS: Docusate Sodium 100 MG CAP PO ×2 (08:23→21:23)
--- NOTE | 2023-08-17 10:38 | PT.INTREAT ---
Date of service: 08/17/23 Time of Service: 10:12 PT Notes Visit Reasons: Failure to Thrive Inpatient Physical Therapy Treatment Note [facility] Date: 08/17/23 PRECAUTIONS: Fall, standard, activity as tolerated. ORTHOPEDIC SHOES FOR ALL OOB ACTIVITY. SUBJECTIVE: Patient appears to be searching for something under the blanket when this clinician arrives. DAWIT Gibson reports that patient had great difficulty transferring from chair to bed about half an hour ago, seems to be more confused today. AFTERNOON: Patient reports that she feels steadier. Voice and eyes are clearer, patient appears more engaged. OBJECTIVE: Supine in bed, agreeable to therapy. Zari alarm in place and active. ? PAIN: none reported VITALS: monitored by nursing staff? Therapeutic Activities ([id number]): Direct one-on-one instruction in dynamic activities to improve functional performance. ? BED MOBILITY/TRANSFERS? Rolling L/R: not assessed Supine-sit: min assist of one via hand hold for patient to pull up, which she does much more fluidly then she has the past few times this clinician has worked with her. Tactile and verbal cues for patient to swing legs over EOB. Min assist to reposition legs so that they can support patient in sitting. Once seated, patient requires mod assist of one to maintain sitting balance. DAWIT Gibson assists in holding patient upright while this clinician dons patient's orthopedic shoes. Patient's sitting balance is typically far better than this, as patient repeatedly falls to her right when unsupported. ? Sit-supine: Max assist of two. Patient was sliding off of bed, and when this clinician attempted to reposition her feet so that she could scoot her seat further onto the bed she picked each foot up and placed them on this clinician's foot, causing her to slide further. ? Sit-stand: Mod assist of 2 at gait belt, with this clinician steadying patient's walker and DAWIT Gibson having one hand under patient's left axilla.? Stand-sit: mod assist of 2 to ensure that patient is close enough to her intended sitting surface. Max verbal and tactile cues for patient to continue backing up. Mod assist of 1 at gait belt to encourage weight shift in order to step back. ? Bed-Chair: Mod assist of two at gait belt and FWW to ensure a safe transfer, patient maintaining a safe distance to walker as well as being close enough to the chair before sitting. ? Chair-bed: Mod assist of two at gait belt and FWW to ensure a safe transfer, patient maintaining a safe distance to walker as well as being close enough to the bed before sitting Provided skilled cues and instruction on performance and technique throughout. Gait Training ([id number]): Direct one-on-one instruction and skilled instruction in: [x] employing an assistive device [] modified weight-bearing status [x] movement sequencing [x] turning and movement with proper form [x] Provided verbal cues for equipment management and technique [x] Provided instruction in gait pattern [] Patient education regarding pacing and breathing techniques to maximize activity tolerance? GAIT? Assistive Device: FWW? Weight bearing: full Assist: mod assist of two with occasional max assist at walker by this clinician. ? Distance:? 35 feet, seated rest, 10 feet?AFTERNOON: 15 feet, seated rest, 15 feet, seated rest, 20 feet. ? Deviation: Patient requires continuous verbal and tactile cueing to maintain a safe distance from walker, and frequent max assist to replace walker within a safe distance. Max verbal and tactile cueing and frequent min assist to move left foot forward and lateral, to prevent scissoring and allow right foot to move forward. Step-to gait pattern with left leg leading at best. Right leg tends to trail far behind despite cueing, causing patient's hips to turn toward right which appears to encourage her to push her walker forward out of it's useful range. DRAWING IN MACHINE TENDER HELPER Paige with mod assist at gait belt for patient safety as well as providing wheelchair follow. AFTERNOON: Patient was better able to follow verbal and tactile cues, requiring less assistance overall, especially in keeping the walker close (occassional moderate assistance vs?frequent max assist this morning). Patient continues to experience right leg lagging behind and causing hips to turn sideways during ambulation. ? ASSESSMENT:? Patient tolerates therapy well, resting comfortably in bed at end of treatment session with call guillen accessible and ZARI alarm in place. PLAN: Continue global strengthening per plan of care until patient is medically cleared and has safe discharge plan. TREATMENT CODE/TIME: 24 minutes beginning at 10:12 and 23 minutes beginning at 13:57 for a total of 47 minutes today.
[2023-08-17] MEDS: Enoxaparin 40 MG/0.4 ML SYR SC (13:17)
--- NOTE | 2023-08-17 14:06 | W.PM.PROGNOT ---
Date of Service Date of service: 08/17/23 Time of Service: 14:06 Assessment and Plan Assessment and plan (1) Delirium: Status: Acute Assessment and plan: Was evaluated by psychiatry with following recommendations Continue oral zyprexa 2.5 mg q am and 5 mg q hs Continue mirtazapine. Continue PRN trazodone for insomnia Continue gabapentin 100 mg PO BID for anxiety. EKG ordered for QT prolongation from schedule Olanzapine; negative for QT prolongation montioring CBC Was seen by neurology, If no improvement , LP tap option but as she appears improved will hold off for now. (2) Urinary retention: Status: Acute Assessment and plan: See urology consult. Continue to encourage the patient to void independently. Continue intermittent catheterization Q12 hrs, as patient is most likely not having high urinary pressures Continue scheduled voiding trials PVR documentation post void/ bladder scan Q12 PRN (3) History of cerebral palsy: Assessment and plan: Followed by PRODUCT SPECIALIST. Continue PT/OT. (4) Diarrhea: Status: Acute Assessment and plan: Continue PRN loperamide. Continue probiotics. (5) On deep vein thrombosis (DVT) prophylaxis: Status: Acute Assessment and plan: Continue lovenox (6) Discharge planning issues: Status: Acute Assessment and plan: Full code Palliative care consulted. Anticipate SNF placement, referrals pending discussed with Dr Capone Subjective Subjective Patient reports: no new complaints, tolerating liquids well, tolerating a regular diet and afebrile; denies shortness of breath Exam Narrative Exam Narrative: no acute distress Head is atraumatic oral mucosa slightly dry Neck with no JVD full range of motion noted, no meningeal signs Respirations are even and unlabored Cardiovascular regular rate and rhythm pink warm dry well-perfused no peripheral edema Abdomen is soft Moves all her extremities Neurologic she is awake alert oriented to person and place she is following commands and appropriate Objective Last Vital Signs Temp 36.0 C L 08/17/23 07:28 Pulse 89 08/17/23 07:28 Resp 16 08/17/23 07:28 BP 112/68 08/17/23 07:28 Pulse Ox 95 08/17/23 07:28 Laboratory Results - last 24 hr 08/17/23 06:04 WBC 8.44 RBC 4.13 Hgb 12.4 Hct 37.4 MCV 91 MCH 30.0 MCHC 33.2 RDW 13.6 Plt Count 317 MPV 9.3 Immature Gran % 0.5 Neutrophils % 61.1 Lymphocytes % 22.2 Monocytes % 11.6 Eosinophils % 4.1 Basophils % 0.5 Nucleated RBC % 0.0 Absolute Neutrophils 5.16 Absolute Lymphocytes 1.87 Absolute Monocytes 0.98 H Absolute Eosinophils 0.35 Absolute Basophils 0.04 Sodium 140 Potassium 3.8 Chloride 105 Carbon Dioxide 27.9 Anion Gap 7.1 BUN 18 Creatinine 0.6 Est GFR (CKD-EPI 2020) 94.72 Glucose 117 H Calcium 8.8 Time Spent with Patient Time Spent with Patient: 25-34 minutes Time was spent: preparing to see the patient(eg.review tests), referring, communicating with other health director day care center and care coordination
--- NOTE | 2023-08-17 14:56 | CHAPLAIN ---
Mellias had just returned from walking with PT when I visited. After I said my name, she seemed to recognize who I was. She remembered that her brother was here yesterday, but wasn't sure if she'd seen him today. Although Mellisa is clearer in her thinking than she was, she stills seems far what her baseline was, or how she interacted with me previously to her hospital admission. Mellisa often called me on the phone to request more yarn to viv praliu hsu, or called when she was dealing with difficult information, like a recent in her family (although her brother, Lamberto said that Mellisa misunderstood and no one in the family had .) and although her speech was slow, she engaged in full conversations, back and forth. She doesn't seem able to do that now. She was very conscientious about letting me know how she was doing with the shawls she was crocheting and when they would be ready. As far as I know, Mellisa prepared the meals for herself and Surya, when she was at home and answered the phone as Surya doesn't like to talk on the phone. Mellisa doesn't seem up to those tasks currently. Today she mentioned my real father, and then began singing [place] Vielka. She asked to hold my hands, and usually does that when I visit. I will continue to visit.
[2023-08-17 15:10] VITALS: BP 117/65; PULSE 95; RESP 16; TEMP 36.6; O2SAT 86
--- NOTE | 2023-08-17 16:09 | CMPROGNOTE_ITS ---
Date of service: 08/17/23 Time of Service: 16:09 Care Management Progress Note Progress Note Text Progress Note Text: S/O: CMAA submitted supporting clinical documentation to court per court request. CM spoke with [facility] meeting with Lamberto, he advised that no one had reviewed the cost of filing, $150, and he had been led to believe that the cost would be covered by [facility], yet he has been unsuccessful in connecting with [facility], after multiple attempts. He expressed frustration at the process and lack of support thus far in navigating systems to support Mellisa. CM provided supportive counseling and validation at his efforts and system barriers; normalizing experience. DANTE Pink consulted Risk and Compliance re: treatment and status change consent, awaiting response. Mellisa continues to show drastic improvement, hospitalist attributing changes to Psych consult and resulting medication recommendations. Chiquis CERTIFIED PESTICIDE APPLICATOR reports Mellisa is still far from baseline as she was managing her 's care needs in the home environment. Nursing reports Mellisa appears to lack motivation to get up to bathroom, and is often incontinent. Consensus at interdisciplinary rounds; Mellisa will likely still require SWB1 (no SNF offers to date) when medically ready. LP continues to be point of discussion, Neurologist unavailable until the New Year. CM continues to follow. A: 72 year old female admitted to [facility] 08/02/23 for Failure to Thrive P: CM will outreach to [facility], to consult on baseline functioning and family support with guardianship, financials, etc. Anticipate Mellisa will enter SWB at [facility] for LTM, disposition support and guardianship. CM continues to follow.
[2023-08-17] MEDS: Melatonin 3 MG TAB PO (21:23)
[2023-08-17] MEDS: OLANZapine 5 MG TAB PO (21:23)
[2023-08-17] MEDS: Mirtazapine 15 MG TAB PO (21:24)
[2023-08-18 00:15] VITALS: BP 99/65; PULSE 81; RESP 14; TEMP 36.7; O2SAT 95
[2023-08-18 07:36] VITALS: BP 101/63; PULSE 72; RESP 16; TEMP 35.9; O2SAT 94
[2023-08-18] MEDS: Polyethylene Glycol 3350 17 GM PACKET PO (08:05)
[2023-08-18] MEDS: Cyanocobalamin 500 MCG TAB 1000 MCG PO (08:05)
[2023-08-18] MEDS: Nystatin 500000 UNITS/5 ML SUSP 5ML CUP PO (08:05)
[2023-08-18] MEDS: OLANZapine 2.5 MG TAB PO (08:05)
[2023-08-18] MEDS: Protein Nutritional Supplement 16 GM 1 OUNCE PACKET PO (08:05)
--- NOTE | 2023-08-18 10:18 | DSE_ITS ---
Date of service: 08/18/23 Time of Service: 10:18 DS: Diagnosis Discharge Diagnosis (1) Delirium: Status: Acute (2) Urinary retention: Status: Acute (3) History of cerebral palsy: (4) Diarrhea: Status: Acute Discharge Plan Disposition Patient Disposition: Swing Bed(Skilled,SB1) Condition: Stable Discharge Details Reason For Visit: Failure to Thrive Admit Date/Time: 08/02/23 12:15 Admit Provider: Saad Uribe Attending Provider: Saad Uribe Primary Care Provider: Sarah Schwab [facility] Course Hospital Course: This is a 72-year-old female patient complex past medical history including cerebral palsy, 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 After UTI cleared she continued to have alterations in her mental status and was not back to her baseline. She was discharged to inpatient psychiatric facility for management of her symptoms. She returned here under swing level status for placement. Pending bed acceptance she developed worsening symptoms again with increased confusion was found to have another UTI which was successfully treated repeat urine has been negative. She is stable and ready to be discharged back to swing level care to continue working with physical therapy while pending final disposition. Case management has been following. She has also been seen by palliative care. Discharge discussed with Dr. Hansen Home Meds and New Rx's Prescriptions: No Action nystatin 100,000 unit/gram powder 1 applic topical BID PRN metronidazole [Metrogel] 1 % gel 1 applic topical DAILY (DME) Gloria Adult Brief Misc See Rx Instructions .Route Rx Instructions: As directed ibuprofen 200 mg tablet 400 mg PO Q8H PRN cholecalciferol (vitamin D3) 50 mcg (2,000 unit) capsule 50 mcg PO DAILY risperidone 0.25 mg tablet 0.25 mg PO BID olanzapine 5 mg tablet,disintegrating 7.5 mg PO BID PRN melatonin 3 mg tablet extended release 3 mg PO .COMPLEX Rx Instructions: 3 mg orally With Evening Meal; mirtazapine 15 mg tablet 15 mg PO QHS polyethylene glycol 3350 [ClearLax] 17 gram/dose powder 17 g PO DAILY trazodone 50 mg tablet 75 mg PO HS PRN olanzapine [Zyprexa] 5 mg tablet 5 mg PO QHS olanzapine [Zyprexa] 2.5 mg tablet 2.5 mg PO DAILY gabapentin 100 mg capsule 100 mg PO BID cyanocobalamin (vitamin B-12) 1,000 mcg capsule 1,000 mcg PO DAILY docusate sodium [Colace] 100 mg capsule 100 mg PO BID Bio-K plus 50 billion cell capsule,delayed release(DR/EC) 1 cap PO DAILY Proheal Liquid Protein .QDAILY acetaminophen [Aphen] 325 mg tablet 650 mg PO Q6H PRN albuterol sulfate 2.5 mg /3 mL (0.083 %) solution for nebulization 2.5 mg inhalation Q2H PRN Rx Instructions: until breathing returns to target peak flow/parameters Metamucil 3.4 gram/5.4 gram powder 1 tbsp PO DAILY Qty: 660 12RF Rx Instructions: mix into at least 8 oz of water or juice before administering potassium chloride 20 mEq Packet 20 meq PO QMEALS Qty: 0 0RF lorazepam 1 mg Tablet 1 mg PO QID PRN PRNQty: 0 0RF Discharge Instructions Activity:: Activity as Tolerated Equipment/Supplies:: No Equipment Needed Diet:: As Tolerated Discharge Orders Discharge Orders: Discharge Order (Routine); Ordered 08/18/23 Ordered By: Ludy Rodgers Discharge Data Discharge Date/Time-TO BE ENTERED AT DEPARTURE: 08/18/23 12:20 DS: Summary Time Spent with Patient providing and/or coordinating discharge services: Greater than 30 minutes Status at Discharge Functional status at discharge: uses cane/walker Overall status at discharge: patient is not back to baseline Mental Status: other (Demented but no behavioral issues) Speech and Movement: other Mood: other (Demented but no behavioral issues) Affect: normal affect Exam Psych Mental Status: other (Demented but no behavioral issues) Speech and Movement: other Mood: other (Demented but no behavioral issues) Affect: normal affect DS: Data Vitals/I&O Vitals and I&O: Vital Signs Temperature 35.9 C L 08/18/23 07:36 Temperature Source Tympanic 08/18/23 07:36 Pulse 72 08/18/23 07:36 Pulse Rhythm Regular 08/17/23 23:00 Respiratory Rate 16 08/18/23 07:36 Respiratory Effort Normal, Non-Labored 08/17/23 23:00 Respiratory Depth Normal 08/17/23 23:00 Respiratory Pattern Normal 08/17/23 23:00 Blood Pressure 101/63 08/18/23 07:36 Pulse Oximetry 94 08/18/23 07:36 Oxygen Delivery Method Room Air 08/18/23 07:36 Oxygen Flow Rate 0 08/18/23 07:36 Pain Level 0 08/18/23 07:36 Comment pT stated 6/10 pain in stomach, nurse is notified. 08/15/23 15:00 Intake & Output 08/17/23 08/17/23 08/18/23 11:59 23:59 11:59 Intake Total 460 / 460 Output Total 450 / 450 1600 / 1600 Balance -450 / 10 460 / 10 -1600 / -1600 Weight 59.8 kg 60 kg Intake: Oral 460 / 460 Output: Urine 450 / 450 1600 / 1600 Other: Urine Color Yellow Yellow Yellow Urine Appearance Cloudy Cloudy Urine Odor Normal Comment pt was assisted to the commode, no void wet brief. will straight cath the patient. Stool Size Small Stool Characteristics Soft Brown Voiding Methods Diaper Self-Catheterization Incontinent PFSH All Active Problems (Updated 08/19/23 @ 00:01 by CYNTHIA MEHTA) Diarrhea (Acute) Encephalopathy acute (Acute) Palliative care patient (Acute) Discharge planning issues (Acute) Altered mental status (Acute) Ataxia (Acute) UTI (urinary tract infection) (Acute) Risk for falls (Acute) On deep vein thrombosis (DVT) prophylaxis (Acute) Failure to thrive in adult (Acute) Palliative care encounter (Acute) ACP (advance care planning) (Acute) Constipation (Acute) Urinary retention (Acute) Hypokalemia (Acute) Delirium (Acute) Facial droop (Acute) Cerebral palsy (Acute) Gait instability (Acute) Dysarthria (Acute) Pyuria (Acute) Tubular adenoma (Acute ~01/2023) Medical History History of head injury (~1988) Vitamin A deficiency Strabismus GERD (gastroesophageal reflux disease) Hyperlipidemia Arthritis of spine Osteopenia Obesity Urinary incontinence Prediabetes Club foot History of adenomatous polyp of colon History of cerebral palsy Surgical History History of colonoscopy with polypectomy (~01/2023) 2022 2011 2006 Leg - childhood Social History Smoking/Tobacco Use Status: Former Tobacco Use Quit Date: 08/21/02 Smoking risk assessment performed?: Yes Alcohol Intake: never Substance use type: does not use Housing: other Do you feel safe at home: Yes Do you feel safe in your relationship?: Yes Additional Social history: Lives with Surya in apartment on [address] in [place] [facility] Time Spent with Patient Time Spent with Patient: 45-69 minutes Time was spent: preparing to see the patient(eg.review tests), obtaining and/or reviewing separately otained hiistory, ordering medications,tests, procedures, referring, communicating with other health career manager, indepentently interpreting results and care coordination
--- NOTE | 2023-08-18 12:06 | PT.INTREAT ---
Date of service: 08/18/23 Time of Service: 11:28 PT Notes Visit Reasons: Failure to Thrive Inpatient Physical Therapy Treatment Note [facility] Date: 08/18/23 PRECAUTIONS: Fall, standard, activity as tolerated. ORTHOPEDIC SHOES ON FOR ALL OOB ACTIVITY SUBJECTIVE: patient reports feeling good today. Eyes are bright and speech is clear, at least initially. OBJECTIVE: Patient is supine in bed, agreeable to therapy, agreeable to sit up in bedside chair for lunch.? PAIN: none reported or observed. VITALS: monitored by nursing staff. Therapeutic Activities ([id number]): Direct one-on-one instruction in dynamic activities to improve functional performance. ? BED MOBILITY/TRANSFERS? Rolling L/R: not assessed Supine-sit: mod assist via double hand hold for patient to pull herself up to sitting. Tactile cues for patient to swing legs over EOB. ?Sit-supine: not assessed? Sit-stand: min assist of one pulling up at gait belt ? Stand-sit: mod assist ? Bed-Chair: mod assist with verbal and tactile cues to line up safely with chair. Patient unable to scoot hips back, dependent for scooting back in chair. Patient promptly slides herself forward again to edge of chair. ? Chair-bed: not assessed Provided skilled cues and instruction on performance and technique throughout. ASSESSMENT:? Patient tolerates therapy well, is set up in bedside chair with active [place] alarm and lunch tray at end of session. This clinician does alert TARGET AIRCRAFT CONTROLLER's Karen and Malena that patient did not seem content to stay in the chair. They state that patient has been impulsive / unsafe today and should return to the bed [facility]. PLAN: Continue global strengthening per plan of care until patient is medically cleared for discharge and obtains safe discharge plan. TREATMENT CODE/TIME: 19 minutes beginning at 11:28
--- NOTE | 2023-08-18 17:43 | PDOC.CMPRO ---
Date of service: 08/18/23 Time of Service: 17:44 Care Management Progress Note Progress Note Text Progress Note Text: S/O: Mellisa was lying in bed when CM met with her today. CM explained that Mellisa would be transitioning to swingbed status today, for continued rehab in order for her to return to her baseline functional status. Per reports from her brother and community development director, Mellisa was able to function well at home prior to this hospitalization. She met with the Psychiatrist, who made recommendations for med changes, and Mellisa's cognitive functioning has improved. She does require more physical rehab, and increased cognitive functioning in order for her to return to her baseline, therefore she will transition to SWB 1, and will work with PT and OT daily. Mellisa is agreeable to remaining at [facility] for her rehab. CM spoke to Alyssa from [facility] today, who has scheduled a hearing for emergency guardianship for 08/22/22 at 11:30am. CM will not be able to attend; Alyssa stated that it is optional for CM, and just a courtesy, as [facility] is involved with Mellisa's plan of care. CM informed AYE Conde, about the meeting next week, and encouraged her to attend. CM will continue to follow. A: Mellisa is a 72 year old female admitted to [facility] on 08/02/23 for failure to thrive. P: Mellisa will enter SWB 1 today for continued rehab with PT/OT to progress toward her goals and return to her baseline level of functioning. CM will continue to inquire about short term rehab beds as they become available. Mellisa's brother is seeking guardianship to help support Mellisa with disposition planning as well as supervisor intermediates NIRAJ. CM will continue to follow.
== END 2023-08-18 12:20 | disposition swing bed (61) | DRG 690 ==
PROVIDERS: General Practice; Internal Medicine; Nurse Practitioner Acute Care; Admitting Provider Internal Medicine; PCP Family Medicine; Visit Provider Internal Medicine
DX: N39.0 Urinary tract infection, site not specified (principal); G93.40 Encephalopathy, unspecified; R33.9 Retention of urine, unspecified; R62.7 Adult failure to thrive; Z68.27 Body mass index [BMI] 27.0-27.9, adult; Z79.899 Other long term (current) drug therapy; R27.0 Ataxia, unspecified; G80.9 Cerebral palsy, unspecified; R19.7 Diarrhea, unspecified; K21.9 Gastro-esophageal reflux disease without esophagitis; E78.5 Hyperlipidemia, unspecified; R73.03 Prediabetes; Z87.891 Personal history of nicotine dependence; M85.80 Other specified disorders of bone density and structure, unspecified site; R32 Unspecified urinary incontinence; E50.9 Vitamin A deficiency, unspecified; M21.542 Acquired clubfoot, left foot; R25.2 Cramp and spasm; Z91.81 History of falling; K59.00 Constipation, unspecified; R29.810 Facial weakness; R47.1 Dysarthria and anarthria; I95.9 Hypotension, unspecified; B96.5 Pseudomonas (aeruginosa) (mallei) (pseudomallei) as the cause of diseases classified elsewhere; B96.89 Other specified bacterial agents as the cause of diseases classified elsewhere
CPT/HCPCS: 00123; 36415; 70553; 80048; 80053; 80076; 85027; 87077; 87493; 87505; 87635; 87637; 95819; 97110; 97116; 97162; 97530; 99221; 99223; 99232; 99233; J1650; 71045; 81003; 81015; 82607; 83735; 84425; 85025; 86592; 87086; 87186; 93005; 93010; 99239; G0378; J0696; J1630; J2060; J2543

== ENCOUNTER → 2023-08-03 14:10 | Outpatient (BNVA) | payer MEDICARE, MEDICAID, SELFPAY | PROVIDERS: PCP Family Medicine; Referring Provider Family Medicine; Visit Provider Psychiatry & Neurology Neurology ==

== ENCOUNTER → 2023-08-04 08:00 | Outpatient (BNVA) | payer MEDICARE, MEDICAID, SELFPAY | PROVIDERS: PCP Family Medicine; Referring Provider Family Medicine; Visit Provider Psychiatry & Neurology Neurology ==

== ENCOUNTER → 2023-08-07 07:28 | Outpatient (BNVA) | payer MEDICARE, MEDICAID, SELFPAY | PROVIDERS: PCP Family Medicine; Referring Provider Family Medicine; Visit Provider Psychiatry & Neurology Neurology ==

== ENCOUNTER 2023-08-18 11:33 | Inpatient (IN) | payer MEDICARE, MEDICAID, SELFPAY ==
--- NOTE | 2023-08-18 11:30 | W.PM.HP.N ---
Date of service: 08/18/23 Time of Service: 11:30 Assessment and Plan Assessment and plan (1) Delirium: Status: Acute Assessment and plan: Was evaluated by psychiatry with following recommendations Continue oral zyprexa 2.5 mg q am and 5 mg q hs Continue mirtazapine. Continue PRN trazodone for insomnia Continue gabapentin 100 mg PO BID for anxiety. EKG ordered for QT prolongation from schedule Olanzapine; negative for QT prolongation montioring CBC Was seen by neurology, If no improvement , LP tap option but as she appears improved will hold off for now. (2) Urinary retention: Status: Acute Assessment and plan: See urology consult. Continue to encourage the patient to void independently. 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 Continue PT/OT. (4) Diarrhea: Status: Acute Assessment and plan: Continue PRN loperamide. Continue probiotics. (5) On deep vein thrombosis (DVT) prophylaxis: Status: Acute Assessment and plan: Continue lovenox (6) Discharge planning issues: Status: Acute Assessment and plan: Full code Palliative care consulted. referrals for placement pending discussed with Dr Capone History of Present Illness History of Present Illness Chief Complaint: altered mental status Narrative: This is a 72-year-old female patient with a past medical history significant for cerebral palsy tubular adenoma urinary tract infection who presented to the emergency department initially with an altered mental status. Initially was thought to be due to a urinary tract infection but this was treated successfully and she did not return to her baseline. She was transferred to the [facility] for inpatient psychiatric management after medical etiology was ruled out. She returned here for discharge planning as she was still not safe for discharge to home. While here under swing level care she developed worsening altered mental status again and was found to have a urinary tract infection which was treated again. She did return to what appears to be a new baseline for her and she is unable to safely be discharged back to home independently. Case management has been working with her and referrals placed for inpatient rehabilitation pending. Review of Systems All systems reviewed & are unremarkable except as noted in HPI and below PFSH All Active Problems (Updated 08/19/23 @ 00:01 by CYNTHIA MEHTA) Diarrhea (Acute) Encephalopathy acute (Acute) Palliative care patient (Acute) Discharge planning issues (Acute) Altered mental status (Acute) Ataxia (Acute) UTI (urinary tract infection) (Acute) Risk for falls (Acute) On deep vein thrombosis (DVT) prophylaxis (Acute) Failure to thrive in adult (Acute) Palliative care encounter (Acute) ACP (advance care planning) (Acute) Constipation (Acute) Urinary retention (Acute) Hypokalemia (Acute) Delirium (Acute) Facial droop (Acute) Cerebral palsy (Acute) Gait instability (Acute) Dysarthria (Acute) Pyuria (Acute) Tubular adenoma (Acute ~01/2023) Medical History History of head injury (~1988) Vitamin A deficiency Strabismus GERD (gastroesophageal reflux disease) Hyperlipidemia Arthritis of spine Osteopenia Obesity Urinary incontinence Prediabetes Club foot History of adenomatous polyp of colon History of cerebral palsy Surgical History History of colonoscopy with polypectomy (~01/2023) 2022 2011 2006 Leg - childhood Social History Smoking/Tobacco Use Status: Former Tobacco Use Quit Date: 08/21/02 Smoking risk assessment performed?: Yes Alcohol Intake: never Substance use type: does not use Housing: other Do you feel safe at home: Yes Do you feel safe in your relationship?: Yes Additional Social history: Lives with Surya in apartment on [address] [place] [facility] Allergies and Home Medications Allergies Allergy/AdvReac Type Severity Reaction Status Date / Time fluoxetine AdvReac Nausea Unverified 07/11/23 00:03 Home Medications Medication Instructions Recorded Confirmed Type cholecalciferol (vitamin D3) 50 50 mcg PO DAILY 12/16/22 08/18/23 History mcg (2,000 unit) capsule diaper,brief,adult,disposable 12/16/22 07/11/23 History ([place] Adult Brief) ibuprofen 200 mg tablet 400 mg PO Q8H PRN 12/16/22 08/18/23 History metronidazole 1 % topical gel 1 applic topical DAILY 12/16/22 08/18/23 History (Metrogel) nystatin 100,000 unit/gram topical 1 applic topical BID PRN 12/16/22 08/18/23 History powder psyllium husk 3.4 gram/5.4 gram 1 tbsp PO DAILY #660 grams 02/03/23 08/18/23 Rx oral powder (Metamucil) lorazepam 1 mg tablet 1 mg PO QID PRN PRN #0 tabs 07/18/23 08/18/23 Rx potassium chloride 20 mEq oral 20 meq PO QMEALS #0 ea 07/18/23 08/18/23 Rx packet olanzapine 5 mg disintegrating 7.5 mg PO BID PRN 08/02/23 08/18/23 History tablet risperidone 0.25 mg tablet 0.25 mg PO BID 08/02/23 08/18/23 History melatonin 3 mg tablet,extended 3 mg PO .COMPLEX 08/06/23 08/18/23 History release mirtazapine 15 mg tablet 15 mg PO QHS 08/06/23 08/18/23 History polyethylene glycol 3350 17 17 g PO DAILY 08/06/23 08/18/23 History gram/dose oral powder (ClearLax) trazodone 50 mg tablet 75 mg PO HS PRN 08/06/23 08/18/23 History L. acidophilus,casei,rhamnosus 50 1 cap PO DAILY 08/18/23 08/18/23 History billion cell capsule,delayed release (Bio-K plus) Proheal Liquid Protein .QDAILY 08/18/23 History acetaminophen 325 mg tablet (Aphen) 650 mg PO Q6H PRN 08/18/23 08/18/23 History albuterol sulfate 2.5 mg/3 mL 2.5 mg inhalation Q2H PRN 08/18/23 08/18/23 History (0.083 %) solution for nebulization cyanocobalamin (vitamin B-12) 1,000 mcg PO DAILY 08/18/23 08/18/23 History 1,000 mcg capsule docusate sodium 100 mg capsule 100 mg PO BID 08/18/23 08/18/23 History (Colace) gabapentin 100 mg capsule 100 mg PO BID 08/18/23 08/18/23 History olanzapine 2.5 mg tablet (Zyprexa) 2.5 mg PO DAILY 08/18/23 08/18/23 History olanzapine 5 mg tablet (Zyprexa) 5 mg PO QHS 08/18/23 08/18/23 History Exam Narrative Exam Narrative: no acute distress Head is atraumatic oral mucosa slightly dry Neck with no JVD full range of motion noted, no meningeal signs Respirations are even and unlabored Cardiovascular regular rate and rhythm pink warm dry well-perfused no peripheral edema Abdomen is soft Moves all her extremities Neurologic she is awake alert oriented to person and place she is following commands and appropriate Time Spent Time spent with Patient: 40-54 minutes Time was spent: preparing to see the patient(eg.review tests), obtaining and/or reviewing separately otained hiistory, ordering medications,tests, procedures, indepentently interpreting results and care coordination
[2023-08-18] MEDS: Enoxaparin 40 MG/0.4 ML SYR SC (14:31)
[2023-08-18] MEDS: Protein Nutritional Supplement 16 GM 1 OUNCE PACKET PO ×2 (14:31→21:10)
[2023-08-18] MEDS: Nystatin 500000 UNITS/5 ML SUSP 5ML CUP PO ×2 (14:31→21:07)
[2023-08-18 15:19] VITALS: BP 107/73; PULSE 81; RESP 16; TEMP 36; O2SAT 93
--- NOTE | 2023-08-18 15:58 | PT.INIE ---
PT Notes Visit Reasons: Altered Mental Status Physical Therapy Swing bed Level I Initial Evaluation Date: 08/18/2023 Referring Doctor: Ludy Rodgers NP PT Orders: PT CONSULT: Eval/Treat Precautions: Fall. Standard. Activity as tolerated. Orthopedic shoes on when OOB. Patient Profile/Admitting Diagnosis: Mellisa is a 72-year-old female returning to [facility] from [facility] and converted to swing bed level I as of 08/18/2023 for continued rehabilitation. She presented to the ED on 07/10/2023 with left facial droop, slurring of speech, and generalized weakness and admitted for management of TIA and pyuria. Brain MRI did not show evidence of an acute infarct nor cerebral artery atrophy. CT scan showed negative acute intracranial abnormality. She was sent to [facility] on 07/19/2023 for inpatient geriatric psychiatric stabilization and is readmitted to mitigate mobility impairments and reduce fall risk. PMHX: All Active Problems (Updated 08/02/23 @ 13:17 by Kae Rosales APRN) Risk for falls (Acute) On deep vein thrombosis (DVT) prophylaxis (Acute) Failure to thrive in adult (Acute) Palliative care encounter (Acute) ACP (advance care planning) (Acute) Constipation (Acute) Urinary retention (Acute) Hypokalemia (Acute) Delirium (Acute) Facial droop (Acute) Cerebral palsy (Acute) Gait instability (Acute) Dysarthria (Acute) Pyuria (Acute) Tubular adenoma (Acute ~01/2023) Medical History History of head injury (~1988) Vitamin A deficiency Strabismus GERD (gastroesophageal reflux disease) Hyperlipidemia Arthritis of spine Osteopenia Obesity Urinary incontinence Prediabetes Club foot History of adenomatous polyp of colon History of cerebral palsy Surgical History History of colonoscopy with polypectomy (~01/2023) 2022 2011 2006 Leg - childhood Social History/Home Situation: Lives with in a private home and 4 steps to enter with rails on both sides. Has community supports in place. Equipment Owned/DME: FWW Subjective: At tail end of her prayer with the rosary on her hands when PT came in. Verbalized wanting to take insulin which DAWIT Godoy stated that she has been fixated about since early today. Nurse Karen aware. Objective: General Observation: Resting in bed. Mental Status: Alert and oriented as to person and place. Focus impaired, requires frequent redirection to tasks and to conversation topic. Word finding difficulty, mild expressive aphasia noted. Pain: Denies pain Vital Signs: Closely monitored by nursing staff ROM: Right Upper Extremity: Shoulder Flexion lacks the last 25% of AROM. Shoulder abduction lacks the last 25% of AROM. Elbow flexion WFL. Wrist flexion WFL. Functional opening and closing of hand WFL. Left Upper Extremity: Shoulder Flexion lacks the last 25% of AROM. Shoulder abduction lacks the last 25% of AROM. Elbow flexion WFL. Wrist flexion WFL. Functional opening and closing of hand WFL. Right Lower Extremity: Hip flexion lacks the last 25% of AROM. Hip abduction lacks the last 25% of AROM. Knee flexion 30 degrees to 80 degrees. Knee extension -30. Ankle dorsiflexion -20 degrees to neutral only. Ankle plantarflexion -20 degrees to 40 degrees. Left Lower Extremity: Hip flexion lacks the last 25% of AROM. Hip abduction lacks the last 25% of AROM. Knee flexion 30 degrees to 80 degrees. Knee extension -30. Ankle dorsiflexion to neutral only. Ankle plantarflexion WFL. STRENGTH: Right Upper Extremity: Shoulder flexors 3-/5. Shoulder abductors 3-/5. Elbow flexors 4-/5. Elbow extensors 4-/5. Finance Associate strong. Left Upper Extremity: Shoulder flexors 3-/5. Shoulder abductors 3-/5. Elbow flexors 4-/5. Elbow extensors 4-/5. Finance Associate strong. Right Lower Extremity: Hip flexors 3-/5. Hip abductors 3-/5. Knee flexors 3-/5. Knee extensors 3-/5. Ankle dorsiflexors 3-/5. Ankle plantarflexors 3-/5. Left Lower Extremity: Hip flexors 3-/5. Hip abductors 3-/5. Knee flexors 3-/5. Knee extensors 3-/5. Ankle dorsiflexors 3-/5. Ankle plantarflexors 3-/5. Bed Mobility/Transfers: Moderate verbal and tatile cues given for movement sequence, safety, and AD management Rolling minimal assist Sit to stand contact guard assist of 2 coming from bedside chair Stand to sit contact guard assist of 2 onto bedside commode Bedside commode to edge of bed contact guard assist of 2 onto bedside commode Scoot up in bed moderate assist of 2 (MANAGER BUSINESS MANAGEMENT Jayne assisted) Gait: 30 feet from bedside to hallway. 30 feet from hallway back to bedside. Used FWW. Needed maximal tactile and verbal cueing to B legs for movement sequence and to minimize adductor spasticity. No LOB. No shortness of breath. Balance: Static Sitting: Good Dynamic Sitting: Fair Static Standing: Fair Dynamic Standing: Poor Special Tests: Mobility Limitations Standardized Measure [facility] AM-PAC 6 clicks Basic Mobility Inpatient Short Form: Raw Score: 9 CMS Score: 81% deficit Informed Consent/Education: Patient was instructed in purpose of PT consult and plan of care. Agreeable to proceed with established PT POC to achieve personal goals. ASSESSMENT: Patient continues to demonstrate functional mobility and cognitive decline requiring assistance of 2 for all transfers. Ambulation training with therapy only. Noticeably calmer this time but comparatively weaker compared to hospital days preceding transfer to [facility]. Could not maintain static standing safely, flopped onto bed with PT and ndearly slid off edge during attempt at initiating mobility assessment. Needed moderate to maximal assistance sitting up in bed. New onset drooling noted. Patient presents with clinical signs and symptoms consistent with current/admitting diagnoses that have resulted to mobility limitations, gait instability, generalized weakness, and overall ADL decline as demonstrated by the following impairment level findings: 1. Decreased strength to B UE/LE major muscle groups with L weaker than R 2. Impaired sitting/standing balance 3. Impaired activity tolerance 4. Limitation of joint range of motion in B UE/LE as above 5. 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 Impaired safety awareness Impairments are contributing to the following functional limitations: 1. Decline in bed mobility skills 2. Decline in transfer skills 3. Difficulty with ambulation without assistive device and physical assistance 4. Increased completion time for mobility ADL performance 5. Increased risk for falls 6. Difficulty with managing steps alone safely Patient is assessed as a 31975 moderate complexity based on the following: History: 72-year-old female with past medical history as indicated above Examination: Demonstrable impairment in strength, balance, and mobility level with underlying impairments and functional limitations as exhibited above as well as deficit score of 81% utilizing the [facility] Mobility Inpatient Short Form Presentation: Evolving Decision Makin moderate complexity Goals: Goals X1 week 1. Supine-Sit independent 2. Sit-Supine independent 3. Sit-Stand independent 4. Stand-Sit independent with FWW 5. Bed-Chair independent with FWW 6. Chair-Bed independent with FWW 7. Independent gait on level surface with use of FWW for at least 150 feet without report of pain nor dyspnea 8. Independent stair negotiation while holding onto B rails for at least 4 steps without report of pain nor dyspnea 9. Independent with home exercise program 10. Good static and dynamic standing balance/tolerance Plan of Care/Treatment Plan: 1-2x/day, 7 days/week x 1 week. Plan of care has been reviewed with the ORTHOPEDIC MECHANIC providing the service under Physical Therapy direction. Continue with Physical Therapy intervention for pain management as needed, strengthening, bed mobility, transfers, gait, stairs, balance training, and use of assistive device. DISCHARGE RECOMMENDATIONS: [] Home with no services [] [] Home with services [specify] [] Home with outpatient PT [] [X] SNF for continued rehabilitation. Patient will benefit [facility] for continued skilled physical therapy services in order to progress mobility level, strength, and balance in preparation for a safe discharge to home. [] [facility] [] [] SNF versus LTC based on ability to participate and progress [] TREATMENT CODE/TIME: 08342 x 25 minutes for 1 unit beginning at 15:20 PM. Thank you for the opportunity to participate in the care of this patient. Ramila Richardson PT, DPT, CLT [facility] [place], [place]
--- NOTE | 2023-08-18 17:28 | CHAPLAIN ---
Mellisa mentioned to Dr. Handy, from Palliative Care, that she would like bread for communion. Dr. Handy then asked if she'd like the duct cleaner to bring her communion, and Mellisa said yes. Fr. Watts stopped by this evening to give Mellisa communion and offer her anointing of the sick. Mellisa asked for rosary beads the other day and said she was raised Oriental Orthodox. She was trying to nap in bed when I visited earlier so I didn't stay long.
--- NOTE | 2023-08-18 18:12 | PDOC.CMPRO ---
Date of service: 08/18/23 Time of Service: 18:12 Care Management Progress Note Progress Note Text Progress Note Text: S/O: Mellisa was lying in bed when CM met with her today. CM explained that Mellisa would be transitioning to swingbed status today, for continued rehab in order for her to return to her baseline functional status. Per reports from her brother and community development manager, Mellisa was able to function well at home prior to this hospitalization. She met with the Psychiatrist, who made recommendations for med changes, and Mellisa's cognitive functioning has improved. She does require more physical rehab, and increased cognitive functioning in order for her to return to her baseline, therefore she will transition to SWB 1, and will work with PT and OT daily. Mellisa is agreeable to remaining at [facility] for her rehab. CM spoke to Alyssa from [facility] today, who has scheduled a hearing for emergency guardianship for 08/22/22 at 11:30am. CM will not be able to attend; Alyssa stated that it is optional for CM, and just a courtesy, as [facility] is involved with Mellisa's plan of care. CM informed AYE Conde, about the meeting next week, and encouraged her to attend. CM will continue to follow. A: Mellisa is a 72 year old female admitted to [facility] on 08/02/23 for failure to thrive. P: Mellisa will enter SWB 1 today for continued rehab with PT/OT to progress toward her goals and return to her baseline level of functioning. CM will continue to inquire about short term rehab beds as they become available. Mellisa's brother is seeking guardianship to help support Mellisa with disposition planning as well as buttermilk drier operator NIRAJ. CM will continue to follow.
--- NOTE | 2023-08-18 18:13 | CMSCP_ITS ---
Date of service: 08/18/23 Time of Service: 18:13 Swingbed Plan of Care Activites/Discharge Plan of care: SWING BED PROGRAM ACTIVITIES/DISCHARGE PLAN OF CARE ACTIVITIES PLAN Date: 08/18/23 Identified Need: Life enrichment for extended hospitalization/SNF stay while Mellisa continues to rehabilitate. Intervention/Plan: Cart activity items, as appropriate for Mellisa's level of functioning, such as busy blankets and music. Visits with family, members of Mellisa's care team, and the Press Supervisor bring Mellisa radha and comfort as well. Initials KM DISCHARGE PLAN Date: 08/18/23 Identified Need: Strengthening and independence with functional mobility, as well as an increase in her cognitive functioning. Intervention/Plan: Mellisa will work with PT daily, and OT as consulted, in order to progress toward her goals of functional independence with mobility. Mellisa's care team will follow the medication recommendations made by the consulting psychiatrist, which appear to be helping improve her cognitive functioning. Initials ANANYA
--- NOTE | 2023-08-18 18:27 | CMSA_ITS ---
Date of service: 08/18/23 Time of Service: 18:27 SB Psychosocial/Act. Assmt Hospital Admission Admission Date: 08/02/23 Admission From:: [facility] Diagnosis:: Failure to Thrive Swing Bed Admission Swing Bed Admit Date:: 08/18/23 Swing Bed Level of Care: Level 1/SNF Social Supports PREVIOUS FUNCTIONAL STATUS/SOCIAL/FAMILY SUPPORTS:: Mellisa lives in [facility] with her , Curtis. Both Mellisa and Curtis has support from [facility], as they are both part of the [employer] program. Per Amaya, her [employer] therapeutic case manager, Mellisa is independent with ADL's at baseline. Prior to Admission Living Arrangements/Environment Prior to Admission:: Home with support from her , Curtis, as well as support from her community development worker, Amaya Jenkins [facility]. 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 [employer] case management Interests Crafts:: crocheting Present Functional Status Physical Abilities:: Limited; working with PT/OT Cognitive:: Limited; followed by consulting Psychiatry Communication:: Limited due to cognition Sensory Systems: Intact Behavior:: Calm, cooperative Medical History PAST MEDICAL HISTORY/PAST SURGICAL HISTORY:: All Active Problems Diarrhea (Acute) Encephalopathy acute (Acute) Palliative care patient (Acute) Discharge planning issues (Acute) Altered mental status (Acute) Ataxia (Acute) UTI (urinary tract infection) (Acute) Risk for falls (Acute) On deep vein thrombosis (DVT) prophylaxis (Acute) Failure to thrive in adult (Acute) Palliative care encounter (Acute) ACP (advance care planning) (Acute) Constipation (Acute) Urinary retention (Acute) Hypokalemia (Acute) Delirium (Acute) Facial droop (Acute) Cerebral palsy (Acute) Gait instability (Acute) Dysarthria (Acute) Pyuria (Acute) Tubular adenoma (Acute ~01/2023) Medical History History of head injury (~1988) Vitamin A deficiency Strabismus GERD (gastroesophageal reflux disease) Hyperlipidemia Arthritis of spine Osteopenia Obesity Urinary incontinence Prediabetes Club foot History of adenomatous polyp of colon History of cerebral palsy Surgical History History of colonoscopy with polypectomy (~01/2023) 2022 2011 2006 Leg - childhood Past Psychiatric Treatment:: Limited information; Brother reports remote history of psychiatric hospitalization. Admission Data Reason for Swing Bed Admission:: Continued rehab while awaiting SNF bed availability. Mellisa's brother has applied for guardianship to help support discharge planning and obtain buttermaker helper NIRAJ for care home planning needs. Mellisa will work with PT daily and OT as consulted to improve her functional mobility. Discharge Plan:: Mellisa will return home with new services, if she meets her goals with PT/OT vs transition to SNF for continued rehab once a bed becomes available. Assessment: Mellisa will remain in SWB1 while continuing her rehabilitation, progressing toward her goals with PT/OT. CM will continue to seek placement in a SNF for short term vs care home care, depending on her progression with PT, as well as her cognitive ability. Her brother is seeking guardianship to support her disposition and buttermaker helper planning needs. Retail Special Event Associate: Apryl Germain Date Assessment was completed:: 08/18/23
--- NOTE | 2023-08-18 20:44 | PCPN_ITS ---
Date of service: 08/18/23 Time of Service: 15:14 Assessment and Plan Assessment and plan (1) ACP (advance care planning): Status: Acute (2) Encephalopathy acute: Status: Acute (3) Palliative care patient: Status: Acute (4) Discharge planning issues: Status: Acute (5) Ataxia: Status: Acute Subjective Subjective Interval history since last seen: Mellisa Mejia is a 72-year-old woman from [facility] in [place] with a history of cerebral palsy and mild developmental delay. Around July 10, 2023 she developed an encephalopathy over about 48 hours resulting in debilitation including loss of ability to communicate, possible hallucinations, unable to walk or feed herself. See previous palliative care notes and hospitalist notes for additional information. She is currently on swing bed status awaiting placement. Hospital team referral reports that she is slowly becoming more appropriate by interactive with others around her. I met with her today, spoke with both hospitalist team, reviewed CLIENT EXPERIENCE ADMINISTRATOR/PT/OT notes and discussed with case management Encephalopathy: Hospital team all agree that she is very slowly improving. Able to speak in complete sentences. Usually able to answer simple sentences.Not yet able to efficiently feed herself. She is able to walk short distances using a walker with maximal tactile and verbal cueing. PT notes that she is still weaker than she was prior [facility]. Etiology of her encephalopathy is still unclear. Reportedly her brother Lamberto reported intriguing history of similar episode over 20 years ago which completely cleared on its own over time. Neurology consult suggested LP to complete workup. Surya is felt to not have capacity to make medical decisions for the patient. Patient's Brother Lamberto Worley has agreed to be surrogate. Hospital staff and risk-management interpreted statute to read that he actually needed to have guardianship to be able to make medical decisions for the patient. Decision on whether or not to proceed with an LP has been put on hold until he has guardianship. Assessment/plan: Patient is showing slow improvement. I have not seen her in a week and her speech, attendance, ability to follow directions is markedly improved. She will continue PT/OT on swing bed status until placement is found. Advance care planning: As discussed above, for now brother Lamberto is acting as her medical decision making surrogate. Because Mellisa has not had capacity to make even simple decisions for month, he has been asked to petition court to become Mellisa's guardian (unclear if he is applying to be private or public guardian). My review of available information from [facility], a medical surrogate can make DNR/COLST decisions, as long as they follow the outlined legal process outlined in statute. [facility] also states that no restrictions (exist) for all other medical decisions . I am unclear on how to interpret this (does this mean that Lamberto can make Meltus clinical decisions for Mellisa without guardianship, or and that current statute is unclear on this?. If req uested, I can consult with the [place] [facility] team to ask for clarification over whether Lamberto needs to be granted guardianship before making medical decisions for Mellisa (i.e., decisions regarding topics other than DNR/COLST orders). Mellisa is a full code at this time and her CODE STATUS has not been an issue thus far. Note that there is also a different pathway for adults with developmental disabilities . Mellisa has never required a guardian in the past and reportedly previous to this illness had capacity to make her own decisions. She receives support and case management from [facility] for mental health issues. So I do not think that this separate pathway pertains to her. I did attempt to contact Lamberto today and left a message. I am not sure anyone from the palliative care team has contacted him prior to this. I will try again early next week. Exam Narrative Exam Narrative: Mellisa is awake in her bed holding smith archibald. She smiles at me as I enter and talks with me. Initially tells me she is in a mu-ism. I told her she was in the hospital. Several minutes later, I again asked her where she is and she told me she is in a mu-ism. I again cued her she was in the hospital. Several minutes later I again asked her where she was and she told me she was in the hospital. She follows simple directions (please lift up your hands). She tells me that Agustina was recently, otherwise not able to tell me month, day. She cannot tell me why she is in the hospital. Her speech is more fluid. She maintains better eye contact. She is much less distractible. Objective Last Vital Signs Temp 36.0 C L 08/18/23 15:19 Pulse 81 08/18/23 15:19 Resp 16 08/18/23 15:19 BP 107/73 08/18/23 15:19 Pulse Ox 93 08/18/23 15:19
[2023-08-18] MEDS: traZODone 50 MG TAB 75 MG PO (21:08)
[2023-08-18] MEDS: Gabapentin 100 MG CAP PO (21:09)
[2023-08-18] MEDS: Melatonin 3 MG TAB PO (21:09)
[2023-08-18] MEDS: OLANZapine 5 MG TAB PO (21:09)
[2023-08-18] MEDS: Docusate Sodium 100 MG CAP PO (21:09)
[2023-08-18] MEDS: Mirtazapine 15 MG TAB PO (21:10)
[2023-08-19 07:41] VITALS: BP 103/69; PULSE 89; RESP 17; TEMP 36.6; O2SAT 93
[2023-08-19] MEDS: Polyethylene Glycol 3350 17 GM PACKET PO (07:43)
[2023-08-19] MEDS: Docusate Sodium 100 MG CAP PO ×2 (07:43→21:48)
[2023-08-19] MEDS: Protein Nutritional Supplement 16 GM 1 OUNCE PACKET PO ×2 (07:43→21:47)
[2023-08-19] MEDS: Nystatin 500000 UNITS/5 ML SUSP 5ML CUP PO (07:43)
[2023-08-19] MEDS: OLANZapine 2.5 MG TAB PO (07:43)
[2023-08-19] MEDS: Cyanocobalamin 500 MCG TAB 1000 MCG PO (07:43)
[2023-08-19] MEDS: Gabapentin 100 MG CAP PO ×2 (07:43→21:48)
--- NOTE | 2023-08-19 10:00 | PT.INTREAT ---
PT Notes Visit Reasons: Altered Mental Status Inpatient Physical Therapy Treatment Note [facility] Date: [] PRECAUTIONS:[] OBJECTIVE: ? Direct Treatment Time: [25] min. Total Treatment Time: [25] min. Units Time Duration Manual Therapy (19683) [] [] min. Therapeutic Procedures (91756) [] [] min. Neuromuscular (80226) [] [] min. Therapeutic Activity (95666) [2] [25] min. [] [] [] min. [] [] [] min. Therapeutic Activities (57470i[]): Direct one-on-one instruction in dynamic activities to improve functional performance. ? BED MOBILITY/TRANSFERS? Rolling L/R: [] Supine-sit: Modx2 ? Sit-supine: [] ? Sit-stand: Min/modx2? Stand-sit: Minx2 ? Bed-Chair: Modx2 ? Provided skilled cues and instruction on performance and technique throughout. Gait Training (88462w[]): Direct one-on-one instruction and skilled instruction in: [X] employing an assistive device [] modified weight-bearing status [X] movement sequencing [] turning and movement with proper form [X] Provided verbal cues for equipment management and technique [] Provided instruction in gait pattern [] Patient education regarding pacing and breathing techniques to maximize activity tolerance? GAIT? Assistive Device: FWW ? Weight bearing: Full Assist: x2? Distance:? 2 steps to commode and 5 steps to chair from commode. Pt had to take a seated rest and required vc's for unsafe timing of sitting before she had reached the chair.? ASSESSMENT:? Pt required max cues for navigation of walker and proper gait with ambulation. Pt was somewhat unsafe trying to sit when there was nothing behind her. PLAN: Cont as per PT POC. TREATMENT CODE/TIME: 9:25-10 (25) TA
[2023-08-19] MEDS: Enoxaparin 40 MG/0.4 ML SYR SC (14:24)
[2023-08-19] MEDS: Mirtazapine 15 MG TAB PO (21:47)
[2023-08-19] MEDS: OLANZapine 5 MG TAB PO (21:47)
[2023-08-19] MEDS: Melatonin 3 MG TAB PO (21:48)
[2023-08-19] MEDS: traZODone 50 MG TAB 75 MG PO (21:48)
[2023-08-20 07:19] VITALS: BP 101/65; PULSE 80; RESP 16; TEMP 35.5; O2SAT 96
[2023-08-20] MEDS: Nystatin 500000 UNITS/5 ML SUSP 5ML CUP PO ×3 (07:32→21:45)
[2023-08-20] MEDS: Gabapentin 100 MG CAP PO ×2 (07:32→21:44)
[2023-08-20] MEDS: OLANZapine 2.5 MG TAB PO (07:32)
[2023-08-20] MEDS: Docusate Sodium 100 MG CAP PO ×2 (07:32→21:44)
[2023-08-20] MEDS: Polyethylene Glycol 3350 17 GM PACKET PO (07:33)
[2023-08-20] MEDS: Protein Nutritional Supplement 16 GM 1 OUNCE PACKET PO ×3 (07:33→21:45)
[2023-08-20] MEDS: Cyanocobalamin 500 MCG TAB 1000 MCG PO (07:33)
--- NOTE | 2023-08-20 10:22 | PT.INTREAT ---
PT Notes Visit Reasons: Altered Mental Status Inpatient Physical Therapy Treatment Note [facility] Date: 08/20/23 PRECAUTIONS: OBJECTIVE: ? Direct Treatment Time: [20] min. Total Treatment Time: [20] min. Units Time Duration Manual Therapy (36584) [] [] min. Therapeutic Procedures (86976) [] [] min. Neuromuscular (77849) [] [] min. Therapeutic Activity (63070) [1] [20] min. [] [] [] min. [] [] [] min. Therapeutic Activities (81757o[]): Direct one-on-one instruction in dynamic activities to improve functional performance. ? BED MOBILITY/TRANSFERS? Sit-stand: Min/Modx2? Stand-sit: Modx2? Modx3 to sit back in chair? Provided skilled cues and instruction on performance and technique throughout. ? GAIT? Assistive Device: FWW? Weight bearing: Full Assist: Marching in place standing to fatigue ? Therapeutic Exercises (73957l[]): Direct one-on-one instruction in therapeutic exercises to develop strength, endurance, range of motion and flexibility. ? Exercises ? Seateed rowingx 10 Seated shoulder flexion x10 ASSESSMENT:? Pt was in good spirits and tolerated today's session fairly well. PLAN: Cont as per PT POC. TREATMENT CODE/TIME: 10-10:20 (20) TA
[2023-08-20] MEDS: Enoxaparin 40 MG/0.4 ML SYR SC (14:35)
[2023-08-20] MEDS: Mylanta Suspension 30 ML CUP PO (16:22)
[2023-08-20] MEDS: Ondansetron O.D.T. 4 MG TABEF PO (18:39)
[2023-08-20] MEDS: Melatonin 3 MG TAB PO (21:44)
[2023-08-20] MEDS: traZODone 50 MG TAB 75 MG PO (21:44)
[2023-08-20] MEDS: OLANZapine 5 MG TAB PO (21:44)
[2023-08-20] MEDS: Mirtazapine 15 MG TAB PO (21:44)
[2023-08-21] MEDS: Protein Nutritional Supplement 16 GM 1 OUNCE PACKET PO ×2 (07:41→19:51)
[2023-08-21] MEDS: Nystatin 500000 UNITS/5 ML SUSP 5ML CUP PO ×2 (07:41→19:51)
[2023-08-21] MEDS: Polyethylene Glycol 3350 17 GM PACKET PO (07:41)
[2023-08-21] MEDS: Cyanocobalamin 500 MCG TAB 1000 MCG PO (07:42)
[2023-08-21] MEDS: Gabapentin 100 MG CAP PO ×2 (07:42→19:52)
[2023-08-21] MEDS: Docusate Sodium 100 MG CAP PO ×2 (07:42→19:52)
[2023-08-21] MEDS: OLANZapine 2.5 MG TAB PO (07:42)
--- NOTE | 2023-08-21 10:09 | PTTR_ITS ---
PT Notes Visit Reasons: Altered Mental Status Date: 08/21/2023 PRECAUTIONS: Fall. Standard. Activity as tolerated. Orthopedic shoes on when OOB. SUBJECTIVE: pt in recliner sleeping when approached for therapy, pt left leg internally rotated, pleasant and agreeable when awake, having a hard time staying awake OBJECTIVE: in recliner, agreed to participating with therapy ? PAIN: No reports of pain offered. BED MOBILITY/TRANSFERS? Rolling L/R: Max A Supine-sit: Mod A? Sit to supine: Max A ? Sit-stand: Mod/max A? Stand-sit: Mod/max A? ?Repositioning in recliner moving up max A ? Provided skilled cues and instruction on performance and technique throughout. Therapeutic Activities 55335 25mins: instruction in dynamic activities with one on one patient contact by the provider to improve functional performance?as follows: sit to stand mod/max A 10x Static standing weight shifting Static sitting without back rest Recliner mobility max A going up, Recliner repositioning for proper body alignment, comfort safety and cushion set up for prevention of pressure sore. ASSESSMENT:? pt not able to stay awake enough to follow instructions, pt pushing walker too far ahead during static standing requiring tactile and manual assist to stay upright, conversation with nurse Kenny about repositioning LLE to neutral using blanket rolls for proper alignment with LE. PLAN: Continue to work on improved bed mobility and ambulation control. TREATMENT CODE/TIME: 66223e0 25mins (9:40-10:05am)
[2023-08-21 10:13] VITALS: BP 94/64; PULSE 95; RESP 16; TEMP 37.2; O2SAT 93
--- NOTE | 2023-08-21 12:56 | PHA.REVIEW2 ---
Pharmacy Admission Review Admission Clinical Review Admission Pharmacy Review: (Updated 08/19/23 @ 00:01 by CYNTHIA MEHTA) Diarrhea (Acute) Encephalopathy acute (Acute) Palliative care patient (Acute) Discharge planning issues (Acute) Ataxia (Acute) On deep vein thrombosis (DVT) prophylaxis (Acute) ACP (advance care planning) (Acute) Urinary retention (Acute) Delirium (Acute) fluoxetine Adverse Reaction (Unverified 07/11/23 00:03) Nausea Resuscitation Status Full Code Height 4 ft 8 in Weight 63.2 kg Comments Comments/Follow Ups: Watch VS, labs and for med changes. Pharmacy Admission Review Renal Dosing Medications needing adjustments: Reviewed (Crcl ~50 mL/min current meds okay) Anticoagulation DVT Prophylaxis: Reviewed Medications: Enoxaparin Opiate Usage Evaluate Pain Scale/Pains Meds: N/A Relevant Labs Electrolytes, C-Reactive P, ESR: N/A DM Control DM Control: N/A Cardiac Review BP, HR, EF%: Reviewed (BP has been low to normal and HR has normal to high so far this admission.) QTc Review QTc: Reviewed (QTc was 439 on 08/15/23) IV to PO Switch IV Medications: Reviewed Home Meds Home Med List reviewed: Reviewed Current Meds Current Medication Order Review: Reviewed Comments Comments/Follow Ups: Watch VS, labs and for med changes.
[2023-08-21] MEDS: Enoxaparin 40 MG/0.4 ML SYR SC (13:57)
[2023-08-21] MEDS: OLANZapine 5 MG TAB PO (22:10)
[2023-08-21] MEDS: Melatonin 3 MG TAB PO (22:10)
[2023-08-21] MEDS: Mirtazapine 15 MG TAB PO (22:10)
[2023-08-22 07:23] VITALS: BP 93/60; PULSE 93; RESP 22; TEMP 37.2; O2SAT 93
[2023-08-22] MEDS: Cyanocobalamin 500 MCG TAB 1000 MCG PO (09:22)
[2023-08-22] MEDS: OLANZapine 2.5 MG TAB PO (09:23)
[2023-08-22] MEDS: Gabapentin 100 MG CAP PO ×2 (09:23→20:40)
[2023-08-22] MEDS: Protein Nutritional Supplement 16 GM 1 OUNCE PACKET PO (09:23)
[2023-08-22] MEDS: Polyethylene Glycol 3350 17 GM PACKET PO (09:23)
[2023-08-22 10:29] VITALS: BP 113/74; PULSE 106; TEMP 37.5
--- NOTE | 2023-08-22 10:31 | PT.INTREAT ---
PT Notes Visit Reasons: Altered Mental Status Date: 08/22/2023 PRECAUTIONS: Fall. Standard. Activity as tolerated. Orthopedic shoes on when OOB. SUBJECTIVE: pt in recliner when approached for therapy this morning, pt awake and was trying to reach her water bottle when this therapist arrived in pt room, pt awake, able to answer questions and is agreeable to participating with therapy. pt alert and awake when approached for therapy this afternoon, pt able to verbalize approval to participate with therapy. OBJECTIVE: in recliner, agreed to participating with therapy (am/pm) ? PAIN: No reports of pain offered. BED MOBILITY/TRANSFERS? Rolling L/R: not assessed Supine-sit: not assessed? Sit to supine: not assessed? Sit-stand: CGA for tactile cue ?and foot block ? Stand-sit: CGA ?Repositioning in recliner moving up mod A ? Provided skilled cues and instruction on performance and technique throughout. Therapeutic Activities 45473 30mins (am) 09338 25mins (pm): instruction in dynamic activities with one on one patient contact by the provider to improve functional performance?as follows: sit to stand CGA A 10x Static standing weight shifting 3mins increments 5x Static sitting without back rest 2mins increments 5x Recliner mobility max A going up, 3x min/mod A Recliner repositioning for proper body alignment, comfort safety and cushion setup for prevention of pressure sore. Standing marching with max tactile cue for BLE elevation, and guidance with FWW to prevent AD from getting too far. Standing with pt holding therapist hand while weight shifting/180* turns CW/CCW ASSESSMENT:? pt very responsive today and was able to initiate BUE push up during upward movement in recliner, pt able to shift weight around for recliner repositioning, pt able to weight shift during standing very stable and had no episodes of LOB. pt able to replicate activity this morning, pt able to verbalize request for drinking rey regan in between rest breaks. PLAN: Continue to work on improved bed mobility and ambulation control. TREATMENT CODE/TIME: [id number] 30mins (9:00-9:30am) 22180t8 25mins (1:15-1:30pm)
[2023-08-22 12:42] LABS: Abs Immature Grans 0.11 10^3/uL (0.0-0.06); Absolute Eosinophil Count 0.19 10^3/uL (0.0-0.7); Basophils % 0.4; HCT 39.5 % (36.0-46.0); HGB 12.8 g/dL (11.2-15.7); Immature Grans % 0.6; Lymphocytes % 5.8; MCH 29.5 pg (27.0-33.0); MCHC 32.4 % (32.0-36.0); MCV 91 fL (80-95); MPV 9.5 fL (8.0-11.0); Monocytes % 6.6; Neutrophils % 85.6; Platelet Count 352 10^3/uL (130-400); RBC 4.34 10^6/uL (3.93-5.22); RDW 13.5 % (11.7-14.6); RDW-SD 45.7 fL; WBC 18.77 10^3/uL (4.4-10.8)
[2023-08-22 12:43] LABS: Absolute Basophil Count 0.08 10^3/uL (0.0-0.2); Absolute Lymphocyte Count 1.09 10^3/uL (1.2-3.4); Absolute Monocyte Count 1.24 10^3/uL (0.1-0.8); Absolute Neutrophil Count 16.07 10^3/uL (1.2-6.7)
[2023-08-22 12:46] LABS: Anion Gap 8.1 mmol/L (3-11); BUN 28 mg/dL (7-18); CO2 26.9 mmol/L (21.0-32.0); CREATININE 0.6 mg/dL (0.55-1.02); Chloride 102 mmol/L (98-107); Estimated GFR 94.72 (mL/min/1.73m2); Glucose 152 mg/dL (74-106); Sodium 137 mmol/L (136-145)
[2023-08-22 12:47] LABS: Prothrombin Time 10.4 sec (9.1-11.1)
[2023-08-22] MEDS: Pantoprazole 40 MG TABCR PO ×2 (12:54→20:40)
[2023-08-22 15:21] VITALS: BP 104/70; PULSE 103; RESP 18; TEMP 37.6; O2SAT 93
--- NOTE | 2023-08-22 17:04 | CHAPLAIN ---
Mellisa seemed to be cheerful and was very pleasant when I stopped in. Dr. Handy asked me to leave a packet of information for Mellisa's brother, Lamberto, and I showed it to Mellisa and left it on the windowsill. Mellisa talked about what a good tolu her brother is and how he always looked out for her even though she is older. We asked the CRITICAL CARE REGISTERED NURSE to help Mellisa boost up in the chair. Lamberto has a court date coming up to get legal guardianship of Mellisa. Last week Mellisa asked for communion and Fr. Watts brought her communion and offered prayers with her.
--- NOTE | 2023-08-22 17:30 | DI.RAD_ITS ---
Exam(s) XR CHEST 2V PA LATERAL EXAM: XR CHEST 2V PA LATERAL CLINICAL HISTORY: wheezing, elevated white count TECHNIQUE: 2D digital imaging was performed. COMPARISON: CT CT CHEST/ABD/PEL W from 11/22/2019 CR,XR XR PORTABLE CHEST AP from 08/08/2023 FINDINGS: Moderate to large size hiatal hernia with air-fluid level. HEART: Normal size. Aorta: Not dilated. PULMONARY VASCULATURE: Normal. LUNGS: Streaky densities at the left lung base which could indicate atelectasis versus infiltrate.. Minimal blunting of the left costophrenic angle. PLEURAL SPACE: No pleural effusion or pneumothorax. BONE:Unremarkable for age. Soft tissues: Unremarkable. IMPRESSION: Streaky densities at left lung base may represent atelectasis versus infiltrate. Torsion of tiny lef t pleural effusion. hiatal hernia. DATA REPOSITORY: RADIATION DOSE DELIVERED:
[2023-08-22] MEDS: Sucralfate 1 GM TAB PO ×2 (17:35→20:42)
[2023-08-22] MEDS: Albuterol 2.5 MG/3 ML INH SOLN VIAL UPD (17:41)
[2023-08-22 17:42] VITALS: TEMP 37.8
[2023-08-22] MEDS: Acetaminophen Solution 650 MG/20.3 ML CUP PO (18:45)
[2023-08-22] MEDS: Mirtazapine 15 MG TAB PO (20:40)
[2023-08-22] MEDS: OLANZapine 5 MG TAB PO (20:40)
[2023-08-22] MEDS: Melatonin 3 MG TAB PO (20:41)
--- NOTE | 2023-08-22 21:49 | W.PM.PROGNOT ---
Date of Service Date of service: 08/22/23 Time of Service: 21:49 Assessment and Plan Assessment and plan (1) Pneumonia: Status: Acute Assessment and plan: Suspect possibly due to aspiration. She is oxygenating well on room air. Will trial outpatient treatment with Augmentin. (2) Upper GI bleed: Status: Acute Assessment and plan: 1 episode of vomiting. Lan tested positive. Hemoglobin and hematocrit are stable. Will stop Lovenox for DVT prophylaxis as she is on swing bed status. Start Protonix 40 p.o. twice daily and Carafate. GI consultation outpatient or sooner if symptoms continue. Will check CBC in a.m. Subjective Subjective Patient reports: vomiting Interval history since last seen: Patient with 1 episode of vomiting reported as coffee ground. Heema test positive. Exam Narrative Exam Narrative: no acute distress Head is atraumatic oral mucosa slightly dry Neck with no JVD Respirations are even and unlabored, scattered coarse breath sound no wheezing noted Cardiovascular regular rate and rhythm pink warm dry well-perfused no peripheral edema Abdomen is soft Moves all her extremities Neurologic she is awake alert oriented to person and place she is following commands and appropriate Objective Last Vital Signs Temp 37.8 C H 08/22/23 17:42 Pulse 103 H 08/22/23 15:21 Resp 18 08/22/23 15:21 BP 104/70 08/22/23 15:21 Pulse Ox 93 08/22/23 15:21 Laboratory Results - last 24 hr 08/22/23 12:30 WBC 18.77 H RBC 4.34 Hgb 12.8 Hct 39.5 MCV 91 MCH 29.5 MCHC 32.4 RDW 13.5 Plt Count 352 MPV 9.5 Immature Gran % 0.6 Neutrophils % 85.6 Lymphocytes % 5.8 Monocytes % 6.6 Eosinophils % 1.0 Basophils % 0.4 Nucleated RBC % 0.0 Absolute Neutrophils 16.07 H Absolute Lymphocytes 1.09 L Absolute Monocytes 1.24 H Absolute Eosinophils 0.19 Absolute Basophils 0.08 PT 10.4 INR 1.0 Sodium 137 Potassium 4.0 Chloride 102 Carbon Dioxide 26.9 Anion Gap 8.1 BUN 28 H Creatinine 0.6 Est GFR (CKD-EPI 2020) 94.72 Glucose 152 H Calcium 9.0 Time Spent with Patient Time Spent with Patient: 25-34 minutes Time was spent: preparing to see the patient(eg.review tests), obtaining and/or reviewing separately otained hiistory, ordering medications,tests, procedures and indepentently interpreting results
[2023-08-22] MEDS: Amoxicillin 875/Clav. 125 TAB PO (22:14)
[2023-08-23 06:32] LABS: Abs Immature Grans 0.05 10^3/uL (0.0-0.06); Absolute Basophil Count 0.03 10^3/uL (0.0-0.2); Absolute Eosinophil Count 0.32 10^3/uL (0.0-0.7); Absolute Lymphocyte Count 2.11 10^3/uL (1.2-3.4); Absolute Monocyte Count 0.97 10^3/uL (0.1-0.8); Absolute Neutrophil Count 5.59 10^3/uL (1.2-6.7); Basophils % 0.3; Eosinophils % 3.5; HCT 36.3 % (36.0-46.0); Immature Grans % 0.6; Lymphocytes % 23.3; MCH 30.1 pg (27.0-33.0); MCHC 33.1 % (32.0-36.0); MCV 91 fL (80-95); MPV 9.7 fL (8.0-11.0); Monocytes % 10.7; Neutrophils % 61.6; Platelet Count 292 10^3/uL (130-400); RBC 3.99 10^6/uL (3.93-5.22); RDW 13.4 % (11.7-14.6); RDW-SD 45.2 fL; WBC 9.07 10^3/uL (4.4-10.8)
[2023-08-23 06:45] LABS: Anion Gap 6.8 mmol/L (3-11); BUN 18 mg/dL (7-18); CO2 29.2 mmol/L (21.0-32.0); CREATININE 0.6 mg/dL (0.55-1.02); Calcium 8.9 mg/dL (8.5-10.1); Chloride 102 mmol/L (98-107); Estimated GFR 94.72 (mL/min/1.73m2); Glucose 104 mg/dL (74-106); Potassium 3.5 mmol/L (3.5-5.1); Sodium 138 mmol/L (136-145)
[2023-08-23] MEDS: Polyethylene Glycol 3350 17 GM PACKET PO (08:05)
[2023-08-23] MEDS: Protein Nutritional Supplement 16 GM 1 OUNCE PACKET PO ×3 (08:05→20:20)
[2023-08-23] MEDS: Nystatin 500000 UNITS/5 ML SUSP 5ML CUP PO ×3 (08:06→20:20)
[2023-08-23] MEDS: Pantoprazole 40 MG TABCR PO ×2 (08:06→20:20)
[2023-08-23] MEDS: OLANZapine 2.5 MG TAB PO (08:07)
[2023-08-23] MEDS: Gabapentin 100 MG CAP PO ×2 (08:07→20:20)
[2023-08-23] MEDS: Docusate Sodium 100 MG CAP PO ×2 (08:07→20:20)
[2023-08-23] MEDS: Sucralfate 1 GM TAB PO ×4 (08:07→21:37)
[2023-08-23] MEDS: Amoxicillin 875/Clav. 125 TAB PO ×2 (08:08→20:20)
[2023-08-23] MEDS: Cyanocobalamin 500 MCG TAB 1000 MCG PO (08:08)
[2023-08-23] MEDS: Acetaminophen Solution 650 MG/20.3 ML CUP PO (09:42)
[2023-08-23 11:27] LABS: COVID-19 PCR Negative (Negative); Influenza A PCR Negative (Negative); Influenza B PCR Negative (Negative); RSV PCR Negative (Negative)
[2023-08-23 11:29] LABS: Source Nasopharynx
--- NOTE | 2023-08-23 11:49 | INPN_ITS ---
PT Notes Visit Reasons: Altered Mental Status Physical Therapy Swing Bed Level I Progress Note Date: 08/23/2022 Dates of Service: 08/20/2023 through 08/23/2022 PRECAUTIONS: Fall. Standard. Activity as tolerated. Orthopedic shoes on when OOB. SUBJECTIVE: Calm at start of session, was waving arms and trying to talk to the activity mat at end of session. Needed moderate to maximal verbal cueing throughout session. Agreeable to going for a walk. Charge Nurse Jennifer came in to swab patient's nose for COVID before start of walk. Objective: General Observation: In bed resting when PT came in. Mental Status: Able to follow single step commands. Alert but needed redirection and frequent cueing throughout session. Focus impaired, requires frequent redirection to tasks and to conversation topic. More able to verbalize appropriate responses. Pain: No verbal and non-verbal expression of pain received/observed.? Vital Signs: Closely monitored by nursing staff ROM: Right Upper Extremity: Shoulder Flexion lacks the last 25% of AROM. Shoulder abduction lacks the last 25% of AROM. Elbow flexion WFL. Wrist flexion WFL. Functional opening and closing of hand WFL. Left Upper Extremity: Shoulder Flexion lacks the last 25% of AROM. Shoulder abduction lacks the last 25% of AROM. Elbow flexion WFL. Wrist flexion WFL. Functional opening and closing of hand WFL. Right Lower Extremity: Hip flexion lacks the last 25% of AROM. Hip abduction lacks the last 25% of AROM. Knee flexion 30 degrees to 80 degrees. Knee extension -30. Ankle dorsiflexion -20 degrees to neutral only. Ankle plantarflexion -20 degrees to 40 degrees. Left Lower Extremity: Hip flexion lacks the last 25% of AROM. Hip abduction lacks the last 25% of AROM. Knee flexion 30 degrees to 80 degrees. Knee extension -30. Ankle dorsiflexion to neutral only. Ankle plantarflexion WFL. STRENGTH: Right Upper Extremity: Shoulder flexors 3-/5. Shoulder abductors 3-/5. Elbow flexors 4-/5. Elbow extensors 4-/5. Automotive Worker Foreman strong. Left Upper Extremity: Shoulder flexors 3-/5. Shoulder abductors 3-/5. Elbow flexors 4-/5. Elbow extensors 4-/5. Automotive Worker Foreman strong. Right Lower Extremity: Hip flexors 3-/5. Hip abductors 3-/5. Knee flexors 3-/5. Knee extensors 3-/5. Ankle dorsiflexors 3-/5. Ankle plantarflexors 3-/5. Left Lower Extremity: Hip flexors 3-/5. Hip abductors 3-/5. Knee flexors 3-/5. Knee extensors 3-/5. Ankle dorsiflexors 3-/5. Ankle plantarflexors 3-/5. Bed Mobility/Transfers: Moderate to maximal cues given for movement sequence, safety, and AD management for activities below. Rolling minimal assist Supine to sit moderate assist Sit to supine minimal assist of 2 Sit to stand minimal assist of 2. Emphasized instruction on pushing down on walker handles to try stand as tall as she is able for about 2 minutes x 1 rep. Stand to sit minimal assist of 2 Sit to supine minimal assist of 2 Scoot up in bed moderate assist of 2 Gait: 25 feet from bedside to hallway + 5 feet from wheelchair to bedside using FWW with PT maneuvering walker to reduce fall risk. DAWIT Mauricio helped with wheelchair followPatient with poor ability to manage AD at this time. Required tactile cueing to increase abduction on the L hip to minimize scissoring gait. Step height ang length asymmetric and highly unsafe. Balance: Static Sitting: Good Dynamic Sitting: Fair Static Standing: Fair Dynamic Standing: Poor THERA EX: Guided patient with performance of B hip abductor AROM and B UE AROM utilizing balloon in room which she greatly enjoyed. Special Tests: Mobility Limitations Standardized Measure [facility] AM-PAC 6 clicks Basic Mobility Inpatient Short Form: Raw Score: 9 CMS Score: 81% deficit Informed Consent/Education: Patient was instructed in purpose of PT consult and plan of care. Agreeable to proceed with established PT POC to achieve personal goals. ASSESSMENT: Continues to be more able to follow instructions and to be more engagable/redirectible. However, quality/pattern of gait remains unsafe--continues to scissor and continues to require assist of 2 to manage walker and to reduce fall risk. Will assess appropriateness of downgrading patient to using wheelchair as main mode of mobility. Needs moderate to maximal verbal cueing for movement sequence (initiation, completion and cessation). Patient demonstrates functional mobility and cognitive decline requiring assistance of 2 for all transfers. Ambulation training continues to be with therapy only. Patient continues to present with clinical signs and symptoms consistent with current/admitting diagnoses that have resulted to mobility limitations, gait instability, generalized weakness, and overall ADL decline as demonstrated by the following impairment level findings: 1. Decreased strength to B UE/LE major muscle groups with L weaker than R 2. Impaired sitting/standing balance 3. Impaired activity tolerance 4. Limitation of joint range of motion in B UE/LE as above 5. 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 Impaired safety awareness Impairments are contributing to the following functional limitations: 1. Decline in bed mobility skills 2. Decline in transfer skills 3. Difficulty with ambulation without assistive device and physical assistance 4. Increased completion time for mobility ADL performance 5. Increased risk for falls 6. Difficulty with managing steps alone safely Patient is assessed as a 42457 moderate complexity based on the following: History: 72-year-old female with past medical history as indicated above Examination: Demonstrable impairment in strength, balance, and mobility level with underlying impairments and functional limitations as exhibited above as well as deficit score of 65% utilizing the [facility] Mobility Inpatient Short Form Presentation: Evolving Decision Makin moderate complexity Goals: Goals X1 week 1. Supine-Sit independent NOT MET, DOWNGRADE TO CONTACT GUARD ASSIST OF 08/23/2023 2. Sit-Supine independent NOT MET, DOWNGRADE TO CONTACT GUARD ASSIST OF 08/23/2023 3. Sit-Stand independent NOT MET, DOWNGRADE TO CONTACT GUARD ASSIST OF 08/23/2023 4. Stand-Sit independent with FWW NOT MET, DOWNGRADE TO CONTACT GUARD ASSIST OF 08/23/2023 5. Bed-Chair independent with FWW NOT MET, DOWNGRADE TO CONTACT GUARD ASSIST OF 08/23/2023 6. Chair-Bed independent with FWW NOT MET, DOWNGRADE TO CONTACT GUARD ASSIST OF 08/23/2023 7. Independent gait on level surface with use of FWW for at least 150 feet without report of pain nor dyspnea NOT MET, DOWNGRADE TO CONTACT GUARD ASSIST OF 08/23/2023 FOR 75 [address] 8. Independent stair negotiation while holding onto B rails for at least 4 steps without report of pain nor dyspnea NOT MET, DOWNGRADE TO CONTACT GUARD ASSIST OF 08/23/2023 9. Independent with home exercise program NOT MET, DISCHARGE OF 08/23/2023 10. Good static and dynamic standing balance/tolerance NOT MET, DOWNGRADE TO FAIR OF 08/23/2023 Plan of Care/Treatment Plan: 1-2x/day, 7 days/week x 1 week. Plan of care has been reviewed with the COMPOSITE WORKER providing the service under Physical Therapy direction. Initiate Physical Therapy intervention for pain management as needed, strengthening, bed mobility, transfers, gait, stairs, balance training, and use of assistive device. -STRENGTHENING FOCUS: B hip abductors, trunk/hip extensors to minimize scissoring and allow for a safer gait pattern. DISCHARGE RECOMMENDATIONS: [] Home with no services [] [] Home with services [specify] [] Home with outpatient PT [] [X] SNF for continued rehabilitation. Patient will benefit from group home facility placement for continued skilled physical therapy services in order to progress mobility level, strength, and balance in preparation for a safe discharge to home. [] [facility] [] [] SNF versus LTC based on ability to participate and progress [] TREATMENT CODE/TIME: 75243 x 25 minutes for 2 units, 84177 x 14 minutes for 1 unit beginning at 10:23 AM. Thank you for the opportunity to participate in the care of this patient. Ramila Richardson PT, DPT, CLT [facility] [place], [place]
--- NOTE | 2023-08-23 14:59 | PT.INTREAT ---
Date of service: 08/23/23 Time of Service: 13:23 PT Notes Visit Reasons: Altered Mental Status Inpatient Physical Therapy Treatment Note [facility] Date: 08/23/2023 PRECAUTIONS: Fall, standard, activity as tolerated. Orthopedic shoes on for all OOB activity. 2 person assist for transfers. Ambulation only with therapy. SUBJECTIVE: Patient initially appears more cognitively clear. Calls this therapist Luh consistently. Upon seeing this clinician, patient begins moving to sit up. OBJECTIVE: Supine in bed, agreeable to therapy. ? PAIN: none reported or observed VITALS: monitored by nursing staff Therapeutic Activities ([id number]): Direct one-on-one instruction in dynamic activities to improve functional performance. ? BED MOBILITY/TRANSFERS? Rolling L/R: not assessed Supine-sit x3: min assist to maneuver legs out of bed, mod assist via handhold for patient to pull up against. Patient's seated balance is observed to be much improved over the last time this clinician saw this patient. ? Sit-supine x3: min assist to raise feet into bed. Scooting up/down in bed x2: mod assist of one with 2 hands under patients arms to support behind shoulders, with verbal cues to bend knees and verbal countdown to prompt patient to assist. ? Sit-stand x7: mod assist of one at gait belt as well as to stabilize walker.? Stand-sit x7: mod assist of one to block feet from sliding out from under patient, as patient seems to experience some knee extension spasticity upon sitting. ? Bed-Chair: min assist of one at gait belt and mod assist from another to steer / control walker. ? Chair-bed: min assist of one at gait belt and mod assist from another to steer / control walker. ? Provided skilled cues and instruction on performance and technique throughout. ASSESSMENT:? Patient tolerates therapy well, no reported increase in pain. Patient to receive a full bed change at the end of treatment session. PLAN: Continue global strengthening per plan of care. As patient continues to clear cognitively, emphasize gait training and walker usage/safety. TREATMENT CODE/TIME: 14 minutes beginning at 13:23 and 28 minutes beginning at 14:29 for a total of 42 minutes this afternoon (81 minutes total today, morning session was with DPApril Richardson)
[2023-08-23 15:34] VITALS: BP 100/63; PULSE 80; RESP 18; TEMP 36.8; O2SAT 93
[2023-08-23] MEDS: Mirtazapine 15 MG TAB PO (21:37)
[2023-08-23] MEDS: OLANZapine 5 MG TAB PO (21:37)
[2023-08-23] MEDS: Melatonin 3 MG TAB PO (21:37)
[2023-08-23 23:34] VITALS: BP 124/84; PULSE 101; RESP 20; TEMP 36.9; O2SAT 94
[2023-08-24] MEDS: Polyethylene Glycol 3350 17 GM PACKET PO (07:45)
[2023-08-24] MEDS: Nystatin 500000 UNITS/5 ML SUSP 5ML CUP PO ×3 (07:45→20:00)
[2023-08-24] MEDS: Sucralfate 1 GM TAB PO ×4 (07:45→21:15)
[2023-08-24] MEDS: Gabapentin 100 MG CAP PO ×2 (07:45→19:59)
[2023-08-24] MEDS: Protein Nutritional Supplement 16 GM 1 OUNCE PACKET PO ×3 (07:45→20:00)
[2023-08-24] MEDS: Docusate Sodium 100 MG CAP PO ×2 (07:46→20:00)
[2023-08-24] MEDS: Cyanocobalamin 500 MCG TAB 1000 MCG PO (07:46)
[2023-08-24] MEDS: OLANZapine 2.5 MG TAB PO (07:46)
[2023-08-24] MEDS: Pantoprazole 40 MG TABCR PO ×2 (07:46→19:59)
[2023-08-24] MEDS: Amoxicillin 875/Clav. 125 TAB PO ×2 (07:46→19:59)
[2023-08-24 07:47] VITALS: BP 106/73; PULSE 97; RESP 17; TEMP 36.6; O2SAT 92
--- NOTE | 2023-08-24 09:36 | PT.INTREAT ---
Date of service: 08/24/23 Time of Service: 09:00 PT Notes Visit Reasons: Altered Mental Status Inpatient Physical Therapy Treatment Note [facility] Date: 08/24/2023 PRECAUTIONS: Fall, standard, activity as tolerated. Orthopedic shoes on when OOB. SUBJECTIVE: Patient seems less clear today than when this clinician saw her yesterday. Only answers some questions, mostly with noises or single words. C/o pain all of my bones are broken, especially my head and also states 3x during therapy session that she doesn't feel well. Requests to use commode. AFTERNOON: Patient is much clearer than this morning, alert and able to engage in conversations appropriately and with complete sentences throughout session. OBJECTIVE: Supine in bed. PROPERTY MAINTENANCE SUPERVISOR Jayne present. Agreeable to therapy. ? PAIN: yes. MITRA Sunshine notified. VITALS: monitored by nursing staff. Therapeutic Activities ([id number]): Direct one-on-one instruction in dynamic activities to improve functional performance. ? BED MOBILITY/TRANSFERS? Rolling L/R: mod assist of two, or mod assist of one with max verbal and tactile cues. Supine-sit: max assist of two, or mod assist of one with max verbal and tactile cues as well as extended time. ? Sit-supine: max assist of two, dependent for scooting up in bed. ? Sit-stand: mod assist of one or min assist of two? Stand-sit: mod assist of two to ensure safety, as patient's feet kick out away from her when she attempts to sit causing her to perch precariously. ?Bed-Chair: min assist of one at gait belt, mod assist of another to steer walker and help patient keep walker within a safe distance to her body. ?Chair-bed: not assessed. Provided skilled cues and instruction on performance and technique throughout. Gait Training ([id number]): Direct one-on-one instruction and skilled instruction in: [x] employing an assistive device [] modified weight-bearing status [x] movement sequencing [x] turning and movement with proper form [x] Provided verbal cues for equipment management and technique [x] Provided instruction in gait pattern [] Patient education regarding pacing and breathing techniques to maximize activity tolerance? GAIT? Assistive Device: FWW ? Weight bearing: full Assist: mod assist of two with one person steering walker and keeping it close to the patient's body, as well as verbal and tactile cues to advance left leg forward and out to limit adduction spasticity and scissoring, as well as verbal and tactile cues for posture, other person providing assist at gait belt and wheelchair follow. ? Distance:? 25 feet AFTERNOON: 70 feet ? Deviation: Patient pushes walker too far forward despite continuous cues / mod assist. Demonstrates step to gait pattern with left leg leading, scissoring, hips turned nearly 90 degrees to the right away from walker. AFTERNOON: Patient is much more capable of keeping walker within safe distance for the majority of afternoon ambulation, hips pointed forward, less scissoring noted. As she fatigues, patient requires more consistent cueing for posture and walker usage. ? ASSESSMENT:? Patient tolerates therapy well, no report of pain nor dyspnea. PLAN: Continue global strengthening per plan of care until patient obtains safe discharge plan. TREATMENT CODE/TIME: 33 minutes at 9:00 and 36 minutes at 13:35 for a total of 69 minutes today.
[2023-08-24] MEDS: Acetaminophen Solution 650 MG/20.3 ML CUP PO (09:51)
--- NOTE | 2023-08-24 15:38 | CMACTNOTE_ITS ---
Date of service: 08/24/23 Time of Service: 15:42 Care Management Activity Note Activity Note Text Activity Note Text: Mellisa was sitting up in her chair when CM met with her. She is listening to music, which is something she does often and enjoys. Mellisa is very happy when she has visitors, such as her , Curtis, and her brother, Hung. Mellisa has been working with PT daily, and did exceptionally well today, per PT. She walked 70 feet with minimal assistance. Per nursing and other staff, her cognition is improving as well. Hung, Mellisa's brother, has applied for guardianship, which was just granted yesterday. Hung plans to visit next week for Mellisa's birthday, and will provide the guardianship paperwork at that time. CM continues to look for SNF placement for Mellisa; she has been making progress with PT toward her goals while on SWB1 at [facility]. CM will continue to follow.
[2023-08-24] MEDS: OLANZapine 5 MG TAB PO (21:14)
[2023-08-24] MEDS: Mirtazapine 15 MG TAB PO (21:14)
[2023-08-24] MEDS: Melatonin 3 MG TAB PO (21:14)
[2023-08-25 06:35] LABS: Abs Immature Grans 0.04 10^3/uL (0.0-0.06); Absolute Basophil Count 0.04 10^3/uL (0.0-0.2); Absolute Eosinophil Count 0.27 10^3/uL (0.0-0.7); Absolute Lymphocyte Count 1.31 10^3/uL (1.2-3.4); Absolute Monocyte Count 0.74 10^3/uL (0.1-0.8); Basophils % 0.5; Eosinophils % 3.3; HCT 35.4 % (36.0-46.0); HGB 11.8 g/dL (11.2-15.7); Immature Grans % 0.5; Lymphocytes % 16.2; MCHC 33.3 % (32.0-36.0); MCV 90 fL (80-95); MPV 9.3 fL (8.0-11.0); Monocytes % 9.1; Neutrophils % 70.4; Platelet Count 304 10^3/uL (130-400); RBC 3.93 10^6/uL (3.93-5.22); RDW 13.3 % (11.7-14.6); RDW-SD 44.4 fL
[2023-08-25 06:50] LABS: Anion Gap 9.3 mmol/L (3-11); BUN 19 mg/dL (7-18); CO2 26.7 mmol/L (21.0-32.0); CREATININE 0.5 mg/dL (0.55-1.02); Calcium 8.8 mg/dL (8.5-10.1); Chloride 105 mmol/L (98-107); Estimated GFR 98.97 (mL/min/1.73m2); Glucose 117 mg/dL (74-106); Potassium 3.5 mmol/L (3.5-5.1); Sodium 141 mmol/L (136-145)
[2023-08-25 07:57] VITALS: BP 112/70; PULSE 81; RESP 17; TEMP 36.5; O2SAT 93
[2023-08-25] MEDS: Nystatin 500000 UNITS/5 ML SUSP 5ML CUP PO ×2 (08:02→20:10)
[2023-08-25] MEDS: Protein Nutritional Supplement 16 GM 1 OUNCE PACKET PO ×3 (08:02→20:10)
[2023-08-25] MEDS: OLANZapine 2.5 MG TAB PO (08:03)
[2023-08-25] MEDS: Cyanocobalamin 500 MCG TAB 1000 MCG PO (08:04)
[2023-08-25] MEDS: Amoxicillin 875/Clav. 125 TAB PO ×2 (08:04→20:10)
[2023-08-25] MEDS: Gabapentin 100 MG CAP PO ×2 (08:04→20:10)
[2023-08-25] MEDS: Docusate Sodium 100 MG CAP PO (08:05)
[2023-08-25] MEDS: Sucralfate 1 GM TAB PO ×3 (08:05→22:07)
[2023-08-25] MEDS: Pantoprazole 40 MG TABCR PO ×2 (08:06→20:10)
--- NOTE | 2023-08-25 11:07 | W.PM.PROGNOT ---
Date of Service Date of service: 08/25/23 Time of Service: 11:07 Assessment and Plan Assessment and plan (1) Pneumonia: Status: Acute Assessment and plan: Suspected d/t aspiration, no oxygen requirement Started on Augmentin until 08/27/23. Today no leukocytosis and afebrile Adding probiotics (2) Upper GI bleed: Status: Acute Assessment and plan: CBC remains stable No further evidence of hematemesis/ coffee ground emesis Continue PPI and carafate (3) Contraindication to deep vein thrombosis (DVT) prophylaxis: Status: Acute Assessment and plan: GIB no further Lovenox TEDs ordered (4) Delirium: Status: Acute Assessment and plan: Virtual consult with psychiatry completed with following recommendations Continue oral zyprexa 2.5 mg q am and 5 mg q hs Continue mirtazapine. Continue PRN trazodone for insomnia Continue gabapentin 100 mg PO BID for anxiety. EKG completed w/o evidence of QT prolongation CBC completed Neuro consult : If no improvement , LP tap was an option. But d/t noticeable improvement will proceed without the LP.. (5) Urinary retention: Status: Acute Assessment and plan: Urology consult completed: Continue to encourage the patient to void independently, as this seem to be effective Will continue intermittent catheterization Q12 hrs, as patient is most likely not having high urinary pressures w/o MAYITO Will continue scheduled voiding trials PVR documentation post void/ bladder scan Q12 PRN (6) History of cerebral palsy: Assessment and plan: Followed by [facility] as OPT and will ontinue PT/OT. (7) Diarrhea: Status: Acute Assessment and plan: Continue PRN loperamide. On probiotics. (8) Discharge planning issues: Status: Acute Assessment and plan: As per CM d/t improvement new referrals to be send out Guardianship obtained by brother, papers to be forwarded to [facility] Subjective Subjective Patient reports: no new complaints, feels better, tolerating liquids well, tolerating a regular diet, voiding w/o difficulty, flatus and bowel movement; denies diarrhea, blood in stool, nausea, vomiting, shortness of breath or fever Exam Narrative Exam Narrative: Constitutional The patient is in bed comfortable and cooperative during the interview. The patient is well groomed without acute distres, follows command HENMT: Head is atraumatic w/o lymphadenopathy. Facial structures are with normal appearance Eyes: conjugated gaze, some of the external eye movement still intact Neuro:alert and oriented to self, person, place ([facility]), time (2023) and to situation somewhat. No neurological focal deficit Chest:Chest is symmetrical and normal appearance Resp: Normal respiratory pattern, speaks in full sentences, unlabored breathing, clear lung bilaterally Cardio: regular rhythm, S1, S2, no murmur, bilateral radial and dorsalis pedis pulses are positive, palpable GI: Abdomen is not distended, soft and non tender, bowel sounds are present : Negative Costovertebral angle tenderness Back/spine/Pelvis: No back tenderness Integumentary: No skin lesions or rash Extremities: strength 3/5 to bilateral lower and upper extremities on pull and push Psych: RASS 0, congruent mood and normal- elated affect. Objective Last Vital Signs Temp 36.5 C 08/25/23 07:57 Pulse 81 08/25/23 07:57 Resp 17 08/25/23 07:57 BP 112/70 08/25/23 07:57 Pulse Ox 93 08/25/23 07:57 Laboratory Results - last 24 hr 08/25/23 06:20 WBC 8.10 RBC 3.93 Hgb 11.8 Hct 35.4 L MCV 90 MCH 30.0 MCHC 33.3 RDW 13.3 Plt Count 304 MPV 9.3 Immature Gran % 0.5 Neutrophils % 70.4 Lymphocytes % 16.2 Monocytes % 9.1 Eosinophils % 3.3 Basophils % 0.5 Nucleated RBC % 0.0 Absolute Neutrophils 5.70 Absolute Lymphocytes 1.31 Absolute Monocytes 0.74 Absolute Eosinophils 0.27 Absolute Basophils 0.04 Sodium 141 Potassium 3.5 Chloride 105 Carbon Dioxide 26.7 Anion Gap 9.3 BUN 19 H Creatinine 0.5 L Est GFR (CKD-EPI 2020) 98.97 Glucose 117 H Calcium 8.8 Time Spent with Patient Time Spent with Patient: >50 minutes Time was spent: preparing to see the patient(eg.review tests), ordering medications,tests, procedures, referring, communicating with other health vision care associate, indepentently interpreting results, counseling the patient and care coordination
--- NOTE | 2023-08-25 13:45 | PT.INTREAT ---
Date of service: 08/25/23 Time of Service: 09:20 PT Notes Visit Reasons: Altered Mental Status Inpatient Physical Therapy Treatment Note [facility] Date: 08/25/2023 PRECAUTIONS: Fall, standard, activity as tolerated. Orthopedic shoes for all OOB activity. SUBJECTIVE: Patient appears alert and engaged. Speech is harder to understand today, and patient gets frustrated with having to repeat herself multiple times. AFTERNOON: Patient's speech is much clearer than this morning, she appears alert and in a good mood. Requests a snack. Excitedly asks if she can have peanut butter. LAUREN Jones approves maryanne cracker and peanut butter snack. OBJECTIVE: Supine in bed. Agreeable to therapy. DAWIT Godoy also present. AFTERNOON: Supine in bed, agreeable to get up to bedside chair for her snack. ? PAIN: None reported or observed. VITALS: monitored by nursing staff.? Therapeutic Activities ([id number]): Direct one-on-one instruction in dynamic activities to improve functional performance. ? BED MOBILITY/TRANSFERS? Rolling L/R: min assist Supine-sit: min assist of 2, with one clinician moving patient's legs and the other supporting her shoulders until she is able to find her balance.? AFTERNOON: very minimal assist of one via handhold with extended time? Sit-supine: not assessed ? Sit-stand: CGA to min assist AFTERNOON: CGA ? Stand-sit: CGA AFTERNOON: CGA? Bed-Chair: CGA to min assist steering walker ?AFTERNOON: CGA. Patient able to steer her own walker. ? Chair-bed: not assessed Provided skilled cues and instruction on performance and technique throughout. Gait Training ([id number]): Direct one-on-one instruction and skilled instruction in: [x] employing an assistive device [] modified weight-bearing status [x] movement sequencing [x] turning and movement with proper form [x] Provided verbal cues for equipment management and technique [x] Provided instruction in gait pattern [] Patient education regarding pacing and breathing techniques to maximize activity tolerance? GAIT? Assistive Device: fww ? Weight bearing: full Assist: SBA to mod assist to steer walker (patient's control of walker worsens markedly as patient fatigues) and CGA at gait belt provided by this clinician, CGA to min assist at gait belt and wheelchair follow provided by DAWIT Godoy? Distance:? 60 feet ? Deviation: Patient struggles with scissoring of legs more this morning than yesterday afternoon, but still far improved over yesterday morning. Patient is able to steer her own walker with 90% accuracy for the first 45 feet. As the patient fatigues, her posture worsens, she starts to push the walker too far in front, her left leg internally rotates, her right leg lags behind.? ASSESSMENT:? Patient tolerates therapy well, no c/o pain, no dyspnea. Patient verbally agrees that her back felt tired at end of treatment session. PLAN: Continue global strengthening per plan of care, progress gait training as patient's cognition continues to clear. Patient would benefit from continued skilled care short term to optimize her physical and cognitive outcomes. TREATMENT CODE/TIME: 23 minutes beginning at 9:20 and 16 minutes beginning at 15:11 for a total of 39 minutes today.
[2023-08-25] MEDS: Melatonin 3 MG TAB PO (22:07)
[2023-08-25] MEDS: Mirtazapine 15 MG TAB PO (22:07)
[2023-08-25] MEDS: OLANZapine 5 MG TAB PO (22:07)
[2023-08-26 07:39] VITALS: BP 118/75; PULSE 87; RESP 16; TEMP 36.8; O2SAT 95
[2023-08-26] MEDS: Gabapentin 100 MG CAP PO ×2 (07:41→21:14)
[2023-08-26] MEDS: Protein Nutritional Supplement 16 GM 1 OUNCE PACKET PO ×3 (07:41→21:15)
[2023-08-26] MEDS: Nystatin 500000 UNITS/5 ML SUSP 5ML CUP PO ×3 (07:41→21:14)
[2023-08-26] MEDS: Polyethylene Glycol 3350 17 GM PACKET PO (07:41)
[2023-08-26] MEDS: Cyanocobalamin 500 MCG TAB 1000 MCG PO (07:41)
[2023-08-26] MEDS: Pantoprazole 40 MG TABCR PO ×2 (07:42→21:14)
[2023-08-26] MEDS: OLANZapine 2.5 MG TAB PO (07:42)
[2023-08-26] MEDS: Amoxicillin 875/Clav. 125 TAB PO ×2 (07:42→21:14)
[2023-08-26] MEDS: Docusate Sodium 100 MG CAP PO ×2 (07:42→21:14)
[2023-08-26] MEDS: Sucralfate 1 GM TAB PO ×4 (07:43→21:14)
--- NOTE | 2023-08-26 11:53 | PTTR_ITS ---
Date of service: 08/26/23 Time of Service: 11:35 PT Notes Visit Reasons: Altered Mental Status Inpatient Physical Therapy Treatment Note [facility] Date: 08/26/23 PRECAUTIONS: Fall, standard, activity as tolerated. Orthopedic shoes for all OOB activity. SUBJECTIVE: Patient is found attempting to put her arms through loops on her fidget mat. Easily redirected. OBJECTIVE: Patient is supine in bed, agreeable to therapy. [place] alarm in place and active.? PAIN: none reported or observed. VITALS: monitored by nursing staff Therapeutic Activities ([id number]): Direct one-on-one instruction in dynamic activities to improve functional performance. ? BED MOBILITY/TRANSFERS? Rolling L/R: not assessed Supine-sit: mod assist via handhold so that patient can pull herself up, min assist to get hips scooted forward such that patient is able to sit EOB.? Sit-supine: not assessed ? Sit-stand: min assist at gait belt to shift patient forward far enough to gain her balance. ? Stand-sit: CGA with max verbal and tactile cues? Bed-Chair: min assist of one to aid patient steering walker, keep weight forward while patient backs up to chair. Patient appears that she would tip over backwards without min assist. ? Chair-bed: not assessed Provided skilled cues and instruction on performance and technique throughout. ASSESSMENT:? Reactivated [place] alarm. Patient sitting up in chair for lunch. RESEARCH AND DEVELOPMENT DIRECTOR Jayne alerted. PLAN: Continue global strengthening per plan of care until patient is medically cleared for discharge. TREATMENT CODE/TIME: 16 minutes beginning at 11:35
[2023-08-26] MEDS: OLANZapine 5 MG TAB PO (21:15)
[2023-08-26] MEDS: Melatonin 3 MG TAB PO (21:15)
[2023-08-26] MEDS: Mirtazapine 15 MG TAB PO (21:15)
[2023-08-27 07:26] VITALS: BP 114/81; PULSE 81; RESP 17; TEMP 36.6; O2SAT 93
[2023-08-27] MEDS: Gabapentin 100 MG CAP PO ×2 (07:35→22:04)
[2023-08-27] MEDS: Sucralfate 1 GM TAB PO ×4 (07:35→22:04)
[2023-08-27] MEDS: Amoxicillin 875/Clav. 125 TAB PO ×2 (07:35→22:03)
[2023-08-27] MEDS: Pantoprazole 40 MG TABCR PO ×2 (07:35→22:04)
[2023-08-27] MEDS: Cyanocobalamin 500 MCG TAB 1000 MCG PO (07:36)
[2023-08-27] MEDS: Docusate Sodium 100 MG CAP PO ×2 (07:36→22:04)
[2023-08-27] MEDS: OLANZapine 2.5 MG TAB PO (07:36)
[2023-08-27] MEDS: Protein Nutritional Supplement 16 GM 1 OUNCE PACKET PO ×3 (07:37→22:19)
[2023-08-27] MEDS: Nystatin 500000 UNITS/5 ML SUSP 5ML CUP PO ×3 (07:37→22:04)
[2023-08-27] MEDS: Polyethylene Glycol 3350 17 GM PACKET PO (07:37)
--- NOTE | 2023-08-27 14:04 | PT.INTREAT ---
Date of service: 08/27/23 Time of Service: 13:34 PT Notes Visit Reasons: Altered Mental Status Inpatient Physical Therapy Treatment Note [facility] Date: 08/27/23 PRECAUTIONS: Fall, standard, activity as tolerated. Orthopedic shoes for all OOB activity. SUBJECTIVE: Patient reports that she needs to go to the bathroom. Appears alert. Oriented to person, place, purpose. Perseverates on seeing her Curtis. Speech is very clear today. OBJECTIVE: Sitting up in recliner, agreeable to therapy after transfer to/from [facility]. ? PAIN: none reported or observed. VITALS: monitored by nursing staff. ? Therapeutic Activities ([id number]): Direct one-on-one instruction in dynamic activities to improve functional performance. ? BED MOBILITY/TRANSFERS? Rolling L/R: setup and verbal cues Supine-sit: not assessed? Sit-supine: mod x2, one person raising feet over EOB, the other controlling trajectory of shoulders/trunk/head.? Sit-stand: mod x1 or min x2 at gait belt. Patient pushes back harder today than recent sessions with this clinician, has more trouble getting her weight forward. ?Stand-sit: CGA x2 at gait belt with max verbal cues ? Bed-Chair: not assessed ? Chair-bed: mod assist to steer walker, min assist to weight shift, max verbal and tactile cues to ensure patient is lined up safely, is close enough to the bed, etc. Patient attempts x2 to sit before being close enough to the bed. Provided skilled cues and instruction on performance and technique throughout. ASSESSMENT:? Patient reports fatigue this date. LAUREN Guy observes that this time of day is hard for this patient - earlier in the morning, patient has more energy, and later in the afternoon / evening patient rejuvenates, but the hours immediately following lunch patient's performance is reduced. This clinician has observed a similar pattern. PLAN: Continue global strengthening per plan of care until patient obtains a safe discharge plan. Patient would benefit from a short stay at a SNF to continue to regain functional activity tolerance. TREATMENT CODE/TIME: 27 minutes beginning at 13:34
[2023-08-27] MEDS: Melatonin 3 MG TAB PO (22:03)
[2023-08-27] MEDS: OLANZapine 5 MG TAB PO (22:04)
[2023-08-27] MEDS: Mirtazapine 15 MG TAB PO (22:04)
[2023-08-28 08:06] VITALS: BP 103/65; PULSE 97; RESP 17; TEMP 36; O2SAT 92
[2023-08-28] MEDS: Gabapentin 100 MG CAP PO ×2 (09:02→21:53)
[2023-08-28] MEDS: Docusate Sodium 100 MG CAP PO ×2 (09:02→21:54)
[2023-08-28] MEDS: Protein Nutritional Supplement 16 GM 1 OUNCE PACKET PO ×3 (09:02→21:53)
[2023-08-28] MEDS: Sucralfate 1 GM TAB PO ×4 (09:02→21:53)
[2023-08-28] MEDS: Pantoprazole 40 MG TABCR PO ×2 (09:02→21:54)
[2023-08-28] MEDS: Cyanocobalamin 500 MCG TAB 1000 MCG PO (09:02)
[2023-08-28] MEDS: OLANZapine 2.5 MG TAB PO (09:02)
[2023-08-28] MEDS: Nystatin 500000 UNITS/5 ML SUSP 5ML CUP PO ×3 (09:02→21:53)
[2023-08-28] MEDS: Polyethylene Glycol 3350 17 GM PACKET PO (09:03)
--- NOTE | 2023-08-28 14:06 | PTTR_ITS ---
PT Notes Visit Reasons: Altered Mental Status Physical Therapy Swing Bed Level I Treatment Note Date: 08/28/2022 PRECAUTIONS: Fall. Standard. Activity as tolerated. Orthopedic shoes on when OOB. SUBJECTIVE: Happy to see PT and agreeable to go for a walk. Brother Hung and Vielka asked how patient has been doing. Objective: General Observation: In bed resting when PT came in. CM Apryl, brother Hung and at tail end of what appears to be a meeting. Mental Status: Able to follow single step commands. Alert but needed redirection and frequent cueing throughout session. Focus impaired, requires frequent redirection to tasks and to conversation topic. More able to verbalize appropriate responses. Pain: No verbal and non-verbal expression of pain received/observed.? Vital Signs: Closely monitored by nursing staff Bed Mobility/Transfers: Moderate to maximal cues given for movement sequence, safety, and AD management for activities below. Supine to sit moderate assist Sit to supine minimal assist of 2 Sit to stand minimal assist Stand to sit minimal assist Sit to supine minimal assist of 2 Scoot up in bed moderate assist of 2 Gait: 40 feet from bedside to hallway + 15 feet + 55 feet with minimal maneuvering of walker by PT to reduce fall risk. DAIWT Farias provided CGA assist, Vielka helped with wheelchair follow as she wanted to see how patient does. Step width improving with 1-2 successions now of advancing L LE forward and out to the side. Cueing required to increase abduction on the L hip to minimize scissoring gait diminishing. Step height and length asymmetric and remains unsafe. Nurse Dalia's cueing in front as well as Nurse Tanner's engagement provided meaningful encouragement for patient throghout the walk. Balance: Static Sitting: Good Dynamic Sitting: Fair Static Standing: Fair Dynamic Standing: Poor ASSESSMENT: Gait pattern improving with step width increasing and incidence of scissoring diminishing. Engagement and motivation are a lot better with visual cueing and verbal cueing by another person in front. Continues to require assist of 2 for safety. Plan of Care/Treatment Plan: 1-2x/day, 7 days/week x 1 week. Plan of care has been reviewed with the SAP DIRECTOR providing the service under Physical Therapy direction. Initiate Physical Therapy intervention for pain management as needed, strengthening, bed mobility, transfers, gait, stairs, balance training, and use of assistive device. -STRENGTHENING FOCUS: B hip abductors, trunk/hip extensors to minimize scissoring and allow for a safer gait pattern. DISCHARGE RECOMMENDATIONS: [] Home with no services [] [] Home with services [specify] [] Home with outpatient PT [] [X] SNF for continued rehabilitation. Patient will benefit from senior living facility placement for continued skilled physical therapy services in order to progress mobility level, strength, and balance in preparation for a safe discharge to home. [] [employer] Teacher Care [] [] SNF versus LTC based on ability to participate and progress [] TREATMENT CODE/TIME: 09604 x 31 minutes for 2 units beginning at 14:06 PM.
[2023-08-28] MEDS: Melatonin 3 MG TAB PO (21:53)
[2023-08-28] MEDS: Mirtazapine 15 MG TAB PO (21:54)
[2023-08-28] MEDS: OLANZapine 5 MG TAB PO (21:54)
[2023-08-29 07:47] VITALS: BP 111/68; PULSE 73; RESP 17; TEMP 36.2; O2SAT 92
[2023-08-29] MEDS: Sucralfate 1 GM TAB PO ×4 (08:02→21:16)
[2023-08-29] MEDS: Docusate Sodium 100 MG CAP PO ×2 (08:02→21:15)
[2023-08-29] MEDS: Pantoprazole 40 MG TABCR PO ×2 (08:02→21:15)
[2023-08-29] MEDS: Cyanocobalamin 500 MCG TAB 1000 MCG PO (08:02)
[2023-08-29] MEDS: Protein Nutritional Supplement 16 GM 1 OUNCE PACKET PO ×3 (08:03→21:15)
[2023-08-29] MEDS: Gabapentin 100 MG CAP PO ×2 (08:03→21:16)
[2023-08-29] MEDS: Polyethylene Glycol 3350 17 GM PACKET PO (08:03)
[2023-08-29] MEDS: OLANZapine 2.5 MG TAB PO (08:03)
--- NOTE | 2023-08-29 13:15 | PTTR_ITS ---
Date of service: 08/29/23 Time of Service: 12:55 PT Notes Visit Reasons: Altered Mental Status Inpatient Physical Therapy Treatment Note [facility] Date: 08/29/22 PRECAUTIONS: Fall, standard, activity as tolerated. Orthopedic shoes for all OOB mobility. SUBJECTIVE: Patient's speech somewhat less clear today than previous therapy treatments with this clinician. Has moments of clear speech and moments of slurred, incomprehensible speech approximately 50/50 today. Patient appears alert and agreeable. OBJECTIVE: Supine in bed, agreeable to therapy. HUMAN GEOGRAPHY INSTRUCTOR present for assist. ? PAIN: none reported or observed. VITALS: monitored by nursing staff.? Therapeutic Activities ([id number]): Direct one-on-one instruction in dynamic activities to improve functional performance. ? BED MOBILITY/TRANSFERS? Rolling L/R: min assist at hip and lower extremity, with max verbal and tactile cueing Supine-sit: min assist to steady feet - patient would shift one leg towards EOB, this clinician would stabilize that leg while patient moves other leg etc to prevent adduction spasticity from limiting progress. Mod handhold assist for patient to pull herself up, with mod to max verbal cueing for limb placement, encouragement. ? Sit-supine: not assessed ? Sit-stand: min assist of one with verbal and tactile cueing for patient to push up from sitting surface rather than pulling up from walker. Mod assist if patient insists on pulling up from walker. ? Stand-sit: min to mod assist for weight shift to back up to sitting surface, max verbal and tactile cues. Patient responds best to sing-song voice when cueing in reverse. ? Bed-Chair: min assist of 2 with max verbal cues? Chair-bed: min assist of 2 with max verbal cues Patient ambulates 20 feet within room, gait is worse than yesterday, patient is clearly fatigued. Posture very poor. Pushing walker too far ahead, due to poor posture induced by fatigue which patient is unable to correct with verbal and tactile cues. Provided skilled cues and instruction on performance and technique throughout. ASSESSMENT:? Patient presents with significant fatigue this date. Ambulation cut short due to patient's fatigue, confusion. PLAN: Continue global strengthening per plan of care until patient obtains safe discharge plan. TREATMENT CODE/TIME: 14 minutes beginning at 12:55
--- NOTE | 2023-08-29 16:46 | CHAPLAIN ---
Today is Mellisa's birthday. Her brother Lamberto and his were visiting this morning. Mellisa seemed very happy to seem and talk about her birthday day. She's been here nearly a month and seemed more animated and like her usual self this morning than I have seen her. she talked about wanting to see her , Surya. Someone is bringing him into visit today. I will continue to visit.
[2023-08-29] MEDS: Acetaminophen Solution 650 MG/20.3 ML CUP PO (21:14)
[2023-08-29] MEDS: Melatonin 3 MG TAB PO (21:15)
[2023-08-29] MEDS: OLANZapine 5 MG TAB PO (21:15)
[2023-08-29] MEDS: Mirtazapine 15 MG TAB PO (21:16)
[2023-08-30 07:40] VITALS: BP 103/66; PULSE 70; RESP 14; TEMP 36.9; O2SAT 96
[2023-08-30] MEDS: Sucralfate 1 GM TAB PO ×3 (09:36→20:25)
[2023-08-30] MEDS: OLANZapine 2.5 MG TAB PO (09:36)
[2023-08-30] MEDS: Pantoprazole 40 MG TABCR PO ×2 (09:36→20:25)
[2023-08-30] MEDS: Protein Nutritional Supplement 16 GM 1 OUNCE PACKET PO ×2 (09:36→15:03)
[2023-08-30] MEDS: Docusate Sodium 100 MG CAP PO ×2 (09:36→20:25)
[2023-08-30] MEDS: Gabapentin 100 MG CAP PO ×2 (09:36→20:24)
[2023-08-30] MEDS: Cyanocobalamin 500 MCG TAB 1000 MCG PO (09:37)
--- NOTE | 2023-08-30 11:43 | PT.INTREAT ---
Date of service: 08/30/23 Time of Service: 11:11 PT Notes Visit Reasons: Altered Mental Status Inpatient Physical Therapy Treatment Note [facility] Date: 08/30/23 PRECAUTIONS: Fall, standard, activity as tolerated. Orthopedic shoes on for all OOB activity. SUBJECTIVE: Patient initially seems very cognitively clear today, and remains clear for most of today's session with brief intermittent periods of incomprehensible speech. OBJECTIVE: Patient supine in bed, agreeable to therapy. ? PAIN: none reported or observed. VITALS: monitored by nursing staff. Therapeutic Activities ([id number]): Direct one-on-one instruction in dynamic activities to improve functional performance. ?? Rolling L/R: min assist at hip and lower extremity, with max verbal and tactile cueing Supine-sit: min assist to steady feet - patient would shift one leg towards EOB, this clinician would stabilize that leg while patient moves other leg etc to prevent adduction spasticity from limiting progress. Mod handhold assist for patient to pull herself up, with mod to max verbal cueing for limb placement, encouragement. Sit-supine: not assessed ? Sit-stand: min assist of one with verbal and tactile cueing for patient to push up from sitting surface rather than pulling up from walker. Mod assist if patient insists on pulling up from walker. ? Stand-sit: min to mod assist for weight shift to back up to sitting surface, max verbal and tactile cues. Patient responds best to sing-song voice when cueing in reverse. ? Bed-Chair: min assist of 1 with max verbal cues? Chair-bed: min assist of 1 with max verbal cues Patient attempts ambulation today, appears to lose track of what she is trying to do after approximately 5 feet. 25 feet in total, much of which was spent trying to redirect patient who becomes agitated when this clinician restircts how far ahead patient can push her walker. Agitation diminishes when clinician adopts sing-song voice for cues, greets patient again by name. Provided skilled cues and instruction on performance and technique throughout. ASSESSMENT:? Patient tolerates therapy well, is sitting up in bedside chair at close of session with ZARI alarm in place and active. RN notified that patient is up in chair. Patient tolerates sitting in chair better when feet are left in dependent position, rather than elevating foot rest. PLAN: Continue global strengthening, gait training to patient tolerance per plan of care until patient obtains safe discharge plan. TREATMENT CODE/TIME: 30 minutes beginning at 11:11
--- NOTE | 2023-08-30 14:52 | CHAPLAIN ---
Mellisa was sitting up in bed when I visited. She had taken some stitches and knitting off the knitting needles she had and was using them like drum sticks on the blanket. She asked me if I know how to drum. I put her book in front of her so she could drum on that. She also twirled the needles around some. Mellisa asked me if Surya, her was coming in to visit today, but I didn't know the answer to that. I will continue to visit.
--- NOTE | 2023-08-30 14:59 | PT.INTREAT ---
PT Notes Visit Reasons: Altered Mental Status Date: 08/30/2023 PRECAUTIONS: Fall. Standard. Activity as tolerated. Orthopedic shoes on when OOB. SUBJECTIVE: pt in bed when approached for therapy this morning, pt having conversation with herself, pleasantly confused, pt able to follow simple one word commands. OBJECTIVE: in bed, agreed to participating with therapy ? PAIN: No reports of pain offered. BED MOBILITY/TRANSFERS? Rolling L/R: max verbal and tactile cue Supine-sit: mod A requiring bed movement to help with transition Sit to supine: supervision? Sit-stand: CGA for tactile cue ?and foot block ? Stand-sit: CGA ?Repositioning in bed post session max A ? Provided skilled cues and instruction on performance and technique throughout. Therapeutic Activities [id number] 25mins (pm): instruction in dynamic activities with one on one patient contact by the provider to improve functional performance?as follows: sit to stand CGA A 6x Static standing weight shifting 3mins increments 5x Static sitting without back rest 2mins increments 5x Standing marching with max tactile cue for BLE elevation, and guidance with FWW to prevent AD from getting too far. Standing with pt holding therapist hand while weight shifting/180* turns CW/CCW ASSESSMENT:? pt very responsive today and was able to initiate BUE push up during upward movement in bed, pt able to weight shift during standing had no episodes of LOB. pt getting a little bit irritated and was returned to bed to get pt safe in bed. PLAN: Continue to work on improved bed mobility and ambulation control. TREATMENT CODE/TIME: [id number] 25mins (2:25-2:50pm)
--- NOTE | 2023-08-30 18:39 | DSE_ITS ---
Date of service: 08/31/23 Time of Service: 09:00 DS: Diagnosis Discharge Diagnosis (1) Pneumonia: Status: Acute (2) Upper GI bleed: Status: Acute (3) Contraindication to deep vein thrombosis (DVT) prophylaxis: Status: Acute (4) Delirium: Status: Acute (5) Urinary retention: Status: Acute (6) History of cerebral palsy: (7) Diarrhea: Status: Acute Discharge Plan Disposition [facility] Dis[facility] Condition: Stable Discharge Details Reason For Visit: Altered Mental Status Admit Date/Time: 08/18/23 11:33 Admit Provider: Ludy Rodgers Attending Provider: Saad Uribe Primary Care Provider: Sarah Schwab Hospital Course Hospital Course: This is a 72-year-old female patient with a past medical history significant for cerebral palsy, tubular adenoma, urinary tract infection who presented to the emergency department initially with an altered mental status. Initially was thought to be due to a urinary tract infection versus stroke but this was treated successfully and she did not return to her baseline. Stroke work-up was negative. She was transferred to the [facility] ([facility] for inpatient psychiatric management after medical etiology was ruled out. She returned here for discharge planning as she was still not safe for discharge to home. While here under [facility] level care she developed worsening altered mental status again and was found to have a urinary tract infection which was treated again.She had a neurology consult and a negative MRI, and an EEG showing not acute focci for epilepsy but only pointing to encephalopathic changes versus metabolic processes. A virtual psychiatric consult was obtained and pharmocological adjustements made to her drugs.Neurology also recommended a cerebrospinal fluid tap in the event that psychiatric medicine adjustment did not result in any improvement. She improved and did return to what appears to be a new baseline for her and she was unable to safely be discharged back to home independently. Case management has been working with her and referrals placed for inpatient rehabilitation with acceptance at [facility] in [facility]. Her hospital course here was complicated with urinary retention. She was seen by urology, Dr. Torre, with the following recommendations. Try to avoid an ticholinergic medicnes and minimize psychiatric medications that cause urinary retention. Also try to avoid constipation. Dr. Torre did not recommend chronic indwelling Hanna catheter as she is at higher risk for UTI and urosepsis. Recommended intermittent clean catheterization when needed starting with as needed regimen of catheterizing 3-4 times daily if volumes greater than 500ml and unable to void or uncomfortable. Urology also recommended behavioral modifications such as bladder training and scheduled toileting which started to be effective. Consideration for suprapubic catheter for skilled nursing catheterization if previously mentioned interventions were to fail. Did not recommend it treatment for asymptomatic bacteriuria in postmenopausal women. She also had 1 episode of coffee-ground emesis. She was started on pantoprazole and Carafate remained hemodynamically stable with stable H&H. She responded well to medical management and will defer further outpatient workup to her primary care provider upon discharge from rehabilitation. She has remained medically stable she is eating and drinking bowels and bladder functioning no behavioral disturbances. Today, she is being transported to [facility] for ongoing skilled rehabilitation with the hopes of returning home. Discharge discussed with Dr. Hansen Home Meds and New Rx's Prescriptions: New sucralfate 1 gram Tablet 1 g PO AC & HS Qty: 0 0RF pantoprazole 40 mg Tablet,Delayed Release (Dr/Ec) 40 mg PO BID@ Qty: 0 0RF Continued nystatin 100,000 unit/gram powder 1 applic topical BID PRN metronidazole [Metrogel] 1 % gel 1 applic topical DAILY (DME) Gloria Adult Brief Misc See Rx Instructions .Route Rx Instructions: As directed ibuprofen 200 mg tablet 400 mg PO Q8H PRN cholecalciferol (vitamin D3) 50 mcg (2,000 unit) capsule 50 mcg PO DAILY risperidone 0.25 mg tablet 0.25 mg PO BID olanzapine 5 mg tablet,disintegrating 7.5 mg PO BID PRN melatonin 3 mg tablet extended release 3 mg PO .COMPLEX Rx Instructions: 3 mg orally With Evening Meal; mirtazapine 15 mg tablet 15 mg PO QHS polyethylene glycol 3350 [ClearLax] 17 gram/dose powder 17 g PO DAILY trazodone 50 mg tablet 75 mg PO HS PRN olanzapine [Zyprexa] 5 mg tablet 5 mg PO QHS olanzapine [Zyprexa] 2.5 mg tablet 2.5 mg PO DAILY gabapentin 100 mg capsule 100 mg PO BID cyanocobalamin (vitamin B-12) 1,000 mcg capsule 1,000 mcg PO DAILY docusate sodium [Colace] 100 mg capsule 100 mg PO BID Bio-K plus 50 billion cell capsule,delayed release(DR/EC) 1 cap PO DAILY Proheal Liquid Protein .QDAILY acetaminophen [Aphen] 325 mg tablet 650 mg PO Q6H PRN albuterol sulfate 2.5 mg /3 mL (0.083 %) solution for nebulization 2.5 mg inhalation Q2H PRN Rx Instructions: until breathing returns to target peak flow/parameters Metamucil 3.4 gram/5.4 gram powder 1 tbsp PO DAILY Qty: 660 12RF Rx Instructions: mix into at least 8 oz of water or juice before administering potassium chloride 20 mEq Packet 20 meq PO QMEALS Qty: 0 0RF lorazepam 1 mg Tablet 1 mg PO QID PRN PRNQty: 0 0RF Discharge Instructions Instructions: Acute Delirium (DC), Acute Urinary Retention in Women (ED) Stand Alone Forms: Nursing Discharge Form Referrals: Sarah Schwab MD [Primary Care Provider] - (Upon discharge from rehabilitation) Activity:: Activity as Tolerated Equipment/Supplies:: No Equipment Needed Diet:: As Tolerated Discharge Orders Discharge Orders: Discharge Order (Routine); Ordered 08/31/23 Ordered By: Kae Rosales Discharge Data Discharge Date/Time-TO BE ENTERED AT DEPARTURE: 08/31/23 11:00 DS: Summary Time Spent with Patient providing and/or coordinating discharge services: Greater than 30 minutes Status at Discharge Functional status at discharge: uses cane/walker Overall status at discharge: patient is progressing back to baseline Mental Status: mental status grossly normal Speech and Movement: speech and movement normal Mood: congruent mood Affect: normal affect and anxious affect Quality:SDOH Health Related Social Needs: No Data to Display Exam Narrative Exam Narrative: Constitutional The patient is in recliner comfortable and cooperative during the interview. The patient is well groomed without acute distress, follows commands HENMT: Head is atraumatic w/o lymphadenopathy. Facial structures are with normal appearance Eyes: conjugated gaze at times , external eye movements intact with cues during exam Neuro:alert and oriented to self, person, place , time (2023) and situation; remains forgetful of details. No focal neurological deficits noted Chest:Chest is symmetrical and normal appearance Resp: Normal respiratory pattern, clear lung bilaterally Cardio: regular rhythm, S1, S2, no murmur, positive pulses to all 4 extremities GI: Abdomen is large, not distended, soft and non tender, bowel sounds are present : Negative Costovertebral angle tenderness Back/spine/Pelvis: No back tenderness Integumentary: No skin lesions or rash Extremities: strength 3/5 to bilateral lower and upper extremities on pull and push Psych: RASS 0, congruent mood and normal- to anxious affect with the perspective of leaving today Psych Mental Status: mental status grossly normal Speech and Movement: speech and movement normal Mood: congruent mood Affect: normal affect and anxious affect DS: Data Vitals/I&O Vitals and I&O: Vital Signs Temperature 36.9 C 08/30/23 07:40 Temperature Source Tympanic 08/30/23 07:40 Pulse 70 08/30/23 07:40 Pulse Rhythm Regular 08/30/23 09:46 Respiratory Rate 14 08/30/23 07:40 Respiratory Effort Normal, Non-Labored 08/30/23 09:46 Respiratory Depth Normal 08/30/23 09:46 Respiratory Pattern Normal 08/30/23 09:46 Blood Pressure 103/66 08/30/23 07:40 Pulse Oximetry 96 08/30/23 07:40 Oxygen Delivery Method Room Air 08/30/23 07:40 Oxygen Flow Rate 0 08/30/23 07:40 Pain Level 0 08/30/23 07:40 Comment bp notified to rn over radio 08/22/23 07:23 Intake & Output 08/29/23 08/30/23 08/30/23 23:59 11:59 23:59 Intake Total 220 / 220 240 / 240 Output Total 1948 466 / 466 Balance -1729 / -1729 -226 / -226 Intake: Oral 220 / 220 240 / 240 Output: Urine 1948 466 / 466 Other: Urine Color Yellow Urine Appearance Clear Urine Odor Normal Comment [phone] pT dry, and sat her on the commode. pT did no void. Stool Size Large Stool Characteristics Soft Brown Voiding Methods Diaper Bedside Commode Incontinent PFSH All Active Problems (Updated 09/01/23 @ 00:04 by CYNTHIA MEHTA) Contraindication to deep vein thrombosis (DVT) prophylaxis (Acute) Upper GI bleed (Acute) Pneumonia (Acute) Diarrhea (Acute) Encephalopathy acute (Acute) Palliative care patient (Acute) Discharge planning issues (Acute) Altered mental status (Acute) Ataxia (Acute) UTI (urinary tract infection) (Acute) Risk for falls (Acute) On deep vein thrombosis (DVT) prophylaxis (Acute) Failure to thrive in adult (Acute) Palliative care encounter (Acute) ACP (advance care planning) (Acute) Constipation (Acute) Urinary retention (Acute) Hypokalemia (Acute) Delirium (Acute) Facial droop (Acute) Cerebral palsy (Acute) Gait instability (Acute) Dysarthria (Acute) Pyuria (Acute) Tubular adenoma (Acute ~01/2023) Medical History History of head injury (~1988) Vitamin A deficiency Strabismus GERD (gastroesophageal reflux disease) Hyperlipidemia Arthritis of spine Osteopenia Obesity Urinary incontinence Prediabetes Club foot History of adenomatous polyp of colon History of cerebral palsy Surgical History History of colonoscopy with polypectomy (~01/2023) 2022 2011 2006 Leg - childhood Social History Smoking/Tobacco Use Status: Former Tobacco Use Quit Date: 08/21/02 Smoking risk assessment performed?: Yes Alcohol Intake: never Substance use type: does not use Housing: other Do you feel safe at home: Yes Do you feel safe in your relationship?: Yes Additional Social history: Lives with Surya in apartment on [address] [place] [facility] Time Spent with Patient Time Spent with Patient: >85 minutes Time was spent: preparing to see the patient(eg.review tests), ordering medications,tests, procedures, referring, communicating with other health multi care technician, indepentently interpreting results, counseling the patient and care coordination
[2023-08-30] MEDS: Melatonin 3 MG TAB PO (20:25)
[2023-08-30] MEDS: OLANZapine 5 MG TAB PO (20:25)
[2023-08-30] MEDS: traZODone 50 MG TAB 75 MG PO (20:25)
[2023-08-30] MEDS: Mirtazapine 15 MG TAB PO (20:26)
[2023-08-31 07:02] VITALS: BP 106/69; PULSE 79; RESP 16; TEMP 35.2; O2SAT 96
[2023-08-31] MEDS: Gabapentin 100 MG CAP PO (07:55)
[2023-08-31] MEDS: Protein Nutritional Supplement 16 GM 1 OUNCE PACKET PO (07:55)
[2023-08-31] MEDS: Polyethylene Glycol 3350 17 GM PACKET PO (07:55)
[2023-08-31] MEDS: OLANZapine 2.5 MG TAB PO (07:55)
[2023-08-31] MEDS: Sucralfate 1 GM TAB PO (07:55)
[2023-08-31] MEDS: Pantoprazole 40 MG TABCR PO (07:55)
[2023-08-31] MEDS: Docusate Sodium 100 MG CAP PO (07:55)
[2023-08-31] MEDS: Cyanocobalamin 500 MCG TAB 1000 MCG PO (07:55)
--- NOTE | 2023-08-31 08:53 | PTTR_ITS ---
PT Notes Visit Reasons: Altered Mental Status Date: 08/31/2023 PRECAUTIONS: Fall. Standard. Activity as tolerated. Orthopedic shoes on when OOB. SUBJECTIVE: pt in bed when approached for therapy this morning, pt very alert and responsive, was able to converse with appropriate response. OBJECTIVE: in bed, agreed to participating with therapy ? PAIN: No reports of pain offered. BED MOBILITY/TRANSFERS? Rolling L/R: min verbal and tactile cue Supine-sit: min A requiring bed movement to help with transition Sit to supine: supervision? Sit-stand: CGA for tactile cue ?and foot block ? Stand-sit: CGA ? Provided skilled cues and instruction on performance and technique throughout. Therapeutic Activities [id number] 25mins (pm): instruction in dynamic activities with one on one patient contact by the provider to improve functional performance?as follows: sit to stand CGA A 6x Static standing weight shifting 3mins increments 5x Static sitting without back rest 2mins increments 5x Standing marching with max tactile cue for BLE elevation, and guidance with FWW to prevent AD from getting too far. Standing with pt holding therapist hand while weight shifting/180* turns CW/CCW Gait training going from EOb to room recliner 15' with FWW min A for AD redire ction Setp A for recliner movement upwards min A ASSESSMENT:? pt very responsive today and was able to initiate BUE push up during upward movement in recliner, pt very calm and alert, did not get ir ritated the entire duration of session, richi alarm activated post session. PLAN: possible DC this afternoon SNF. TREATMENT CODE/TIME: [id number] 25mins (8:25-8:50am)
--- NOTE | 2023-08-31 08:56 | W.PM.DS.N ---
Date of service: 08/31/23 Time of Service: 08:56 DS: Diagnosis Discharge Diagnosis (1) Pneumonia: Status: Acute (2) Upper GI bleed: Status: Acute (3) Contraindication to deep vein thrombosis (DVT) prophylaxis: Status: Acute (4) Delirium: Status: Acute (5) Urinary retention: Status: Acute (6) History of cerebral palsy: (7) Diarrhea: Status: Acute Discharge Plan Disposition Patient Disposition: Alf Facility(SNF) Condition: Stable Discharge Details Reason For Visit: Altered Mental Status Admit Date/Time: 08/18/23 11:33 Admit Provider: Ludy Rodgers Attending Provider: Saad Uribe Primary Care Provider: Sarah Schwab Hospital Course Hospital Course: This is a 72-year-old female patient with a past medical history significant for cerebral palsy tubular adenoma urinary tract infection who presented to the emergency department initially with an altered mental status. Initially was thought to be due to a urinary tract infection but this was treated successfully and she did not return to her baseline. She was transferred to the [facility] ([facility] for inpatient psychiatric management after medical etiology was ruled out. She returned here for discharge planning as she was still not safe for discharge to home. While here under [facility] level care she developed worsening altered mental status again and was found to have a urinary tract infection which was treated again. She did return to what appears to be a new baseline for her and she is unable to safely be discharged back to home independently. Case management has been working with her and referrals placed for inpatient rehabilitation with acceptance at [facility] in [facility]. Her hospital course here was complicated with urinary retention. She was seen by urology with the following recommendations. Try to avoid anticholinergic Genex and minimize psychiatric medications that do cause urinary retention. Also try to avoid constipation. Dr. Torre did not recommend chronic indwelling Hanna catheter as she is at higher risk for UTI and urosepsis. Recommends intermittent clean catheterization when needed starting with a room regimen of catheterizing 3-4 times daily if volumes greater than 500 and unable to void or uncomfortable. Consideration for suprapubic catheter for correction catheterization. Does not recommend it treatment for asymptomatic bacteriuria in postmenopausal women. She also had 1 episode of coffee-ground emesis. She was started on pantoprazole and Carafate remained hemodynamically stable with stable H&H. She responded well to medical management and will defer further outpatient workup to her primary care provider upon discharge from rehabilitation. She has remained medically stable she is eating and drinking bowels and bladder functioning no behavioral disturbances. She is being transported to [facility] for ongoing skilled rehabilitation with the hopes of returning home. Discharge discussed with Dr. Hansen Home Meds and New Rx's Prescriptions: New sucralfate 1 gram Tablet 1 g PO AC & HS Qty: 0 0RF pantoprazole 40 mg Tablet,Delayed Release (Dr/Ec) 40 mg PO BID@07,1999 Qty: 0 0RF Continued nystatin 100,000 unit/gram powder 1 applic topical BID PRN metronidazole [Metrogel] 1 % gel 1 applic topical DAILY (DME) Gloria Adult Brief Misc See Rx Instructions .Route Rx Instructions: As directed ibuprofen 200 mg tablet 400 mg PO Q8H PRN cholecalciferol (vitamin D3) 50 mcg (2,000 unit) capsule 50 mcg PO DAILY risperidone 0.25 mg tablet 0.25 mg PO BID olanzapine 5 mg tablet,disintegrating 7.5 mg PO BID PRN melatonin 3 mg tablet extended release 3 mg PO .COMPLEX Rx Instructions: 3 mg orally With Evening Meal; mirtazapine 15 mg tablet 15 mg PO QHS polyethylene glycol 3350 [ClearLax] 17 gram/dose powder 17 g PO DAILY trazodone 50 mg tablet 75 mg PO HS PRN olanzapine [Zyprexa] 5 mg tablet 5 mg PO QHS olanzapine [Zyprexa] 2.5 mg tablet 2.5 mg PO DAILY gabapentin 100 mg capsule 100 mg PO BID cyanocobalamin (vitamin B-12) 1,000 mcg capsule 1,000 mcg PO DAILY docusate sodium [Colace] 100 mg capsule 100 mg PO BID Bio-K plus 50 billion cell capsule,delayed release(DR/EC) 1 cap PO DAILY Proheal Liquid Protein .QDAILY acetaminophen [Aphen] 325 mg tablet 650 mg PO Q6H PRN albuterol sulfate 2.5 mg /3 mL (0.083 %) solution for nebulization 2.5 mg inhalation Q2H PRN Rx Instructions: until breathing returns to target peak flow/parameters Metamucil 3.4 gram/5.4 gram powder 1 tbsp PO DAILY Qty: 660 12RF Rx Instructions: mix into at least 8 oz of water or juice before administering potassium chloride 20 mEq Packet 20 meq PO QMEALS Qty: 0 0RF lorazepam 1 mg Tablet 1 mg PO QID PRN PRNQty: 0 0RF Discharge Instructions Instructions: Acute Delirium (DC), Acute Urinary Retention in Women (ED) Referrals: Sarah Schwab MD [Primary Care Provider] - (Upon discharge from rehabilitation) Activity:: Activity as Tolerated Equipment/Supplies:: No Equipment Needed Diet:: As Tolerated DS: Summary Quality:SDOH Health Related Social Needs: No Data to Display DS: Data Vitals/I&O Vitals and I&O: Vital Signs Temperature 36.9 C 08/30/23 07:40 Temperature Source Tympanic 08/30/23 07:40 Pulse 70 08/30/23 07:40 Pulse Rhythm Regular 08/30/23 21:30 Respiratory Rate 14 08/30/23 07:40 Respiratory Effort Normal, Non-Labored 08/30/23 21:30 Respiratory Depth Normal 08/30/23 21:30 Respiratory Pattern Normal 08/30/23 21:30 Blood Pressure 103/66 08/30/23 07:40 Pulse Oximetry 96 08/30/23 07:40 Oxygen Delivery Method Room Air 08/30/23 07:40 Oxygen Flow Rate 0 08/30/23 07:40 Pain Level 0 08/30/23 07:40 Comment bp notified to rn over radio 08/22/23 07:23 Intake & Output 08/30/23 08/30/23 08/31/23 11:59 23:59 11:59 Intake Total 780 / 780 Output Total 466 / 466 0 / 0 Balance 314 / 314 0 / 0 Intake: Oral 780 / 780 Output: Urine 466 / 466 0 / 0 Other: Urine Color Yellow Urine Odor Normal Comment pt wanted to use the commode, no void p.t dry Voiding Methods Diaper Bedside Commode Incontinent PFSH All Active Problems (Updated 08/25/23 @ 11:10 by Kae Rosales APRN) Contraindication to deep vein thrombosis (DVT) prophylaxis (Acute) Upper GI bleed (Acute) Pneumonia (Acute) Diarrhea (Acute) Encephalopathy acute (Acute) Palliative care patient (Acute) Discharge planning issues (Acute) Altered mental status (Acute) Ataxia (Acute) UTI (urinary tract infection) (Acute) Risk for falls (Acute) On deep vein thrombosis (DVT) prophylaxis (Acute) Failure to thrive in adult (Acute) Palliative care encounter (Acute) ACP (advance care planning) (Acute) Constipation (Acute) Urinary retention (Acute) Hypokalemia (Acute) Delirium (Acute) Facial droop (Acute) Cerebral palsy (Acute) Gait instability (Acute) Dysarthria (Acute) Pyuria (Acute) Tubular adenoma (Acute ~01/2023) Medical History History of head injury (~1988) Vitamin A deficiency Strabismus GERD (gastroesophageal reflux disease) Hyperlipidemia Arthritis of spine Osteopenia Obesity Urinary incontinence Prediabetes Club foot History of adenomatous polyp of colon History of cerebral palsy Surgical History History of colonoscopy with polypectomy (~01/2023) 2022 2011 2006 Leg - childhood Social History Smoking/Tobacco Use Status: Former Tobacco Use Quit Date: 08/21/02 Smoking risk assessment performed?: Yes Alcohol Intake: never Substance use type: does not use Housing: other Do you feel safe at home: Yes Do you feel safe in your relationship?: Yes Additional Social history: Lives with Surya in apartment on [address] [place]
--- NOTE | 2023-08-31 10:34 | PDOC.CMDIS ---
Date of service: 08/31/23 Time of Service: 10:34 LACE Index Scoring Tool Questions: Length of Stay (in days): 14 or more Was the patient admitted via the E.D.?: No E.D. Visits: 1 Answers: Total Score: 8 Risk of Readmission: Low Risk Care Management Discharge Plan Reason for Hospitalization: Altered mental status Discharge Plan: Mellisa will transfer to [facility] for continued short term rehab today. She will plan to transition to [facility] once a bed becomes available. She was transported via [facility] w[facility] van, coordinated by DANTE. She will follow up with her PCP and discharge plan of care. CM discussed this plan with Mellisa and her guardian/brother, Hung, who were both in agreement. DANTE submitted her [facility] salvage determiner NIRAJ application, which was completed prior to Mellisa discharging. Patient/Family Education Needs: Review discharge instructions and limitations, discussion of self care needs including ask me three. Services Needed at Discharge: [facility] Facility ([facility]) and Transportation ([facility] w/c [employer]) [facility] Health Related Social Needs: No Data to Display
--- NOTE | 2023-08-31 17:29 | CHAPLAIN ---
Mellisa was transferred to [facility] in [place], [place] today after being here for about a month. She asked me to stay with her until she left. She talked about her birthday yesterday and her brother's visit. At one point she said My mom wants to know where I'm going. Most of the time she was talking about things in the present. I encouraged her to find out what activities she could participate in at [facility] and to let staff know that that she likes to do crafts. The [employer] and I packed up here things and she left about 11:00 am with [facility].
== END 2023-08-31 11:00 | disposition skilled nursing facility (03) | DRG 70 ==
PROVIDERS: Nurse Practitioner Acute Care; Admitting Provider Nurse Practitioner Acute Care; PCP Family Medicine; Visit Provider Internal Medicine
DX: G93.40 Encephalopathy, unspecified (principal); J69.0 Pneumonitis due to inhalation of food and vomit; F05 Delirium due to known physiological condition; K92.0 Hematemesis; R33.9 Retention of urine, unspecified; R27.0 Ataxia, unspecified; R19.7 Diarrhea, unspecified; G80.9 Cerebral palsy, unspecified; Z91.81 History of falling; R62.7 Adult failure to thrive; K59.00 Constipation, unspecified; R29.810 Facial weakness; R47.1 Dysarthria and anarthria; K21.9 Gastro-esophageal reflux disease without esophagitis; M85.80 Other specified disorders of bone density and structure, unspecified site; R73.03 Prediabetes; E78.5 Hyperlipidemia, unspecified; E50.9 Vitamin A deficiency, unspecified; M47.9 Spondylosis, unspecified; Z68.31 Body mass index [BMI] 31.0-31.9, adult
CPT/HCPCS: 00123; 36415; 80048; 87637; 97110; 97116; 97162; 97530; 99306; 99309; 99316; J1650; 71046; 85025; 85610; 99233; J7613